=== PATIENT | male | born 1945 | race Caucasian/White ===

== ENCOUNTER 2019-02-14 09:34 | Inpatient (IN) ==
--- OUTSIDE RECORDS SUMMARY | 2019-02-14 09:36 | External Medical Summary | Continuity of Care Document ---
:1945 Author Name Shellie MMike Address Unavailable Unavailable , Care Team Providers Name Role Phone Unavailable Unavailable Unavailable Problems Hypertension (401.9) (I10) Gout (274.9) (M10.9) Allergies and Adverse Reactions Lisinopril TABS (Allergy) Penicillins (Allergy) Medications Albuterol Sulfate (2.5 MG/3ML) 0.083% In halation Nebulization Solution; USE DIRECTED. , M.D. Refills: 0 Allopurinol 300 MG Oral Tablet; TAKE 1 TABLET DAILY. , M.D. Refills: 0 Atorvastatin Calcium 80 MG Oral Tablet; TAKE 1 TABLET AT BED TIME. , M.D. Refills: 0 Citalopram Hydrobromide 40 MG Oral Tablet; TAKE 1/2 TABLET D TAMMY. , M.D. Refills: 0 Clopidogrel Bisulfate 75 MG Oral Tablet; TAKE 1 TABLET DAILY . , M.D. Refills: 0 hydroCHLOROthiazide 25 MG Oral Tablet; TAKE 1 TABLET DAILY. , M.D. Refills: 0 HYDROcodone-Acetaminophen 5-325 MG Oral Tablet; 1 TAB PO TWICE DAILY NEEDED FOR PAIN , M.D. Refills: 0 Aspirin 325 MG Oral Tablet; TAKE 1 TABLET DAILY. , M.D. Refills: 0 Cyanocobalamin TABS , M.D. Refills: 0 guaiFENesin 200 MG Oral Tablet; TAKE 3 TABLET Twice daily SC N , M.D. Refills: 0 Sildenafil Citrate TABS; TAKE 100 MG PRN , M.D. Refills: 0 Procedures Procedures not documented Immunizations Immunizations not documented Plan of Treatment Planned Observations Planned Goals not documented Results No Known Results Results not documented
[2019-02-14] MEDS ORDERED: SODIUM CHLORIDE 0.9% 1000ML 250 ML IV ONE (10:16)
[2019-02-14 10:52] LABS: Basophils # (auto) 0.04 K/uL (0-0.2); Basophils % (auto) 0.4 %; Eosinophils # (auto) 0.22 K/uL (0-0.5); Eosinophils % (auto) 2.2 %; Hematocrit (blood only) 47.7 % (42-52); Hemoglobin 16.7 g/dL (14.0-18.0); Immature Granulocytes # (auto) 0.02 K/uL (0.00-0.02); Immature Granulocytes % (auto) 0.2 %; Lymphocytes # (auto) 2.48 K/uL (1.2-3.4); Lymphocytes % (auto) 25.3 %; Mean Platelet Volume 9.1 fL (7.4-10.4); Monocytes # (auto) 0.72 K/uL (0.11-0.59); Monocytes % (auto) 7.3 %; Neutrophils # (auto) 6.32 K/uL (1.4-6.5); Neutrophils % (auto) 64.6 %; Platelet Count 205 K/uL (130-400); RDW Coefficient of Variation 13.9 % (11.5-14.5); RDW Standard Deviation 44.8 fL (36.4-46.3); Red Blood Count 5.42 M/uL (4.7-6.1)
[2019-02-14 10:56] LABS: Appearance Urine Cloudy (Clear); Bilirubin Urine Negative (Negative); Blood Urine 3+ (Negative); Color Urine Brown; Glucose Urine UA Negative (Negative); Ketones Urine Negative (Negative); Leukocyte Esterase Urine Trace (Negative); Nitrite Urine Negative (Negative); Protein Urine 2+ (Negative); Urobilinogen Urine Negative (Negative); pH Urine 5.5 (4.5-7.5)
[2019-02-14 11:03] LABS: RBC Urine >30 /hpf (0-4); WBC Urine >30 /hpf (0-5)
[2019-02-14 11:04] LABS: Bacteria Urine 1+ (Negative); Mucus Urine Present (None Prsent)
[2019-02-14 11:11] LABS: Alanine Aminotransferase 19 U/L (12-78); Albumin Level 3.5 gm/dl (3.4-5.0); BUN Creatinine Ratio 11.4 (10-20); Bilirubin Direct < 0.1 mg/dl (0-0.2); Blood Urea Nitrogen 10 mg/dl (7-18); Calcium 8.5 mg/dl (8.5-10.1); Carbon Dioxide 27 mmol/L (21-32); Chloride 108 mmol/L (98-107); Est GFR (African American) 97.4; Glucose 84 mg/dl (70-99); Potassium 4.2 mmol/L (3.5-5.1); Sodium 140 mmol/L (136-145)
[2019-02-14 11:21] LABS: Partial Thromboplastin Ratio 0.9; Partial Thromboplastin Time 25.4 Seconds (21.0-31.0)
[2019-02-14 11:27] LABS: Alkaline Phosphatase 76 U/L (45-117); Aspartate Aminotransferase 16 U/L (15-37); Bilirubin,Total 0.5 mg/dl (0.2-1); Total Protein 7.3 gm/dl (6.4-8.2)
[2019-02-14] MEDS ORDERED: IOVERSOL 100ml IV PRN (11:41)
--- NOTE | 2019-02-14 12:04 | CT Scan Report ---
CT SCAN OF THE ABDOMEN AND PELVIS WITH IV CONTRAST CLINICAL HISTORY: Hematuria. Reported history of bladder cancer. COMPARISON STUDY: No priors. TECHNIQUE: Following the IV administration of 94 cc of Optiray 320, CT scan of the abdomen and pelvi s is performed from the lung bases to the proximal femora. Images are reviewed in the axial, sagittal , and coronal planes. IV contrast was administered without complication. A dose lowering technique wa s utilized adhering to the principles of ALARA. CT DOSE: 773.84 mGy.cm FINDINGS: Lung bases: The heart is normal in size and without pericardial effusion. There are coronary artery c alcifications. Emphysematous change is noted at the lung bases. A pleural-based calcification is note d in the right lower lobe. There is no airspace consolidation or pleural effusion. A 4 mm groundglass nodule at the right lung base is seen on image #77. There is a tiny hiatal hernia. Liver: The contrast-enhanced liver is normal in size, contour, and attenuation. There is no intrahepa tic biliary ductal dilatation. The hepatic veins and portal veins are patent. Gallbladder: Unremarkable. Spleen: Normal in size and attenuation. Pancreas: The pancreas is mildly atrophic. Scattered calcifications are noted in the pancreatic head. Adrenal glands: Unremarkable. Kidneys: The contrast enhanced kidneys demonstrate cortical atrophy. The kidneys enhance symmetricall y. There is a 12 mm obstructing calculus in the distal right ureter at the vesicoureteral junction se en on image #338. Additionally, there is a second 10 mm obstructing right ureteral calculus just prox imal to the vesicoureteral stone seen on image #325. These cause moderate to severe right hydroureter onephrosis. There is associated perinephric and periureteric stranding. There is urothelial thickenin g and enhancement seen within the distal right ureter. No additional calculi are clinical data identi fied in either kidney on this contrast-enhanced examination. There is no left-sided hydronephrosis. S cattered subcentimeter cortical hypodensities likely represent cysts but are too small for definitive characterization. Abdominal vasculature: There is advanced atherosclerotic plaque seen throughout the abdominal aorta. There is ectasia of the distal abdominal aorta which measures up to 2.8 cm.. Bowel: There is moderate to advanced colonic diverticulosis without CT evidence of acute diverticulit is. No bowel obstruction is seen. There are large duodenal diverticula. The appendix is well-visuali zed and normal. Peritoneum: There is no intraperitoneal free air or abdominal ascites. Lymphadenopathy: A prominent portacaval node measures 11 mm in short axis. There is no retroperitonea l, pelvic sidewall, or inguinal lymphadenopathy. Pelvic viscera: Evaluation of the pelvis is degraded by streak artifact from a left hip arthroplasty. The prostate gland is enlarged and heterogeneous, noting median lobe hypertrophy. The bladder wall i s thickened and trabeculated indicating chronic outlet obstruction. Mild asymmetric bladder wall thic kening is suggested posterior lesion on the right near the trigone. A small bladder diverticulum is s een posteriorly on the left. Skeletal structures: The skeletal structures are osteopenic. There is moderate lumbosacral spondylosi s. No lytic or blastic lesions are seen. A left hip arthroplasty is in place. IMPRESSION: 1. There are 2 large obstructing calculi identified in the distal right ureter measuring 12 mm and 10 mm. These cause moderate to severe right hydroureteronephrosis. 2. No additional renal calculi are clearly identified. 3. There is right-sided perinephric and periureteric stranding, as well as urothelial thickening and enhancement within the distal right ureter. This findings are likely related to obstruction/hydroneph rosis. Correlate clinically and with urinalysis for evidence of superimposed infection. 4. Prostatomegaly with evidence of chronic bladder outlet obstruction. 5. There is asymmetric bladder wall thickening suggested posteriorly on the right near the trigone. T his may be related to edema from adjacent obstructing kidney stones. Given the history of bladder can cer neoplasm is not excluded. Nonemergent follow-up with urology is recommended. 6. Moderate to advanced colonic diverticulosis without CT evidence of acute diverticulitis. 7. A 4 mm groundglass nodule seen at the right lung base. If clinically warranted, a dedicated chest CT could be considered for further assessment of the thorax. 8. Additional findings as above. Electronically signed by: Martinez Castaneda M.D. 02/14/2019 12:03 PM
[2019-02-14] MEDS ORDERED: CEFEPIME 2,000 MG/20 ML VIAL IV STA (12:19)
--- NOTE | 2019-02-14 13:17 | XRay Report ---
XR chest 1V portable CLINICAL HISTORY: Preoperative chest. Nephrolithiasis. COMPARISON STUDY: 01/23/2014 FINDINGS: The cardiac and mediastinal contours are normal. There is no evidence of focal pulmonary co nsolidation. There is no evidence of failure. No pleural effusions are visualized.[There areas of y[place]o ear atelectasis/scarring within the left mid to lower lung zone. IMPRESSION: No active disease in the chest. Electronically signed by: Shivam Martinez M.D. 02/14/2019 1:16 PM
--- NOTE | 2019-02-14 13:18 | Urology Consultation ---
Date of Consultation February 14, 2019 Assessment & Plan (1) Hematuria: (2) Ureteral stone: 73yo M with gross hematuria, large distal left ureteral stones and severe right hydronephrosis. Pt is currently stable, nontoxic appearing. He has been NPO all day. UC&S pending. He states his hematuria is "very dark" with each void. Currently without any pain. Findings reviewed with Dr. Chaparro. Given his history of bladder cancer in the context of an obstructing right ureteral stone, will proceed with OR for cysto, Right retrograde pyelogram and Right stent placement, possible ureteroscopy, laser litho, stone basketing, possible ureteral dilation depending on findings. Risks and benefits to be reviewed with patient by Dr. Chaparro. OR notified. Preoperative CXR and EKG ordered. Pt received cefepime IV in the ER. History of Present Illness Reason for Consultation: ureteral stones, hydro Requesting Physician: Dr. Melo [facility] History of Present Illness 73yo M with Hx of bladder cancer cared for by the DC presented to [facility] ED today for complaint of gross hematuria x2 days. Hx of right groin pain 2-3 weeks ago, resolved spontaneously. CT imaging reveals two large right distal ureteral stones and moderate to severe right hydro, ARCE. UA + bacteria, WBC and RBCs. He denies any fever/chills/n/v. He denies any LUTS. Denies any suprapubic or bladder discomfort presently. Nocturia x1 He does not take any meds for BPH Remote hx of stones, spontaneous passage > 10 years ago. Cared for by the DC for bladder cancer, diagnosed last Fall. Treated with 6 treatments of BCG. He states his last scope in 2019 was clear, planned for next scope in May 2019. Allergies Allergy/AdvReac Type Severity Reaction Status Date / Time lisinopril Allergy Severe THROAT Verified 02/14/19 12:22 CLOSES Penicillins Allergy Unknown . Unverified 02/14/19 12:22 Home Medications Home Medications Medication Instructions Recorded Confirmed Type albuterol sulfate 2 puff INHALATION Q4H PRN 02/14/19 02/14/19 History amlodipine 10 mg PO DAILY 02/14/19 02/14/19 History aspirin 325 mg PO DAILY 02/14/19 02/14/19 History budesonide-formoterol 2 puff INHALATION Q12H 02/14/19 02/14/19 History clopidogrel 75 mg PO DAILY 02/14/19 02/14/19 History Patient History Medical History Hematuria (Acute) Hydronephrosis (Acute) Ureteral stone (Acute) History of stroke Bladder cancer HTN (hypertension) (Chronic) COPD (chronic obstructive pulmonary disease) Surgical History History of hip surgery Left Social History Beliefs That Will Affect Care: None Current Living Situation: Family Feels Safe at Home: Yes Smoking Status: Current every day smoker Hx Alcohol Use: Yes Hx Substance Use: No Review of Systems Review of Systems: Constitutional: Denies fever, chills, sweats, malaise Eyes: Denies problem reported ENMT: Denies dizziness Resp: Denies cough, Denies shortness of breath CV: Denies JVD GI: Denies nausea/vomiting : Denies suprapubic or flank pain, dysuria, urgency, frequency, hematuria MS: Denies swelling, stiffness Integ: Denies rash, erythema Neuro: Denies falls, weakness Psych: Denies behavior change Endo: Denies polyphagia, polydipsia Heme: Denies easy bleeding Physical Exam Constitutional: no acute distress and not ill appearing Eyes: no nystagmus ENMT: Ears: no hearing impairment Neck: trachea midline Respiratory: no respiratory distress and no cough Cardiovascular: Vessels: no JVD Chest (Breasts): Chest: normal inspection of chest Gastrointestinal (Abdomen): Inspection/Auscultation: abdomen not distended and no abdominal edema Percussion/Palpation: abdomen soft; abdomen nontender Musculoskeletal: Head/Neck/Chest: normocephalic and head atraumatic Skin: no rashes, warm and dry Neurologic: awake; not confused and not obtunded Psychiatric: Orientation: alert and oriented x 3 Eye Contact: good eye contact Affect: no depressed affect Genitourinary: bladder normal to inspection; no CVA tenderness Lymphatic: no lymphadenopathy and no lymphedema Results & Data Vital Signs (Past 12 Hours) Vital Signs Temp Pulse Pulse Resp BP BP Pulse Ox 02/14/19 12:48 79 20 181/109 H 97 08/12/19 09:49 36.6 C 74 20 174/91 H 93
--- NOTE | 2019-02-14 13:23 | History & Physical Bridge Note ---
Date of Service February 14, 2019 History & Physical Bridge Note I have examined the patient, reviewed the History & Physical and in the interval since the performance of the History & Physical I have noted the following changes of clinical significance: no changes noted Cystoscopy with right stent and poss ureterosocpy
--- NOTE | 2019-02-14 13:29 | Anesthesiology Consultation ---
Date of Service February 14, 2019 Assessment & Plan (1) Encounter for pre-operative examination: Chart Review Chart Review: Acceptable Risk for Surgery and Patient NOT seen in Pre Admission Testing Consults Requested none ASA ASA3 Proposed Anesthesia Anesthesia Type: MAC Risk / Benefits Reviewed With: PT / POA / Parent / Guardian, Accepts Plan and Informed Consent Obtained History Surgery Operation Date: 02/14/19 12:35 Proposed Procedures p Cystoscopy, Possible Ureterscopy with Stent - Pepe Chaparro II, DO Height/Weight Height: 5 ft 6 in Weight: 85.4 kg Allergies Allergy/AdvReac Type Severity Reaction Status Date / Time lisinopril Allergy Severe THROAT Verified 02/14/19 12:22 CLOSES Penicillins Allergy Unknown . Unverified 02/14/19 12:22 Medications Home Medications Medication Instructions Recorded Confirmed Last Taken albuterol sulfate 2 puff INHALATION Q4H PRN 02/14/19 02/14/19 Unknown amlodipine 10 mg PO DAILY 02/14/19 02/14/19 Unknown aspirin 325 mg PO DAILY 02/14/19 02/14/19 Unknown budesonide-formoterol 2 puff INHALATION Q12H 02/14/19 02/14/19 Unknown clopidogrel 75 mg PO DAILY 02/14/19 02/14/19 Unknown Active Medications Generic Name Dose Route Start Last Admin Trade Name Freq PRN Reason Stop Dose Admin Ioversol 94 ml 02/14/19 11:41 02/14/19 11:42 Optiray 320 100ml IV 02/18/19 11:40 94 ml ONCE PRN Administration Interaction Checking NPO Date Last Intake of Fluids: 02/14/19 Time Last Intake of Fluids: 06:00 Date Last Intake of Solids: 02/13/19 Time Last Intake of Solids: 16:00 Past Medical History Medical History Hematuria (Acute) Hydronephrosis (Acute) Ureteral stone (Acute) History of stroke Bladder cancer HTN (hypertension) (Chronic) COPD (chronic obstructive pulmonary disease) Past Surgical History Surgical History History of hip surgery Left Social History Smoking Status: Current every day smoker Review of Systems Negative for chest pain or shortness of breath. Patient denies active symptoms of GERD. Physical Exam Vital Signs Last Vital Signs Temp 36.6 C 02/14/19 14:42 Pulse 74 02/14/19 14:42 Resp 20 02/14/19 14:42 BP 176/89 H 02/14/19 14:42 Pulse Ox 94 02/14/19 14:42 Constitutional + obese ENMT Mouth: + dentures and + edentulous Thyromental Distance: > or= 3.5 Finger Breadths Mallampati Class: II Neck normal visual inspection; neck extension not limited Respiratory normal respiratory effort Auscultation: + wheezes Cardiovascular Rate/Rhythm: regular rate and regular rhythm Heart Sounds: no murmur Neurologic moves all extremities Psychiatric Orientation: alert and oriented x 3 Testing Laboratory Results 02/14/19 10:35 02/14/19 10:35 PT 10.0 Seconds (9.0-12.0) 02/14/19 10:35 INR 1.0 (0.9-1.1) 02/14/19 10:35 APTT 25.4 Seconds (21.0-31.0) 02/14/19 10:35 Urine Color Brown 02/14/19 10:35 Urine Appearance Cloudy (Clear) A 02/14/19 10:35 Urine pH 5.5 (4.5-7.5) 02/14/19 10:35 Ur Specific [place] 1.020 (1.000-1.030) 02/14/19 10:35 Urine Protein 2+ (Negative) H 02/14/19 10:35 Urine Glucose (UA) Negative (Negative) 02/14/19 10:35 Urine Ketones Negative (Negative) 02/14/19 10:35 Urine Nitrite Negative (Negative) 02/14/19 10:35 Ur Leukocyte Esterase Trace (Negative) H 02/14/19 10:35 Urine RBC >30 /hpf (0-4) H 02/14/19 10:35 Urine WBC >30 /hpf (0-5) H 02/14/19 10:35 Ur Epithelial Cells 5-10 /lpf (0-5) H 02/14/19 10:35 Electrocardiogram Date: 02/14/19 Findings: + NSR @ (72) and + RBBB
[2019-02-14] MEDS ORDERED: PROPOFOL IV EMULSION 10 MG/ML 20 ML VIAL IV ONE ×2 (13:52→15:14)
[2019-02-14] MEDS ORDERED: ePHEDrine sulfate 50 MG/ML SYR ONE (13:52)
[2019-02-14] MEDS ORDERED: ONDANSETRON INJ 2 MG/ML 2 ML VIAL ONE (13:52)
[2019-02-14] MEDS ORDERED: LIDOCAINE HCL 2% 2 ML VIAL/AMP(20MG/ML) INFIL ONE (13:52)
[2019-02-14] MEDS ORDERED: PHENYLEPHRINE 100MCG/ML 5ML SYR ONE (13:52)
[2019-02-14] MEDS ORDERED: MIDAZOLAM HCL 1 MG/ML 2ML VIAL ONE (13:52)
[2019-02-14] MEDS ORDERED: fentaNYL citrate 100 MCG/2 ML VIAL ONE (13:52)
[2019-02-14] MEDS ORDERED: DEXAMETHASONE SOD INJ 4 MG/ML VIAL ONE (13:52)
--- NOTE | 2019-02-14 14:28 | History & Physical Report ---
Date of Service February 14, 2019 Assessment & Plan (1) Hematuria: (2) Ureteral stone: (3) Hydronephrosis: Present on admission with hematuria CT abd/pelvis showed 2 large obstructing calculi identified in the distal right ureter measuring 12 mm and 10 mm. Causes moderate to severe right hyd roureteronephrosis. Right-sided perinephric and periureteric stranding, as well as urothelial thickening and enhancement within the distal right ureter. UA positive for 3+ blood, bacteria and leukocytosis Urology on board Plan to take to OR for cysto, Right retrograde pyelogram and Right stent placement EKG showed no ischemic finding and CXR showed no acute finding Will hold aspirin and plavix for now due to hematuria Clinically stable to proceed with surgical procedure Will keep NPO for now (4) HTN (hypertension): He stopped taking the Amlodipine He said that he did not know if it was for BP BP elevated on admssion Will resume amlodipine Will add hydralazine prn for elevated BP Continue monitor BP (5) Bladder cancer: CT abd/pelvis showed asymmetric bladder wall thickening suggested posteriorly on the right near the trigone Will get a Cystoscopy done today Continue monitor (6) Lung nodule: CT showed A 4 mm groundglass nodule seen at the right lung base. Will need to get a CT chest for further assessment of the thorax. Abnormal UA UA positive for leukocytes and bacteria Denies any dysuria/frequency or urinary retention Receiceved cefepime in the ER Urine cx pending Continue cefepime for now Hx CVA Plavix and aspirin on hold due to hematuria Stable DVT px SCD for now due to OR and hematuria CODE STATUS DNR History of Present Illness Chief Complaint: Hematuria Primary Care Provider: DC PCP 73 years old male with past medical history of bladder cancer, hypertension, dyslipidemia, presented to the ER with chief complaint of hematuria x days. Patient said that yesterday he developed brown-colored urine. He said that he continued to have tea color urine today. He said that about 2 to 3 weeks ago, he had pain in the right groin area that resolved. He said that because of his history of bladder cancer and his last treatment for the bladder ca was in August this year, that prompted him to seek medical attention for the hematuria. He said that he feels fine. Denies any flank pain, palpitation, dysuria, urinary retention, chest pain, and shortness of breath. CT abdomen and pelvis done in the ER showed 2 large obstructing calculi identified in the distal right ureter measuring 12 mm and 10 mm. Allergies Allergy/AdvReac Type Severity Reaction Status Date / Time lisinopril Allergy Severe THROAT Verified 02/14/19 12:22 CLOSES Penicillins Allergy Unknown . Unverified 02/14/19 12:22 Home Medications Home Medications Medication Instructions Recorded Confirmed Type albuterol sulfate 2 puff INHALATION Q4H PRN 02/14/19 02/14/19 History amlodipine 10 mg PO DAILY 02/14/19 02/14/19 History aspirin 325 mg PO DAILY 02/14/19 02/14/19 History budesonide-formoterol 2 puff INHALATION Q12H 02/14/19 02/14/19 History clopidogrel 75 mg PO DAILY 02/14/19 02/14/19 History Past Med/Surg History Medical History Hematuria (Acute) Hydronephrosis (Acute) Ureteral stone (Acute) History of stroke Bladder cancer Social History Beliefs That Will Affect Care: None Current Living Situation: Family Feels Safe at Home: Yes Smoking Status: Current every day smoker Hx Alcohol Use: Yes Hx Substance Use: No Review of Systems Review of Systems: All systems reviewed & are unremarkable except as noted in HPI & below Physical Exam Physical Exam: General- No acute distress Head- atraumatic Eyes- PERRL, EOMI, ENT- oropharynx clear Neck- supple, no JVD Lungs- clear to auscultation Heart- regular rhythm; no murmur Abdomen- normal bowel sounds, soft, nontender Extremities- no calf tenderness Neuro- alert, oriented x 3; PERRL, EOMI; no facial palsy; no dysarthria Skin- warm & dry Results & Data Vital Signs (Past 12 Hours) Vital Signs Temp Pulse Pulse Resp BP BP Pulse Ox 02/14/19 12:48 79 20 181/109 H 97 02/14/19 09:49 36.6 C 74 20 174/[address] SCAN OF THE ABDOMEN AND PELVIS WITH IV CONTRAST CLINICAL HISTORY: Hematuria. Reported history of bladder cancer. COMPARISON STUDY: No priors. TECHNIQUE: Following the IV administration of 94 cc of Optiray 320, CT scan of the abdomen and pelvis is performed from the lung bases to the proximal femora. Images are reviewed in the axial, sagittal, and coronal planes. IV contrast was administered without complication. A dose lowering technique was utilized adhering to the principles of ALARA. CT DOSE: 773.84 mGy.cm FINDINGS: Lung bases: The heart is normal in size and without pericardial effusion. There are coronary artery calcifications. Emphysematous change is noted at the lung bases. A pleural-based calcification is noted in the right lower lobe. There is no airspace consolidation or pleural effusion. A 4 mm groundglass nodule at the right lung base is seen on image #77. There is a tiny hiatal hernia. Liver: The contrast-enhanced liver is normal in size, contour, and attenuation. There is no intrahepatic biliary ductal dilatation. The hepatic veins and portal veins are patent. Gallbladder: Unremarkable. Spleen: Normal in size and attenuation. Pancreas: The pancreas is mildly atrophic. Scattered calcifications are noted in the pancreatic head. Adrenal glands: Unremarkable. Kidneys: The contrast enhanced kidneys demonstrate cortical atrophy. The kidneys enhance symmetrically. There is a 12 mm obstructing calculus in the distal right ureter at the vesicoureteral junction seen on image #338. Additionally, there is a second 10 mm obstructing right ureteral calculus just proximal to the vesicoureteral stone seen on image #325. These cause moderate to severe right hydroureteronephrosis. There is associated perinephric and periureteric stranding. There is urothelial thickening and enhancement seen within the distal right ureter. No additional calculi are clinical data identified in either kidney on this contrast-enhanced examination. There is no left-sided h ydronephrosis. Scattered subcentimeter cortical hypodensities likely represent cysts but are too small for definitive characterization. Abdominal vasculature: There is advanced atherosclerotic plaque seen throughout the abdominal aorta. There is ectasia of the distal abdominal aorta which measures up to 2.8 cm.. Bowel: There is moderate to advanced colonic diverticulosis without CT evidence of acute diverticulitis. No bowel obstruction is seen. There are large duodenal diverticula. The appendix is well-visualized and normal. Peritoneum: There is no intraperitoneal free air or abdominal ascites. Lymphadenopathy: A prominent portacaval node measures 11 mm in short axis. There is no retroperitoneal, pelvic sidewall, or inguinal lymphadenopathy. Pelvic viscera: Evaluation of the pelvis is degraded by streak artifact from a left hip arthroplasty. The prostate gland is enlarged and heterogeneous, noting median lobe hypertrophy. The bladder wall is thickened and trabeculated indicating chronic outlet obstruction. Mild asymmetric bladder wall thickening is suggested posterior lesion on the right near the trigone. A small bladder diverticulum is seen posteriorly on the left. Skeletal structures: The skeletal structures are osteopenic. There is moderate lumbosacral spondylosis. No lytic or blastic lesions are seen. A left hip arthroplasty is in place. IMPRESSION: 1. There are 2 large obstructing calculi identified in the distal right ureter measuring 12 mm and 10 mm. These cause moderate to severe right hydroureteronephrosis. 2. No additional renal calculi are clearly identified. 3. There is right-sided perinephric and periureteric stranding, as well as urothelial thickening and enhancement within the distal right ureter. This findings are likely related to obstruction/hydronephrosis. Correlate clinically and with urinalysis for evidence of superimposed infection. 4. Prostatomegaly with evidence of chronic bladder outlet obstruction. 5. There is asymmetric bladder wall thickening suggested posteriorly on the right near the trigone. This may be related to edema from adjacent obstructing kidney stones. Given the history of bladder cancer neoplasm is not excluded. Nonemergent follow-up with urology is recommended. 6. Moderate to advanced colonic diverticulosis without CT evidence of acute diverticulitis. 7. A 4 mm groundglass nodule seen at the right lung base. If clinically warranted, a dedicated chest CT could be considered for further assessment of the thorax. 8. Additional findings as above. Electronically signed by: Martinez Castaneda M.D. 02/14/2019 12:03 PM Dictated: 02/14/19 1149 Transcribed: 02/14/19 1149 XR chest 1V portable CLINICAL HISTORY: Preoperative chest. Nephrolithiasis. COMPARISON STUDY: 01/23/2014 FINDINGS: The cardiac and mediastinal contours are normal. There is no evidence of focal pulmonary consolidation. There is no evidence of failure. No pleural effusions are visualized.[There areas of linear atelectasis/scarring within the left mid to lower lung zone. IMPRESSION: No active disease in the chest. Electronically signed by: Shivam Martinez M.D. 02/14/2019 1:16 PM Dictated: 02/14/19 1315 Transcribed: 02/14/19 1315
[2019-02-14] MEDS ORDERED: ALBUT/IPRATROP 3MG/0.5MG NEB 3 ML VIAL INH PRN (14:58)
[2019-02-14] MEDS ORDERED: ONDANSETRON INJ 2 MG/ML 2 ML VIAL IV PRN (14:58)
[2019-02-14] MEDS ORDERED: fentaNYL citrate 100 MCG/2 ML VIAL IV PRN (14:58)
[2019-02-14] MEDS ORDERED: ATROPINE SULFATE 0.1 MG/ML 10ML SYR IV PRN (14:58)
[2019-02-14] MEDS ORDERED: ePHEDrine sulfate 50 MG/ML AMP IV PRN (14:58)
[2019-02-14] MEDS ORDERED: ALBUTEROL HFA INHALER 8.5 GM ONE (15:02)
[2019-02-14] MEDS ORDERED: IOTHALAMATE MEGLUMINE II 17.2% 250 ML VIAL ONE (15:14)
--- NOTE | 2019-02-14 15:33 | Operative Report ---
Post Operative Report Pre & Post Diagnosis Gross hematuria. Obstructing right distal stones. Same Operation Date: 02/14/19 12:35 <No data on this case meets the specified criteria> Procedure Cystoscopy with right retrograde pyelogram, aspiration, and stent placement. Operation Date: 02/14/19 12:35 <No data on this case meets the specified criteria> Surgeon Pepe Chaparro, II, DO Kerrick Kleaner Operator None Estimated Blood Loss 1 Findings Consistent with Post-Op Diagnosis Specimens Urine right renal pelvis. Drains 6 Fr Multilength Anesthesia Type MAC Complications none Disposition Disposition: Recovery Room Indications Large distal stones with obstruction. Risks and benefits discussed at length. Description of Procedure Patient was consented and brought back to the operating room. Patient was placed under anesthesia in the supine position and moved to the dorsal lithotomy position. Patient was prepped and draped in the regular sterile fashion. A time out was completed. A 30degree Cystoscope was placed into the bladder and the entire bladder was examined. The UO's were identified. The right was cannulized with a catheter and once passed the stone debris began to drain. Due to this, it was decided to only place the stent to allow decompression with treatment at a later date. The catheter was used to aspirate urine and a retrograde pyelogram was completed. A wire was then placed. With t he wire in place, a 6 FR Double J stent was placed. It was confirmed with fluoroscopy. The bladder was evaluated due to the history of bladder cancer. No lesions were discovered. With the stent in place, the bladder was emptied. The scope was removed. The patient was cleaned, aroused from anesthesia, and transferred to the pacu in stable condition having tolerated the procedure well with no complications. I was present and participated in all aspects of the procedure. The patient will be monitored in the PACU until transferred. I attest to the content of the Intraoperative Record and any orders documented therein. Any exceptions are noted below.
--- NOTE | 2019-02-14 15:40 | Fluoroscopy Report ---
INTRAOPERATIVE RADIOGRAPHS CLINICAL HISTORY: Right-sided ureteral stent placement. Fluoroscopy time: 70 seconds. FINDINGS: 2 spot fluoroscopic views of the right abdomen from a retrograde ureterogram and ureteral s tent placement procedure are presented. Correlation is made with abdominal CT dated 02/14/2019. The in itial image shows contrast within the hydronephrotic right renal collecting system. The proximal end of a ureteral stent has been deployed. The second image shows the distal end of the stent projecting over the bladder. A large calculus is seen along the distal and of the stent above the vesicoureteral junction. IMPRESSION: Intraoperative images from a right ureteral stent placement procedure as above. Electronically signed by: Martinez Castaneda M.D. 02/14/2019 3:39 PM
--- NOTE | 2019-02-14 16:02 | Emergency Department Note ---
Entered by Kiersten mSith acting as a scribe for History of Present Illness General Chief complaint: Hematuria Stated complaint: HEMATURIA Time Seen by Provider: 02/14/19 10:12 Source: patient Mode of arrival: ambulatory Limitations: no limitations History of Present Illness Onset (ago): day(s) 1 Location: genitals (urinary system) Radiation: non-radiation Pain Consistency: + constant Maximum Pain Intensity: 0 Current Pain Intensity: 0 Relieved By: + none Exacerbated By: + none Associated symptoms: + other (+abdominal pain) Treatments prior to arrival: none The patient is a 73 year old male who presents to the ED with complaints of hematuria since yesterday. He states "I'm peeing blood again". He last experienced similar symptoms in July or August of 2018 and followed with the [facility] for bladder cancer, that he states was found on cystoscopy and was treated with "probiotics". He does take daily Aspirin and Plavix for a history of prior stroke, and notes he has not been taking the Plavix for the past few days. The patient denies any recent dysuria, rating his pain as a 0/10. He does admit to some abdominal pain a few days ago, but states it has resolved. Home Medications Home Medications Medication Instructions Recorded Confirmed Type albuterol sulfate 2 puff INHALATION Q4H PRN 02/14/19 02/14/19 History amlodipine 10 mg PO DAILY 02/14/19 02/14/19 History aspirin 325 mg PO DAILY 02/14/19 02/14/19 History budesonide-formoterol 2 puff INHALATION Q12H 02/14/19 02/14/19 History clopidogrel 75 mg PO DAILY 02/14/19 02/14/19 History Allergies Allergy/AdvReac Type Severity Reaction Status Date / Time lisinopril Allergy Severe THROAT Verified 02/14/19 12:22 CLOSES Penicillins Allergy Unknown . Unverified 02/14/19 12:22 Past Med/Surg History Medical History Hematuria (Acute) Hydronephrosis (Acute) Ureteral stone (Acute) History of stroke Bladder cancer HTN (hypertension) (Chronic) COPD (chronic obstructive pulmonary disease) Surgical History History of hip surgery Left Social History Beliefs That Will Affect Care: None Current Living Situation: Family Feels Safe at Home: Yes Smoking Status: Current every day smoker Hx Alcohol Use: Yes Hx Substance Use: No Review of Systems See HPI for pertinent positives & negatives. and A total of 10 systems reviewed and were otherwise negative Physical Exam Vital Signs Vital Signs - 24 hr 02/14/19 09:49 02/14/19 12:48 Temperature 36.6 C Temperature Source Oral Sepsis Recent Fever Within 48 Hours No Sepsis Action Taken by Nursing No Action Required Pulse Rate 74 Pulse Rate [Right Finger] 79 Pulse Rhythm [Right Finger] Regular Pulse Strength [Right Finger] Normal Respiratory Rate 20 20 Respiratory Effort / Characteristics Non-Labored Spontaneous Respiratory Depth Normal Blood Pressure 174/91 H Blood Pressure [Right Arm] 181/109 H Blood Pressure Mean 118 Blood Pressure Mean [Right Arm] 133 Pulse Oximetry 93 97 Oxygen Delivery Method Room Air Room Air GENERAL: Patient is in no acute distress. HEENT: No acute trauma, normocephalic atraumatic, mucous membranes moist, no nasal congestion, no scleral icterus. NECK: No stridor, no adenopathy, no meningismus, trachea is midline. LUNGS: Clear to auscultation bilaterally, no wheeze, no rhonchi, breath sounds equal. HEART: Without murmurs gallops or rubs, regular rate and rhythm. ABDOMEN: Soft, moderately tender in the LLQ, bowel sounds positive, no hernias, no peritonitis. GROIN: Patient is not circumcised, no blood at the penile meatus, no meatal tear. EXTREMITIES: No cyanosis or edema, full range of motion of all the joints without pain or difficulty, no signs for acute trauma. NEUROLOGIC: Oriented x 3, no acute motor or sensory deficits, no focal weakness. SKIN: No rash, no jaundice, no diaphoresis. Course 1016: The patient was evaluated in room A12A and a complete history and physical were performed. 1220: I reevaluated the patient. I discussed his results so far and my recommendation I speak with Urology and the hospital medicine team. He is agreeable with the plan. 1230: I discussed the patients case with ODESSA Gifford, [facility] Hospitalist. The patient will be further evaluated. 1235: I discussed the patients case with ODESSA Claudio, [facility]. The patient will be further evaluated. Consultations Consultation #1: I discussed the patients case with ODESSA Gifford, [facility] Hospitalist. The patient will be further evaluated. Time: 12:30 Consultation #2: I discussed the patients case with ODESSA Claudio, [facility]. The patient will be further evaluated. Time: 12:35 Administered Medications Discontinued Medications Sodium Chloride (Nss 1000ml) 250 mls @ 999 mls/hr IV .Q16M ONE Stop: 02/14/19 10:31 Last Infusion: 02/14/19 11:07 Dose: 0 mls/hr Documented by: [id number] Admin: 02/14/19 10:39 Dose: 999 mls/hr Documented by: [id number] Cefepime HCl (Maxipime) 2,000 mg in 20 mls @ 5 mls/min IV NOW STA; Protocol Stop: 02/14/19 12:22 Last Admin: 02/14/19 12:44 Dose: 5 mls/min Documented by: [id number] Iothalamate Meglumine (Cysto-Conray Ii) Confirm Administered Dose 250 ml .ROUTE .STK-MED ONE Stop: 02/14/19 15:15 Last Admin: 02/14/19 15:30 Dose: 20 ml Documented by: [id number] Ioversol (Optiray 320 100ml) 94 ml IV ONCE PRN PRN Reason: Interaction Checking Stop: 02/18/19 11:40 Last Admin: 02/14/19 11:42 Dose: 94 ml Documented by: [id number] Medical Decision Making Differential Diagnosis The differential diagnoses considered include bladder cancer, ureteral stone, metastasis, diverticulitis, UTI, anemia, coagulopathy, renal or liver failure. Medical Records Attestation: I reviewed the patient's medical records. Home Medications Current Medication List: was personally reviewed by me Laboratory Data Attestation: I reviewed the patient's lab results. Result diagrams: 02/14/19 10:35 02/14/19 10:35 Lab Results 02/14/19 02/14/19 02/14/19 Range/Units 10:35 10:35 10:35 WBC 9.80 (4.8-10.8) K/uL RBC 5.42 (4.7-6.1) M/uL Hgb 16.7 (14.0-18.0) g/dL Hct 47.7 (42-52) % MCV 88.0 (80-100) fL MCH 30.8 (25-34) pg MCHC 35.0 (32-36) g/dL RDW Std Deviation 44.8 (36.4-46.3) fL RDW Coeff of Devon 13.9 (11.5-14.5) % Plt Count 205 (130-400) K/uL MPV 9.1 (7.4-10.4) fL Immature Gran % (Auto) 0.2 % Neut % (Auto) 64.6 % Lymph % (Auto) 25.3 % Alcorn % (Auto) 7.3 % Eos % (Auto) 2.2 % Baso % (Auto) 0.4 % Immature Gran # (Auto) 0.02 (0.00-0.02) K/uL Neut # (Auto) 6.32 (1.4-6.5) K/uL Lymph # (Auto) 2.48 (1.2-3.4) K/uL Alcorn # (Auto) 0.72 H (0.11-0.59) K/uL Eos # (Auto) 0.22 (0-0.5) K/uL Baso # (Auto) 0.04 (0-0.2) K/uL PT 10.0 (9.0-12.0) Seconds INR 1.0 (0.9-1.1) APTT 25.4 (21.0-31.0) Seconds PTT Ratio 0.9 Sodium 140 (136-145) mmol/L Potassium 4.2 (3.5-5.1) mmol/L Chloride 108 H (98-107) mmol/L Carbon Dioxide 27 (21-32) mmol/L Anion Gap 5.0 (3-11) BUN 10 (7-18) mg/dl Creatinine 0.88 (0.6-1.4) mg/dl Est Cr Clr Drug Dosing Not Reportable Est GFR ( Amer) 97.4 Est GFR (Non-Af Amer) 84.0 BUN/Creatinine Ratio 11.4 (10-20) Glucose 84 (70-99) mg/dl Calcium 8.5 (8.5-10.1) mg/dl Total Bilirubin 0.5 (0.2-1) mg/dl Direct Bilirubin < 0.1 (0-0.2) mg/dl AST 16 (15-37) U/L ALT 19 (12-78) U/L Alkaline Phosphatase 76 (45-117) U/L Total Protein 7.3 (6.4-8.2) gm/dl Albumin 3.5 (3.4-5.0) gm/dl Urine Color Urine Appearance (Clear) Urine pH (4.5-7.5) Ur Specific Hewitt (1.000-1.030) Urine Protein (Negative) Urine Glucose (UA) (Negative) Urine Ketones (Negative) Urine Blood (Negative) Urine Nitrite (Negative) Urine Bilirubin (Negative) Urine Urobilinogen (Negative) Ur Leukocyte Esterase (Negative) Urine RBC (0-4) /hpf Urine WBC (0-5) /hpf Ur Epithelial Cells (0-5) /lpf Urine Bacteria (Negative) Urine Mucus (None Prsent) 02/14/19 Range/Units 10:35 WBC (4.8-10.8) K/uL RBC (4.7-6.1) M/uL Hgb (14.0-18.0) g/dL Hct (42-52) % MCV (80-100) fL MCH (25-34) pg MCHC (32-36) g/dL RDW Std Deviation (36.4-46.3) fL RDW Coeff of Devon (11.5-14.5) % Plt Count (130-400) K/uL MPV (7.4-10.4) fL Immature Gran % (Auto) % Neut % (Auto) % Lymph % (Auto) % Alcorn % (Auto) % Eos % (Auto) % Baso % (Auto) % Immature Gran # (Auto) (0.00-0.02) K/uL Neut # (Auto) (1.4-6.5) K/uL Lymph # (Auto) (1.2-3.4) K/uL Alcorn # (Auto) (0.11-0.59) K/uL Eos # (Auto) (0-0.5) K/uL Baso # (Auto) (0-0.2) K/uL PT (9.0-12.0) Seconds INR (0.9-1.1) APTT (21.0-31.0) Seconds PTT Ratio Sodium (136-145) mmol/L Potassium (3.5-5.1) mmol/L Chloride (98-107) mmol/L Carbon Dioxide (21-32) mmol/L Anion Gap (3-11) BUN (7-18) mg/dl Creatinine (0.6-1.4) mg/dl Est Cr Clr Drug Dosing Est GFR ( Amer) Est GFR (Non-Af Amer) BUN/Creatinine Ratio (10-20) Glucose (70-99) mg/dl Calcium (8.5-10.1) mg/dl Total Bilirubin (0.2-1) mg/dl Direct Bilirubin (0-0.2) mg/dl AST (15-37) U/L ALT (12-78) U/L Alkaline Phosphatase (45-117) U/L Total Protein (6.4-8.2) gm/dl Albumin (3.4-5.0) gm/dl Urine Color Brown Urine Appearance Cloudy A (Clear) Urine pH 5.5 (4.5-7.5) Ur Specific Hewitt 1.020 (1.000-1.030) Urine Protein 2+ H (Negative) Urine Glucose (UA) Negative (Negative) Urine Ketones Negative (Negative) Urine Blood 3+ H (Negative) Urine Nitrite Negative (Negative) Urine Bilirubin Negative (Negative) Urine Urobilinogen Negative (Negative) Ur Leukocyte Esterase Trace H (Negative) Urine RBC >30 H (0-4) /hpf Urine WBC >30 H (0-5) /hpf Ur Epithelial Cells 5-10 H (0-5) /lpf Urine Bacteria 1+ H (Negative) Urine Mucus Present A (None Prsent) Imaging Data Radiologist's Impression: Radiology results as stated below per my review and the radiologist's interpretation: CT SCAN OF THE ABDOMEN AND PELVIS WITH IV CONTRAST CLINICAL HISTORY: Hematuria. Reported history of bladder cancer. COMPARISON STUDY: No priors. TECHNIQUE: Following the IV administration of 94 cc of Optiray 320, CT scan of the abdomen and pelvis is performed from the lung bases to the proximal femora. Images are reviewed in the axial, sagittal, and coronal planes. IV contrast was administered without complication. A dose lowering technique was utilized adhering to the principles of ALARA. CT DOSE: 773.84 mGy.cm FINDINGS: Lung bases: The heart is normal in size and without pericardial effusion. There are coronary artery calcifications. Emphysematous change is noted at the lung bases. A pleural-based calcification is noted in the right lower lobe. There is no airspace consolidation or pleural effusion. A 4 mm groundglass nodule at the right lung base is seen on image #77. There is a tiny hiatal hernia. Liver: The contrast-enhanced liver is normal in size, contour, and attenuation. There is no intrahepatic biliary ductal dilatation. The hepatic veins and portal veins are patent. Gallbladder: Unremarkable. Spleen: Normal in size and attenuation. Pancreas: The pancreas is mildly atrophic. Scattered calcifications are noted in the pancreatic head. Adrenal glands: Unremarkable. Kidneys: The contrast enhanced kidneys demonstrate cortical atrophy. The kidneys enhance symmetrically. There is a 12 mm obstructing calculus in the distal right ureter at the vesicoureteral junction seen on image #338. Additionally, there is a second 10 mm obstructing right ureteral calculus just proximal to the vesico ureteral stone seen on image #325. These cause moderate to severe right hydroureteronephrosis. There is associated perinephric and periureteric stranding. There is urothelial thickening and enhancement seen within the distal right ureter. No additional calculi are clinical data identified in either kidney on this contrast-enhanced examination. There is no left-sided hydronephrosis. Scattered subcentimeter cortical hypodensities likely represent cysts but are too small for definitive characterization. Abdominal vasculature: There is advanced atherosclerotic plaque seen throughout the abdominal aorta. There is ectasia of the distal abdominal aorta which measures up to 2.8 cm.. Bowel: There is moderate to advanced colonic diverticulosis without CT evidence of acute diverticulitis. No bowel obstruction is seen. There are large duodenal diverticula. The appendix is well-visualized and normal. Peritoneum: There is no intraperitoneal free air or abdominal ascites. Lymphadenopathy: A prominent portacaval node measures 11 mm in short axis. There is no retroperitoneal, pelvic sidewall, or inguinal lymphadenopathy. Pelvic viscera: Evaluation of the pelvis is degraded by streak artifact from a left hip arthroplasty. The prostate gland is enlarged and heterogeneous, noting median lobe hypertrophy. The bladder wall is thickened and trabeculated indicating chronic outlet obstruction. Mild asymmetric bladder wall thickening is suggested posterior lesion on the right near the trigone. A small bladder diverticulum is seen posteriorly on the left. Skeletal structures: The skeletal structures are osteopenic. There is moderate lumbosacral spondylosis. No lytic or blastic lesions are seen. A left hip arthroplasty is in place. IMPRESSION: 1. There are 2 large obstructing calculi identified in the distal right ureter measuring 12 mm and 10 mm. These cause moderate to severe right hy droureteronephrosis. 2. No additional renal calculi are clearly identified. 3. There is right-sided perinephric and periureteric stranding, as well as urothelial thickening and enhancement within the distal right ureter. This findings are likely related to obstruction/hydronephrosis. Correlate clinically and with urinalysis for evidence of superimposed infection. 4. Prostatomegaly with evidence of chronic bladder outlet obstruction. 5. There is asymmetric bladder wall thickening suggested posteriorly on the right near the trigone. This may be related to edema from adjacent obstructing kidney stones. Given the history of bladder cancer neoplasm is not excluded. Nonemergent follow-up with urology is recommended. 6. Moderate to advanced colonic diverticulosis without CT evidence of acute d iverticulitis. 7. A 4 mm ground-glass nodule seen at the right lung base. If clinically warranted, a dedicated chest CT could be considered for further assessment of the thorax. 8. Additional findings as above. Electronically signed by: Martinez Castaneda M.D. 02/14/2019 12:03 PM ECG Data Attestation: I personally reviewed and interpreted this ECG as follows: Indication: other (EKG ordered by Urology) Rate (beats per minute): 72 Rhythm: normal sinus Findings: + RBBB; no PVC and no ST elevation Blood Pressure Blood Pressure Findings: Elevated blood pressure Blood Pressure Disposition: further management by hospitalist [facility] Narrative There is no leukocytosis or concerning anemia. No coagulopathy. No significant electrolyte abnormality or kidney failure. No liver enzyme elevation. Urinalysis showed white cells and red cells, this urine sample was concerning for infection. Urine culture is pending. Abdominal and pelvis CT shows significant right-sided hydronephrosis with 2 large right sided distal ureteral stones. There was mention of possible bladder thickening/mass. The patient did not require anything for pain. He was given IV cefepime as antibiotic coverage. He received IV saline. I spoke with urology. The patient requires a hospital stay and likely urologic intervention/stenting. I spoke to the patient and case management. I did speak with the on-call hospitalist. It appears the hematuria is a result of the ureteral stones and possibly infection. The patient does have a history of bladder cancer so further work-up for cancer recurrence is indicated. Impression & Plan Hematuria, Hydronephrosis, Ureteral stone, Urinary tract infection Discharge Plan Visit Data *Final* Discharge Date/Time: 02/14/19 14:01 Chief Complaint: Hematuria Stated Complaint: HEMATURIA ED Provider: Martinez Melo Discharge Problem: Hematuria, Hydronephrosis, Ureteral stone, Urinary tract infection Patient Disposition: Admitted As Inpatient Discharge Instructions Interventions: ED Discharge Assessment Last Done: 02/14/19 14:01 Discharge Problem: Hematuria Qualifiers: Hematuria type: gross Qualified Code(s): R31.0 - Gross hematuria Hydronephrosis Qualifiers: Hydronephrosis type: with ureteral calculous obstruction Qualified Code(s): N13.2 - Hydronephrosis with renal and ureteral calculous obstruction Urinary tract infection Qualifiers: Urinary tract infection type: acute cystitis Hematuria presence: with hematuria Qualified Code(s): N30.01 - Acute cystitis with hematuria The scribe's documentation has been prepared under my direction and personally reviewed by me in its entirety. I confirm that the note above accurately reflects all work, treatment, procedures, and medical decision making performed by me.
[2019-02-14] MEDS ORDERED: HydrALAZINE HCL 20 MG/ML VIAL IV PRN (16:20)
--- NOTE | 2019-02-14 16:37 | Anesthesiology Progress Note ---
Date of Service February 14, 2019 Anesthesia Post Procedure Vital Signs Vital Signs: Temp Pulse Pulse Pulse Resp BP BP 02/14/19 16:00 72 16 144/65 H 02/14/19 15:50 36.4 C L 79 16 121/59 L 02/14/19 15:40 36.4 C L 76 16 110/56 L 02/14/19 14:42 36.6 C 74 20 02/14/19 12:48 79 20 02/14/19 09:49 36.6 C 74 20 174/91 H BP Pulse Ox 02/14/19 16:00 94 02/14/19 15:50 97 02/14/19 15:40 97 02/14/19 14:42 176/89 H 94 02/14/19 12:48 181/109 H 97 02/14/19 09:49 93 Transfer of Care Handoff Completed per policy Notes Mental Status: alert / awake / arousable and participated in evaluation Patient Amnestic to Procedure: Yes Nausea / Vomiting: adequately controlled Pain: adequately controlled Airway Patency, RR, SpO2: stable & adequate BP & HR: stable & adequate Hydration State: stable & adequate Anesthetic Complications: no major complications apparent
[2019-02-14] MEDS: AMLODIPINE BESYLATE 5 MG TAB PO SCH (17:09)
[2019-02-14] MEDS: CEFEPIME 1,000 MG in SYRINGE 0 ML IV SCH (18:05)
[2019-02-14] MEDS: BUDESONIDE/FORMOTEROL FUMARATE 160/4.5 60 PUFFS/INHALER INH SCH (20:18)
[2019-02-14] MEDS: SODIUM CHLORIDE 0.9% 1000ML 1,000 ML IV SCH (21:46)
[2019-02-15] MEDS ORDERED: OXYCODONE HCL IR 5 MG TAB (IMMEDIATE RELEASE) PO STA (00:17)
[2019-02-15] MEDS: CEFEPIME 1,000 MG in SYRINGE 0 ML IV SCH (05:16)
--- NOTE | 2019-02-15 07:17 | XRay Report ---
XR KUB/Abdomen 1 view CLINICAL HISTORY: s/p stent - rigth distal ureteral stone visibility COMPARISON STUDY: CT 02/14/2019 FINDINGS: Nonobstructive bowel pattern. Right ureteral stent is in position. Calculi overlying the di stal right ureter appear to be present measuring 7 and 5 mm by routine imaging criteria. No significa nt left nephrocalcinosis. IMPRESSION: 1. Right ureteral stent in position. 2. Calculi overlying the distal right ureter similar to the prior CT study. The above report was generated using voice recognition software. It may contain grammatical, syntax or spelling errors. Electronically signed by: Edison Verduzco M.D. 02/15/2019 7:15 AM
[2019-02-15] MEDS: SODIUM CHLORIDE 0.9% 1000ML 1,000 ML IV SCH (07:30)
[2019-02-15] MEDS: AMLODIPINE BESYLATE 5 MG TAB PO SCH (09:17)
[2019-02-15] MEDS: BUDESONIDE/FORMOTEROL FUMARATE 160/4.5 60 PUFFS/INHALER INH SCH (09:17)
[2019-02-15] MEDS ORDERED: MoRPHine SULFATE 4 MG/ML 1 ML CARP\\VIAL IV STA (09:42)
[2019-02-15 09:53] LABS: BUN Creatinine Ratio 12.8 (10-20); Calcium 8.6 mg/dl (8.5-10.1); Creatinine Clr Calc Pharmacy 82.8 ml/min; Est GFR (African American) 101.8; Est GFR (Non-African American) 87.8
--- NOTE | 2019-02-15 10:21 | Urology Progress Note ---
Date of Service February 15, 2019 Assessment & Plan (1) Ureteral stone: (2) Urinary tract infection: 73yo M with hx of bladder cancer, s/p cystoscopy and Right ureteral stent placement. Two large right ureteral stones with mod/severe right hydronephrosis. Afebrile, VSS UC&S pending - continue cefepime while awaiting results. No areas of concern on cystoscopy with hx of bladder cancer. Okay to restart plavix per our service. Adding tamsulosin for renal colic. Pt is very motivated to be discharged home to care for his dog. Okay to discharge home from our standpoint with tamsulosin, 5days of antibiotics (cefuroxime or keflex), and pain control. Will arrange for close followup to discuss definitive stone management. Thank you for allowing us to participate in the acute care of Mr. Galvin. Please reconsult us with additional questions, concerns or changes in patient status. Subjective 73yo M POD #1 s/p cystoscopy, right ureteral stent placement. Pt alert and oriented today. States he did not get much sleep, relates to environment. States he just began experiencing stent irritation - discomfort to right flank this AM. Denies dysuria, urgency/frequency. Urine assessed in urinal -teacolored. Straining for tiny flecks of urine, pt felt this was his stones. UC&S pending, pt continues on cefepime per primary team. NO fevers overnight. He is very motivated to be discharged due to having a dog at home that he cares for independently. Review of Systems Review of Systems: All systems reviewed & are unremarkable except as noted in HPI & below Physical Exam Physical Exam: A&Ox3 RRR abd soft, nontender : voiding spontaneously, clear yellow. Results & Data Vital Signs (Past 12 Hours) Vital Signs Temp Pulse Resp BP BP Pulse Ox 02/15/19 07:55 36.7 C 71 16 169/88 H 92 02/15/19 03:55 36.9 C 70 16 154/82 H 92 02/14/19 23:15 36.8 C 72 16 155/81 H 92 Laboratory Results Laboratory Results - last 48 hr 02/14/19 02/14/19 02/14/19 10:35 10:35 10:35 WBC 9.80 RBC 5.42 Hgb 16.7 Hct 47.7 MCV 88.0 MCH 30.8 MCHC 35.0 RDW Std Deviation 44.8 RDW Coeff of Devon 13.9 Plt Count 205 MPV 9.1 Immature Gran % (Auto) 0.2 Neut % (Auto) 64.6 Lymph % (Auto) 25.3 Humphreys % (Auto) 7.3 Eos % (Auto) 2.2 Baso % (Auto) 0.4 Immature Gran # (Auto) 0.02 Neut # (Auto) 6.32 Lymph # (Auto) 2.48 Humphreys # (Auto) 0.72 H Eos # (Auto) 0.22 Baso # (Auto) 0.04 PT 10.0 INR 1.0 APTT 25.4 PTT Ratio 0.9 Sodium 140 Potassium 4.2 Chloride 108 H Carbon Dioxide 27 Anion Gap 5.0 BUN 10 Creatinine 0.88 Est Cr Clr Drug Dosing Not Reportable Est GFR ( Amer) 97.4 Est GFR (Non-Af Amer) 84.0 BUN/Creatinine Ratio 11.4 Glucose 84 Calcium 8.5 Total Bilirubin 0.5 Direct Bilirubin < 0.1 AST 16 ALT 19 Alkaline Phosphatase 76 Total Protein 7.3 Albumin 3.5 Urine Color Urine Appearance Urine pH Ur Specific [place] Urine Protein Urine Glucose (UA) Urine Ketones Urine Blood Urine Nitrite Urine Bilirubin Urine Urobilinogen Ur Leukocyte Esterase Urine RBC Urine WBC Ur Epithelial Cells Urine Bacteria Urine Mucus 02/14/19 02/15/19 10:35 09:12 WBC RBC Hgb Hct MCV MCH MCHC RDW Std Deviation RDW Coeff of Devon Plt Count MPV Immature Gran % (Auto) Neut % (Auto) Lymph % (Auto) Humphreys % (Auto) Eos % (Auto) Baso % (Auto) Immature Gran # (Auto) Neut # (Auto) Lymph # (Auto) Humphreys # (Auto) Eos # (Auto) Baso # (Auto) PT INR APTT PTT Ratio Sodium 141 Potassium 4.0 Chloride 108 H Carbon Dioxide 29 Anion Gap 5.0 BUN 10 Creatinine 0.79 Est Cr Clr Drug Dosing 82.8 Est GFR ( Amer) 101.8 Est GFR (Non-Af Amer) 87.8 BUN/Creatinine Ratio 12.8 Glucose 115 H Calcium 8.6 Total Bilirubin Direct Bilirubin AST ALT Alkaline Phosphatase Total Protein Albumin Urine Color Brown Urine Appearance Cloudy A Urine pH 5.5 Ur Specific [place] 1.020 Urine Protein 2+ H Urine Glucose (UA) Negative Urine Ketones Negative Urine Blood 3+ H Urine Nitrite Negative Urine Bilirubin Negative Urine Urobilinogen Negative Ur Leukocyte Esterase Trace H Urine RBC >30 H Urine WBC >30 H Ur Epithelial Cells 5-10 H Urine Bacteria 1+ H Urine Mucus Present A (1) Urinary tract infection Hematuria presence: with hematuria Urinary tract infection type: acute cystitis Qualified Code(s): N30.01 - Acute cystitis with hematuria
[2019-02-15] MEDS ORDERED: TAMSULOSIN HCL 0.4 MG CAP PO ONE (10:30)
--- NOTE | 2019-02-15 12:39 | Hospitalist Progress Note ---
Date of Service February 15, 2019 Assessment & Plan (1) Hematuria: Likely secondary to right ureteral stone History of bladder cancer Status post cystoscopy-no evidence of cancer noted Hematuria improved (2) Ureteral stone: Status post cystoscopy, right retrograde pyelography with right ureteral stent placement We will follow-up with urologist for stent removal down the Denies any significant pain (3) Hydronephrosis: Present on admission with hematuria CT abd/pelvis showed 2 large obstructing calculi identified in the distal right ureter measuring 12 mm and 10 mm. Causes moderate to severe right hydro ureteronephrosis. Right-sided perinephric and periureteric stranding, as well as urothelial thickening and enhancement within the distal right ureter. UA positive for 3+ blood, bacteria and leukocytosis EKG showed no ischemic finding and CXR showed no acute finding Plavix can be restarted (4) HTN (hypertension): He stopped taking the Amlodipine He said that he did not know if it was for BP BP elevated on admssion Will resume amlodipine Will add hydralazine prn for elevated BP Continue monitor BP (5) Bladder cancer: CT abd/pelvis showed asymmetric bladder wall thickening suggested posteriorly on the right near the trigone Will get a Cystoscopy done today Continue monitor Cystoscopy did not show any bladder dilation (6) Lung nodule: CT showed A 4 mm groundglass nodule seen at the right lung base. Will need to get a CT chest for further assessment of the thorax. We need to follow-up as an outpatient Abnormal UA UA positive for leukocytes and bacteria Denies any dysuria/frequency or urinary retention Receiceved cefepime in the ER Urine cx pending Continue cefepime for now We will give Ceftin on discharge Hx CVA Plavix and aspirin on hold due to hematuria Stable DVT px SCD for now due to OR and hematuria CODE STATUS DNR Subjective 02/15 Patient seen and examined in medical floor Status post cystoscopy, right retrograde pyelography with right ureteral stent placement Has minimal pain in the right loin and right lower quadrant Denies any fever and/or chills No nausea or vomiting Review of Systems Review of Systems: All systems reviewed and are unremarkable except as noted below Constitutional: + weakness; no fever and no chills Respiratory: no dyspnea Gastrointestinal: + abdominal pain (Right lying); no nausea and no vomiting Physical Exam Physical Exam: Lying in bed comfortably Constitutional: + obese; no acute distress and not ill appearing Eyes: PERRL, conjunctivae normal, anicteric sclerae no nystagmus ENMT: external ear and nose normal, oropharynx normal Mouth: + dentures and + edentulous Mallampati Class: II Neck: normal visual inspection and trachea midline; neck extension not limited Respiratory: normal respiratory effort; no respiratory distress and no cough Auscultation: + wheezes Cardiovascular: Rate/Rhythm: regular rate and regular rhythm Heart Sounds: no murmur Vessels: no JVD Chest (Breasts): Chest: normal inspection of chest Gastrointestinal (Abdomen): Inspection/Auscultation: abdomen not distended and no abdominal edema Percussion/Palpation: abdomen soft; abdomen nontender Musculoskeletal: Head/Neck/Chest: normocephalic and head atraumatic Skin: no rashes, warm and dry Neurologic: moves all extremities and awake; not confused and not obtunded Psychiatric: Orientation: alert and oriented x 3 Eye Contact: good eye contact Affect: no depressed affect Genitourinary: bladder normal to inspection; no CVA tenderness Lymphatic: no cervical or axillary lymphadenopathy no lymphadenopathy and no lymphedema Results & Data Vital Signs (Past 12 Hours) Vital Signs Temp Pulse Resp BP BP Pulse Ox 02/15/19 07:55 36.7 C 71 16 169/88 H 92 02/15/19 03:55 36.9 C 70 16 154/82 H 92 Laboratory Results [facility] 02/15/19 09:12 Sodium 141 Potassium 4.0 Chloride 108 H Carbon Dioxide 29 BUN 10 Creatinine 0.79 Glucose 115 H Calcium 8.6 Medications Administered Current Inpatient Medications Amlodipine Besylate (Norvasc) 10 mg PO DAILY FRANKI Stop: 03/17/19 08:59 Last Admin: 02/15/19 09:17 Dose: 10 mg Documented by: Budesonide/Formoterol Fumarate (Symbicort 160mcg/4.5mcg) 2 puffs INH Q12H FRANKI Stop: 03/16/19 20:59 Last Admin: 02/15/19 09:17 Dose: 2 puffs Documented by: Hydralazine HCl (Hydralazine Hcl) 10 mg IV Q6H PRN PRN Reason: SBP above 170 Stop: 03/16/19 16:19 Cefepime HCl 1,000 mg/ Syringe 11.3 mls @ 5.5 mls/min IV Q12H FRANKI; Protocol Stop: 02/19/19 17:59 Last Admin: 02/15/19 05:16 Dose: 5.5 mls/min Documented by: Sodium Chloride (Nss 1000ml) 1,000 mls @ 100 mls/hr IV .Q10H FRANKI Stop: 03/16/19 16:19 Last Admin: 02/15/19 07:30 Dose: 100 mls/hr Documented by: (1) Hematuria Hematuria type: gross Qualified Code(s): R31.0 - Gross hematuria (2) Hydronephrosis Hydronephrosis type: with ureteral calculous obstruction Qualified Code(s): N13.2 - Hydronephrosis with renal and ureteral calculous obstruction
--- NOTE | 2019-02-16 10:23 | Discharge Summary ---
Date of Service February 16, 2019 Admission HPI Per Admitting Provider 73 years old male with past medical history of bladder cancer, hypertension, dyslipidemia, presented to the ER with chief complaint of hematuria x days. Patient said that yesterday he developed brown-colored urine. He said that he continued to have tea color urine today. He said that about 2 to 3 weeks ago, he had pain in the right groin area that resolved. He said that because of his history of bladder cancer and his last treatment for the bladder ca was in August this year, that prompted him to seek medical attention for the hematuria. He said that he feels fine. Denies any flank pain, palpitation, d ysuria, urinary retention, chest pain, and shortness of breath. CT abdomen and pelvis done in the ER showed 2 large obstructing calculi identified in the distal right ureter measuring 12 mm and 10 mm. Admission Exam Per Admitting Provider Physical Exam: General- No acute distress Head- atraumatic Eyes- PERRL, EOMI, ENT- oropharynx clear Neck- supple, no JVD Lungs- clear to auscultation Heart- regular rhythm; no murmur Abdomen- normal bowel sounds, soft, nontender Extremities- no calf tenderness Neuro- alert, oriented x 3; PERRL, EOMI; no facial palsy; no dysarthria Skin- warm & dry Principal Diagnosis Hematuria, status post cystoscopy and right ureteral stent placement Discharge Exam Constitutional + obese; no acute distress and not ill appearing Eyes PERRL, conjunctivae normal, anicteric sclerae no nystagmus ENMT external ear and nose normal, oropharynx normal Mouth: + dentures and + edentulous Mallampati Class: II Neck normal visual inspection and trachea midline; neck extension not limited Respiratory normal respiratory effort; no respiratory distress and no cough Auscultation: + wheezes Cardiovascular Rate/Rhythm: regular rate and regular rhythm Heart Sounds: no murmur Vessels: no JVD Chest (Breasts) Chest: normal inspection of chest Gastrointestinal (Abdomen) Inspection/Auscultation: abdomen not distended and no abdominal edema Percussion/Palpation: abdomen soft; abdomen nontender Musculoskeletal Head/Neck/Chest: normocephalic and head atraumatic Skin no rashes, warm and dry Neurologic moves all extremities and awake; not confused and not obtunded Psychiatric Orientation: alert and oriented x 3 Eye Contact: good eye contact Affect: no depressed affect Genitourinary bladder normal to inspection; no CVA tenderness Lymphatic no cervical or axillary lymphadenopathy no lymphadenopathy and no lymphedema Discharge Data Allergies Allergy/AdvReac Type Severity Reaction Status Date / Time lisinopril Allergy Severe THROAT Verified 02/14/19 12:22 CLOSES Penicillins Allergy Unknown . Unverified 02/14/19 12:22 Consultations 02/14/19 12:37 ED Decision to Admit Stat 02/14/19 16:13 Consult Urology Routine Procedures Performed Operation Date: 02/14/19 12:35 Actual Procedures p Cystoscopy, right retrograde pyelography with right ureteral stent placement(Right) - Pepe Chaparro II, DO Ordered Studies 02/14/19 10:19 CT abd pelvis IV con only Stat 02/14/19 15:00 FL retrograde includes kub Routine Hospital Course (1) Hematuria: Likely secondary to right ureteral stone History of bladder cancer Status post cystoscopy-no evidence of cancer noted Hematuria improved (2) Ureteral stone: Status post cystoscopy, right retrograde pyelography with right ureteral stent placement We will follow-up with urologist for stent removal down the Denies any significant pain (3) Hydronephrosis: Present on admission with hematuria CT abd/pelvis showed 2 large obstructing calculi identified in the distal right ureter measuring 12 mm and 10 mm. Causes moderate to severe right hydroureteronephrosis. Right-sided perinephric and periureteric stranding, as well as urothelial thickening and enhancement within the distal right ureter. UA positive for 3+ blood, bacteria and leukocytosis EKG showed no ischemic finding and CXR showed no acute finding Plavix can be restarted (4) HTN (hypertension): He stopped taking the Amlodipine He said that he did not know if it was for BP BP elevated on admssion Will resume amlodipine Will add hydralazine prn for elevated BP Continue monitor BP (5) Bladder cancer: CT abd/pelvis showed asymmetric bladder wall thickening suggested posteriorly on the right near the trigone Will get a Cystoscopy done today Continue monitor Cystoscopy did not show any bladder dilation (6) Lung nodule: CT showed A 4 mm groundglass nodule seen at the right lung base. Will need to get a CT chest for further assessment of the thorax. We need to follow-up as an outpatient Abnormal UA UA positive for leukocytes and bacteria Denies any dysuria/frequency or urinary retention Receiceved cefepime in the ER Urine cx pending Continue cefepime for now We will give Ceftin on discharge Hx CVA Plavix and aspirin on hold due to hematuria Stable DVT px SCD for now due to OR and hematuria CODE STATUS DNR Total Time Total Time Spent Total Time Spent (In Minutes): 35 minutes Total Time Includes: Examination of the Patient, Discharge Planning, Medication Reconciliation and Communication With Other Providers Discharge Plan Discharge Items Patient Disposition: Home - Self-Care Reason For Visit: HEMATURIA Discharge Diagnosis: Hematuria, status post cystoscopy and right ureteral stent placement Condition: Good Discharge Goals: Decrease discomfort, Increase independence and Improve nutritional status Activity: Resume your previous activity Non-emergency contact: Primary Care Provider Call non-emergency contact if: you have any medication questions and your symptoms worsen Follow-up/Referrals: PCP,NO [Primary Care Provider] - (Please make an appointment with your primary care physician within 7 days. Keep follow-up appointment with urologist) Diet: Regular Addtl Provider Instructions: Try to drink more fluid Prescriptions: New tamsulosin 0.4 mg capsule 0.4 mg PO DAILY Qty: 30 RF: 0 cefuroxime axetil 250 mg tablet 250 mg PO BID 5 Days Qty: 10 RF: 0 oxycodone 5 mg capsule 5 mg PO Q6H PRN (Reason: pain) Qty: 10 RF: 0 Continued aspirin 325 mg Tablet 325 mg PO DAILY RF: 0 clopidogrel 75 mg Tablet 75 mg PO DAILY RF: 0 amlodipine 10 mg Tablet 10 mg PO DAILY RF: 0 albuterol sulfate 90 mcg/actuation Hfa Aerosol Inhaler 2 puff inhalation Q4H PRN (Reason: sob) RF: 0 budesonide-formoterol 160-4.5 mcg/actuation Hfa Aerosol Inhaler 2 puff INHALATION Q12H RF: 0 Stand-Alone Forms: [employer]/Other Patient Handouts: Hematuria, Post Op Pain Manage Home Meds Discharge Orders: Discharge Order (Routine); Ordered 02/15/19 Ordered By: Jerrod Camejo Admission Data Admit Date/Time: 02/14/19 14:02 Attending Provider: Jerrod Camejo Admit Provider: Devendra Fraser Primary Care Provider: PCP,NO Other Providers: Devendra Fraser ; Chaparro II,Pepe H. Service: Surgical Services Other Interventions: Discharge Summary Assessment (RN) Last Done: 02/15/19 15:40 DC Date/Time DO NOT enter until pt leaves facility: 02/15/19 16:25
== END 2019-02-15 16:25 | disposition home or self-care (01) | DRG 660 ==
LOC: ED 09:34 → 3N 14:01 → OR 14:01 → 3N 14:02
DX: N30.00 Acute cystitis without hematuria; R91.1 Solitary pulmonary nodule; J44.9 Chronic obstructive pulmonary disease, unspecified; C67.9 Malignant neoplasm of bladder, unspecified; Z66 Do not resuscitate; Z79.02 Long term (current) use of antithrombotics/antiplatelets; E78.5 Hyperlipidemia, unspecified; F17.200 Nicotine dependence, unspecified, uncomplicated; I10 Essential (primary) hypertension; Z88.0 Allergy status to penicillin; N13.2 Hydronephrosis with renal and ureteral calculous obstruction; Z86.73 Personal history of transient ischemic attack (TIA), and cerebral infarction without residual deficits

== ENCOUNTER 2019-06-09 06:42 | Inpatient (IN) ==
--- NOTE | 2019-06-08 12:46 | Anesthesiology Consultation ---
Date of Service June 08, 2019 Assessment & Plan Chart Review Chart Review: Acceptable Risk for Surgery and Patient NOT seen in Pre Admission Testing Cardiology visit 06/08/19: He is currently stable and asymptomatic from a cardiovascular standpoint with no anginal symptoms occurring at >4 METS of activity. He has no evidence of CHF or significant valvular abnormality. Given this information, the patient is at an acceptable risk to proceed with upcoming surgery without any additional cardiovascular testing or intervention. History Surgery Operation Date: 06/09/19 08:15 Proposed Procedures p Right Carotid Endarterectomy with Bovine Patch Angioplasty - Bill Kuo MD Height/Weight Height: 5 ft 7 in Weight: 89.811 kg Allergies Allergy/AdvReac Type Severity Reaction Status Date / Time lisinopril Allergy Severe THROAT Verified 06/08/19 10:02 CLOSES Penicillins Allergy Unknown Rash Verified 06/08/19 10:02 Medications Home Medications Medication Instructions Recorded Confirmed Last Taken albuterol sulfate 2 puff INHALATION Q4H PRN 02/14/19 06/08/19 Unknown amlodipine 10 mg PO QAM 02/14/19 06/08/19 03/08/19 budesonide-formoterol 2 puff INHALATION BID 02/14/19 06/08/19 03/14/19 06:30 clopidogrel 75 mg PO QAM 02/14/19 06/08/19 03/08/19 hydrochlorothiazide 25 mg tablet 25 mg PO QAM tab 03/28/19 06/08/19 Unknown aspirin 81 mg PO QAM 05/24/19 06/08/19 Unknown atorvastatin 80 mg tablet 80 mg PO DAILY 06/08/19 06/08/19 Unknown naproxen 500 mg tablet 500 mg PO BID PRN 06/08/19 06/08/19 Unknown Past Medical History Medical History Arthritis COPD (chronic obstructive pulmonary disease) History of bladder cancer S/P BCG treatment History of high cholesterol DIETARY CONTROLLED History of kidney stones History of stroke 2013, [place] WITH BLOOD THINNER - NO RESIDUAL EFFECTS HTN (hypertension) (Chronic) Past Family History Family History Mother Heart disease Brother Heart disease Past Surgical History Surgical History History of colonoscopy History of surgery LEFT EYE/ INJURY RELATED 1965 History of total left hip arthroplasty Hx of cystoscopy (Acute) 03/14/19 [facility] Social History Smoking Status: Former smoker tobacco type: cigarettes Do You Dip or Chew Tobacco: No Smoking End Date: quit 2 weeks ago Hx Alcohol Use: Yes Alcohol type: beer alcohol intake frequency: a few times a month Hx Substance Use: No substance use type: does not use Testing Laboratory Results Laboratory Tests 06/06/19 06/06/19 12:12 12:12 WBC 10.81 H Hgb 15.5 Plt Count 219 Sodium 139 Potassium 4.1 Chloride 109 H Carbon Dioxide 24 BUN 14 Creatinine 0.84 Glucose 103 H Electrocardiogram Date: 02/14/19 Findings: + NSR @ and + RBBB
[~2019-06-09 06:42] MED LIST: LR 15ML/HR IV SCH
--- NOTE | 2019-06-09 07:31 | History & Physical Bridge Note ---
Date of Service June 09, 2019 History & Physical Bridge Note I have examined the patient, reviewed the History & Physical and in the interval since the performance of the History & Physical I have noted the following changes of clinical significance: no changes noted pt marked all questions answered a friend will be here later
[2019-06-09] MEDS ORDERED: fentaNYL citrate 100 MCG/2 ML VIAL ONE (07:41)
[2019-06-09] MEDS ORDERED: BACITRACIN INJ 50,000 UNIT VIAL ONE (07:55)
[2019-06-09] MEDS ORDERED: HEPARIN (PORCINE) 1000 UNIT/ML 10 ML (CATH LAB USE ONLY) ONE (07:55)
[2019-06-09] MEDS ORDERED: LIDOCAINE/EPINEPHRINE 1% 20 ML VIAL ONE (07:55)
[2019-06-09] MEDS ORDERED: CEFAZOLIN 2000MG 2,000 MG/15 ML SYR IV ONE (08:44)
[2019-06-09] MEDS ORDERED: LIDOCAINE/EPINEPHRINE 1% 20 ML VIAL INFIL ONE (08:45)
[2019-06-09] MEDS ORDERED: BACITRACIN INJ 50,000 UNIT VIAL IR ONE (08:47)
[2019-06-09] MEDS ORDERED: DEXAMETHASONE SOD INJ 4 MG/ML VIAL ONE (08:51)
[2019-06-09] MEDS ORDERED: LARYING-O-JET KIT (LTA) ONE (08:51)
[2019-06-09] MEDS ORDERED: GLYCOPYRROLATE 0.2 MG/ML VIAL ONE (08:51)
[2019-06-09] MEDS ORDERED: ONDANSETRON INJ 2 MG/ML 2 ML VIAL ONE (08:51)
[2019-06-09] MEDS ORDERED: PROPOFOL IV EMULSION 10 MG/ML 20 ML VIAL IV ONE (08:51)
[2019-06-09] MEDS ORDERED: NEOSTIGMINE METHYLSULFATE 5 MG/5 ML SYR ONE (08:51)
[2019-06-09] MEDS ORDERED: PHENYLEPHRINE HCL 10 MG/ML VIAL ONE (08:51)
[2019-06-09] MEDS ORDERED: LIDOCAINE HCL 2% 2 ML VIAL/AMP(20MG/ML) INFIL ONE (08:51)
[2019-06-09] MEDS ORDERED: ePHEDrine sulfate 50 MG/ML SYR ONE (08:51)
[2019-06-09] MEDS ORDERED: HEPARIN SOD (PORCINE) 1000 UNIT/ML 10 ML VIAL ONE (08:51)
[2019-06-09] MEDS ORDERED: HEPARIN BOLUS FLUSH ONE (09:29)
[2019-06-09] MEDS ORDERED: PROMETHAZINE HCL 12.5 MG in SODIUM CHLORIDE 0.9% 50 ML IV PRN (09:30)
[2019-06-09] MEDS ORDERED: ePHEDrine sulfate 50 MG/ML AMP IV PRN (09:30)
[2019-06-09] MEDS ORDERED: ONDANSETRON INJ 2 MG/ML 2 ML VIAL IV PRN ×2 (09:30→12:10)
[2019-06-09] MEDS ORDERED: FLUMAZENIL 0.1 MG/1 ML 10 ML VIAL IV PRN (09:30)
[2019-06-09] MEDS ORDERED: fentaNYL citrate 100 MCG/2 ML VIAL IV PRN (09:30)
[2019-06-09] MEDS ORDERED: LABETALOL HCL IV 5 MG/ML 20ML IV PRN (09:30)
[2019-06-09] MEDS ORDERED: ATROPINE SULFATE 0.1 MG/ML 10ML SYR IV PRN (09:30)
[2019-06-09] MEDS ORDERED: NALOXONE HCL 0.4 MG/1 ML VIAL/CARP IV PRN (09:30)
[2019-06-09] MEDS ORDERED: SURGICEL ABSORB HEMOSTAT 2IN X 14IN TOP ONE (09:59)
[2019-06-09] MEDS ORDERED: PROTAMINE SULFATE 10 MG/ML 5 ML VIAL ONE (10:20)
--- NOTE | 2019-06-09 10:26 | Post Operative Brief Note ---
PG Immediate Post Op with CF Date of Surgery June 09, 2019 Pre & Post Diagnosis Operation Date: 06/09/19 08:15 Pre-Op Diagnosis: Right Carotid Stenosis Post-Op Diagnosis: Right Carotid Stenosis I identified the patient and participated in the time-out.: Yes Procedure Operation Date: 06/09/19 08:15 Actual Procedures p Right Carotid Endarterectomy with Bovine Patch Angioplasty(Right) - Bill uKo MD Surgeon Bill Kuo MD Painter Supervisor b ashely robison Estimated Blood Loss 150 Findings Consistent with Post-Op Diagnosis Specimens Specimen Description: A. Right Carotid Plaque
--- NOTE | 2019-06-09 10:57 | Operative Report ---
PG Post Operative Report Pre & Post Diagnosis Operation Date: 06/09/19 08:15 Pre-Op Diagnosis: Right Carotid Stenosis Post-Op Diagnosis: Right Carotid Stenosis I identified the patient and participated in the time-out.: Yes Procedure Operation Date: 06/09/19 08:15 Actual Procedures right Carotid Endarterectomy with Bovine Patch Angioplasty(Right) - Bill Kuo MD The patient was brought into the operating theater general endotracheal anesthesia supine position roll placed underneath the shoulders neck extended and rotated to the left the area was prepped Betadine scrub and solution properly draped systemic antibiotics given patient was identified timeout was had 1% Xylocaine with epi was used to infiltrate 3-1/2 inch incision area anterior to sternocleidal on the right incision 3-1/2 inch was made to preserve subcutaneous tissue using cautery we dissected and retracted the medial border of the sternocleido laterally until we were down to the neurovascular bundle could palpate the carotid artery was deep in his neck patient had a large facial vein with 2 branches these were divided ligated doubly with 4-0 silk suture silk suture and retracted out we dissected out first coming down in the common carotid which had a significant amount of strictly adherent adventitial tissues indicating disease in that area we dissected up towards the external carotid identified the superior thyroid artery which we encircled with a Yolanda tie of 2-0 silk and dissected further up the internal carotid was dissected out in its beginning it dilated after the takeoff from the common and the bladder an inch up into the internal carotid area tapered off to smaller artery. What we can see in our dissection of the artery was smaller there was no inflammatory response and it was easily dissected we were" divided the suspensory ligament ligated with 2-0 silk we then identified the hypoglossal nerve and encircled that with vessel loop as we encircled the superior the external/internal carotid and the common loosely. We had enough ability of the vessel and enough exposure internal carotid at this point gave the patient 9000 units of heparin while waiting for that we prepped on the side bovine patch put white towels around the operative field after waiting 5 minutes we clamped the internal carotid with a bulldog clamp well up above the dilated area and the common and external arteriotomy in the common carotid was made a significant disease was encountered there we were approximately a 2 cm from the bifurcation and carried up to the internal carotid which are hard plaque with near total occlusion was identified continue with the [place] scissors and the internal carotid area to we are in a very smooth disease-free internal carotid. A plane of dissection along the circular fibers in the common carotid was made heavy using 5-0 silk suture stay sutures this plane of dissection was carried out to the external carotid winded inversion endarterectomy and carried up to the internal carotid where a once we freed it up and tailored fairly nicely with TN intima pretty much adherent. We checked the operative field at this time flushing the internal carotid which is excellent backbleeding then the common and external we checked the intima on the internal carotid just needed more debridement but that it adherent quite nicely as we suctioned around that the internal carotid similarly had excellent backbleeding with minimal debris in the common carotid at the takeoff about 2 and half centimeter from the bifurcation there is a significant amount of plaque there was finally we had a point where we felt it was adherent enough. The patch was then brought up on the field and dilated with 6-0 Prolene circumferentially make sure there was no tension on the pack on the patch prior to [place] the patch we flushed individual arteries suction we actually took the clamp off the internal carotid artery where I was able to place a 3 bakes dilator well beyond the area where we had a clamped control the backbleeding with [place] patient excellent backbleeding flush out the common external and suctioned out the endarterectomy site and tied down the patch once we had this done we released the external carotid clamp first and saw some oozers along the suture line that we controlled with 6-0 interrupted sutures of Prolene. The patient had been on aspirin and Plavix we reversed the first with 45 mg of protamine continued hemostasis with Surgicel and pressure mostly around the suture line with few more prominent oozers were ligated with 6-0 Prolene interrupted sutures I elected to place another 45 mg of protamine and once this had been accomplished the area was quite hemostatic. Elected to drain the area with 1/4 inch [place] drain that was brought in between the 2 heads of sternocleidal and placed along the suture line attached to skin edge with 2-0 silk suture the wound was closed with multiple layer 302 0 Dexon and santi skin edges dressing was applied procedure was tolerated well by the patient estimated blood loss proxy 150 cc patient at the end the procedure while still in room awoke hemodynamic stable and neurologically stable moving all extremities and responding appropriately to verbal stimuli addendum Sage BHATTI was present throughout the procedure and help with exposure suture manipulation and wound closure Surgeon Bill Kuo MD Core Winder Machine Operator sage bhatti Estimated Blood Loss 150 Findings Consistent with Post-Op Diagnosis Specimens plaque Description of Procedure merda I attest to the content of the Intraoperative Record and any orders documented therein. Any exceptions are noted below.
--- NOTE | 2019-06-09 11:19 | Anesthesiology Progress Note ---
Date of Service June 09, 2019 Anesthesia Post Procedure Vital Signs Vital Signs: Temp Pulse Pulse Resp BP Pulse Ox 06/09/19 11:10 74 14 117/47 L 95 06/09/19 11:00 72 14 132/54 L 95 06/09/19 10:50 72 15 129/49 L 94 06/09/19 10:43 36.8 C 79 16 171/74 H 96 06/09/19 06:55 36.4 C L 80 20 133/78 93 Transfer of Care Handoff Completed per policy Notes Mental Status: alert / awake / arousable Patient Amnestic to Procedure: Yes Nausea / Vomiting: adequately controlled Pain: adequately controlled Airway Patency, RR, SpO2: stable & adequate BP & HR: stable & adequate Hydration State: stable & adequate Anesthetic Complications: no major complications apparent
[2019-06-09] MEDS ORDERED: NITROGLYCERIN/D5W 100 MCG/ML BTL ONE (11:25)
[2019-06-09] MEDS ORDERED: NITROGLYCERIN/D5W 100MCG/ML 250 ML IV PRN (12:10)
[2019-06-09] MEDS ORDERED: ALBUTEROL HFA 8 GM INHALER INH PRN (12:10)
[2019-06-09] MEDS ORDERED: MoRPHine SULFATE 4 MG/ML 1 ML CARP\\VIAL IV PRN (12:10)
[2019-06-09] MEDS: LACTATED RINGER'S 1,000 ML IV SCH ×2 (12:32→16:54)
[2019-06-09] MEDS ORDERED: ROCURONIUM BROMIDE 10 MG/ML 5 ML VIAL ONE (12:55)
[2019-06-09] MEDS: HYDROCODONE/ACETAMOPHEN 5/325MG TAB PO PRN (17:27)
[2019-06-09] MEDS: AMLODIPINE BESYLATE 5 MG TAB PO SCH (17:34)
[2019-06-09] MEDS: BUDESONIDE/FORMOTEROL FUMARATE 160/4.5 60 PUFFS/INHALER INH SCH (19:38)
--- NOTE | 2019-06-10 00:17 | Critical Care Consultation ---
Date of Consultation June 10, 2019 Assessment & Plan (1) Carotid insufficiency: Reason Critically Ill: 73-year-old male presents to the ICU postoperatively for right endarterectomy Neuro - [facility] ICU: Negative Carotid insufficiencystatus post right endarterectomy -Patient to remain in ICU overnight for close observation and monitoring following procedure -Every 4 hours neurovascular checks -A-line for continuous BP monitoring, avoid hypertension -PRN [place] and Zofran -Hold anticoagulation -Follow-up surgical team recommendations History CVA 2012: No residual, continue aspirin Plavix therapy when appropriate Cardiac - HTNcontinue amlodipine, hydrochlorothiazide HLDcontinue atorvastatin Respiratory - COPDextubated 2 L nasal cannula following procedure and tolerating well -Continue pulmonary toileting -Continue nebs -Monitor continuous O2 sat GI - Clear liquid diet RENAL/LYTES - Monitor routine BMPs and replete electrolytes as necessary LR at 50 mL/h - [facility] of [facility] for monitoring Patient had 2 ureteral stones with hydronephrosis in March, underwent cystoscope he and stent placement since had stents removed ENDO - No history diabetes or thyroid disease ICU hyperglycemic protocol HEME - EBL 150 during procedure, monitor CBCs ID - No indication for infectious process at this time LINES/IV ACCESS - Peripheral IVs DVT PROPHYLAXIS - SCDs, holding anticoagulation for now following procedure Thank you for allowing us to participate in the care of this patient. Please refer to my attending physician's documentation for any further recommendations. (2) Bladder cancer: (3) CVA (cerebral infarction): (4) Hyperlipemia: (5) HTN (hypertension): (6) COPD (chronic obstructive pulmonary disease): History of Present Illness Attending Physician: Bill Kuo MD History of Present Illness Mr. Galvin is a 73-year-old male with past medical history bladder cancer stroke, HTN, COPD, and carotid stenosis who presents to the ICU postoperatively following a right carotid endarterectomy with bovine patch angioplasty. The patient was extubated following the procedure and transported to the ICU. Patient is currently alert and oriented, and denies headache, dizziness, syncope, shortness of breath, chest pain, palpitations, abdominal pain. Patient is on 2 L nasal cannula and maintaining oxygen saturations and remains hemodynamically stable. Patient to remain in ICU overnight for close observation following procedure. Allergies Allergy/AdvReac Type Severity Reaction Status Date / Time lisinopril Allergy Severe THROAT Verified 06/09/19 07:09 CLOSES Penicillins Allergy Unknown Rash Verified 06/09/19 07:09 Home Medications Home Medications Medication Instructions Recorded Confirmed Type albuterol sulfate 2 puff INHALATION Q4H PRN 02/14/19 06/09/19 History amlodipine 10 mg PO QAM 02/14/19 06/09/19 History budesonide-formoterol 2 puff INHALATION BID 02/14/19 06/09/19 History clopidogrel 75 mg PO QAM 02/14/19 06/09/19 History hydrochlorothiazide 25 mg tablet 25 mg PO QAM tab 03/28/19 06/09/19 History aspirin 81 mg PO QAM 05/24/19 06/09/19 History atorvastatin 80 mg tablet 80 mg PO DAILY 06/08/19 06/09/19 History naproxen 500 mg tablet 500 mg PO BID PRN 06/08/19 06/08/19 History oxycodone-acetaminophen [Percocet] 1 - 2 tab PO .every 4-6 hours PRN 06/09/19 Rx #15 tab Patient History Medical History Arthritis COPD (chronic obstructive pulmonary disease) History of bladder cancer S/P BCG treatment History of high cholesterol DIETARY CONTROLLED History of kidney stones History of stroke 2012, TX WITH BLOOD THINNER - NO RESIDUAL EFFECTS HTN (hypertension) (Chronic) Surgical History History of colonoscopy History of surgery LEFT EYE/ INJURY RELATED 1965 History of total left hip arthroplasty Hx of cystoscopy (Acute) 03/14/19 [facility] Family History Mother Heart disease Brother Heart disease Social History (Updated 05/18/19 @ 11:22 by Chika Shankar RN) Preferred Language: Belgian Communication Ability: Effective Transfer Station Operator Required: No Beliefs That Will Affect Care: None marital status: / Current Living Situation: Alone current occupational status: retired Other Information That Helps Us Care for You: No Feels Safe at Home: Yes Safety Concerns: Feels Safe At This Time Smoking Status: Current every day smoker Tobacco Type: cigarettes ; Cigarettes Per Day: 20 ; Do You Dip or Chew Tobacco: No ; Smoking End Date: quit 2 weeks ago ; Second Hand Exposure: No ; Tobacco Cessation Education Requested by Patient: No Hx Alcohol Use: Yes Alcohol type: beer Hx Substance Use: No Review of Systems Review of Systems: All systems reviewed & are unremarkable except as noted in HPI & below Physical Exam Eyes: PERRL, conjunctivae normal, anicteric sclerae ENMT: external ear and nose normal, oropharynx normal Neck: trachea midline, no thyromegaly Surgical incision right anterior neck is well approximated Respiratory: normal respiratory effort, lungs clear to auscultation Cardiovascular: RRR, no murmur, no edema Gastrointestinal (Abdomen): normal bowel sounds, soft, nontender, no hepatosplenomegaly Musculoskeletal: no cyanosis or clubbing, extremities motor strength 5/5 Skin: no rashes, warm and dry Neurologic: PERRL, EOMI, accommodation nl, no face palsy, no dysarthria Psychiatric: A+Ox3, euthymic affect Results & Data Vital Signs (Past 12 Hours) Vital Signs Temp Pulse Pulse Resp BP BP Pulse Ox 06/09/19 22:30 82 92 06/09/19 22:00 84 108/63 87 L 06/09/19 21:32 95 H 06/09/19 21:20 88 92 06/09/19 21:00 82 120/60 92 06/09/19 20:30 85 92 06/09/19 20:00 91 H 160/82 H 93 06/09/19 19:00 36.9 C 86 145/77 H 93 06/09/19 16:20 84 97 06/09/19 16:10 75 98 06/09/19 16:01 79 97 06/09/19 16:00 80 149/78 H 97 06/09/19 15:50 85 95 06/09/19 15:40 78 95 06/09/19 15:30 81 96 06/09/19 15:20 83 95 06/09/19 15:10 78 96 06/09/19 15:03 73 133/60 95 06/09/19 15:00 78 96 06/09/19 14:50 83 96 06/09/19 14:40 78 96 06/09/19 14:30 78 96 06/09/19 14:20 75 96 06/09/19 14:10 78 96 06/09/19 14:00 82 96 06/09/19 13:50 74 97 06/09/19 13:40 74 96 06/09/19 13:30 70 96 06/09/19 13:20 70 97 06/09/19 13:10 70 97 06/09/19 13:00 71 95 06/09/19 12:52 68 95 06/09/19 12:20 36.6 C 67 16 128/55 L 97 [place] [address] Inpt Consult Level 5 Patient Type New History Comprehensive Exam Comprehensive Medical Decision Making High Complexity Diagnoses Carotid insufficiency G45.1 Bladder cancer C67.9 CVA (cerebral infarction) I63.9 Hyperlipemia E78.5 HTN (hypertension) I10 COPD (chronic obstructive pulmonary disease) J44.9
[2019-06-10] MEDS: HYDROCODONE/ACETAMOPHEN 5/325MG TAB PO PRN (00:52)
[2019-06-10 04:45] LABS: Basophils # (auto) 0.01 K/uL (0-0.2); Basophils % (auto) 0.1 %; Hematocrit (blood only) 39.1 % (42-52); Hemoglobin 13.2 g/dL (14.0-18.0); Immature Granulocytes # (auto) 0.04 K/uL (0.00-0.02); Immature Granulocytes % (auto) 0.3 %; Lymphocytes # (auto) 1.51 K/uL (1.2-3.4); Lymphocytes % (auto) 11.3 %; Mean Corpuscular Hemoglobin 30.2 pg (25-34); Mean Corpuscular Hgb Conc 33.8 g/dL (32-36); Mean Corpuscular Volume 89.5 fL (80-100); Mean Platelet Volume 8.9 fL (7.4-10.4); Monocytes # (auto) 1.08 K/uL (0.11-0.59); Monocytes % (auto) 8.1 %; Neutrophils # (auto) 10.72 K/uL (1.4-6.5); Neutrophils % (auto) 80.2 %; Platelet Count 226 K/uL (130-400); RDW Coefficient of Variation 14.4 % (11.5-14.5); RDW Standard Deviation 47.3 fL (36.4-46.3); Red Blood Count 4.37 M/uL (4.7-6.1); White Blood Count 13.36 K/uL (4.8-10.8)
[2019-06-10 05:09] LABS: BUN Creatinine Ratio 23.4 (10-20); Calcium 8.5 mg/dl (8.5-10.1); Creatinine Clr Calc Pharmacy 85.9 ml/min; Est GFR (African American) 103.4; Est GFR (Non-African American) 89.2
[2019-06-10] MEDS ORDERED: HydrALAZINE HCL 20 MG/ML VIAL IV ONE (05:10)
--- NOTE | 2019-06-10 05:33 | Critical Care Progress Note ---
Date of Service June 10, 2019 Assessment & Plan (1) Admitted to intensive care unit: Reason Critically Ill: []-year-old [female] [male] here with a PMHx significant for [] who presented with [] and who was admitted for []. Neuro - [facility] ICU: Negative Analgesia: Morphine 1-4 mg IV as needed, hydrocodone 12 tabs p.o. every 4 hours as needed Sedation: None Mental status appears at baseline Cardiac - Carotid insufficiency status post right endarterectomy Surgical site intact, no signs of bleeding or dehiscence. No signs of infection. Neurovascularly intact Anticoagulation held Pain well controlled with above Further management per primary team Stroke 2012 No residual deficits Held dual antiplatelet therapy, resume per primary team Hypertension Continue amlodipine 10 mg every morning daily Continue hydrochlorothiazide 25 mg p.o. every morning daily Hyperlipidemia Continue atorvastatin 80 mg p.o. daily Respiratory - COPD with hypoxia Patient with 2 L oxygen requirement intermittently overnight, no home oxygen requirement Reports he smokes 1 pack of cigarettes per day "forever "and has COPD at baseline Continue pulmonary toilet, nebs, oxygen as needed Overnight desats likely reflect baseline 2/2 COPD Wean oxygen to goal 88% No acute respiratory distress GI - Clear liquid, advance to heart healthy RENAL/LYTES - Creatinine 0.76 No sign of VITALY Electrolytes stable Replete electrolytes per protocol - History of bladder cancer, followed as outpatient, stable No acute concerns Voiding well, output 1 L past 24 hours ENDO - No acute concerns Continue ICU glycemic protocol HEME - Hemoglobin stable Monitor for signs of bleeding postsurgically Antiplatelet therapy held in postop setting ID - No acute concerns for infection INTEGUMENTARY - Right carotid endarterectomy surgical incision as noted above No other acute skin concerns LINES/IV ACCESS - PIVs intact. DVT PROPHYLAXIS - SCDs, pharmacal prophylaxis held in the postoperative setting Thank you for allowing us to be part of this patient's care. Please refer to Dr. Raman's documentation for any further recommendations. (2) Hx of endarterectomy: (3) Carotid artery disease: (4) Hyperlipemia: (5) Gout: (6) Carotid aneurysm, left: (7) Carotid insufficiency: (8) COPD (chronic obstructive pulmonary disease): (9) History of hip surgery: (10) Lung nodule: (11) Bladder cancer: (12) Encounter for pre-operative examination: (13) Urinary tract infection: (14) HTN (hypertension): Supervising Physician Co-Signing Physician Notes Dr. Hernandez was resident physician during care of patient. I separately evaluated patient for mata portions of the history and the exam. I was present during the critical portion of medical decision making, and I discussed the case with the resident. I generally agree with the findings and plan. Notified by resident of possible change in rhythm morphology on bedside monitor, EKG was compared to prior EKG there is no significant changes patient already has known right bundle branch block. Stable for discharge by general surgery. Reyna Otero is seen at the bedside this morning. He reports he feels he is doing well, and at his normal baseline. He does not wear oxygen at home, but notes he has smoked 1 pack/day of cigarettes "forever "and has severe COPD. At time of visit he is not short of breath, denies chest pain, chest pressure, nausea, vomiting, diarrhea, constipation. He has no headache, has not had vision change, and denies numbness/tingling or sensation change in the extremities or face. He has not had any lightheadedness/dizziness/diaphoresis. He endorses minor pain at his right carotid surgical site, reports that this is well controlled and not bothersome to him. He would like to go home, no other questions or concerns. Review of Systems Review of Systems: All systems reviewed & are unremarkable except as noted in HPI & below Physical Exam Physical Exam: General: A&Ox3. NAD. Cooperative. HEENT: Atraumatic, normocephalic. Neuro as below. Right carotid surgical site without erythema, purulence, or discharge. Dressing in place, C/D/I Pulm: CTAB A&P. Mild and expiratory wheeze on forced expiration, no rales. Symmetrical chest rise. No increase work of breathing. No respiratory distress. Cardiac: RRR, -mrg. Radial pulses intact and symmetrical. Abdominal: Nontender, nondistended, soft. BS present. CN II: Visual pan are full to confrontation. Pupils are equal and react to light and accomidation. Visual acuity grossly intact. CN III, IV, : At primary gaze, there is no eye deviation. EoM intact without nystagmus. No visual field cuts. CN V: Facial sensation is intact to soft touch in all 3 divisions bilaterally. CN VII: No facial asymmetry, full strength to eyebrow raise, smile, eye close, and cheek puff. CN VII: Hearing is grossly intact. CN IX, X: Phonation is normal without dysarthria. CN XI: Head turning intact CN XII: Tongue protrudes midline. Sensation intact to soft touch in fingertips and feet bilaterally. Elbow flexion/extension, radiology physician assistant strength, finger flexion/extension, shoulder internal rotation/external rotation, ankle plantar flexion/dorsiflexion, hip flexion intact with full strength and symmetrical. Results & Data Vital Signs (Past 12 Hours) Vital Signs Temp Pulse BP Pulse Ox 06/10/19 04:01 36.7 C 75 86 L 06/10/19 04:00 73 135/69 87 L 06/10/19 03:30 100 H 90 06/10/19 03:01 84 94 06/10/19 03:00 88 147/73 H 93 06/10/19 02:30 73 89 L 06/10/19 02:00 75 160/71 H 93 06/10/19 01:30 70 92 06/10/19 01:01 73 91 06/10/19 01:00 71 133/68 92 06/10/19 00:01 36.7 C 76 91 06/10/19 00:00 78 126/63 89 L 06/09/19 23:00 81 144/69 H 93 06/09/19 22:30 82 92 06/09/19 22:00 84 108/63 87 L 06/09/19 21:32 95 H 06/09/19 21:20 88 92 06/09/19 21:00 82 120/60 92 06/09/19 20:30 85 92 06/09/19 20:00 91 H 160/82 H 93 06/09/19 19:00 36.9 C 86 145/77 H 93 Resident Activity Tracking Resident Involvement: Resident Care Provided Care Provided: Adult Hospital Medicine (1) Urinary tract infection Hematuria presence: with hematuria Urinary tract infection type: acute cystitis Qualified Code(s): N30.01 - Acute cystitis with hematuria
--- NOTE | 2019-06-10 07:30 | Surgery Progress Note ---
Date of Service June 10, 2019 Assessment & Plan (1) Hx of endarterectomy: Plan is to discharge patient today his O2 sat is dropping at night is longstanding for COPD instructions were given regarding wound care and follow-up in the office in [address] should not drive for 1 week and do not lift anything heavier than 10 pounds of he may shower should continue with the aspirin does not need Plavix We will reevaluate him later this morning make sure that he can tolerate a diet well For pain I think a Motrin or Advil should be enough or Tylenol Patient is first postoperative day status post right carotid endarterectomy with bovine patch angioplasty Present on Admission?: Yes Subjective Feels fine no issues was able to tolerate some diet last night voiding without problems anxious to go home Physical Exam Physical Exam: Neck incision is free of pain pain ecchymosis or hematoma santi intact [place] drain was removed patient has good right superficial temporal pulse neurologically all intact Results & Data Vital Signs (Past 12 Hours) Vital Signs Temp Pulse BP Pulse Ox 06/10/19 06:40 72 93 06/10/19 06:30 73 93 06/10/19 06:20 72 94 06/10/19 06:10 72 94 06/10/19 06:00 79 87 L 06/10/19 05:07 72 159/83 H 96 06/10/19 05:01 70 95 06/10/19 05:00 36.7 C 82 156/72 H 95 06/10/19 04:01 36.7 C 75 86 L 06/10/19 04:00 73 135/69 87 L 06/10/19 03:30 100 H 90 06/10/19 03:01 84 94 06/10/19 03:00 88 147/73 H 93 06/10/19 02:30 73 89 L 06/10/19 02:00 75 160/71 H 93 06/10/19 01:30 70 92 06/10/19 01:01 73 91 06/10/19 01:00 71 133/68 92 06/10/19 00:01 36.7 C 76 91 06/10/19 00:00 78 126/63 89 L 06/09/19 23:00 81 144/69 H 93 06/09/19 22:30 82 92 06/09/19 22:00 84 108/63 87 L 06/09/19 21:32 95 H 06/09/19 21:20 88 92 06/09/19 21:00 82 120/60 92 06/09/19 20:30 85 92 06/09/19 20:00 91 H 160/82 H 93 PG Care Time/CCT Total # of Minutes Spent Total Time Spent with Patient: Total time spent is greater than 50% in co ordination of care (as documented) at patient's floor/unit and/or counseling patient:
--- NOTE | 2019-06-10 07:57 | Anesthesiology Progress Note ---
Date of Service June 10, 2019 Anesthesia Post Procedure Vital Signs Vital Signs: Temp Pulse Pulse Resp BP BP Pulse Ox 06/10/19 07:53 70 06/10/19 06:40 72 93 06/10/19 06:30 73 93 06/10/19 06:20 72 94 06/10/19 06:10 72 94 06/10/19 06:00 79 87 L 06/10/19 05:07 72 159/83 H 96 06/10/19 05:01 70 95 06/10/19 05:00 36.7 C 82 156/72 H 95 06/10/19 04:01 36.7 C 75 86 L 06/10/19 04:00 73 135/69 87 L 06/10/19 03:30 100 H 90 06/10/19 03:01 84 94 06/10/19 03:00 88 147/73 H 93 06/10/19 02:30 73 89 L 06/10/19 02:00 75 160/71 H 93 06/10/19 01:30 70 92 06/10/19 01:01 73 91 06/10/19 01:00 71 133/68 92 06/10/19 00:01 36.7 C 76 91 06/10/19 00:00 78 126/63 89 L 06/09/19 23:00 81 144/69 H 93 06/09/19 22:30 82 92 06/09/19 22:00 84 108/63 87 L 06/09/19 21:32 95 H 06/09/19 21:20 88 92 06/09/19 21:00 82 120/60 92 06/09/19 20:30 85 92 06/09/19 20:00 91 H 160/82 H 93 06/09/19 19:00 36.9 C 86 145/77 H 93 06/09/19 16:20 84 97 06/09/19 16:10 75 98 06/09/19 16:01 79 97 06/09/19 16:00 80 149/78 H 97 06/09/19 15:50 85 95 06/09/19 15:40 78 95 06/09/19 15:30 81 96 06/09/19 15:20 83 95 06/09/19 15:10 78 96 06/09/19 15:03 73 133/60 95 06/09/19 15:00 78 96 06/09/19 14:50 83 96 06/09/19 14:40 78 96 06/09/19 14:30 78 96 06/09/19 14:20 75 96 06/09/19 14:10 78 96 06/09/19 14:00 82 96 06/09/19 13:50 74 97 06/09/19 13:40 74 96 06/09/19 13:30 70 96 06/09/19 13:20 70 97 06/09/19 13:10 70 97 06/09/19 13:00 71 95 06/09/19 12:52 68 95 06/09/19 12:20 36.6 C 67 16 128/55 L 97 06/09/19 11:55 36.6 C 64 128/55 L 95 06/09/19 11:32 36.4 C L 66 14 104/56 L 92 06/09/19 11:20 67 14 111/45 L 92 06/09/19 11:10 74 14 117/47 L 95 06/09/19 11:00 72 14 132/54 L 95 06/09/19 10:50 72 15 129/49 L 94 06/09/19 10:43 36.8 C 79 16 171/74 H 96 Notes Mental Status: alert / awake / arousable and participated in evaluation Patient Amnestic to Procedure: Yes Nausea / Vomiting: adequately controlled Pain: adequately controlled Airway Patency, RR, SpO2: stable & adequate BP & HR: stable & adequate Hydration State: stable & adequate Anesthetic Complications: no major complications apparent
[2019-06-10] MEDS ORDERED: CLOPIDOGREL BISULFATE 75 MG TAB PO SCH (09:00)
[2019-06-10] MEDS ORDERED: ASPIRIN 81 MG ECTAB PO SCH (09:00)
[2019-06-10] MEDS ORDERED: hydroCHLOROthiazide 25 MG TAB PO SCH (09:00)
[2019-06-10] MEDS ORDERED: ATORVASTATIN 40 MG TAB PO SCH (09:00)
[2019-06-10] MEDS: BUDESONIDE/FORMOTEROL FUMARATE 160/4.5 60 PUFFS/INHALER INH SCH (09:01)
[2019-06-10] MEDS: AMLODIPINE BESYLATE 5 MG TAB PO SCH (09:13)
--- NOTE | 2019-06-13 09:33 | Discharge Summary ---
Date of Service June 13, 2019 Principal Diagnosis Carotid stenosis Discharge Exam Neck trachea midline incision clean, dry, minimal china drainage, neurologic exam intact Discharge Data Allergies Allergy/AdvReac Type Severity Reaction Status Date / Time lisinopril Allergy Severe THROAT Verified 06/09/19 07:09 CLOSES Penicillins Allergy Unknown Rash Verified 06/09/19 07:09 Consultations 06/09/19 12:10 Consult It Operations Manager Routine Procedures Performed Operation Date: 06/09/19 08:15 Actual Procedures p Right Carotid Endarterectomy with Bovine Patch Angioplasty(Right) - Bill Kuo MD Hospital Course (1) Carotid artery disease: 73 y/o male with 75% right carotid stenosis was taken to the OR for endarterectomy with bovine patch angioplasty and monitored overnight in the ICU. His blood pressure remained stable and neurologic status remained normal. [place] drain was removed. He was stable for discharge later in the morning. Total Time Total Time Spent Total Time Spent (In Minutes): 10 Discharge Plan Discharge Items Patient Disposition: Home - Self-Care Reason For Visit: Carotid Stenosis Discharge Diagnosis: right carotid endardectomy Activity: Per Instructions section Lifting: No more than 10 pounds Bathing Comment: okay to shower Exercise/Sports: Wait until after follow-up appointment Driving/Machine Use: no driving for at least one week Non-emergency contact: Surgeon Call non-emergency contact if: you have any medication questions, your symptoms worsen, your pain is not controlled, your pain is worsening, your pain is concerning for you, you have a fever, your temperature is above 101.5, your wound has increased redness, your wound has increased drainage and your wound pain has increased Follow-up/Referrals: Bill Kuo MD [Surgeon] - (Please call to schedule follow up in clinic within 1 week.) PCP,NO [Primary Care Provider] - Diet: Regular Addtl Attending Provider Instructions: Your surgical santi will be removed when you follow up in clinic. Pending Studies at Discharge: No Stand-Alone Forms: My [facility] [employer] Medications and DC Order Prescriptions: New oxycodone-acetaminophen [Percocet] 5-325 mg tablet 1 - 2 tab PO .every 4-6 hours PRN (Reason: pain, for initial therapy. max 8 per day) Qty: 15 RF: 0 Continued hydrochlorothiazide 25 mg tablet 25 mg PO QAM RF: 0 naproxen 500 mg tablet 500 mg PO BID PRN (Reason: Pain) RF: 0 atorvastatin 80 mg tablet 80 mg PO DAILY RF: 0 clopidogrel 75 mg Tablet 75 mg PO QAM RF: 0 amlodipine 10 mg Tablet 10 mg PO QAM RF: 0 albuterol sulfate 90 mcg/actuation Hfa Aerosol Inhaler 2 puff inhalation Q4H PRN (Reason: sob) RF: 0 budesonide-formoterol 160-4.5 mcg/actuation Hfa Aerosol Inhaler 2 puff INHALATION BID RF: 0 aspirin 81 mg Tablet,Delayed Release (Dr/Ec) 81 mg PO QAM RF: 0 Discharge Orders: Discharge Order (Routine); Ordered 06/10/19 Ordered By: Soto Rogers Jr Admission Data Admit Date/Time: 06/09/19 10:49 Attending Provider: Bill Kuo Admit Provider: Bill Kuo Primary Care Provider: PCP,NO Other Providers: Elliott Raman Other Interventions: Discharge Summary Assessment (RN) Last Done: 06/10/19 09:16 DC Date/Time DO NOT enter until pt leaves facility: 06/10/19 12:05
== END 2019-06-10 12:05 | disposition home or self-care (01) | DRG 39 ==
LOC: ASU 06:42 → 1E 10:49

== ENCOUNTER 2020-05-20 08:13 | Inpatient (IN) ==
[2020-05-20] MEDS ORDERED: ALBUT/IPRATROP 3MG/0.5MG NEB 3 ML VIAL NEB STA (08:37)
[2020-05-20] MEDS ORDERED: MoRPHine SULFATE 4 MG/ML 1 ML CARP\\VIAL IV STA (08:37)
--- NOTE | 2020-05-20 08:37 | Emergency Department Note ---
History of Present Illness General Chief Complaint: Chest Pain Stated Complaint: CHEST PAIN Time Seen by Provider: 05/20/20 08:16 Source: patient Mode of arrival: ambulatory Limitations: no limitations History of Present Illness Provider Complaint: chest pain Maximum Pain Intensity: 10 This is a 74-year-old male who presents to the ED with a chief complaint of chest pain. The patient states that he has had the symptoms since last , 3 days. He reports a sharp pain in his bilateral chest with breathing. It is rather constant pain. He states that the pain is also in his upper back. He has history of smoking. Does not use home oxygen. Pulse ox on room air in triage was noted to be 84%. The patient does report a history of bladder cancer a year ago. He had a cystoscopy last week that was clear. The patient also reports a history of hypertension and CVA. He denied any lung history but records show a history of COPD. He denies any new cough. He states that he has a chronic smoker's cough that is occasionally productive of a clear sputum. Denies any new swelling or pain in his legs. Home Medications Home Medications Medication Instructions Recorded Confirmed Type albuterol sulfate 2 puff INHALATION Q4H PRN 02/14/19 05/20/20 History amlodipine 10 mg PO QAM 02/14/19 05/20/20 History budesonide-formoterol 2 puff INHALATION BID 02/14/19 05/20/20 History clopidogrel 75 mg PO QAM 02/14/19 05/20/20 History aspirin 81 mg PO QAM 05/24/19 05/20/20 History atorvastatin 80 mg tablet 80 mg PO HS 06/08/19 05/20/20 History naproxen 500 mg tablet 500 mg PO BID PRN 06/08/19 05/20/20 History Allergies Allergy/AdvReac Type Severity Reaction Status Date / Time lisinopril Allergy Severe THROAT Verified 05/20/20 09:03 CLOSES Penicillins Allergy Unknown Rash Verified 05/20/20 09:03 Past Med/Surg History Medical History Abnormal ECG Right bundle branch block Admitted to intensive care unit Arthritis COPD (chronic obstructive pulmonary disease) CVA (cerebral infarction) CVA (cerebral infarction) History of bladder cancer S/P BCG treatment History of high cholesterol DIETARY CONTROLLED History of kidney stones History of stroke 2013, [place] WITH BLOOD THINNER - NO RESIDUAL EFFECTS HTN (hypertension) Kidney stones Surgical History History of colonoscopy History of surgery LEFT EYE/ INJURY RELATED 1965 History of total left hip arthroplasty Hx of cystoscopy 03/14/19 [facility] Family History Mother Heart disease Brother Heart disease Social History Smoking Status: Current every day smoker Cigarettes Per Day: 20; Second Hand Exposure: No; Hx Alcohol Use: Yes Alcohol type: beer Hx Substance Use: No Preferred Language: Albanian Communication Ability: Effective 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 Beliefs That Will Affect Care: None marital status: / Current Living Situation: Alone current occupational status: retired Feels Safe at Home: Yes Assistive Devices: Glasses and Oxygen - at Night Review of Systems A total of 10 systems reviewed and were otherwise negative Physical Exam Vital Signs Vital Signs - 24 hr 05/20/20 08:16 05/20/20 08:30 05/20/20 09:25 Temperature 36.7 C Temperature Source Oral Pulse Rate 92 H Pulse Rate [Apical] 78 Respiratory Rate 18 18 Respiratory Effort / Characteristics Non-Labored Spontaneous Respiratory Depth Normal Respiratory Pattern Regular Blood Pressure 179/62 H Blood Pressure Mean 101 Pulse Oximetry 84 L 92 92 Oxygen Delivery Method Room Air Nasal Cannula Nasal Cannula Oxygen Flow Rate 3 4 Sepsis Recent Fever Within 48 Hours No Sepsis New/Unexplained Change in Mental Status No Sepsis Action Taken by Nursing No Action Required CONSTITUTIONAL/VITAL SIGNS: Reviewed / noted above. GENERAL: Non-toxic in appearance. INTEGUMENTARY: Warm, dry, and [place]. HEAD: Normocephalic. EYES: without scleral icterus or trauma. ENT/OROPHARYNX: clear and moist. LYMPHADENOPATHY/NECK: Is supple without lymphadenopathy or meningismus. RESPIRATORY: Lungs with some basilar crackles bilaterally. Mild increased work of breathing. CARDIOVASCULAR: Regular rate and rhythm. GI/ABDOMEN: Soft and nontender. No organomegaly or pulsatile mass. No rebound or guarding. Normal bowel sounds. EXTREMITIES: Warm and well perfused. BACK: No CVA tenderness. NEUROLOGICAL: Intact without focal deficits. PSYCHIATRIC: normal affect. MUSCULOSKELETAL: Normally developed with good muscle tone. TRIAGE NURSING DOCUMENTATION REVIEWED. Course Administered Medications Discontinued Medications Albuterol (Albut/Ipratrop 3mg/0.5mg Neb 3 Ml Vial) 3 ml NEB NOW STA Stop: 05/20/20 08:38 Last Admin: 05/20/20 09:24 Dose: 3 ml Documented by: [id number] Ioversol (Optiray 320 125ml) 120 ml IV ONCE ONE Stop: 05/20/20 10:07 Last Admin: 05/20/20 10:06 Dose: 120 ml Documented by: [id number] Morphine Sulfate (Morphine Sulfate 4 Mg/Ml 1 Ml Carp\Vial) 4 mg IV NOW STA Stop: 05/20/20 08:38 Last Admin: 05/20/20 08:41 Dose: 4 mg Documented by: [id number] Medical Decision Making Differential Diagnosis The differential that was considered includes acute myocardial infarction, acute coronary syndrome, myocarditis, pericarditis, pericardial effusions /tamponade, esophageal perforation, thoracic aortic dissection, pulmonary embolism, pneumonia, pneumothorax, pancreatitis, shingles, acute cholecystitis, perforated abdominal viscus. Medical Records Attestation: I reviewed the patient's medical records. Home Medications Current Medication List: was personally reviewed by me Laboratory Data Result diagrams: 05/20/20 08:30 05/20/20 08:30 Labs: Lab Results 05/20/20 05/20/20 05/20/20 Range/Units 08:30 08:30 08:30 WBC 15.45 H (4.8-10.8) K/uL RBC 5.42 (4.7-6.1) M/uL Hgb 16.3 (14.0-18.0) g/dL Hct 49.3 (42-52) % MCV 91.0 (80-100) fL MCH 30.1 (25-34) pg MCHC 33.1 (32-36) g/dL RDW Std Deviation 46.6 H (36.4-46.3) fL RDW Coeff of [place] 14.1 (11.5-14.5) % Plt Count 201 (130-400) K/uL MPV 9.5 (7.4-10.4) fL Immature Gran % (Auto) 0.2 % Neut % (Auto) 74.4 % Lymph % (Auto) 12.3 % [place] % (Auto) 9.3 % Eos % (Auto) 3.7 % Baso % (Auto) 0.1 % Neut # (Auto) 11.50 H (1.4-6.5) K/uL Lymph # (Auto) 1.90 (1.2-3.4) K/uL [place] # (Auto) 1.43 H (0.11-0.59) K/uL Eos # (Auto) 0.57 H (0-0.5) K/uL Baso # (Auto) 0.02 (0-0.2) K/uL Immature Gran # (Auto) 0.03 H (0.00-0.02) K/uL PT 10.6 (9.0-12.0) Seconds INR 1.0 (0.9-1.1) APTT 27.6 (21.0-31.0) Seconds PTT Ratio 1.0 Sodium 140 (136-145) mmol/L Potassium 3.9 (3.5-5.1) mmol/L Chloride 106 (98-107) mmol/L Carbon Dioxide 31 (21-32) mmol/L Anion Gap 3.0 (3-11) BUN 13 (7-18) mg/dl Creatinine 0.83 (0.6-1.4) mg/dl Est Cr Clr Drug Dosing 78.2 ml/min Est GFR ( Amer) 99.1 Est GFR (Non-Af Amer) 85.5 BUN/Creatinine Ratio 15.9 (10-20) Glucose 93 (70-99) mg/dl Calcium 8.8 (8.5-10.1) mg/dl Total Bilirubin 0.5 (0.2-1) mg/dl AST 25 (15-37) U/L ALT 18 (12-78) U/L Alkaline Phosphatase 79 (45-117) U/L Total Creatine Kinase 66 (39-308) U/L Troponin I < 0.015 (0-0.045) ng/ml NT-Pro-B Natriuret Pep 116 (0-1800) pg/ml Total Protein 7.7 (6.4-8.2) gm/dl Albumin 3.4 (3.4-5.0) gm/dl Globulin 4.3 H (2.5-4.0) gm/dl Albumin/Globulin Ratio 0.8 L (0.9-2) Lipase 119 (73-393) U/L Imaging Data Chest x-ray: Radiologist's impression: XR chest 1V portable HISTORY: 74 years-old Male Chest Pain acute atypical chest pain COMPARISON: Chest radiographs 06/06/2019, CTA chest 11/19/2019 TECHNIQUE: Portable FINDINGS: Trace right and small left pleural effusion with bibasilar consolidative opacities. Mild pulmonary vascular congestion. No pneumothorax. Cardiac silhouette is normal. Unchanged mediastinal contours. Degenerative changes of the shoulders and spine. IMPRESSION: Trace right and small left pleural effusions with bibasilar consolidative opacities suggestive of atelectasis versus pneumonia. CT scan - chest: Radiologist's impression: IMPRESSION: 1. No evidence of pulmonary thromboembolic disease. 2. Mild pulmonary edema with small pleural effusions. 3. Tracheobronchial secretions/bibasilar mucous plugging with left greater than right bibasilar opacities suggestive of atelectasis. Pneumonitis would be difficult to exclude. ECG Data Attestation: I personally reviewed and interpreted this ECG as follows: Indication: SOB/dyspnea Rate (beats per minute): 86 Rhythm: normal sinus Findings: + RBBB; no PVC and no ST elevation Change: no significant change (November 19, 2019) MDM Narrative Patient presents as above with a pleuritic type chest pain and hypoxia. He does not use home oxygen. The chest x-ray shows basilar atelectasis versus p neumonia. Blood positive count is 15.45. Metabolic panel was unremarkable. Troponin and BNP are normal. EKG showed normal sinus rhythm with a right bundle branch block. A CT scan of the chest did not show evidence of PE. There is mucous plugging and pneumonitis is difficult to exclude. The patient was treated empirically with antibiotics including IV Rocephin and IV Zithromax. He was given IV morphine for his pain. He was given a DuoNeb treatment. He will be seen by the hospitalist for further evaluation and care. [employer] currently pending. Impression & Plan Hypoxia, Chest pain, pleuritic, Pneumonia Discharge Plan Visit Data Chief Complaint: Chest Pain Stated Complaint: CHEST PAIN ED Provider: Cornelius Johnson Discharge Problem: Hypoxia, Chest pain, pleuritic, Pneumonia Patient Disposition: Being Evaluated by Hospitalist Forms Stand Alone Forms: [employer] [facility] Prescriptions Prescriptions: No Action naproxen 500 mg tablet 500 mg PO BID PRN (Reason: Pain) RF: 0 atorvastatin 80 mg tablet 80 mg PO HS RF: 0 clopidogrel 75 mg Tablet 75 mg PO QAM RF: 0 amlodipine 10 mg Tablet 10 mg PO QAM RF: 0 albuterol sulfate 90 mcg/actuation Hfa Aerosol Inhaler 2 puff inhalation Q4H PRN (Reason: sob) RF: 0 budesonide-formoterol 160-4.5 mcg/actuation Hfa Aerosol Inhaler 2 puff INHALATION BID RF: 0 aspirin 81 mg Tablet,Delayed Release (Dr/Ec) 81 mg PO QAM RF: 0 Referrals Referrals: PCP,NO [Primary Care Provider] - Discharge Problem: Pneumonia Qualifiers: Pneumonia type: due to unspecified organism Laterality: bilateral Lung location : lower lobe of lung Qualified Code(s): J18.9 - Pneumonia, unspecified organism
[2020-05-20 08:49] LABS: Basophils # (auto) 0.02 K/uL (0-0.2); Basophils % (auto) 0.1 %; Eosinophils # (auto) 0.57 K/uL (0-0.5); Eosinophils % (auto) 3.7 %; Hematocrit (blood only) 49.3 % (42-52); Hemoglobin 16.3 g/dL (14.0-18.0); Immature Granulocytes # (auto) 0.03 K/uL (0.00-0.02); Immature Granulocytes % (auto) 0.2 %; Lymphocytes % (auto) 12.3 %; Mean Corpuscular Hemoglobin 30.1 pg (25-34); Mean Corpuscular Hgb Conc 33.1 g/dL (32-36); Mean Platelet Volume 9.5 fL (7.4-10.4); Monocytes # (auto) 1.43 K/uL (0.11-0.59); Monocytes % (auto) 9.3 %; Neutrophils % (auto) 74.4 %; Platelet Count 201 K/uL (130-400); RDW Coefficient of Variation 14.1 % (11.5-14.5); RDW Standard Deviation 46.6 fL (36.4-46.3); Red Blood Count 5.42 M/uL (4.7-6.1); White Blood Count 15.45 K/uL (4.8-10.8)
[2020-05-20 08:59] LABS: Partial Thromboplastin Time 27.6 Seconds (21.0-31.0); Prothrombin Time 10.6 Seconds (9.0-12.0)
[2020-05-20 09:07] LABS: Alanine Aminotransferase 18 U/L (12-78); Albumin Level 3.4 gm/dl (3.4-5.0); Aspartate Aminotransferase 25 U/L (15-37); BUN Creatinine Ratio 15.9 (10-20); Blood Urea Nitrogen 13 mg/dl (7-18); Calcium 8.8 mg/dl (8.5-10.1); Carbon Dioxide 31 mmol/L (21-32); Chloride 106 mmol/L (98-107); Creatinine Clr Calc Pharmacy 78.2 ml/min; Est GFR (African American) 99.1; Est GFR (Non-African American) 85.5; Glucose 93 mg/dl (70-99); Lipase 119 U/L (73-393); Potassium 3.9 mmol/L (3.5-5.1); Sodium 140 mmol/L (136-145)
[2020-05-20 09:12] LABS: Albumin Globulin Ratio 0.8 (0.9-2); Alkaline Phosphatase 79 U/L (45-117); Bilirubin,Total 0.5 mg/dl (0.2-1); Creatine Kinase 66 U/L (39-308); Globulin 4.3 gm/dl (2.5-4.0); NT Pro B Type Natriuretic Pept 116 pg/ml (0-1800); Total Protein 7.7 gm/dl (6.4-8.2); Troponin I < 0.015 ng/ml (0-0.045)
--- NOTE | 2020-05-20 09:39 | XRay Report ---
XR chest 1V portable HISTORY: 74 years-old Male Chest Pain acute atypical chest pain COMPARISON: Chest radiographs 06/06/2019, CTA chest 11/19/2019 TECHNIQUE: Portable FINDINGS: Trace right and small left pleural effusion with bibasilar consolidative opacities. Mild pulmonary va scular congestion. No pneumothorax. Cardiac silhouette is normal. Unchanged mediastinal contours. Deg enerative changes of the shoulders and spine. IMPRESSION: Trace right and small left pleural effusions with bibasilar consolidative opacities sugge stive of atelectasis versus pneumonia. ACT 112: Negative or not required by law. The above report was generated using voice recognition software. It may contain grammatical, syntax o r spelling errors. Electronically signed by: Jaime Segal M.D. 05/20/2020 9:37 AM
[2020-05-20] MEDS ORDERED: OPTIRAY 320 125ml IV ONE (10:06)
[2020-05-20] MEDS ORDERED: cefTRIAXone SODIUM 2,000 MG/70 ML BAG IV SCH (10:10)
[2020-05-20] MEDS ORDERED: cefTRIAXone SODIUM 1,000 MG/50 ML BAG IV STA (10:10)
[2020-05-20] MEDS ORDERED: AZITHROMYCIN 500 MG in DEXTROSE 5% 250 ML IV ONE (10:10)
--- NOTE | 2020-05-20 10:27 | CT Scan Report ---
CT angio chest PE protocol CT DOSE: 652.44 mGy.cm HISTORY: 74 years-old Male with sob, hypoxia. Acute chest pain with hypoxia and shortness of breath TECHNIQUE: Multiple CTA images of the chest were obtained after the intravenous administration of 120 ml Optiray 320. Coronal and sagittal MIPS were obtained from the axial data set and were submitted for review. All measurements were obtained according to NASCET criteria. A dose lowering technique w as utilized adhering to the principles of ALARA. COMPARISON: CTA of the chest 11/19/2019 FINDINGS: CTA: Heart is upper limits of normal in size. No pericardial effusion. Moderate coronary artery calcificat ions. Moderate mixed plaque of the thoracic aorta without aneurysm or dissection. Patency of the imag ed great vessels. Narrowing of less than 50% involves the left subclavian artery. The pulmonary arter ial tree is opacified to level of the subsegmental branches and demonstrates no filling defects to carballo ggest thromboembolic disease. CT CHEST: 4.1 cm hypodense right thyroid nodule appears unchanged. Nonspecific mildly enlarged lymph nodes melani ure up to 11 mm. Prominent bilateral hilar lymph nodes. Small pleural effusions with dependent bibasi lar consolidation. Mild emphysema. Mild intralobular septal and bronchial wall thickening. Mild bibas ilar mucous plugging. There are no suspicious pulmonary nodules or masses. 4 mm linear subpleural nod ule of the right lower lobe is unchanged and likely benign. 4 mm solid nodule of the superior segment right lower lobe is also unchanged and is of low clinical suspicion. Tracheobronchial secretions. No acute process of the imaged upper abdomen. Soft tissues are unremarkable. Degenerative changes of the shoulders and spine. Loose bodies the left subscapularis recess. IMPRESSION: 1. No evidence of pulmonary thromboembolic disease. 2. Mild pulmonary edema with small pleural effusions. 3. Tracheobronchial secretions/bibasilar mucous plugging with left greater than right bibasilar opaci ties suggestive of atelectasis. Pneumonitis would be difficult to exclude. ACT 112: Negative or not required by law. The above report was generated using voice recognition software. It may contain grammatical, syntax o r spelling errors. Electronically signed by: Jaime Segal M.D. 05/20/2020 10:26 AM
--- NOTE | 2020-05-20 11:07 | History & Physical Report ---
Date of Service May 20, 2020 Assessment & Plan (1) Community acquired pneumonia: Curb 65 continue ceftriaxone 1 g IV daily, azithromycin 500 mg IV given in ER we will continue 250 mg p.o. Suspect mucous plugging secondary to community-acquired pneumonia Incentive spirometer Flutter valve Vibration vest (2) Hypoxia: Aim O2 sats > 88% Suspect secondary to mucous plugging and community-acquired pneumonia. (3) HTN (hypertension): Continue amlodipine 10 mg p.o. every morning with hold parameters (4) COPD (chronic obstructive pulmonary disease): Does not appear to be in acute exacerbation. Continue usual maintenance inhaler with Symbicort 2 puffs twice daily or hospital formulary equivalent (5) Hyperlipemia: Continue atorvastatin 80 mg p.o. at bedtime (6) Pleurisy: Acetaminophen 1g PO 3 times daily Toradol 15 mg IV every 6 hourly as needed Oxycodone if above is not effective. Consider prednisone tomorrow if not adequately breathing deeply. (7) Tobacco use disorder: Cessation advised. Declined nicotine replacement products. (8) Carotid artery disease: S/p carotid endarterectomy 2018. Continue aspirin, clopidogrel, atorvastatin (9) DVT prophylaxis: Lovenox 40 mg SQ daily Admission and Anticipated Discharge Date Admission Date: 05/20/2020 Anticipated date of discharge: 05/22/20 History of Present Illness Chief Complaint: Chest pain Primary Care Provider: NO PCP Branden Galvin is a 74-year-old male who presents to the ER with chest pain. Pleuritic chest pain which is sharp and worse on inspiration started 3-4 days ago. Initially pain was all over his chest but now bilateral just around his lower lateral and anterior chest. No radiation. No worse on lying, sitting, palpation, exertion. He denies any fevers, chills, diarrhea, loss of taste or smell with known COVID-19 exposure. Notable productive cough that he has had this for years and no worse than usual. He has COPD and uses his Symbicort regularly. He denies frequent exacerbations or need for steroids. He denies any audible wheezing. He does note having similar symptoms on a prior occasion and being diagnosed with pneumonia. Smokes 1 pack/day. In the ER chest x-ray concerning for bilateral basilar pneumonia. Bio fire upper respiratory panel negative. Elevated WBC. CT with tracheobronchial s ecretions/bibasilar mucous plugging with left greater than right bibasilar opacities. O2 sats 84% on room air which improved with 4L nasal cannula. He was prescribed a DuoNeb however reports this made no difference to his symptoms. He was also given morphine for pain which she reports was not effective. He was referred to medicine for hypoxia and pneumonia for ongoing management and admission. Allergies Allergy/AdvReac Type Severity Reaction Status Date / Time lisinopril Allergy Severe THROAT Verified 05/20/20 09:03 CLOSES Penicillins Allergy Unknown Rash Verified 05/20/20 09:03 Home Medications Home Medications Medication Instructions Recorded Confirmed Type albuterol sulfate 2 puff INHALATION Q4H PRN 02/14/19 05/20/20 History amlodipine 10 mg PO QAM 02/14/19 05/20/20 History budesonide-formoterol 2 puff INHALATION BID 02/14/19 05/20/20 History clopidogrel 75 mg PO QAM 02/14/19 05/20/20 History aspirin 81 mg PO QAM 05/24/19 05/20/20 History atorvastatin 80 mg tablet 80 mg PO HS 06/08/19 05/20/20 History naproxen 500 mg tablet 500 mg PO BID PRN 06/08/19 05/20/20 History Past Med/Surg History Medical History Abnormal ECG Right bundle branch block Admitted to intensive care unit Arthritis COPD (chronic obstructive pulmonary disease) CVA (cerebral infarction) CVA (cerebral infarction) History of bladder cancer S/P BCG treatment History of high cholesterol DIETARY CONTROLLED History of kidney stones History of stroke WITH BLOOD THINNER - NO RESIDUAL EFFECTS HTN (hypertension) Kidney stones Surgical History History of colonoscopy History of surgery LEFT EYE/ INJURY RELATED 1965 History of total left hip arthroplasty Hx of cystoscopy 03/14/19 [facility] Family History Mother Heart disease Brother Heart disease Social History Smoking Status: Current every day smoker Cigarettes Per Day: 20; Second Hand Exposure: No; Hx Alcohol Use: Yes Alcohol type: beer Hx Substance Use: No Preferred Language: Indonesian Communication Ability: Effective 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 Beliefs That Will Affect Care: None marital status: / Current Living Situation: Alone current occupational status: retired Feels Safe at Home: Yes Assistive Devices: Glasses and Oxygen - at Night Review of Systems Review of Systems: All systems reviewed & are unremarkable except as noted in HPI & below Physical Exam Constitutional: well developed; + not well nourished and no acute distress Eyes: + anicteric sclerae; normal pupil size Neck: trachea midline Respiratory: + cough (Wet) and able to speak in complete sentences; + abnormal respiratory effort (Shallow breathing), no respiratory distress, no labored breathing, no retractions and does not use accessory muscles Auscultation: + diminished lung sounds (Bibasal), + crackles and + rhonchi (Anterior upper airway sounds); no wheezes Cardiovascular: Rate/Rhythm: regular rate and regular rhythm Heart Sounds: no murmur Vessels: radial pulses present Extremities: normal capillary refill; no calf tenderness and no pedal edema Gastrointestinal (Abdomen): normal bowel sounds, soft, nontender, no hepatosplenomegaly Musculoskeletal: no cyanosis or clubbing, extremities motor strength 5/5 Skin: no rashes, warm and dry Neurologic: moves all extremities and awake; not confused Psychiatric: A+Ox3, euthymic affect Results & Data Results & Data ([facility]) Vital Signs (Past 12 Hours) Vital Signs Temp Pulse Pulse Resp BP Pulse Ox 05/20/20 09:25 78 18 92 05/20/20 08:30 92 05/20/20 08:16 36.7 C 92 H 18 179/62 H 84 L Diagnostic Findings XR chest 1V portable IMPRESSION: Trace right and small left pleural effusions with bibasilar consolidative opacities suggestive of atelectasis versus pneumonia. CT angio chest PE protocol IMPRESSION: 1. No evidence of pulmonary thromboembolic disease. 2. Mild pulmonary edema with small pleural effusions. 3. Tracheobronchial secretions/bibasilar mucous plugging with left greater than right bibasilar opacities suggestive of atelectasis. Pneumonitis would be difficult to exclude. Medications Administered ER medications given: Morphine 4 mg IV DuoNeb 3 mL Ceftriaxone 1 g IV Azithromycin 500 mg IV ECG Indication: chest pain Rate (beats per minute): 86 Rhythm: normal sinus Findings: + RBBB Comparison ECG Date: from (November 19, 2019) Change: no significant change Code Status & VTE Plan Code Status DNR in the event of a cardiac arrest. All other treatments outside of a cardiac arrest. VTE Prophylaxis Plan VTE Prophylaxis will be ordered: Yes PG Care Time/CCT Total # of Minutes Spent Total Time Spent with Patient: Total time spent is greater than 50% in coordination of care (as documented) at patient's floor/unit and/or counseling patient: Coding Level of Care Code 96831 Initial Inpt Care Lvl 2 Diagnoses Community acquired pneumonia J18.9 Hypoxia R09.02 HTN (hypertension) I10 COPD (chronic obstructive pulmonary disease) J44.9 Hyperlipemia E78.5 Pleurisy R09.1 Tobacco use disorder F17.200 Carotid artery disease I73.9 DVT prophylaxis Z29.9
[2020-05-20 12:40] LABS: Adenovirus PCR Not Detected (NotDetected); Bordetella parapertussis PCR Not Detected (NotDetected); Bordetella pertussis PCR Not Detected (NotDetected); Chlamydia pneumoniae PCR Not Detected (NotDetected); Coronavirus 229E PCR Not Detected (NotDetected); Coronavirus CoV-2 (COVID19)PCR Not Detected (NotDetected); Coronavirus HKU1 PCR Not Detected (NotDetected); Coronavirus NL63 PCR Not Detected (NotDetected); Coronavirus OC43PCR Not Detected (NotDetected); Human Metapneumovirus PCR Not Detected (NotDetected); Influenza A PCR Not Detected (NotDetected); Influenza B PCR Not Detected (NotDetected); Mycoplasma pneumoniae PCR Not Detected (NotDetected); Parainfluenza Virus 1 PCR Not Detected (NotDetected); Parainfluenza Virus 2 PCR Not Detected (NotDetected); Parainfluenza Virus 3 PCR Not Detected (NotDetected); Parainfluenza Virus 4 PCR Not Detected (NotDetected); Respiratory Syncytial VirusPCR Not Detected (NotDetected); Rhinovirus/Enterovirus PCR Not Detected (NotDetected)
[2020-05-20] MEDS ORDERED: KETOROLAC TROMETHAMINE 15 MG/ML VIAL IV ONE (13:10)
[2020-05-20] MEDS ORDERED: ONDANSETRON INJ 2 MG/ML 2 ML VIAL IV PRN (15:45)
[2020-05-20] MEDS ORDERED: ALUMINUM/MAGNESIUM SUSP 30 ML UDC PO PRN (15:45)
[2020-05-20] MEDS ORDERED: KETOROLAC TROMETHAMINE 15 MG/ML VIAL IV PRN (15:45)
[2020-05-20] MEDS ORDERED: ACETAMINOPHEN 500 MG TAB PO ONE (16:00)
[2020-05-20] MEDS: ALBUTEROL HFA 8 GM INHALER INH PRN (16:33)
[2020-05-20] MEDS ORDERED: ACETAMINOPHEN 500 MG TAB ONE (18:29)
[2020-05-20] MEDS: ATORVASTATIN 40 MG TAB PO SCH (20:15)
[2020-05-20] MEDS: ENOXAPARIN INJ 40 MG/0.4 ML SYR SQ SCH (20:16)
--- NOTE | 2020-05-20 20:23 | Electrocardiogram Report ---
Test Reason : Blood Pressure : / mmHG Vent. Rate : 086 BPM Atrial Rate : 086 BPM P-R Int : 142 ms QRS Dur : 140 ms QT Int : 384 ms P-R-T Axes : 054 -02 009 degrees QTc Int : 459 ms Normal sinus rhythm Right bundle branch block Abnormal ECG When compared with ECG of 19-NOV-2019 14:50, No significant change was found Confirmed by Mario Alberto Brooks ([id number]) on 05/20/2020 8:23:19 PM Referred By: REFERRED SELF Confirmed By:Mario Alberto Brooks
[2020-05-21 06:42] LABS: Basophils # (auto) 0.01 K/uL (0-0.2); Basophils % (auto) 0.1 %; Eosinophils # (auto) 0.44 K/uL (0-0.5); Eosinophils % (auto) 3.9 %; Hematocrit (blood only) 43.3 % (42-52); Hemoglobin 14.2 g/dL (14.0-18.0); Immature Granulocytes # (auto) 0.03 K/uL (0.00-0.02); Immature Granulocytes % (auto) 0.3 %; Lymphocytes # (auto) 1.26 K/uL (1.2-3.4); Lymphocytes % (auto) 11.1 %; Mean Corpuscular Hgb Conc 32.8 g/dL (32-36); Mean Corpuscular Volume 91.5 fL (80-100); Mean Platelet Volume 9.3 fL (7.4-10.4); Monocytes # (auto) 1.06 K/uL (0.11-0.59); Monocytes % (auto) 9.4 %; Neutrophils # (auto) 8.52 K/uL (1.4-6.5); Neutrophils % (auto) 75.2 %; Platelet Count 181 K/uL (130-400); RDW Standard Deviation 47.1 fL (36.4-46.3); Red Blood Count 4.73 M/uL (4.7-6.1); White Blood Count 11.32 K/uL (4.8-10.8)
[2020-05-21] MEDS: ALBUTEROL HFA 8 GM INHALER INH PRN ×4 (07:17→21:13)
[2020-05-21 07:29] LABS: BUN Creatinine Ratio 21.4 (10-20); Calcium 8.1 mg/dl (8.5-10.1); Creatinine Clr Calc Pharmacy 90.1 ml/min; Est GFR (Non-African American) 90.6; Potassium 4.1 mmol/L (3.5-5.1)
[2020-05-21] MEDS: ASPIRIN 81 MG ECTAB PO SCH (08:03)
[2020-05-21] MEDS: FLUTICASONE/VILANTEROL 100/25MCG 14 PUFFS/INHALER INH SCH (08:03)
[2020-05-21] MEDS: NAPROXEN 250 MG TAB PO PRN (08:03)
[2020-05-21] MEDS: AZITHROMYCIN 250 MG TAB PO SCH (08:04)
[2020-05-21] MEDS: CLOPIDOGREL BISULFATE 75 MG TAB PO SCH (08:05)
[2020-05-21] MEDS: amLODIPine BESYLATE 5 MG TAB PO SCH (08:05)
[2020-05-21] MEDS: oxyCODONE HCL IR 5 MG TAB (IMMEDIATE RELEASE) PO PRN ×4 (08:35→20:48)
[2020-05-21] MEDS: guaiFENesin 600 MG TABCR PO SCH ×2 (09:57→18:55)
[2020-05-21] MEDS: cefTRIAXone SODIUM 2,000 MG in DEXTROSE 5% 50 ML IV SCH (12:20)
--- NOTE | 2020-05-21 14:12 | Hospitalist Progress Note ---
Date of Service May 21, 2020 Assessment & Plan (1) Acute respiratory failure with hypoxia: 2nd COPD exacerbation and b/l lower lobe pneumonia. [employer] resp panel yesterday including COVID-19 negative. Send sputum cx. Add back bronchodilators. Would repeat a COVID-19 test since he had identified COVID exposure within the last 2 weeks. First COVID could have been falsely negative. Add steroids. check procal in am. (2) Community acquired pneumonia: Cont ceftriaxone 2 g IV daily. Cont azithromycin 250 mg daily. Can't rule out aspiration as the cause of pneumonia as he had a cystoscopy the day he fell ill. Add mucinex. Sputum cx. See above in "acute resp failure." (3) HTN (hypertension): Continue amlodipine 10 mg p.o. every morning (4) COPD (chronic obstructive pulmonary disease): With acute exacerbation. Add solumedrol 40mg TID. Add back combivent. Pulm toilet. Flutter valve. Consider mucomyst nebs. mucinex. strongly consider repeat COVID-19 test. (5) Hyperlipemia: Continue atorvastatin 80 mg p.o. at bedtime (6) Pleurisy: vs musculoskeletal strain from severe coughing. Acetaminophen 1g PO 3 times daily Toradol 15 mg IV every 6 hourly as needed Oxycodone prn steroids should help as well (7) Tobacco use disorder: Cessation advised. Declined nicotine replacement products. (8) Carotid artery disease: S/p carotid endarterectomy 2018. Continue aspirin, clopidogrel, atorvastatin (9) DVT prophylaxis: Lovenox 40 mg SQ daily Admission and Anticipated Discharge Date Admission Date: May 20, 2020 Subjective patient reports he had an outpatient [place]oscopy last [place] the [place] [facility]. cysto was wnl. later that night his respiratory symptoms began. he c/o cough productive of white sputum, wheezing, severe pain b/l costal margins with coughing, fatigue, some aches. 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 he drives [employer] on a daily basis. no O2 use at home. dx with COPD several years ago. Review of Systems Constitutional: + fatigue and + anorexia; no fever Ear, Nose, Mouth, Throat: no loss of taste or smell Respiratory: + cough, + dyspnea and + wheezing Cardiovascular: as per Subjective / HPI; no orthopnea Gastrointestinal: no abdominal pain, no nausea and no vomiting Physical Exam Constitutional: no acute distress and no altered mental status coughing extensively throughout the visit ENMT: external ear and nose normal, oropharynx normal Respiratory: no respiratory distress Auscultation: + diminished lung sounds (Poor air movement throughout ), + crackles and + wheezes Cardiovascular: Rate/Rhythm: regular rate and regular rhythm Heart Sounds: normal S1 and normal S2; no murmur Vessels: posterior tibial pulses present and dorsalis pedis pulses present; no JVD Extremities: no edema Gastrointestinal (Abdomen): normal bowel sounds, soft, nontender, no hepatosplenomegaly Psychiatric: A+Ox3, euthymic affect Results & Data Results & Data ([facility]) Vital Signs (Past 12 Hours) Vital Signs Temp Pulse Resp BP Pulse Ox 05/21/20 10:50 78 18 91 05/21/20 07:21 37.1 C 98 H 16 145/72 H 94 05/21/20 07:18 81 19 91 Laboratory Results Laboratory Results - last 24 hr 05/21/20 05/21/20 06:24 06:24 WBC 11.32 H RBC 4.73 Hgb 14.2 Hct 43.3 MCV 91.5 MCH 30.0 MCHC 32.8 RDW Std Deviation 47.1 H RDW Coeff of [place] 14.0 Plt Count 181 MPV 9.3 Immature Gran % (Auto) 0.3 Neut % (Auto) 75.2 Lymph % (Auto) 11.1 [place] % (Auto) 9.4 Eos % (Auto) 3.9 Baso % (Auto) 0.1 Neut # (Auto) 8.52 H Lymph # (Auto) 1.26 [place] # (Auto) 1.06 H Eos # (Auto) 0.44 Baso # (Auto) 0.01 Immature Gran # (Auto) 0.03 H Sodium 139 Potassium 4.1 Chloride 107 Carbon Dioxide 31 Anion Gap 1.0 L BUN 15 Creatinine 0.72 Est Cr Clr Drug Dosing 90.1 Est GFR ( Amer) 105.0 Est GFR (Non-Af Amer) 90.6 BUN/Creatinine Ratio 21.4 H Glucose 87 Calcium 8.1 L PG Care Time/CCT Total # of Minutes Spent Total Time Spent with Patient: Total time spent is greater than 50% in coordination of care (as documented) at patient's floor/unit and/or counseling p atient: Coding Level of Care Code 40933 Subseq Hosp Care Lvl 2 Diagnoses Acute respiratory failure with hypoxia J96.01 Community acquired pneumonia J18.9 HTN (hypertension) I10 COPD (chronic obstructive pulmonary disease) J44.9 Hyperlipemia E78.5 Pleurisy R09.1 Tobacco use disorder F17.200 Carotid artery disease I73.9 DVT prophylaxis Z29.9
[2020-05-21] MEDS: ENOXAPARIN INJ 40 MG/0.4 ML SYR SQ SCH (18:55)
[2020-05-21] MEDS: ATORVASTATIN 40 MG TAB PO SCH (18:55)
[2020-05-21] MEDS ORDERED: IPRATROPIUM BROMIDE/ALBUTEROL respimat INH INH SCH (21:00)
[2020-05-22] MEDS: methylPREDNISolone 40 MG in SYRINGE 0 ML IV SCH ×3 (04:32→21:50)
[2020-05-22] MEDS ORDERED: IPRATROPIUM BROMIDE HFA INHALER INH SCH (07:00)
[2020-05-22] MEDS ORDERED: ALBUTEROL HFA 8 GM INHALER INH SCH (07:00)
[2020-05-22 07:11] LABS: BUN Creatinine Ratio 22.7 (10-20); Calcium 8.9 mg/dl (8.5-10.1); Creatinine Clr Calc Pharmacy 80.1 ml/min; Est GFR (African American) 100.1; Est GFR (Non-African American) 86.3; Magnesium 2.2 mg/dl (1.8-2.4); Potassium 4.5 mmol/L (3.5-5.1)
[2020-05-22] MEDS: FLUTICASONE/VILANTEROL 100/25MCG 14 PUFFS/INHALER INH SCH (09:10)
[2020-05-22] MEDS: NAPROXEN 250 MG TAB PO PRN (09:12)
[2020-05-22] MEDS: AZITHROMYCIN 250 MG TAB PO SCH (09:12)
[2020-05-22] MEDS: ASPIRIN 81 MG ECTAB PO SCH (09:12)
[2020-05-22] MEDS: amLODIPine BESYLATE 5 MG TAB PO SCH (09:12)
[2020-05-22] MEDS: CLOPIDOGREL BISULFATE 75 MG TAB PO SCH (09:13)
[2020-05-22] MEDS: guaiFENesin 600 MG TABCR PO SCH ×2 (09:13→21:50)
[2020-05-22] MEDS: ACETAMINOPHEN 500 MG TAB PO SCH ×3 (09:14→21:52)
[2020-05-22] MEDS: PANTOprazole 40 MG TAB PO SCH (09:14)
[2020-05-22] MEDS: oxyCODONE HCL IR 5 MG TAB (IMMEDIATE RELEASE) PO PRN ×4 (09:17→21:51)
[2020-05-22] MEDS ORDERED: ALBUT/IPRATROP 3MG/0.5MG NEB 3 ML VIAL NEB PRN (10:22)
[2020-05-22] MEDS: ALBUT/IPRATROP 3MG/0.5MG NEB 3 ML VIAL NEB SCH ×3 (11:20→19:38)
[2020-05-22] MEDS: ALBUTEROL HFA 8 GM INHALER INH PRN (11:20)
[2020-05-22] MEDS: ACETYLCYSTEINE 20% INHAL SOLN 4ML ***DISPENSED BY RESP. INH SCH ×3 (11:20→19:37)
[2020-05-22] MEDS: cefTRIAXone SODIUM 2,000 MG in DEXTROSE 5% 50 ML IV SCH (12:51)
--- NOTE | 2020-05-22 20:11 | Hospitalist Progress Note ---
Date of Service May 22, 2020 Assessment & Plan (1) Acute respiratory failure with hypoxia: 2nd COPD exacerbation and b/l lower lobe pneumonia. 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 a 2nd COVID-19 test was again negative. sputum cx thus far negative. (2) Community acquired pneumonia: Cont ceftriaxone 2 g IV daily. Cont azithromycin 250 mg daily. day #3 of such. Can't rule out aspiration as the cause of pneumonia as he had a cystoscopy the day he fell ill. Cont mucinex & pulmonary toilet. Sputum cx - follow. See above in "acute resp failure." (3) COPD (chronic obstructive pulmonary disease): With acute exacerbation. IMPROVED today. Cont IV solumedrol 40mg TID - no wean today. Cont scheduled duonebs with mucomyst - latter helping. Pulm toilet. Flutter valve. Mucinex. COVID-19 test x 2 NEGATIVE. (4) HTN (hypertension): Continue amlodipine 10 mg p.o. every morning Controlled (5) Hyperlipemia: Continue atorvastatin 80 mg p.o. at bedtime (6) Pleurisy: vs musculoskeletal strain from severe coughing. IMPROVED with steroids. Also cont Acetaminophen 1g PO 3 times daily Cont Toradol 15 mg IV every 6 hourly as needed Cont Oxycodone prn (7) Tobacco use disorder: Cessation advised. Declined nicotine replacement products. Patient is committed to trying to quit upon discharge. (8) Carotid artery disease: S/p carotid endarterectomy 2018. Continue aspirin, clopidogrel, atorvastatin (9) DVT prophylaxis: Lovenox 40 mg SQ daily progressing left message for pt's son this evening Admission and Anticipated Discharge Date Admission Date: May 20, 2020 Subjective patient reports feeling better today. still coughing but sputum production is better. less dyspnea. less chest discomfort/rib discomfort with coughing. less wheezing. appetite excellent. no fevers. ambulating. Review of Systems Constitutional: no fever, no chills, no fatigue and no anorexia Respiratory: + cough, + dyspnea, + sputum production and + wheezing; no hemoptysis Cardiovascular: as per Subjective / HPI; no orthopnea, no paroxysmal nocturnal dyspnea and no edema Gastrointestinal: + constipation; no nausea and no vomiting Physical Exam Constitutional: no acute distress and no altered mental status ENMT: external ear and nose normal, oropharynx normal Respiratory: no respiratory distress Auscultation: + diminished lung sounds (air movement is better this am), + crackles (Bases) and + wheezes (B/l but improved today) Cardiovascular: Rate/Rhythm: regular rate and regular rhythm Heart Sounds: normal S1 and normal S2; no murmur Vessels: posterior tibial pulses present and dorsalis pedis pulses present; no JVD Extremities: no edema Gastrointestinal (Abdomen): normal bowel sounds, soft, nontender, no hepatosplenomegaly Psychiatric: A+Ox3, euthymic affect Results & Data Results & Data ([facility]) Vital Signs (Past 12 Hours) Vital Signs Temp Pulse Resp BP Pulse Ox 05/22/20 19:41 70 18 93 05/22/20 15:20 68 16 92 05/22/20 15:00 36.6 C 70 20 145/70 H 92 05/22/20 08:36 92 Laboratory Results Laboratory Results - last 24 hr 05/22/20 05/22/20 05/22/20 06:26 06:26 09:32 Sodium 141 Potassium 4.5 Chloride 108 H Carbon Dioxide 32 Anion Gap 1.0 L BUN 18 Creatinine 0.81 Est Cr Clr Drug Dosing 80.1 Est GFR ( Amer) 100.1 Est GFR (Non-Af Amer) 86.3 BUN/Creatinine Ratio 22.7 H Glucose 94 Calcium 8.9 Magnesium 2.2 Procalcitonin 0.06 COVID-19 Eval Order Covid19 [facility] SARS-CoV-2, RNA, NAAT 05/22/20 09:32 Sodium Potassium Chloride Carbon Dioxide Anion Gap BUN Creatinine Est Cr Clr Drug Dosing Est GFR ( Amer) Est GFR (Non-Af Amer) BUN/Creatinine Ratio Glucose Calcium Magnesium Procalcitonin COVID-19 Eval Order SARS-CoV-2, RNA, NAAT NEGATIVE PG Care Time/CCT Total # of Minutes Spent Total Time Spent with Patient: Total time spent is greater than 50% in coordina tion of care (as documented) at patient's floor/unit and/or counseling patient: Coding Level of Care Code 25650 Subseq Hosp Care Lvl 2 Diagnoses Acute respiratory failure with hypoxia J96.01 Community acquired pneumonia J18.9 COPD (chronic obstructive pulmonary disease) J44.9 HTN (hypertension) I10 Hyperlipemia E78.5 Pleurisy R09.1 Tobacco use disorder F17.200 Carotid artery disease I73.9 DVT prophylaxis Z29.9
[2020-05-22] MEDS: ATORVASTATIN 40 MG TAB PO SCH (21:52)
[2020-05-22] MEDS: ENOXAPARIN INJ 40 MG/0.4 ML SYR SQ SCH (21:53)
[2020-05-23] MEDS: methylPREDNISolone 40 MG in SYRINGE 0 ML IV SCH ×3 (04:45→23:03)
[2020-05-23] MEDS: ACETYLCYSTEINE 20% INHAL SOLN 4ML ***DISPENSED BY RESP. INH SCH ×3 (07:31→19:14)
[2020-05-23] MEDS: ALBUT/IPRATROP 3MG/0.5MG NEB 3 ML VIAL NEB SCH ×4 (07:31→19:14)
[2020-05-23] MEDS: ACETAMINOPHEN 500 MG TAB PO SCH ×3 (08:13→20:56)
[2020-05-23] MEDS: guaiFENesin 600 MG TABCR PO SCH ×2 (08:13→20:55)
[2020-05-23] MEDS: AZITHROMYCIN 250 MG TAB PO SCH (08:14)
[2020-05-23] MEDS: amLODIPine BESYLATE 5 MG TAB PO SCH (08:14)
[2020-05-23] MEDS: PANTOprazole 40 MG TAB PO SCH (08:14)
[2020-05-23] MEDS: CLOPIDOGREL BISULFATE 75 MG TAB PO SCH (08:15)
[2020-05-23] MEDS: FLUTICASONE/VILANTEROL 100/25MCG 14 PUFFS/INHALER INH SCH (08:16)
[2020-05-23] MEDS: ASPIRIN 81 MG ECTAB PO SCH (08:54)
[2020-05-23] MEDS: cefTRIAXone SODIUM 2,000 MG in DEXTROSE 5% 50 ML IV SCH (14:06)
[2020-05-23] MEDS ORDERED: FUROSEMIDE 20 MG TAB PO ONE (16:51)
--- NOTE | 2020-05-23 20:29 | Hospitalist Progress Note ---
Date of Service May 23, 2020 Assessment & Plan (1) Acute respiratory failure with hypoxia: 2nd COPD exacerbation and b/l lower lobe pneumonia. 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 A 2nd COVID test was dispatched and also returned negative. Sputum cx thus far negative. Cont steroids- ok to wean. Dose of lasix today for edema. (2) Community acquired pneumonia: Cont ceftriaxone 2 g IV daily. Cont azithromycin 250 mg daily. Can't rule out aspiration as the cause of pneumonia as he had a cystoscopy the day he fell ill. Clinically improving. (3) HTN (hypertension): Continue amlodipine 10 mg p.o. every morning (4) COPD (chronic obstructive pulmonary disease): With acute exacerbation. Cont solumedrol but wean to 40mg BID. Continue duonebs with mucomyst. Pulm toilet. Flutter valve. Mucinex. COVID-19 testing x 2 negative. (5) Hyperlipemia: Continue atorvastatin 80 mg p.o. at bedtime (6) Pleurisy: vs musculoskeletal strain from severe coughing. IMPROVED today Acetaminophen 1g PO 3 times daily Toradol 15 mg IV every 6 hourly as needed Oxycodone prn steroids (7) Tobacco use disorder: Cessation advised. Declined nicotine replacement products. (8) Carotid artery disease: S/p carotid endarterectomy 2018. Continue aspirin, clopidogrel, atorvastatin (9) DVT prophylaxis: Lovenox 40 mg SQ daily home tomorrow hopefully with steroids and abx likely to need 2-step prior to discharge Admission and Anticipated Discharge Date Admission Date: May 20, 2020 Subjective patient overall doing very well feeling better he is walking the hallways I expressed concern that his O2 sats are low w/ ambulation thus, had him go for a walk in hallway - did complete lap upon return his O2 sats were 78-80% surprisingly, however, he had minimal dyspnea upon return from the walk cough improved eating well Review of Systems Constitutional: no fever and no chills Respiratory: + cough, + dyspnea on exertion, + sputum production and + whee zing; no hemoptysis Cardiovascular: + edema; no chest pain, no dyspnea at rest and no orthopnea Gastrointestinal: no abdominal pain, no nausea and no vomiting Physical Exam Constitutional: no acute distress and no altered mental status ENMT: external ear and nose normal, oropharynx normal Respiratory: no respiratory distress Auscultation: + diminished lung sounds (But air movement is better), + crackles (Bases) and + wheezes (Improved today ) Cardiovascular: Rate/Rhythm: regular rate and regular rhythm Heart Sounds: normal S1 and normal S2; no murmur Vessels: posterior tibial pulses present and dorsalis pedis pulses present; no JVD Extremities: + edema (1+ b/l) Gastrointestinal (Abdomen): normal bowel sounds, soft, nontender, no hepatosplenomegaly Psychiatric: A+Ox3, euthymic affect Results & Data Results & Data ([facility]) Vital Signs (Past 12 Hours) Vital Signs Temp Pulse Resp BP Pulse Ox 05/23/20 19:15 80 16 90 05/23/20 15:32 36.8 C 80 16 130/62 90 05/23/20 15:12 83 18 87 L 05/23/20 10:49 74 18 87 L PG Care Time/CCT Total # of Minutes Spent Total Time Spent with Patient: Total time spent is greater than 50% in coordination of care (as documented) at patient's floor/unit and/or counseling patient: Coding Level of Care Code 72832 Subseq Hosp Care Lvl 2 Diagnoses Acute respiratory failure with hypoxia J96.01 Community acquired pneumonia J18.9 HTN (hypertension) I10 COPD (chronic obstructive pulmonary disease) J44.9 Hyperlipemia E78.5 Pleurisy R09.1 Tobacco use disorder F17.200 Carotid artery disease I73.9 DVT prophylaxis Z29.9
[2020-05-23] MEDS: ATORVASTATIN 40 MG TAB PO SCH (20:54)
[2020-05-23] MEDS: ENOXAPARIN INJ 40 MG/0.4 ML SYR SQ SCH (20:54)
[2020-05-24 07:02] LABS: BUN Creatinine Ratio 27.5 (10-20); Calcium 8.5 mg/dl (8.5-10.1); Creatinine Clr Calc Pharmacy 73.4 ml/min; Est GFR (African American) 96.3; Est GFR (Non-African American) 83.1; Potassium 4.5 mmol/L (3.5-5.1)
[2020-05-24] MEDS: ACETYLCYSTEINE 20% INHAL SOLN 4ML ***DISPENSED BY RESP. INH SCH ×2 (07:48→11:27)
[2020-05-24] MEDS: ALBUT/IPRATROP 3MG/0.5MG NEB 3 ML VIAL NEB SCH ×2 (07:48→11:27)
[2020-05-24] MEDS: FLUTICASONE/VILANTEROL 100/25MCG 14 PUFFS/INHALER INH SCH (08:32)
[2020-05-24] MEDS: guaiFENesin 600 MG TABCR PO SCH (08:35)
[2020-05-24] MEDS: AZITHROMYCIN 250 MG TAB PO SCH (08:36)
[2020-05-24] MEDS: ACETAMINOPHEN 500 MG TAB PO SCH (08:36)
[2020-05-24] MEDS: PANTOprazole 40 MG TAB PO SCH (08:36)
[2020-05-24] MEDS: CLOPIDOGREL BISULFATE 75 MG TAB PO SCH (08:36)
[2020-05-24] MEDS: ASPIRIN 81 MG ECTAB PO SCH (08:36)
[2020-05-24] MEDS: amLODIPine BESYLATE 5 MG TAB PO SCH (08:36)
[2020-05-24] MEDS: methylPREDNISolone 40 MG in SYRINGE 0 ML IV SCH (11:42)
--- NOTE | 2020-05-24 13:24 | Discharge Summary ---
Date of Service date of admission - May 20, 2020 date of discharge - May 24, 2020 Admission HPI Per Admitting Provider Branden Galvin is a 74-year-old male who presents to the ER with chest pain. Pleuritic chest pain which is sharp and worse on inspiration started 3-4 days ago. Initially pain was all over his chest but now bilateral just around his lower lateral and anterior chest. No radiation. No worse on lying, sitting, palpation, exertion. He denies any fevers, chills, diarrhea, loss of taste or smell with known COVID-19 exposure. Notable productive cough that he has had this for years and no worse than usual. He has COPD and uses his Symbicort regularly. He denies frequent exacerbations or need for steroids. He denies any audible wheezing. He does note having similar symptoms on a prior occasion and being diagnosed with pneumonia. Smokes 1 pack/day. In the ER chest x-ray concerning for bilateral basilar pneumonia. Bio fire upper respiratory panel negative. Elevated WBC. CT with tracheobronchial secretions/bibasilar mucous plugging with left greater than right bibasilar opacities. O2 sats 84% on room air which improved with 4L nasal cannula. He was prescribed a DuoNeb however reports this made no difference to his symptoms. He was also given morphine for pain which she reports was not effective. He was referred to medicine for hypoxia and pneumonia for ongoing management and admission. Principal Diagnosis acute hypoxic respiratory failure 2nd COPD exacerbation and b/l basilar pneumonia Discharge Exam Constitutional no acute distress and no altered mental status ENMT external ear and nose normal, oropharynx normal Respiratory no respiratory distress Auscultation: + diminished lung sounds (Expiratory phase, but improved from prior exams), + crackles (Bases - minimal b/l) and + wheezes (Minimal b/l) Cardiovascular Rate/Rhythm: regular rate and regular rhythm Heart Sounds: normal S1 and normal S2; no murmur Vessels: posterior tibial pulses present and dorsalis pedis pulses present; no JVD Extremities: no edema Gastrointestinal (Abdomen) normal bowel sounds, soft, nontender, no hepatosplenomegaly Psychiatric A+Ox3, euthymic affect Discharge Data Allergies Allergy/AdvReac Type Severity Reaction Status Date / Time lisinopril Allergy Severe THROAT Verified 05/20/20 09:03 CLOSES Penicillins Allergy Unknown Rash Verified 05/20/20 09:03 Ordered Studies 05/20/20 08:30 CT angio chest PE protocol Stat IMPRESSION: 1. No evidence of pulmonary thromboembolic disease. 2. Mild pulmonary edema with small pleural effusions. 3. Tracheobronchial secretions/bibasilar mucous plugging with left greater than right bibasilar opacities suggestive of atelectasis. Pneumonitis would be difficult to exclude. Hospital Course (1) Acute respiratory failure with hypoxia: 2nd COPD exacerbation and b/l lower lobe pneumonia. 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 A 2nd COVID-19 test was again negative. Sputum culture negative. O2 was weaned off prior to discharge, and O2 sats in room air with exertion were normal on day of discharge. (2) Community acquired pneumonia: Bilateral basilar. COVID negative x 2. Completed 5 days of zithromax and rocephin. Transitioned to PO cefdinir at discharge. Can't rule out aspiration as the cause of pneumonia as he had an outpatient cystoscopy the day he fell ill. Symptoms improved while here. Blood and sputum cultures were negative. Oxygen was weaned off as well. (3) COPD (chronic obstructive pulmonary disease): With acute exacerbation. IMPROVED with IV solumedrol and aggressive pulmonary toilet. Will d/c home on prednisone taper. Prescriptions given for neb machine and duonebs. He will continue his usual COPD inhalers as well. (4) HTN (hypertension): Continue amlodipine 10 mg p.o. every morning Controlled while here (5) Hyperlipemia: Continue atorvastatin 80 mg p.o. at bedtime (6) Pleurisy: vs musculoskeletal strain from severe coughing. IMPROVED with steroids and supportive care. (7) Tobacco use disorder: Cessation advised. Declined nicotine replacement products. Patient is committed to trying to quit upon discharge. (8) Carotid artery disease: S/p carotid endarterectomy 2019. Continue aspirin, clopidogrel, atorvastatin. Total Time Total Time Spent Total Time Spent (In Minutes): 40 Total Time Includes: Examination of the Patient, Discharge Planning and Medication Reconciliation Discharge Plan Discharge Items Patient Disposition: Home - Self-Care Reason For Visit: PNEUMONIA Discharge Diagnosis: 1. bilateral pneumonia - improved 2. COPD exacerbation - improved 3. COVID testing negative x 2 Activity: As commented below Activity Comment: gradually increase your activities over the next 7 days Non-emergency contact: Primary Care Provider Call non-emergency contact if: you have any medication questions Follow-up/Referrals: [facility] [Outside] (see any provider within 1 week for recheck of pneumonia) Diet: Heart Healthy Addtl Attending Provider Instructions: You were treated for pneumonia of both lungs as well as a COPD exacerbation. You improved with IV antibiotics, IV steroids, nebulizer treatments, and time. Your oxygen was weaned off by the time of discharge. You were tested for COVID-19 (coronavirus) twice and both tests were negative. Flu testing was also negative. Recommendations - 1. take cefdinir antibiotic -- 300mg twice daily for 3 more days, first dose TONIGHT. 2. prednisone course for your COPD -- start this TOMORROW on 05/25/20 -- * 4 tabs once daily with food for 3 days, then * 3 tabs once daily with food for 2 days, then * 2 tabs once daily with food for 2 days, then * 1 tab once daily with food for 2 days, then stop. 3. 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 [facility] [address] could get this for you. It is your choice. 4. the medication for the nebulizer machine is called "duoneb." It contains 2 medications - albuterol, and ipratropium. This medication can be taken every 6 hours as needed for cough/wheeze/shortness of breath. You will get this filled at [facility]. 5. ok to use [id number] mucinex up to 1200mg twice daily as needed for cough/congestion. 6. please make every effort to stop smoking! please stay in touch with the [place] to help you with this goal. 7. continue to wear a mask at all times when you leave your home. 8. please practice social distancing - avoid large family gatherings, large crowds, etc. 9. lastly, while on the prednisone, please do not take the naprosyn as you could get irritated stomach. Follow-up - see separate section Return to [facility] if - * you have fevers over 100 degrees * you have worsening shortness of breath * you have chest pains * any other concerns Pending Studies at Discharge: No Stand-Alone Forms: My [facility], Smoking Cessation Medications and [place] Order Prescriptions: New ipratropium-albuterol 0.5 mg-3 mg(2.5 mg base)/3 mL Solution For Nebulization 3 ml NEB Q6H PRN (Reason: cough/wheeze/shortness of breath) Qty: 1 RF: 0 prednisone 10 mg tablet 10 mg PO DIRECTED Qty: 24 RF: 0 (DME) nebulizers Misc See Rx Instructions .ROUTE .MEDSUPPLY Qty: 1 RF: 0 Continued atorvastatin 80 mg tablet 80 mg PO HS RF: 0 clopidogrel 75 mg Tablet 75 mg PO QAM RF: 0 amlodipine 10 mg Tablet 10 mg PO QAM RF: 0 albuterol sulfate 90 mcg/actuation Hfa Aerosol Inhaler 2 puff inhalation Q4H PRN (Reason: sob) RF: 0 budesonide-formoterol 160-4.5 mcg/actuation Hfa Aerosol Inhaler 2 puff INHALATION BID RF: 0 aspirin 81 mg Tablet,Delayed Release (Dr/Ec) 81 mg PO QAM RF: 0 Discontinued naproxen 500 mg tablet 500 mg PO BID PRN (Reason: Pain) RF: 0 Discharge Orders: Discharge Order (Routine); Ordered 05/24/20 Ordered By: Kiko Jorgensen/Other Patient Handouts: Preventing Pneumonia Admission Data Admit Date/Time: 05/20/20 12:27 Attending Provider: Kiko Keith Admit Provider: Kiko Gabriel Primary Care Provider: PCP,NO Other Providers: Kiko Gabriel Other Interventions: Discharge Summary Assessment (RN) Last Done: 05/24/20 13:26 Coding Level of Care Code D/C Day Management >30 mins Diagnoses Acute respiratory failure with hypoxia J96.01 Community acquired pneumonia J18.9 COPD (chronic obstructive pulmonary disease) J44.9 HTN (hypertension) I10 Hyperlipemia E78.5 Pleurisy R09.1 Tobacco use disorder F17.200 Carotid artery disease I73.9
--- NOTE | 2020-06-13 07:44 | Coding Query ---
To promote full compliance with coding requirements relating to patient care, provider participation is requested in all cases of beet worker uncertainty. Please assist us with the question(s) below: Coding Question(s): The diagnosis below was documented in the progress notes and on discharge summary. Per progress notes and discharge, "Can't rule out aspiration as the cause of pneumonia as he had an outpatient cystoscopy the day he fell ill." Please indicate if it is still a possible diagnosis or ruled out. Physician's Response(s): ASPIRATION PNEUMONIA ( ) Diagnosed and POA ( ) Diagnosed and not POA ( x ) Ruled out ( ) Other (please specify) MTDD
== END 2020-05-24 14:30 | disposition home or self-care (01) | DRG 193 ==
LOC: ED 08:13 → SUATTDRO 12:27 → 2W 12:27 → 3W 05-24 05:24

== ENCOUNTER 2020-11-15 22:58 | Inpatient (IN) ==
[2020-11-15] MEDS ORDERED: ALBUT/IPRATROP 3MG/0.5MG NEB 3 ML VIAL NEB ONE (23:16)
[2020-11-15] MEDS ORDERED: dexAMETHasone**PF** 10 MG/ML VIAL IV ONE (23:16)
--- NOTE | 2020-11-15 23:23 | Emergency Department Note ---
Impression & Plan Acute hypoxemic respiratory failure, LLL pneumonia ED Provider Note Name: COLTEN ESTRELLA Age: 75 Sex: M Arrives Via: Walk-In Informant: Patient ED Provider: Devin Blair MD Chief Complaint: Shortness of breath Impression: Acute Hypoxemic Respiratory Failure LLL Pneumonia Medical Decision Makin yr old male arrives in severe distress with shortness of breath and very tight lung sounds throughout, and sats in 70s on room air. History of COPD, Pneumonia, amongst others. Placed on Bipap on my evaluation and given continuous neb with vast improvement in symptoms. NSS Bolus, abx empiric, and iv tylenol as tylenol. CXR with likely LLL pneumonia. CT PE done given elevated dimer which does not note PE. Mag is a bit low and was replaced. He is feeling much better and about 2 hours in to visit we were able to transition him from Bipap to venturi mask. No chest pain nor elevated Trop, I doubt this is acs. He is not hypotensive and Lactate normal thus will hold on full 30ml/kg IV fluids at this time as he is well hydrated. Prior Medical Record and Triage/Nursing Notes reviewed by Me Additional history obtained from chart Differentials:Reactive airway disease, pneumonia, pneumothorax, COPD, CHF, infe ctions, cardiac ischemia, pulmonary embolism, musculoskeletal, gastrointestinal, as well as other pathologies. Vital Signs: reviewed and remarkable for hypoxia, fever, tachy Interventions: saline lock, nss bolus 1 L IV, tylenol iv, cefepime iv, vanco iv, mag iv, decadron iv Labs:Reviewed and remarkable for no significant abnormalities Imaging:X ray results are stated below per my interpretation: Chest: 1 view: Bilateral lower lobe infiltrates, L > R. EKG:Per My Interpretation: Indication SHOB: Sinus Tach 105 bpm, qtc 467 with RBBB. No Ectopy. No Ischemia. Compared to EKG 05/20/20, no significant changes. Cardiac/Tele Monitoring: Cardiac Monitoring: An Order was placed for continuous cardiac monitoring. The monitor shows a rate of 100 with a normal sinus rhythm. Consults:Dr Terrance CARBAJAL Hospitalist Plan: Disposition:Hospitalization. Condition: Fair History of Present Illness:75 yr old male arrives for evaluation of shortness of breath. Patient with 3 day shortening shortness of breath. Notes difficulty taking a deep breath. Associated non productive cough, chills, fatigue, and weakness. States chest pain when he tries to take a breath. No syncope, fevers, abdominal pain, back pain, headache, rashes, nausea, vomiting, urinary/bowel symptoms, calf pain, leg swelling, nor other symptoms. Using albuterol inhaler at home without improvement. Exertion makes worse, sitting up makes better. History of COPD and Pneumonia. Denies trauma, falls, injuries. ROS: See above HPI for pertinent positives & negatives. A total of 10 systems reviewed and were otherwise negative. Past Medical History:COPD, HTN, CVA, Renal Colic, DLP, Bladder CA Past Surgical History:See Below Family History:See Below Social History:Former smoker, retired, occasional etoh, no drugs Home Medications:See Below Allergies:lisinopril, penicillin Vitals:Blood Pressure: 133/73, Pulse 125, RR 22, T 37.8C, O2 73% on RA Physical Exam: GENERAL: Patient is severely unwell appearing and in severe distress. Tripod on bed leaning forward EYES: No scleral icterus, unremarkable pupils. ENT: Mucous membranes dry, no nasal congestion. NECK: No masses appreciated, nomeningismus, trachea is midline. RESPIRATORY: Very tight/minimal breath sounds throughout, using accessory muscles CARDIOVASCULAR: Tachy GASTROINTESTINAL: Abdomen soft, non-tender, no peritonitis.Bowel sounds positive.No masses appreciated. BACK: No midline tenderness, no CVA tenderness EXTREMITIES: Normal motion all extremities, no cyanosis, no edema. NEUROLOGIC: Alert and oriented, no acute motor or sensory deficits, no focal weakness, cranial nerves grossly intact. SKIN: No rash, no jaundice, no diaphoresis. PSYCH: Appropriate GCS: 15 ED Course: Times/Reassessments: Rapidly improving on Bipap to point where able to move to venturi mask and sating OK. Critical Care: I have personally spent 35 minutes of critical care time in the direct management of this patient. Acute hypoxic respiratory failure requiring Bipap. This was a life/limb threatening event. This 35 minutes is in excess of all separately billable procedures. Devin Blair MD Past Med/Surg History Medical History (Updated 11/16/20 @ 05:45 by Devin Blair MD) Abnormal ECG Right bundle branch block Admitted to intensive care unit Arthritis CVA (cerebral infarction) CVA (cerebral infarction) History of bladder cancer S/P BCG treatment History of high cholesterol DIETARY CONTROLLED History of kidney stones History of stroke 2013, [place] WITH BLOOD THINNER - NO RESIDUAL EFFECTS HTN (hypertension) Hyperlipidemia Kidney stones Surgical History History of colonoscopy History of surgery LEFT EYE/ INJURY RELATED 1965 History of total left hip arthroplasty Hx of cystoscopy 03/14/19 [facility] Family History Mother Heart disease Brother Heart disease Social History Smoking Status: Former smoker Cigarettes Per Day: 20; Second Hand Exposure: No; Do You Dip or Chew Tobacco: No; Tobacco Cessation Education Requested by Patient: No Hx Alcohol Use: Yes Alcohol type: beer Hx Substance Use: No Preferred Language: Irish Communication Ability: Effective 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: No Beliefs That Will Affect Care: None marital status: Single Current Living Situation: Family current occupational status: retired Other Information That Helps Us Care for You: No Feels Safe at Home: Yes Safety Concerns: Feels Safe At This Time Assistive Devices: Denture - Upper, Denture - Lower and Glasses Allergies Allergies Allergy/AdvReac Type Severity Reaction Status Date / Time lisinopril Allergy Mild THROAT Verified 11/16/20 00:57 CLOSES Penicillins Allergy Unknown Rash Verified 11/16/20 04:43 Home Meds Home Medications Medication Instructions Recorded Confirmed albuterol sulfate 2 puff INHALATION Q4H PRN 02/14/19 11/16/20 amlodipine 10 mg PO QAM 02/14/19 11/16/20 aspirin 81 mg PO QAM 05/24/19 11/16/20 atorvastatin 80 mg tablet 80 mg PO HS 06/08/19 11/16/20 budesonide-formoterol [Symbicort] 2 puff INHALATION BID 11/16/20 11/16/20 Previous Rx's Medication Instructions Recorded ipratropium-albuterol 3 ml NEB Q6H PRN #1 box 05/24/20 nebulizers #1 ea 05/24/20 Results & Data (ED) Vital Signs Vital Signs - 24 hr 11/15/20 23:00 11/15/20 23:16 05/13/21 23:36 Temperature 37.8 C H Temperature Source Temporal Artery Scan Pulse Rate 125 H 102 H Pulse Rate [Apical] 12 L Pulse Rate from SpO2 Sensor Pulse Rhythm Regular Pulse Strength Normal Respiratory Rate 22 20 Respiratory Effort / Characteristics Non-Labored Spontaneous Spontaneous Labored Short of Breath SOB on Exertion Non-Labored Spontaneous Respiratory Depth Normal Shallow Normal Respiratory Pattern Regular Regular Tachypnea Regular Blood Pressure 133/73 Blood Pressure Mean 93 Blood Pressure Position Sitting Pulse Oximetry 73 L 88 L 95 Oxygen Delivery Method Room Air Nasal Cannula BiPAP Oxygen Flow Rate 7 Fraction of Inspired Oxygen 80 Sepsis Recent Fever Within 48 Hours No Sepsis New/Unexplained Change in Mental Status No Sepsis Action Taken by Nursing Physician Notified Oxygen Flow Rate - Titration 15 Pulse Oximetry Post Tiitration 94 11/15/20 23:37 11/16/20 00:00 11/16/20 00:30 Temperature Temperature Source Pulse Rate 100 H Pulse Rate [Apical] Pulse Rate from SpO2 Sensor 100 H 103 H 102 H Pulse Rhythm Pulse Strength Respiratory Rate 20 24 20 Respiratory Effort / Characteristics Respiratory Depth Respiratory Pattern Blood Pressure 108/62 108/59 L 88/61 L Blood Pressure Mean 77 75 70 Blood Pressure Position Pulse Oximetry 95 97 93 Oxygen Delivery Method Oxygen Flow Rate Fraction of Inspired Oxygen Sepsis Recent Fever Within 48 Hours Sepsis New/Unexplained Change in Mental Status Sepsis Action Taken by Nursing Oxygen Flow Rate - Titration Pulse Oximetry Post Tiitration 11/16/20 01:00 11/16/20 02:00 11/16/20 02:24 Temperature Temperature Source Pulse Rate 85 84 Pulse Rate [Apical] Pulse Rate from SpO2 Sensor 100 H 85 84 Pulse Rhythm Pulse Strength Respiratory Rate 44 H 21 21 Respiratory Effort / Characteristics Respiratory Depth Respiratory Pattern Blood Pressure 93/54 L 96/49 L 96/49 L Blood Pressure Mean 67 64 64 Blood Pressure Position Pulse Oximetry 90 91 92 Oxygen Delivery Method Oxygen Flow Rate Fraction of Inspired Oxygen Sepsis Recent Fever Within 48 Hours Sepsis New/Unexplained Change in Mental Status Sepsis Action Taken by Nursing Oxygen Flow Rate - Titration Pulse Oximetry Post Tiitration Laboratory Data Result diagrams: 11/15/20 23:28 11/15/20 23:28 Lab Results 11/15/20 11/15/20 11/15/20 Range/Units 23:28 23:28 23:28 WBC 18.36 H (4.8-10.8) K/uL RBC 5.05 (4.7-6.1) M/uL Hgb 15.2 (14.0-18.0) g/dL Hct 45.5 (42-52) % MCV 90.1 (80-100) fL MCH 30.1 (25-34) pg MCHC 33.4 (32-36) g/dL RDW Std Deviation 43.9 (36.4-46.3) fL RDW Coeff of Devon 13.3 (11.5-14.5) % Plt Count 189 (130-400) K/uL MPV 9.2 (7.4-10.4) fL Immature Gran % (Auto) 0.3 % Neut % (Auto) 86.2 % Lymph % (Auto) 5.9 % Baxter % (Auto) 7.2 % Eos % (Auto) 0.3 % Baso % (Auto) 0.1 % Neut # (Auto) 15.82 H (1.4-6.5) K/uL Lymph # (Auto) 1.08 L (1.2-3.4) K/uL Baxter # (Auto) 1.33 H (0.11-0.59) K/uL Eos # (Auto) 0.06 (0-0.5) K/uL Baso # (Auto) 0.01 (0-0.2) K/uL Immature Gran # (Auto) 0.06 H (0.00-0.02) K/uL PT 9.9 (9.0-12.0) Seconds INR 1.0 (0.9-1.1) APTT 23.3 (21.0-31.0) Seconds PTT Ratio 0.9 D-Dimer 1330 H* (0-500) ug/L FEU VBG pH (7.36-7.41) VBG pCO2 (38-50) mmHg VBG pO2 mmHg VBG HCO3 mmol/L VBG O2 Saturation % VBG Base Excess mEq/L Barometric Pressure mm/Hg Sodium (136-145) mmol/L Potassium (3.5-5.1) mmol/L Chloride (98-107) mmol/L Carbon Dioxide (21-32) mmol/L Anion Gap (3-11) BUN (7-18) mg/dl Creatinine (0.6-1.4) mg/dl Est Cr Clr Drug Dosing ml/min Est GFR ( Amer) ml/min Est GFR (Non-Af Amer) ml/min BUN/Creatinine Ratio (10-20) Glucose (70-99) mg/dl Lactate 1.2 (0.4-2.0) mmol/L Calcium (8.5-10.1) mg/dl Magnesium (1.8-2.4) mg/dl Total Bilirubin (0.2-1) mg/dl Direct Bilirubin (0-0.2) mg/dl AST (15-37) U/L ALT (12-78) U/L Alkaline Phosphatase (45-117) U/L Troponin I (0-0.045) ng/ml Total Protein (6.4-8.2) gm/dl Albumin (3.4-5.0) gm/dl Lipase (73-393) U/L Procalcitonin (0-0.5) ng/ml COVID-19 Eval Order SARS-CoV-2 (PCR) (Negative) 11/15/20 11/15/20 11/15/20 Range/Units 23:28 23:28 23:28 WBC (4.8-10.8) K/uL RBC (4.7-6.1) M/uL Hgb (14.0-18.0) g/dL Hct (42-52) % MCV (80-100) fL MCH (25-34) pg MCHC (32-36) g/dL RDW Std Deviation (36.4-46.3) fL RDW Coeff of Devon (11.5-14.5) % Plt Count (130-400) K/uL MPV (7.4-10.4) fL Immature Gran % (Auto) % Neut % (Auto) % Lymph % (Auto) % Baxter % (Auto) % Eos % (Auto) % Baso % (Auto) % Neut # (Auto) (1.4-6.5) K/uL Lymph # (Auto) (1.2-3.4) K/uL Baxter # (Auto) (0.11-0.59) K/uL Eos # (Auto) (0-0.5) K/uL Baso # (Auto) (0-0.2) K/uL Immature Gran # (Auto) (0.00-0.02) K/uL PT (9.0-12.0) Seconds INR (0.9-1.1) APTT (21.0-31.0) Seconds PTT Ratio D-Dimer (0-500) ug/L FEU VBG pH 7.37 (7.36-7.41) VBG pCO2 48 (38-50) mmHg VBG pO2 46 mmHg VBG HCO3 27 mmol/L VBG O2 Saturation 82.3 % VBG Base Excess 1.1 mEq/L Barometric Pressure 738.1 mm/Hg Sodium 139 (136-145) mmol/L Potassium 3.9 (3.5-5.1) mmol/L Chloride 106 (98-107) mmol/L Carbon Dioxide 26 (21-32) mmol/L Anion Gap 7.0 (3-11) BUN 14 (7-18) mg/dl Creatinine 0.87 (0.6-1.4) mg/dl Est Cr Clr Drug Dosing 71.5 ml/min Est GFR ( Amer) 96.5 ml/min Est GFR (Non-Af Amer) 83.2 ml/min BUN/Creatinine Ratio 16.6 (10-20) Glucose 130 H (70-99) mg/dl Lactate (0.4-2.0) mmol/L Calcium 9.0 (8.5-10.1) mg/dl Magnesium 1.7 L (1.8-2.4) mg/dl Total Bilirubin 0.4 (0.2-1) mg/dl Direct Bilirubin 0.2 (0-0.2) mg/dl AST 35 (15-37) U/L ALT 25 (12-78) U/L Alkaline Phosphatase 66 (45-117) U/L Troponin I < 0.015 (0-0.045) ng/ml Total Protein 7.0 (6.4-8.2) gm/dl Albumin 3.0 L (3.4-5.0) gm/dl Lipase 191 (73-393) U/L Procalcitonin 0.37 (0-0.5) ng/ml COVID-19 Eval Order SARS-CoV-2 (PCR) (Negative) 11/15/20 11/15/20 Range/Units 23:40 23:40 WBC (4.8-10.8) K/uL RBC (4.7-6.1) M/uL Hgb (14.0-18.0) g/dL Hct (42-52) % MCV (80-100) fL MCH (25-34) pg MCHC (32-36) g/dL RDW Std Deviation (36.4-46.3) fL RDW Coeff of Devon (11.5-14.5) % Plt Count (130-400) K/uL MPV (7.4-10.4) fL Immature Gran % (Auto) % Neut % (Auto) % Lymph % (Auto) % Baxter % (Auto) % Eos % (Auto) % Baso % (Auto) % Neut # (Auto) (1.4-6.5) K/uL Lymph # (Auto) (1.2-3.4) K/uL Baxter # (Auto) (0.11-0.59) K/uL Eos # (Auto) (0-0.5) K/uL Baso # (Auto) (0-0.2) K/uL Immature Gran # (Auto) (0.00-0.02) K/uL PT (9.0-12.0) Seconds INR (0.9-1.1) APTT (21.0-31.0) Seconds PTT Ratio D-Dimer (0-500) ug/L FEU VBG pH (7.36-7.41) VBG pCO2 (38-50) mmHg VBG pO2 mmHg VBG HCO3 mmol/L VBG O2 Saturation % VBG Base Excess mEq/L Barometric Pressure mm/Hg Sodium (136-145) mmol/L Potassium (3.5-5.1) mmol/L Chloride (98-107) mmol/L Carbon Dioxide (21-32) mmol/L Anion Gap (3-11) BUN (7-18) mg/dl Creatinine (0.6-1.4) mg/dl Est Cr Clr Drug Dosing ml/min Est GFR ( Amer) ml/min Est GFR (Non-Af Amer) ml/min BUN/Creatinine Ratio (10-20) Glucose (70-99) mg/dl Lactate (0.4-2.0) mmol/L Calcium (8.5-10.1) mg/dl Magnesium (1.8-2.4) mg/dl Total Bilirubin (0.2-1) mg/dl Direct Bilirubin (0-0.2) mg/dl AST (15-37) U/L ALT (12-78) U/L Alkaline Phosphatase (45-117) U/L Troponin I (0-0.045) ng/ml Total Protein (6.4-8.2) gm/dl Albumin (3.4-5.0) gm/dl Lipase (73-393) U/L Procalcitonin (0-0.5) ng/ml COVID-19 Eval Order Covid19 at [facility] SARS-CoV-2 (PCR) NEGATIVE (Negative) Administered Medications Enoxaparin Sodium (Enoxaparin Inj 30 Mg/0.3 Ml Syr) 30 mg SQ QAM FRANKI Stop: 12/16/20 03:27 Last Admin: 11/16/20 05:03 Dose: 30 mg Documented by: [id number] Aztreonam 2,000 mg/ Dextrose 110 mls @ 100 mls/hr IV Q8H FRANKI; Protocol Stop: 11/23/20 03:27 Last Admin: 11/16/20 05:02 Dose: 100 mls/hr Documented by: [id number] Methylprednisolone 40 mg/ (Syringe) 0.64 mls @ 1.5 mls/min IV Q8 FRANKI Stop: 12/16/20 03:47 Last Admin: 11/16/20 05:03 Dose: 1.5 mls/min Documented by: [id number] Discontinued Medications Acetaminophen (Acetaminophen 1000 Mg/100 Ml Iv) 1,000 mg IV NOW STA Stop: 11/15/20 23:48 Last Admin: 11/16/20 00:06 Dose: 1,000 mg Documented by: [id number] Albuterol (Albut/Ipratrop 3mg/0.5mg Neb 3 Ml Vial) 12 ml NEB ONE ONE Stop: 11/15/20 23:17 Last Admin: 11/15/20 23:35 Dose: 12 ml Documented by: [id number] Dexamethasone Sodium Phosphate (DexamethasonePf 10 Mg/Ml Vial) 10 mg IV NOW ONE Stop: 11/15/20 23:17 Last Admin: 11/15/20 23:43 Dose: 10 mg Documented by: [id number] Sodium Chloride (Nss 1000ml) 1,000 mls @ 999 mls/hr IV .Q1H1M ONE Stop: 11/16/20 00:47 Last Infusion: 11/16/20 01:20 Dose: 0 mls/hr Documented by: [id number] Admin: 11/16/20 00:06 Dose: 999 mls/hr Documented by: [id number] Cefepime HCl (Maxipime) 2,000 mg in 20 mls @ 5 mls/min IV NOW STA Stop: 11/16/20 00:21 Last Admin: 11/16/20 01:15 Dose: 5 mls/min Documented by: [id number] Vancomycin HCl 1,750 mg/ (Sodium Chloride) 535 mls @ 200 mls/hr IV NOW ONE Stop: 11/16/20 02:58 Last Infusion: 11/16/20 04:31 Dose: 0 mls/hr Documented by: [id number] Admin: 11/16/20 02:11 Dose: 200 mls/hr Documented by: [id number] Magnesium Sulfate/Dextrose (Magnesium Sulfate / D5w) 1 gm in 100 mls @ 100 mls/hr IV NOW STA Stop: 11/16/20 01:39 Last Infusion: 11/16/20 02:41 Dose: 0 mls/hr Documented by: [id number] Admin: 11/16/20 01:14 Dose: 100 mls/hr Documented by: [id number] Ioversol (Optiray 350 500ml) 125 ml IV ONCE ONE Stop: 11/16/20 01:42 Last Admin: 11/16/20 01:41 Dose: 88 ml Documented by: [id number] Methylprednisolone (Methylprednisolone 40 Mg/Ml Vial) 40 mg IV Q8H FRANKI Stop: 12/16/20 03:27 Last Admin: 11/16/20 04:39 Dose: Not Given Documented by: [id number] Miscellaneous Information (Vancomycin Consult Active) 1 ea N/A UD PRN PRN Reason: Consult Stop: 12/16/20 00:17 Last Admin: 11/16/20 01:21 Dose: 1 ea Documented by: [id number] Discharge Plan Visit Data Chief Complaint: Shortness of Breath/Dyspnea Stated Complaint: SHORTNESS OF BREATH, COUGH ED Provider: Devin Blair Discharge Problem: Acute hypoxemic respiratory failure, LLL pneumonia Patient Disposition: Admitted As Inpatient Discharge Instructions Interventions: ED Discharge Assessment Last Done: 11/16/20 03:02 Discharge Problem: LLL pneumonia Qualifiers: Pneumonia type: due to unspecified organism Qualified Code(s): J18.9 - Pneumonia, unspecified organism
[2020-11-15 23:44] LABS: Basophils # (auto) 0.01 K/uL (0-0.2); Basophils % (auto) 0.1 %; Eosinophils # (auto) 0.06 K/uL (0-0.5); Eosinophils % (auto) 0.3 %; Hematocrit (blood only) 45.5 % (42-52); Hemoglobin 15.2 g/dL (14.0-18.0); Immature Granulocytes # (auto) 0.06 K/uL (0.00-0.02); Immature Granulocytes % (auto) 0.3 %; Lymphocytes # (auto) 1.08 K/uL (1.2-3.4); Lymphocytes % (auto) 5.9 %; Mean Corpuscular Hemoglobin 30.1 pg (25-34); Mean Corpuscular Hgb Conc 33.4 g/dL (32-36); Mean Corpuscular Volume 90.1 fL (80-100); Mean Platelet Volume 9.2 fL (7.4-10.4); Monocytes # (auto) 1.33 K/uL (0.11-0.59); Monocytes % (auto) 7.2 %; Neutrophils # (auto) 15.82 K/uL (1.4-6.5); Neutrophils % (auto) 86.2 %; Platelet Count 189 K/uL (130-400); RDW Coefficient of Variation 13.3 % (11.5-14.5); RDW Standard Deviation 43.9 fL (36.4-46.3); Red Blood Count 5.05 M/uL (4.7-6.1); White Blood Count 18.36 K/uL (4.8-10.8)
[2020-11-15] MEDS ORDERED: SODIUM CHLORIDE 0.9% 1000ML 1,000 ML IV ONE (23:47)
[2020-11-15] MEDS ORDERED: ACETAMINOPHEN 1000 MG/100 ML IV IV STA (23:47)
[2020-11-15 23:51] LABS: Base Excess VBG 1.1 mEq/L; Oxygen Saturation VBG 82.3 %; pH VBG 7.37 (7.36-7.41)
[2020-11-15 23:58] LABS: Partial Thromboplastin Ratio 0.9; Partial Thromboplastin Time 23.3 Seconds (21.0-31.0); Prothrombin Time 9.9 Seconds (9.0-12.0)
[2020-11-15 23:59] LABS: D Dimer 1330 ug/L FEU (0-500)
[2020-11-16 00:02] LABS: Alanine Aminotransferase 25 U/L (12-78); Aspartate Aminotransferase 35 U/L (15-37); BUN Creatinine Ratio 16.6 (10-20); Bilirubin Direct 0.2 mg/dl (0-0.2); Blood Urea Nitrogen 14 mg/dl (7-18); Carbon Dioxide 26 mmol/L (21-32); Chloride 106 mmol/L (98-107); Creatinine Clr Calc Pharmacy 71.5 ml/min; Est GFR (African American) 96.5 ml/min; Est GFR (Non-African American) 83.2 ml/min; Glucose 130 mg/dl (70-99); Lipase 191 U/L (73-393); Magnesium 1.7 mg/dl (1.8-2.4); Potassium 3.9 mmol/L (3.5-5.1); Sodium 139 mmol/L (136-145)
[2020-11-16 00:07] LABS: Alkaline Phosphatase 66 U/L (45-117); Bilirubin,Total 0.4 mg/dl (0.2-1); Troponin I < 0.015 ng/ml (0-0.045)
[2020-11-16] MEDS ORDERED: CEFEPIME 2,000 MG/20 ML VIAL IV STA (00:18)
[2020-11-16] MEDS ORDERED: VANCOMYCIN CONSULT ACTIVE PRN ×2 (00:18→03:28)
[2020-11-16] MEDS ORDERED: VANCOMYCIN HCL 1,750 MG in SODIUM CHLORIDE 0.9% 500 ML IV ONE (00:18)
[2020-11-16] MEDS ORDERED: MAGNESIUM SULFATE / D5W 1 GM/100 ML BAG IV STA (00:40)
[2020-11-16] MEDS ORDERED: OPTIRAY 350 500ml IV ONE (01:41)
--- NOTE | 2020-11-16 02:30 | History & Physical Report ---
Date of Service November 16, 2020 Assessment & Plan (1) Pneumonia: Pneumonia/COPD with acute bronchitis- Nasal cannula oxygen, titrate to keep pulse ox around 92% Duonebs every 4 hours while awake and every 2 hours when necessary. Methylprednisolone 40 mg IV every 8 hours Vancomycin IV per pharmacokinetic monitoring Aztreonam 2 g IV every 8 hours Azithromycin 500 mg IV every 24 hours Patient did initially require BiPAP with 80% FiO2 upon arrival to the ED, and was successfully tapered to nasal cannula while in the ED Present on Admission?: Yes (2) COPD (chronic obstructive pulmonary disease) with acute bronchitis: See above Present on Admission?: Yes (3) Right thyroid nodule: Will need outpatient follow-up Present on Admission?: Yes (4) Hyperlipidemia: Continue atorvastatin 80 mg at bedtime Present on Admission?: Yes (5) HTN (hypertension): Hold amlodipine due to relatively low blood pressure Present on Admission?: Yes History of Present Illness Chief Complaint: The patient presents to the emergency department with worsening shortness of breath over the past 3 days, and cough with congestion, fatigue and generalized weakness Primary Care Provider: NO PCP The patient is a 75-year-old male with a past medical history including COPD, carotid insufficiency, status post CEA, bladder cancer, lung nodule, urinary tract infection, gout, left carotid aneurysm, hyperlipidemia, hypertension and most recent [facility] admission from 05/20-05/24/2024 community-acquired pneumonia with hypoxia. Patient presents with symptoms as noted above. Work-up in the emergency department included chest x-ray which shows left lower lobe infiltrate, and CT of chest which shows bibasilar infiltrates. Allergies Allergy/AdvReac Type Severity Reaction Status Date / Time lisinopril Allergy Mild THROAT Verified 11/16/20 00:57 CLOSES Penicillins Allergy Unknown Rash Verified 11/16/20 04:43 Home Medications Medication Instructions Recorded Confirmed Type albuterol sulfate 2 puff INHALATION Q4H PRN 02/14/19 11/16/20 History amlodipine 10 mg PO QAM 02/14/19 11/16/20 History aspirin 81 mg PO QAM 05/24/19 11/16/20 History atorvastatin 80 mg tablet 80 mg PO HS 06/08/19 11/16/20 History ipratropium-albuterol 3 ml NEB Q6H PRN #1 box 05/24/20 11/16/20 Rx nebulizers #1 ea 05/24/20 Rx budesonide-formoterol [Symbicort] 2 puff INHALATION BID 11/16/20 11/16/20 History Past Med/Surg History Medical History Abnormal ECG Right bundle branch block Admitted to intensive care unit Arthritis COPD (chronic obstructive pulmonary disease) CVA (cerebral infarction) CVA (cerebral infarction) History of bladder cancer S/P BCG treatment History of high cholesterol DIETARY CONTROLLED History of kidney stones History of stroke 2012, TX WITH BLOOD THINNER - NO RESIDUAL EFFECTS HTN (hypertension) Kidney stones Surgical History History of colonoscopy History of surgery LEFT EYE/ INJURY RELATED 1965 History of total left hip arthroplasty Hx of cystoscopy 03/14/19 [facility] Family History Mother Heart disease Brother Heart disease Social History Smoking Status: Former smoker Cigarettes Per Day: 20; Second Hand Exposure: No; Do You Dip or Chew Tobacco: No; Tobacco Cessation Education Requested by Patient: No Hx Alcohol Use: Yes Alcohol type: beer Hx Substance Use: No Preferred Language: Greenlandic Communication Ability: Effective 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 Beliefs That Will Affect Care: None marital status: Single Current Living Situation: Family current occupational status: retired Other Information That Helps Us Care for You: No Feels Safe at Home: Yes Safety Concerns: Feels Safe At This Time Assistive Devices: Denture - Upper, Denture - Lower and Glasses Review of Systems Review of Systems: The patient denies palpitations, lower extremity swelling, sore throat, fevers, chills, sweats, nausea, vomiting, diarrhea , constipation, abdominal pain, pelvic pain, blood in urine or stool, dysuria, urinary frequency or urgency, lightheadedness, dizziness, headache, memory loss, loss of consciousness, rash, abnormal bruising or bleeding, imbalance, focal weakness, numbness or tingling in arms or legs, generalized arthralgias or myalgias, back or neck pain, or night sweats. The review of systems is otherwise negative other than for that already noted above, and at least 10 systems have been reviewed. Physical Exam Physical Exam: The patient is awake, alert and oriented 3, well developed and well nourished, normocephalic and atraumatic, lying in bed and in no acute distress. HEENT--PERRL, EOMI, mucous membranes and oropharynx normal. Neck--supple. No JVD. No bruits. Thyroid normal, trachea midline, no adenopathy. Heart--normal S1 and S2. No murmurs, rubs or gallops. Lungs--coarse breath sounds with scattered wheezes bilaterally. No respiratory distress, no accessory muscle use. Abdomen--normal bowel sounds and soft. Nontender. Nondistended. Extremities--no cyanosis or clubbing. No edema. Dermatologic--normal skin turgor, normal color, no abnormal lymph nodes, no rash. Neurologic--cranial nerves II through XII grossly intact. Rheumatologic--normal range of motion. Psychiatric--normal affect. Results & Data Results & Data ([facility]) Vital Signs (Past 12 Hours) Vital Signs Temp Pulse Pulse Resp BP Pulse Ox 11/16/20 01:00 44 H 93/54 L 90 11/16/20 00:30 20 88/61 L 93 11/16/20 00:00 24 108/59 L 97 11/15/20 23:37 100 H 20 108/62 95 11/15/20 23:36 102 H 12 L 20 95 11/15/20 23:16 88 L 11/15/20 23:00 100.0 F H 125 H 22 133/73 73 L Laboratory Results Laboratory Results WBC 18.36 K/uL (4.8-10.8) H 11/15/20 23:28 RBC 5.05 M/uL (4.7-6.1) 11/15/20:28 Hgb 15.2 g/dL (14.0-18.0) 11/15/20: Hct 45.5 % (42-52) 11/15/20: MCV 90.1 fL (80-100) 11/15/20 MCH 30.1 pg (25-34) 11/15/20: MCHC 33.4 g/dL (32-36) 11/15/20 RDW Std Deviation 43.9 fL (36.4-46.3) 11/15/20 RDW Coeff of [place] 13.3 % (11.5-14.5) 11/15/20 Plt Count 189 K/uL (130-400) 11/15/20 MPV 9.2 fL (7.4-10.4) 11/15/20 Immature Gran % (Auto) 0.3 % 11/15/20 Neut % (Auto) 86.2 % 11/15/20: Lymph % (Auto) 5.9 % 11/15/20 [place] % (Auto) 7.2 % 11/15/20 Eos % (Auto) 0.3 % 11/15/20 Baso % (Auto) 0.1 % 11/15/20 Neut # (Auto) 15.82 K/uL (1.4-6.5) H 11/15/20 Lymph # (Auto) 1.08 K/uL (1.2-3.4) L 11/15/20 [place] # (Auto) 1.33 K/uL (0.11-0.59) H 11/15/20 Eos # (Auto) 0.06 K/uL (0-0.5) 11/15/20 Baso # (Auto) 0.01 K/uL (0-0.2) 11/15/20 Immature Gran # (Auto) 0.06 K/uL (0.00-0.02) H 11/15/20: PT 9.9 Seconds (9.0-12.0) 11/15/20 INR 1.0 (0.9-1.1) 11/15/20 APTT 23.3 Seconds (21.0-31.0) 11/15/20 PTT Ratio 0.9 11/15/20 D-Dimer 1330 ug/L FEU (0-500) H* 11/15/20 VBG pH 7.37 (7.36-7.41) 11/15/20 VBG pCO2 48 mmHg (38-50) 11/15/20: VBG pO2 46 mmHg 11/15/20: VBG HCO3 27 mmol/L 11/15/20: VBG O2 Saturation 82.3 % 11/15/20: VBG Base Excess 1.1 mEq/L 11/15/20 Barometric Pressure 738.1 mm/Hg 11/15/20 Sodium 139 mmol/L (136-145) 11/15/20 Potassium 3.9 mmol/L (3.5-5.1) 11/15/20 Chloride 106 mmol/L (98-107) 11/15/20 Carbon Dioxide 26 mmol/L (21-32) 11/15/20 Anion Gap 7.0 (3-11) 11/15/20 BUN 14 mg/dl (7-18) 11/15/20 Creatinine 0.87 mg/dl (0.6-1.4) 11/15/20 Est Cr Clr Drug Dosing 71.5 ml/min 11/15/20 Est GFR ( Amer) 96.5 ml/min 11/15/20 Est GFR (Non-Af Amer) 83.2 ml/min 11/15/20 BUN/Creatinine Ratio 16.6 (10-20) 11/15/20 Glucose 130 mg/dl (70-99) H 11/15/20: Lactate 1.2 mmol/L (0.4-2.0) 11/15/20 Calcium 9.0 mg/dl (8.5-10.1) 11/15/20 Magnesium 1.7 mg/dl (1.8-2.4) L 11/15/20 Total Bilirubin 0.4 mg/dl (0.2-1) 11/15/20 Direct Bilirubin 0.2 mg/dl (0-0.2) 11/15/20 AST 35 U/L (15-37) 11/15/20: ALT 25 U/L (12-78) 11/15/20 Alkaline Phosphatase 66 U/L (45-117) 05/13/21 23:28 Troponin I < 0.015 ng/ml (0-0.045) 11/15/20 23:28 Total Protein 7.0 gm/dl (6.4-8.2) 11/15/20 23:28 Albumin 3.0 gm/dl (3.4-5.0) L 11/15/20 23:28 Lipase 191 U/L (73-393) 11/15/20 23:28 Procalcitonin 0.37 ng/ml (0-0.5) 11/15/20 23:28 COVID-19 Eval Order Covid19 at [facility] 11/15/20 23:40 SARS-CoV-2 (PCR) NEGATIVE (Negative) 11/15/20 23:40 Diagnostic Findings [facility] Patient: COLTEN ESTRELLA (Male) : 41 Status: ER Date: 11/16/20 01:40 Room #: History: CHEST PAIN WITH SOB, ELEVATED DDIMER, R/O PE Slices: [phone] Priors: Tech: Mark Rivera @ [phone] Exams: CTA CHEST Contrast: IV Amt: 88 ML OPTIRAY 350 Accession Numbers: [id number] Preliminary Findings Only See Final Report For Complete Findings CTA CHEST: Compared to 05/20/20 Motion artifact. No large central PE or aortic dissection. Small pleural effusions with bibasilar atelectasis/consolidation. Emphysematous and patchy lung densities which may represent mild edema, pneumonitis, or atelectasis. Mild esophageal wall thickening. Small hiatal hernia. Small mediastinal and hilar lymph nodes. Right thyroid nodule and additional incidental findings Radiologist: Sandhya Rock M.D. Study ready at 01:56 and initial results transmitted at 02:04 *This report constitutes a preliminary interpretation only. Non-acute findings felt to be unrelated to the clinical presentation may not be discussed in this report. The study will be interpreted and a final report will be generated by the local Radiologist the following shift. To reach the hospital radiology department call [phone]. If a discrepancy is found between the preliminary and final interpretations of this study, please notify us via our Client Portal at [email or web address], under QA Exams.You can also fax this report with a description of the discrepancy, or include the final report, to our daytime fax number [phone].If faxing, please indicate the severity of discrepancy using one of the following categories: [ ] 1 - Agree/Informational [ ] 2 - Unlikely to Affect Management [ ] 3 - Possible Eventual Change of Management [ ] 4 - Probable Immediate Change of Management For all other patient related information, please fax us at [phone]. [id number] Code Status & VTE Plan Code Status Full code VTE Prophylaxis Plan VTE Prophylaxis will be ordered: Yes PG Care Time/CCT Total # of Minutes Spent Total Time Spent with Patient: Total time spent is greater than 50% in coordination of care (as documented) at patient's floor/unit and/or counseling patient: Coding Level of Care Code 19162 Initial Inpt Care Lvl 3 Diagnoses Pneumonia J18.9 COPD (chronic obstructive pulmonary disease) with acute bronchitis J44.0; J20.9 Right thyroid nodule E04.1 Hyperlipidemia E78.5 HTN (hypertension) I10
[2020-11-16] MEDS ORDERED: ONDANSETRON INJ 2 MG/ML 2 ML VIAL IV PRN (03:28)
[2020-11-16] MEDS ORDERED: AZTREONAM 2,000 MG in DEXTROSE 5% 100 ML IV SCH (03:28)
[2020-11-16] MEDS ORDERED: ACETAMINOPHEN 325 MG TAB PO PRN (03:28)
[2020-11-16] MEDS ORDERED: VANCOMYCIN HCL 1,000 MG in SODIUM CHLORIDE 0.9% 250 ML IV SCH (03:28)
[2020-11-16] MEDS: methylPREDNISolone 40 MG in SYRINGE 0 ML IV SCH ×3 (05:03→21:33)
[2020-11-16] MEDS: ENOXAPARIN INJ 30 MG/0.3 ML SYR SQ SCH (05:03)
[2020-11-16] MEDS ORDERED: ALBUT/IPRATROP 3MG/0.5MG NEB 3 ML VIAL NEB PRN (05:32)
[2020-11-16] MEDS: AZITHROMYCIN 500 MG in DEXTROSE 5% 250 ML IV SCH (05:57)
--- NOTE | 2020-11-16 06:47 | XRay Report ---
XR chest 1V portable HISTORY: 75 years-old Male shob acute shortness of breath COMPARISON: CTA chest of same day, chest radiograph 05/20/2020 TECHNIQUE: Portable AP view of the chest FINDINGS: The cardiomediastinal and hilar silhouettes are within normal limits. Mild emphysema. Trace pleural e ffusions. Mild left greater than right bibasilar airspace opacities. There is no pneumothorax or over t pulmonary edema. Degenerative changes of the shoulders and spine. IMPRESSION: Trace pleural effusions with left greater than right bibasilar opacities suggestive of at electasis versus pneumonia. ACT 112: Negative or not required by law. The above report was generated using voice recognition software. It may contain grammatical, syntax o r spelling errors. Electronically signed by: Marco Segal M.D. 11/16/2020 6:46 AM
[2020-11-16] MEDS: ALBUT/IPRATROP 3MG/0.5MG NEB 3 ML VIAL NEB SCH ×3 (07:46→15:03)
[2020-11-16] MEDS: ASPIRIN 81 MG ECTAB PO SCH (07:54)
[2020-11-16] MEDS: guaiFENesin 600 MG TABCR PO SCH ×2 (07:54→21:31)
--- NOTE | 2020-11-16 08:02 | CT Scan Report ---
CT angio chest PE protocol CT DOSE: 531.26 mGy.cm HISTORY: 75 years-old Male with PE - elevated dimer, sob, chest pain. Acute shortness of breath wit h chest pain TECHNIQUE: Multiple CTA images of the chest were obtained after the intravenous administration of 88 ml Optiray. Coronal and sagittal MIPS were obtained from the axial data set and were submitted for r [place]. All measurements were obtained according to NASCET criteria. A dose lowering technique was ut ilized adhering to the principles of ALARA. COMPARISON: Chest radiograph 11/15/2020, CTA chest 05/20/2020 FINDINGS: CTA: The heart is normal in size. Moderate coronary artery calcifications. Trace pericardial effusion. Mod erate atherosclerotic plaque of the thoracic aortic arch without aneurysm or dissection. The pulmonar y artery is opacified to the level of the subsegmental branches and demonstrates no filling defects t o suggest thromboembolic disease. Respiratory motion artifact limits the exam.. There is approximatel y 50% luminal narrowing of the proximal left subclavian artery. CT CHEST: 4.1 cm hypodense right thyroid nodule is stable. Mild subcarinal and right hilar lymph nodes measure up to approximately 10 mm, unchanged from comparison. There are small layering pleural effusions. Mil d emphysema. Bronchial wall thickening with bibasilar mucous plugging. Mild intralobular septal thick ening. There is dependent consolidation of the left greater than right lower lobes. Tracheobronchial secretions. No pneumoperitoneum. Tiny hiatal hernia. There is no acute process of the imaged upper abdomen. Unrem arkable soft tissues. No acute fracture or suspicious bone lesion. IMPRESSION: 1. No pulmonary emboli. 2. Mild pulmonary edema with small pleural effusions. 3. Emphysema with bronchitis, tracheobronchial secretions and bibasilar mucous plugging 4. Left greater than right bibasilar consolidative opacities appear similar to comparison and may ref lect atelectasis versus pneumonitis. ACT 112: Negative or not required by law. The above report was generated using voice recognition software. It may contain grammatical, syntax o r spelling errors. Electronically signed by: Marco Segal M.D. 11/16/2020 8:01 AM
[2020-11-16] MEDS ORDERED: ALBUT/IPRATROP 3MG/0.5MG NEB 3 ML VIAL NEB SCH (09:00)
[2020-11-16] MEDS ORDERED: BUDESONIDE/FORMOTEROL FUMARATE 160/4.5 60 PUFFS/INHALER INH SCH (09:00)
[2020-11-16] MEDS: cefTRIAXone SODIUM 2,000 MG in DEXTROSE 5% 50 ML IV SCH (10:50)
[2020-11-16] MEDS: FLUTICASONE/VILANTEROL 200/25MCG 14 PUFFS/INHALER INH SCH (10:58)
--- NOTE | 2020-11-16 14:46 | Fluoroscopy Report ---
VIDEO SWALLOW STUDY CLINICAL HISTORY: Aspiration. COMPARISON STUDY: No priors. Fluoroscopy time: 1.6 minutes. FINDINGS: Fluoroscopic guidance is provided to the department of speech pathology in performing a vid eo swallow study. The patient consumed barium-impregnated pudding, cracker with paste, nectar thick l iquid, and thin barium textures while the swallowing mechanism was observed in real-time. No penetrat ion or aspiration was seen with any of the sampled textures. IMPRESSION: No penetration or aspiration was identified. See dedicated speech pathology report for de tailed findings and recommendations. Dictated: 11/16/2020 1:47 PM Transcribed: 11/16/2020 2:23 PM Sandy [id number] [email or web address] Electronically signed by: Martinez Castaneda M.D. 11/16/2020 2:44 PM
[2020-11-16 14:53] LABS: Appearance Urine Clear (Clear); Bacteria Urine Automated Negative (Negative); Bilirubin Urine Negative (Negative); Blood Urine Negative (Negative); Color Urine Yellow; Epithelial Cell Urine Auto >30 /lpf (0-5); Glucose Urine UA Negative (Negative); Ketones Urine Trace (Negative); Leukocyte Esterase Urine Negative (Negative); Nitrite Urine Negative (Negative); Protein Urine Trace (Negative); RBC Urine Automated 0-4 /hpf (0-4); Specific Gravity Urine > 1.045 (1.000-1.030); Urobilinogen Urine Negative (Negative)
--- NOTE | 2020-11-16 17:48 | Medical Student Progress Note ---
Date of Service November 16, 2020 Assessment & Plan (1) Acute hypoxemic respiratory failure: Branden Galvin is a 75-year-old male with a PMHx of COPD, CAP, HTN, and carotid insufficiency who presented to [facility] emergency department on 11/15/20 due to a three-day history of pleuritic chest pain. Patient was found to be hypoxemic and CXR showed bibasilar opacities suggestive of pneumonia vs atelectasis. He was admitted for treatment of acute hypoxemic respiratory failure likely due to a combination of community acquired pneumonia and COPD exacerbation. 1. Community Acquired Pneumonia * CXR: Trace pleural effusions. Bibasilar opacities, left > right. * CTA obtained in ED. No pulmonary embolism or aortic dissection. * Started on Aztreonam, vancomycin, and azithromycin in ED. Discontinued vancomycin and aztreonam on 11/16/20. Continue antibiotic coverage with IV Ceftriaxone and Azithromycin * Normal procalcitonin * MRSA swab negative * Blood culture pending * Patient had similar presentation in 2019 with CXR showing similar bibasilar opacities. Videofluoroscopic swallow study obtained to evaluate for potential aspiration. Results: No penetration or aspiration 2. COPD Exacerbation * Oxygen therapy: SpO2 in 70s at time of presentation. Started on BiPAP in ED. Transitioned to nasal cannula. Transitioned to room air by evening of 11/16/20. Maintain SpO2 88-92%. * Continue Duonebs * IV methylprednisolone started 11/15/20. Patient still on IV steroids today. Transition to PO Prednisone tomorrow and complete 5-day course * IV azithromycin. Transition to PO azithromycin tomorrow and complete 5-day course * Patient states that current home inhaler regimen consists of Symbicort (Budesonide/Formoterol) twice daily and a rescue inhaler PRN. He admits to poor medication compliance over the past month. He also notes that he has already been prescribed a Spiriva inhaler but he has never used it. Patient educated on the importance of antimuscarinic medication and instructed to begin Spiriva inhaler use upon discharge 3. Hypomagnesemia * Repleted Code Status: Full Code F/E/N: Normal Diet VTE PPx: Enoxaparin Dispo: Medical Floor Admission and Anticipated Discharge Date Admission Date: November 16, 2020 Supervising Attestation I personally examined the patient and verified all mata points of history and exam, discussed case, and agree with decision making with Patricio Daviddanica MS4 Feeling much better, breathing much easier. Far better than whenever he came in. Vitals noted. Awake and alert pleasant no distress. HEENT normocephalic atraumatic mucous membranes moist. Lungs are diminished air entry throughout, faint rhonchus base left otherwise no rales no wheezes good effort no accessory muscle use. Skin shows no rashes no pallor or icterus. Neuro without focal deficits. Community-acquired pneumonia with sepsis present on admission and subsequent acute hypoxic respiratory failure related to pneumonia and (presumed) COPD exacerbation -Improvingcontinue steroids, Zithromax, Rocephin. Continue inhalers. PFTs as an outpatient. Added anticholinergic to his chronic inhaler regimen (he notes that he has Spiriva at home he just was not using it) Home once he is off of oxygen. Otherwise as above Subjective Patient states that he continues to have mild chest pain with deep inspiration. However, the pain is much less compared to yesterday. He denies shortness of breath, palpitations, or lightheadedness. He endorses a productive cough consisting of non-bloody sputum. He denies any fever, chills, fatigue, weakness, or sinusitis. He notes that his symptoms began on Thursday, 3 days prior to admission. His main symptom has been pleuritic chest pain with minimal shortness of breath and no constitutional symptoms. He denies sick contacts or recent travel. He endorses a history of COPD. He uses a Symbicort inhaler at home but he admits to poor medication compliance over the past month. He does not think he has had pulmonary function tests performed. When asked about transitioning to a different inhaler that contains a long-acting muscarinic antagonist, he states that he has already been prescribed a Spiriva inhaler by his physician at the [facility]. However, he has never used it. He also states that he has smoked about 1 p ack/day of cigarettes since age 16 but he quit smoking last week. Review of Systems Constitutional: as per Subjective / HPI Eyes: no problem reported Ear, Nose, Mouth, Throat: no problem reported Respiratory: as per Subjective / HPI Cardiovascular: as per Subjective / HPI Gastrointestinal: no abdominal pain, no nausea, no vomiting and no change in stools Genitourinary: no dysuria and no difficulty urinating Integumentary: no problem reported Neurologic: no problem reported Psychiatric: no problem reported Physical Exam Constitutional: WD/WN, vitals as above no acute distress Eyes: PERRL, conjunctivae normal, anicteric sclerae ENMT: external ear and nose normal, oropharynx normal Neck: normal visual inspection Respiratory: normal respiratory effort; no labored breathing Auscultation: + diminished lung sounds; no crackles, no rales, no wheezes and no bronchial breath sounds Cardiovascular: RRR, no murmur, no edema Gastrointestinal (Abdomen): normal bowel sounds, soft, nontender, no hepatosplenomegaly Skin: no rashes, warm and dry Psychiatric: A+Ox3, euthymic affect Results & Data ([facility]) Vital Signs (Past 12 Hours) Vital Signs Temp Pulse Pulse Resp BP Pulse Ox 11/16/20 16:00 76 11/16/20 15:28 36.5 C 76 19 125/66 92 11/16/20 15:03 75 17 95 11/16/20 11:41 36.7 C 92 H 19 115/66 93 11/16/20 11:33 71 17 92 11/16/20 08:00 65 11/16/20 07:47 36.8 C 70 19 109/68 95 11/16/20 07:46 70 18 96
--- NOTE | 2020-11-16 17:57 | Billing Data ---
Date of Service November 16, 2020 Coding Level of Care Code 98647 Subseq Hosp Care Lvl 3
[2020-11-16] MEDS ORDERED: ATORVASTATIN 40 MG TAB PO SCH (21:00)
--- NOTE | 2020-11-16 23:28 | Electrocardiogram Report ---
Test Reason : Blood Pressure : / mmHG Vent. Rate : 105 BPM Atrial Rate : 105 BPM P-R Int : 142 ms QRS Dur : 140 ms QT Int : 354 ms P-R-T Axes : 059 -57 055 degrees QTc Int : 467 ms Sinus tachycardia Left axis deviation Right bundle branch block Abnormal ECG When compared with ECG of 20-MAY-2020 08:47, QRS axis Shifted left Confirmed by Rahul Canas ([id number]) on 11/16/2020 11:28:18 PM Referred By: REFERRED SELF Confirmed By:Rahul Canas
[2020-11-17] MEDS: methylPREDNISolone 40 MG in SYRINGE 0 ML IV SCH (05:14)
[2020-11-17 05:42] LABS: Hematocrit (blood only) 41.6 % (42-52); Immature Granulocytes # (auto) 0.05 K/uL (0.00-0.02); Immature Granulocytes % (auto) 0.2 %; Lymphocytes # (auto) 1.08 K/uL (1.2-3.4); Lymphocytes % (auto) 5.4 %; Mean Corpuscular Hemoglobin 30.2 pg (25-34); Mean Corpuscular Hgb Conc 33.7 g/dL (32-36); Mean Corpuscular Volume 89.8 fL (80-100); Mean Platelet Volume 9.5 fL (7.4-10.4); Monocytes # (auto) 0.82 K/uL (0.11-0.59); Monocytes % (auto) 4.1 %; Neutrophils # (auto) 18.08 K/uL (1.4-6.5); Neutrophils % (auto) 90.3 %; Platelet Count 221 K/uL (130-400); RDW Coefficient of Variation 13.3 % (11.5-14.5); RDW Standard Deviation 43.9 fL (36.4-46.3); Red Blood Count 4.63 M/uL (4.7-6.1); White Blood Count 20.03 K/uL (4.8-10.8)
[2020-11-17 06:12] LABS: BUN Creatinine Ratio 24.4 (10-20); Calcium 8.9 mg/dl (8.5-10.1); Creatinine Clr Calc Pharmacy 63.4 ml/min; Est GFR (African American) 82.8 ml/min; Est GFR (Non-African American) 71.4 ml/min; Potassium 4.3 mmol/L (3.5-5.1)
[2020-11-17] MEDS: ENOXAPARIN INJ 30 MG/0.3 ML SYR SQ SCH (08:07)
[2020-11-17] MEDS: AZITHROMYCIN 500 MG in DEXTROSE 5% 250 ML IV SCH (08:07)
[2020-11-17] MEDS: ASPIRIN 81 MG ECTAB PO SCH (08:07)
[2020-11-17] MEDS: guaiFENesin 600 MG TABCR PO SCH (08:07)
[2020-11-17] MEDS: FLUTICASONE/VILANTEROL 200/25MCG 14 PUFFS/INHALER INH SCH (08:08)
[2020-11-17] MEDS: cefTRIAXone SODIUM 2,000 MG in DEXTROSE 5% 50 ML IV SCH (10:06)
[2020-11-17] MEDS ORDERED: predniSONE 20 MG TAB PO SCH (10:15)
--- NOTE | 2020-11-17 10:33 | Hospitalist Progress Note ---
Date of Service November 17, 2020 Assessment & Plan (1) Acute hypoxemic respiratory failure: Branden Galvin is a 75-year-old male with a PMHx of COPD, CAP, HTN, and carotid insufficiency who presented to [facility] emergency department on 11/15/20 due to a three-day history of pleuritic chest pain. Patient was found to be hypoxemic and CXR showed bibasilar opacities suggestive of pneumonia vs atelectasis. He was admitted for treatment of acute hypoxemic respiratory failure likely due to a combination of community acquired pneumonia and COPD exacerbation. 1. Community Acquired Pneumonia * CXR: Trace pleural effusions. Bibasilar opacities, left > right. * CTA obtained in ED with elevated D-dimer. No pulmonary embolism or aortic dissection. * Started on Aztreonam, vancomycin, and azithromycin in ED. Discontinued vancomycin (negative MRSA swab) and aztreonam on 11/16/20. Covered with IV Ceftriaxone and Azithromycin. Will switch to PO azithromycin and cefdinir in the AM. * Normal procalcitonin * Blood cultures NGTD. * Patient had similar presentation in 2019 with CXR showing similar bibasilar opacities. Videofluoroscopic swallow study obtained to evaluate for potential aspiration. Results: No aspiration 2. COPD Exacerbation * Oxygen therapy: SpO2 in 70s at time of presentation. Started on BiPAP in ED. Transitioned to nasal cannula. Transitioned to room air by evening of 11/16/20. Maintain SpO2 88-92%. * Continue Duonebs * IV methylprednisolone started 11/15/20. Patient still on IV steroids today. Transition to PO Prednisone tomorrow and complete 5-day course * IV azithromycin. Transition to PO azithromycin tomorrow and complete 5-day course * Patient states that current home inhaler regimen consists of Symbicort (Budesonide/Formoterol) twice daily and a rescue inhaler PRN. He admits to poor medication compliance over the past month. He also notes that he has already been prescribed a Spiriva inhaler but he has never used it. Patient educated on the importance of antimuscarinic medication and instructed to begin Spiriva inhaler use upon discharge 3. Hypomagnesemia * Repleted Code Status: Full Code F/E/N: Normal Diet VTE PPx: Enoxaparin Dispo: Medical Floor Admission and Anticipated Discharge Date Admission Date: November 16, 2020 Subjective Mr. Galvin states he is feeling much better and would like to go home today. He states that his pleuritic chest has resolved. He notes that he was on room air earlier while he ate but was put back on 2L of oxygen. Denies use of O2 at home. States he has a cough productive of yellow mucus. He denies any SOB currently or fevers, chills or night sweats. Review of Systems Constitutional: no fever, no chills and no sweats Respiratory: + cough Cardiovascular: no chest pain and no dyspnea Gastrointestinal: no abdominal pain, no nausea and no vomiting Physical Exam Physical Exam: General: Alert, oriented. No acute distress, NC in nares Skin: No noted rashes or bruises Psych: Appropriate mood and affect Neuro: No gross deficits HEENT: NC/AT, NC in nares Chest: Nontender to palpation. CV: RRR, Normal s1, s2. No murmurs appreciated Resp: Breath sounds coarse bilaterally with scattered wheezes, no increased effort of breathing. Abdomen: BS+. Soft, nontender, nondistended. No guarding. No organomegaly appreciated. Extremities: No edema in lower extremities bilaterally. Results & Data Results & Data ([facility]) Vital Signs (Past 12 Hours) Vital Signs Temp Pulse Pulse Resp BP Pulse Ox 11/17/20 07:48 62 14 128/72 11/17/20 07:43 36.5 C 62 20 105/53 L 92 11/16/20 22:51 36.6 C 71 20 133/66 91
[2020-11-17] MEDS: ALBUT/IPRATROP 3MG/0.5MG NEB 3 ML VIAL NEB SCH ×2 (11:11→15:04)
--- NOTE | 2020-11-17 14:29 | Discharge Summary ---
Date of Service November 17, 2020 Admission HPI Per Admitting Provider The patient is a 75-year-old male with a past medical history including COPD, carotid insufficiency, status post CEA, bladder cancer, lung nodule, urinary tract infection, gout, left carotid aneurysm, hyperlipidemia, hypertension and most recent [facility] admission from 05/20-05/24/2024 community-acquired pneumonia with hypoxia. Patient presents with symptoms as noted above. Work-up in the emergency department included chest x-ray which shows left lower lobe infiltrate, and CT of chest which shows bibasilar infiltrates. Admission Exam Per Admitting Provider The patient is awake, alert and oriented 3, well developed and well nourished, normocephalic and atraumatic, lying in bed and in no acute distress. HEENT--PERRL, EOMI, mucous membranes and oropharynx normal. Neck--supple. No JVD. No bruits. Thyroid normal, trachea midline, no adenopathy. Heart--normal S1 and S2. No murmurs, rubs or gallops. Lungs--coarse breath sounds with scattered wheezes bilaterally. No respiratory distress, no accessory muscle use. Abdomen--normal bowel sounds and soft. Nontender. Nondistended. Extremities--no cyanosis or clubbing. No edema. Dermatologic--normal skin turgor, normal color, no abnormal lymph nodes, no rash. Neurologic--cranial nerves II through XII grossly intact. Rheumatologic--normal range of motion. Psychiatric--normal affect. Principal Diagnosis COPD Exacerbation, Pneumonia Discharge Exam General: Alert, oriented. No acute distress, NC in nares Skin: No noted rashes or bruises Psych: Appropriate mood and affect Neuro: No gross deficits HEENT: NC/AT, NC in nares Chest: Nontender to palpation. CV: RRR, Normal s1, s2. No murmurs appreciated Resp: Breath sounds coarse bilaterally with scattered wheezes, no increased effort of breathing. Abdomen: BS+. Soft, nontender, nondistended. No guarding. No organomegaly appreciated. Extremities: No edema in lower extremities bilaterally. Discharge Data Allergies Allergy/AdvReac Type Severity Reaction Status Date / Time lisinopril Allergy Mild THROAT Verified 11/16/20 00:57 CLOSES Penicillins Allergy Unknown Rash Verified 11/16/20 04:43 Consultations 11/16/20 01:08 ED Decision to Admit Stat Ordered Studies 11/16/20 00:19 CT angio chest PE protocol Urgent 11/16/20 13:15 FL video swallow Routine Hospital Course (1) Acute hypoxemic respiratory failure: Branden Galvin is a 75-year-old male with a PMHx of COPD, CAP, HTN, and carotid insufficiency who presented to [facility] emergency department on 11/15/20 due to a three-day history of pleuritic chest pain. Patient was found to be hypoxemic and CXR showed bibasilar opacities suggestive of pneumonia vs atelectasis. He was admitted for treatment of acute hypoxemic respiratory failure likely due to a combination of community acquired pneumonia and COPD exacerbation. 1. Community Acquired Pneumonia * CXR: Trace pleural effusions. Bibasilar opacities, left > right. * CTA obtained in ED with elevated D-dimer. Noted bibasilar opacities with no pulmonary embolism or aortic dissection. * Started on Aztreonam, vancomycin, and azithromycin in ED. Discontinued vancomycin (negative MRSA swab) and aztreonam on 11/16/20. Covered with IV Ceftriaxone and Azithromycin. Discharged with PO azithromycin 500mg for a total of 3 days of treatment and PO cefdinir 300mg BID for 5 more days of treatment. * Normal procalcitonin * Blood cultures NGTD. * Patient had similar presentation in 2019 with CXR showing similar bibasilar opacities. Videofluoroscopic swallow study obtained to evaluate for potential aspiration. Results: No aspiration 2. COPD Exacerbation * Oxygen therapy: SpO2 in 70s at time of presentation. Started on BiPAP in ED. Transitioned to nasal cannula. Transitioned to room air by evening of 11/16/20. Maintain SpO2 88-92%. Pt with noted drop to 86 on day of discharge when ambulating but his [employer] insurance will not cover home oxygen unless it is for continued use. Pt was adamant that he wished to go home. Advised to get home pulse ox for monitoring and counseled on red flags for returning to the ED. * Duonebs to help with wheezing. * IV methylprednisolone started 11/15/20. Discharged with a 12 day prednisone taper. * Patient states that current home inhaler regimen consists of Symbicort (Budesonide/Formoterol) twice daily and a rescue inhaler PRN. He admits to poor medication compliance over the past month. He also notes that he has already been prescribed a Spiriva inhaler but he has never used it. Patient educated on the importance of antimuscarinic medication and instructed to begin Spiriva inhaler use upon discharge 3. Hypomagnesemia * Repleted Total Time Total Time Spent Total Time Spent (In Minutes): <30 Discharge Plan Discharge Items Patient Disposition: Home - Self-Care Reason For Visit: PNEUMONIA, COPD EXACERBATION Discharge Diagnosis: Pneumonia, COPD Exacerbation Activity: Per Instructions section Non-emergency contact: Primary Care Provider Call non-emergency contact if: your symptoms worsen and you have a fever Follow-up/Referrals: PCP,NO [Primary Care Provider] - Diet: Regular Addtl Attending Provider Instructions: Mr. Galvin, you were seen and treated for a COPD Exacerbation and Pneumonia. COPD Exacerbation -You are being discharged with the steroid Prednisone to help with your breathing. Please take it as directed (60mg for 4 days, then 40mg for 4 days and then 20mg for 4 days). -Please also use your home Spiriva, Albuterol and Symbicort inhalers to help with your breathing. They are very important. -Your oxygen levels drop when you are up and moving about. We advise getting a pulse oximeter for use at home since the [place] will not approve your oxygen use at home. If you notice that your oxygen level is less than 90 and you continue to have trouble breathing, we ask that you come back to the ED. However, we expect that your oxygen levels will continue to improve as you continue to take the steroids and antibiotics and use your home inhalers. Pneumonia -You were treated with antibiotics while in the hospital. -Please take the azithromycin pill tomorrow for a total of 3 days of treatment. -Please take the cefdinir 300mg twice a day for 5 more days starting tomorrow. Please followup with your primary care doctor within the next week after discharge. If your symptoms seem to be worsening or you continue to have trouble breathing with chest pain, please return to the emergency department. It was a pleasure taking care of you during your stay here! Pending Studies at Discharge: No Stand-Alone Forms: My [place], Smoking Cessation Medications and DC Order Prescriptions: New azithromycin 250 mg Tablet 500 mg PO QAM 1 Days Qty: 1 RF: 0 cefdinir 300 mg Capsule 300 mg PO BID 5 Days Qty: 10 RF: 0 Breo Ellipta 200-25 mcg/dose Blister With Device 1 puff inhalation DAILY Qty: 1 RF: 0 prednisone 20 mg tablet See Rx Instructions .ROUTE .COMPLEX 12 Days Qty: 24 RF: 0 Continued atorvastatin 80 mg tablet 80 mg PO HS RF: 0 amlodipine 10 mg Tablet 10 mg PO QAM RF: 0 albuterol sulfate 90 mcg/actuation Hfa Aerosol Inhaler 2 puff inhalation Q4H PRN (Reason: Shortness Of Breath) RF: 0 aspirin 81 mg Tablet,Delayed Release (Dr/Ec) 81 mg PO QAM RF: 0 ipratropium-albuterol 0.5 mg-3 mg(2.5 mg base)/3 mL Solution For Nebulization 3 ml NEB Q6H PRN (Reason: cough/wheeze/shortness of breath) Qty: 1 RF: 0 (DME) nebulizers Misc See Rx Instructions .ROUTE .MEDSUPPLY Qty: 1 RF: 0 budesonide-formoterol [Symbicort] 160-4.5 mcg/actuation Hfa Aerosol Inhaler 2 puff INHALATION BID RF: 0 Discharge Orders: Discharge Order (Routine); Ordered 11/17/20 Ordered By: Bhavna Luther Admission Data Admit Date/Time: 11/16/20 02:28 Attending Provider: Danielito Meyers Admit Provider: Bubba Carlos Primary Care Provider: PCP,NO Other Providers: Bubba Carlos Other Interventions: Discharge Summary Assessment (RN) Last Done: 11/17/20 16:07 Supervising Physician Co-Signing Physician Notes I personally examined the patient and verified all mata points of history and exam, discussed case, and agree with decision making with Dr Luther Breathing continues to feel better. Still needing oxygen some. Desperately wants to go home. Later two-step notes that he does okay at rest but desatura gomez some with exertion. He still wants to go home anyway, oxygen unfortunately not covered by his insurance in the setting. He is willing to have a pulse ox take it easy and follow his numbers closely and seek care if he cannot recover oxygenation. He is coughing up a bit more Vitals noted. Awake and alert pleasant no distress. HEENT normocephalic atraumatic mucous membranes moist. Lungs show much better air entry, diffuse wheezing. Faint left basilar rales. Skin shows no rashes no pallor or icterus. Neuro without focal deficits. Community-acquired pneumonia with sepsis present on admission and subsequent acute hypoxic respiratory failure related to pneumonia and (presumed) COPD exacerbation -Improvingreally wants to go home. I would prefer that either he be weaned off of oxygen or able to have home oxygen set up, unfortunately his coverage would only allow if he requires a 24/7 which seems oddly arbitrary but we are not able to change the rules. That said he is desperate to go home, is rational about it, is willing to get a pulse ox and follow his numbers, and should he desaturate in a way that will not rebound with rest, he can seek care again acutely. I suspect his oxygenation will continue to improve as we continue with steroids, antibiotics, and inhalers, which we will be doing to finish out treatment of his pneumonia and COPD. Outpatient follow-up Otherwise as above Resident Activity Tracking Resident Involvement: Resident Care Provided Care Provided: Adult Hospital Medicine
--- NOTE | 2020-11-17 17:19 | Billing Data ---
Date of Service November 17, 2020 Coding Level of Care Code D/C Day Management <30 mins
[2020-11-18] MEDS ORDERED: AZITHROMYCIN 250 MG TAB PO SCH (09:00)
[2020-11-18] MEDS ORDERED: CEFDINIR 300 MG CAP PO SCH (09:00)
== END 2020-11-17 17:16 | disposition home or self-care (01) | DRG 193 ==
LOC: ED 22:58 → INTOOBSV 11-16 02:28 → SUATTDRO 11-16 02:28 → 2N 11-16 02:28 → OBSVTOIN 11-16 02:28 → 2N 11-16 03:02

== ENCOUNTER 2021-05-16 19:45 | Inpatient (IN) ==
[2021-05-16] MEDS ORDERED: ALBUT/IPRATROP 3MG/0.5MG NEB 3 ML VIAL NEB STA ×2 (20:23→21:27)
[2021-05-16] MEDS ORDERED: methylPREDNISolone 125 MG/2 ML VIAL IV STA (20:23)
[2021-05-16 20:37] LABS: Eosinophils # (auto) 0.27 K/uL (0-0.5); Eosinophils % (auto) 2.6 %; Hematocrit (blood only) 36.7 % (42-52); Hemoglobin 12.5 g/dL (14.0-18.0); Immature Granulocytes # (auto) 0.02 K/uL (0.00-0.02); Immature Granulocytes % (auto) 0.2 %; Lymphocytes # (auto) 1.77 K/uL (1.2-3.4); Lymphocytes % (auto) 16.7 %; Mean Corpuscular Hemoglobin 29.6 pg (25-34); Mean Corpuscular Hgb Conc 34.1 g/dL (32-36); Mean Platelet Volume 8.3 fL (7.4-10.4); Monocytes # (auto) 1.16 K/uL (0.11-0.59); Neutrophils # (auto) 7.35 K/uL (1.4-6.5); Neutrophils % (auto) 69.5 %; Platelet Count 267 K/uL (130-400); RDW Coefficient of Variation 14.1 % (11.5-14.5); RDW Standard Deviation 44.9 fL (36.4-46.3); Red Blood Count 4.22 M/uL (4.7-6.1); White Blood Count 10.57 K/uL (4.8-10.8)
[2021-05-16 20:48] LABS: Partial Thromboplastin Time 25.4 Seconds (21.0-31.0); Prothrombin Time 9.9 Seconds (9.0-12.0)
[2021-05-16 20:54] LABS: Alanine Aminotransferase 33 U/L (12-78); Albumin Level 2.5 gm/dl (3.4-5.0); Aspartate Aminotransferase 49 U/L (15-37); BUN Creatinine Ratio 12.8 (10-20); Blood Urea Nitrogen 15 mg/dl (7-18); Calcium 8.4 mg/dl (8.5-10.1); Carbon Dioxide 24 mmol/L (21-32); Chloride 109 mmol/L (98-107); Creatinine Clr Calc Pharmacy 46.9 ml/min; Est GFR (African American) 67.9 ml/min; Est GFR (Non-African American) 58.6 ml/min; Glucose 128 mg/dl (70-99); Potassium 3.7 mmol/L (3.5-5.1); Sodium 140 mmol/L (136-145)
[2021-05-16 20:56] LABS: Base Excess VBG -0.4 mEq/L; Oxygen Saturation VBG 83.8 %; pH VBG 7.39 (7.36-7.41)
[2021-05-16 20:59] LABS: Albumin Globulin Ratio 0.6 (0.9-2); Alkaline Phosphatase 114 U/L (45-117); Bilirubin,Total 0.3 mg/dl (0.2-1); Globulin 4.4 gm/dl (2.5-4.0); Total Protein 6.9 gm/dl (6.4-8.2); Troponin I < 0.015 ng/ml (0-0.045)
--- NOTE | 2021-05-16 21:04 | XRay Report ---
XR chest 1V portable CLINICAL HISTORY: cough sob. COMPARISON STUDY: 11/15/2020 TECHNIQUE: 1 view of the chest FINDINGS: Single frontal view of the chest demonstrates the cardiomediastinal silhouette to be within normal li mits. Compared to previous examination, there is residual atelectasis versus scarring at the left yolande g base. The lungs are otherwise clear of alveolar opacities. There is no evidence for pleural effusio n. There is no evidence for vascular congestion. There is no acute osseous pathology. IMPRESSION: No acute cardiopulmonary disease. Residual left lower lobe atelectasis versus scarring. ACT 112: Negative or not required by law. Electronically signed by: Maco Escudero M.D. 05/16/2021 9:03 PM
--- NOTE | 2021-05-16 22:33 | Emergency Department Note ---
History of Present Illness General Chief Complaint: Chest Pain Stated Complaint: CHEST PAIN Time Seen by Provider: 05/16/21 20:15 History of Present Illness Provider Complaint: shortness of breath Onset (ago): day(s) (1) Consistency/Duration: + constant Maximum Pain Intensity: 10 Current Pain Intensity: 8 Relieved By: + oxygen Exacerbated By: + exertion and + coughing Context: + recent illness Known history of: COPD Associated symptoms: + chest pain, + cough, + wheezing and + sputum production; no fever, no orthopnea, no polyuria, no palpitations, no hemoptysis, no nausea/vomiting, no abdominal pain, no rash or no chest congestion HPI Narrative: Patient not vaccinated against COVID-19. Related Data Home oxygen amount: none Home Medications Medication Instructions Recorded Confirmed Type albuterol sulfate 90 mcg/actuation 2 puff INHALATION Q4H PRN 02/14/19 05/16/21 History aerosol inhaler amlodipine 10 mg tablet 10 mg PO HS 02/14/19 05/16/21 History atorvastatin 80 mg tablet 80 mg PO HS 06/08/19 05/16/21 History nebulizers #1 ea 05/24/20 Rx clopidogrel 75 mg tablet 75 mg PO HS 05/16/21 05/16/21 History tiotropium bromide 18 mcg capsule 1 cap INHALATION HS 05/16/21 05/16/21 History with inhalation device (Spiriva with HandiHaler) Allergies Allergy/AdvReac Type Severity Reaction Status Date / Time lisinopril Allergy Mild THROAT Verified 05/16/21 21:42 CLOSES Penicillins Allergy Unknown Rash Verified 05/16/21 21:42 Past Med/Surg History Medical History Abnormal ECG Right bundle branch block Admitted to intensive care unit Arthritis CVA (cerebral infarction) CVA (cerebral infarction) History of bladder cancer S/P BCG treatment History of high cholesterol DIETARY CONTROLLED History of kidney stones History of stroke 2013, [place] WITH BLOOD THINNER - NO RESIDUAL EFFECTS HTN (hypertension) Hyperlipidemia Kidney stones Surgical History History of colonoscopy History of surgery LEFT EYE/ INJURY RELATED 1965 History of total left hip arthroplasty Hx of cystoscopy 03/14/19 [facility], [place] Family History Mother Heart disease Brother Heart disease Social History Smoking Status: Former smoker Cigarettes Per Day: 20; Second Hand Exposure: No; Hx Alcohol Use: Yes Alcohol type: beer Hx Substance Use: No Preferred Language: Bengali Communication Ability: Effective Fishing Hand Required: No Beliefs That Will Affect Care: None marital status: Single Current Living Situation: Family current occupational status: retired Feels Safe at Home: Yes Assistive Devices: Oxygen - Continuous Review of Systems A total of 10 systems reviewed and were otherwise negative Physical Exam Vital Signs: Vital Signs - 24 hr 05/16/21 19:57 05/16/21 20:13 05/16/21 20:20 Temperature 37.0 C Temperature Source Temporal Artery Sc an Pulse Rate 98 H 88 86 Pulse Rate [Apical ] Pulse Rate from Sp O2 Sensor 87 86 Respiratory Rate 18 30 H 21 Respiratory Effort / Characteristics Respiratory Depth Normal Blood Pressure 142/79 H Blood Pressure Geena n 100 Pulse Oximetry 86 L 94 95 Oxygen Delivery Me thod Room Air Nasal Cannula Nasal Cannula Oxygen Flow Rate 4 4 Sepsis Recent Feve r Within 48 Hours No Sepsis New/Unexpla ined Change in Men km Status N/A Sepsis Action Take n by Nursing No Action Required 05/16/21 20:26 05/16/21 20:30 05/16/21 20:40 Temperature Temperature Source Pulse Rate 83 83 Pulse Rate [Apical ] Pulse Rate from Sp O2 Sensor 84 83 Respiratory Rate 20 24 Respiratory Effort / Characteristics Respiratory Depth Blood Pressure Blood Pressure Geena n Pulse Oximetry 96 95 Oxygen Delivery Me thod Nasal Cannula Nasal Cannula Nasal Cannula Oxygen Flow Rate 4 4 4 Sepsis Recent Feve r Within 48 Hours Sepsis New/Unexpla ined Change in Men km Status Sepsis Action Take n by Nursing 05/16/21 20:43 05/16/21 20:50 05/16/21 21:00 Temperature Temperature Source Pulse Rate 81 80 Pulse Rate [Apical ] 84 Pulse Rate from Sp O2 Sensor 81 80 Respiratory Rate 25 H 19 22 Respiratory Effort / Characteristics Non-Labored Sponta neous Respiratory Depth Blood Pressure Blood Pressure Geena n Pulse Oximetry 84 L 98 93 Oxygen Delivery Me thod Oxymask Nasal Cannula Nasal Cannula Oxygen Flow Rate 3.5 4 4 Sepsis Recent Feve r Within 48 Hours Sepsis New/Unexpla ined Change in Men km Status Sepsis Action Take n by Nursing 05/16/21 21:10 05/16/21 21:20 05/16/21 21:51 Temperature Temperature Source Pulse Rate 83 80 Pulse Rate [Apical ] 85 Pulse Rate from Sp O2 Sensor 82 81 Respiratory Rate 24 24 22 Respiratory Effort / Characteristics Spontaneous Respiratory Depth Blood Pressure Blood Pressure Geena n Pulse Oximetry 94 93 94 Oxygen Delivery Me thod Nasal Cannula Nasal Cannula Nasal Cannula Oxygen Flow Rate 4 4 3 Sepsis Recent Feve r Within 48 Hours Sepsis New/Unexpla ined Change in Men km Status Sepsis Action Take n by Nursing Physical Exam: Physical Exam GENERAL: Patient appears disheveled. HENT: Exam performed. - Head: Normocephalic and atraumatic. - Right Ear: External ear normal. No mastoid tenderness. - Left Ear: External ear normal. No mastoid tenderness. - Mouth/Throat: The oropharynx is clear and moist. No trismus in the jaw. No dental abscesses or uvula swelling. No oropharyngeal exudate or tonsillar abscesses. EYES: Conjunctivae and EOM are normal. Pupils are equal, round, and reactive to light. Right eye exhibits no discharge. Left eye exhibits no discharge. No scleral icterus. NECK: Normal range of motion. Neck supple. No JVD present. No spinous process tenderness present. No carotid bruit present. No rigidity. No tracheal deviation and normal range of motion present. No Brudzinski's sign and no Kernig's sign noted. CV: Normal rate, regular rhythm, normal heart sounds and intact distal pulses. There is no peripheral edema. Palpable radial pulses bue. PULM/CHEST: Diminished breath sounds bilaterally with scant expiratory wheezes at the bases. ABD: The abdomen is soft. Bowel sounds are normal. He has no distension. No mass is present. There is no tenderness. There is no rebound, no guarding, no Shannon 's sign and no tenderness at McBurney's point. Rovsig negative. MUSC/SKEL: Normal range of motion. There is no peripheral edema, tenderness or deformity. LYMPH: No cervical adenopathy. NEURO: He is alert and oriented to person, place, and time. He has normal strength. No cranial nerve deficit or sensory deficit. Coordination and gait normal. GCS eye subscore is 4. GCS verbal subscore is 5. GCS motor subscore is 6. Cerebellar tests wnl. SKIN: Skin is warm and dry. He is not diaphoretic. PSYCH: He has a normal mood and affect. Behavior is normal. Judgment and thought content normal. Course Course 2014: The patient was evaluated in room C5. A complete history and physical exam was performed Cardiac monitoring: An order was placed for continuous cardiac monitoring. The monitor shows a rate of 90 with sinus rhythm Patient was found to be hypoxic on room air. Patient was placed on oxygen via nasal cannula which improved his oxygen saturation. Patient will be treated with Solu-Medrol 125 mg and duo nebs for presumed COPD exacerbation. 2230: Vital signs stable on supplemental oxygen via nasal cannula. Labs are within normal limits. X-ray within normal limits. Patient is Covid positive. Patient be admitted to the [facility] team Dr. Jones notified. Administered Medications Discontinued Medications Albuterol (Albut/Ipratrop 3mg/0.5mg Neb 3 Ml Vial) 3 ml NEB NOW STA Stop: 05/16/21 20:24 Last Admin: 05/16/21 20:42 Dose: 3 ml Documented by: [id number] Albuterol (Albut/Ipratrop 3mg/0.5mg Neb 3 Ml Vial) 3 ml NEB NOW STA Stop: 05/16/21 21:28 Last Admin: 05/16/21 21:51 Dose: 3 ml Documented by: [id number] Methylprednisolone (Methylprednisolone 125 Mg/2 Ml Vial) 125 mg IV NOW STA Stop: 05/16/21 20:24 Last Admin: 05/16/21 21:27 Dose: 125 mg Documented by: [id number] Medical Decision Making Laboratory Data Result diagrams: 05/16/21 20:20 05/16/21 20:20 Lab Results 05/16/21 05/16/21 05/16/21 Range/Units 20:20 20:20 20:20 WBC 10.57 (4.8-10.8) K/uL RBC 4.22 L (4.7-6.1) M/uL Hgb 12.5 L (14.0-18.0) g/dL Hct 36.7 L (42-52) % MCV 87.0 (80-100) fL MCH 29.6 (25-34) pg MCHC 34.1 (32-36) g/dL RDW Std Deviation 44.9 (36.4-46.3) fL RDW Coeff of [place] 14.1 (11.5-14.5) % Plt Count 267 (130-400) K/uL MPV 8.3 (7.4-10.4) fL Immature Gran % (Auto) 0.2 % Neut % (Auto) 69.5 % Lymph % (Auto) 16.7 % [place] % (Auto) 11.0 % Eos % (Auto) 2.6 % Baso % (Auto) 0.0 % Neut # (Auto) 7.35 H (1.4-6.5) K/uL Lymph # (Auto) 1.77 (1.2-3.4) K/uL [place] # (Auto) 1.16 H (0.11-0.59) K/uL Eos # (Auto) 0.27 (0-0.5) K/uL Baso # (Auto) 0.00 (0-0.2) K/uL Immature Gran # (Auto) 0.02 (0.00-0.02) K/uL PT 9.9 (9.0-12.0) Seconds INR 1.0 (0.9-1.1) APTT 25.4 (21.0-31.0) Seconds PTT Ratio 1.0 VBG pH (7.36-7.41) VBG pCO2 (38-50) mmHg VBG pO2 mmHg VBG HCO3 mmol/L VBG O2 Saturation % VBG Base Excess mEq/L Barometric Pressure mm/Hg Sodium 140 (136-145) mmol/L Potassium 3.7 (3.5-5.1) mmol/L Chloride 109 H (98-107) mmol/L Carbon Dioxide 24 (21-32) mmol/L Anion Gap 7.0 (3-11) BUN 15 (7-18) mg/dl Creatinine 1.19 (0.6-1.4) mg/dl Est Cr Clr Drug Dosing 46.9 ml/min Est GFR ( Amer) 67.9 ml/min Est GFR (Non-Af Amer) 58.6 ml/min BUN/Creatinine Ratio 12.8 (10-20) Glucose 128 H (70-99) mg/dl Calcium 8.4 L (8.5-10.1) mg/dl Total Bilirubin 0.3 (0.2-1) mg/dl AST 49 H (15-37) U/L ALT 33 (12-78) U/L Alkaline Phosphatase 114 (45-117) U/L Troponin I < 0.015 (0-0.045) ng/ml Total Protein 6.9 (6.4-8.2) gm/dl Albumin 2.5 L (3.4-5.0) gm/dl Globulin 4.4 H (2.5-4.0) gm/dl Albumin/Globulin Ratio 0.6 L (0.9-2) COVID-19 Eval Order SARS-CoV-2 (PCR) (Negative) Influenza Type A Ag (Neg) Influenza Type B Ag (Neg) 05/16/21 05/16/21 05/16/21 Range/Units 20:20 20:20 20:20 WBC (4.8-10.8) K/uL RBC (4.7-6.1) M/uL Hgb (14.0-18.0) g/dL Hct (42-52) % MCV (80-100) fL MCH (25-34) pg MCHC (32-36) g/dL RDW Std Deviation (36.4-46.3) fL RDW Coeff of [place] (11.5-14.5) % Plt Count (130-400) K/uL MPV (7.4-10.4) fL Immature Gran % (Auto) % Neut % (Auto) % Lymph % (Auto) % [place] % (Auto) % Eos % (Auto) % Baso % (Auto) % Neut # (Auto) (1.4-6.5) K/uL Lymph # (Auto) (1.2-3.4) K/uL [place] # (Auto) (0.11-0.59) K/uL Eos # (Auto) (0-0.5) K/uL Baso # (Auto) (0-0.2) K/uL Immature Gran # (Auto) (0.00-0.02) K/uL PT (9.0-12.0) Seconds INR (0.9-1.1) APTT (21.0-31.0) Seconds PTT Ratio VBG pH (7.36-7.41) VBG pCO2 (38-50) mmHg VBG pO2 mmHg VBG HCO3 mmol/L VBG O2 Saturation % VBG Base Excess mEq/L Barometric Pressure mm/Hg Sodium (136-145) mmol/L Potassium (3.5-5.1) mmol/L Chloride (98-107) mmol/L Carbon Dioxide (21-32) mmol/L Anion Gap (3-11) BUN (7-18) mg/dl Creatinine (0.6-1.4) mg/dl Est Cr Clr Drug Dosing ml/min Est GFR ( Amer) ml/min Est GFR (Non-Af Amer) ml/min BUN/Creatinine Ratio (10-20) Glucose (70-99) mg/dl Calcium (8.5-10.1) mg/dl Total Bilirubin (0.2-1) mg/dl AST (15-37) U/L ALT (12-78) U/L Alkaline Phosphatase (45-117) U/L Troponin I (0-0.045) ng/ml Total Protein (6.4-8.2) gm/dl Albumin (3.4-5.0) gm/dl Globulin (2.5-4.0) gm/dl Albumin/Globulin Ratio (0.9-2) COVID-19 Eval Order Covid19 at [facility] [place] SARS-CoV-2 (PCR) POSITIVE A* (Negative) Influenza Type A Ag Neg for Influ A (Neg) Influenza Type B Ag Neg for Influ B (Neg) 05/16/21 Range/Units 20:31 WBC (4.8-10.8) K/uL RBC (4.7-6.1) M/uL Hgb (14.0-18.0) g/dL Hct (42-52) % MCV (80-100) fL MCH (25-34) pg MCHC (32-36) g/dL RDW Std Deviation (36.4-46.3) fL RDW Coeff of [place] (11.5-14.5) % Plt Count (130-400) K/uL MPV (7.4-10.4) fL Immature Gran % (Auto) % Neut % (Auto) % Lymph % (Auto) % [place] % (Auto) % Eos % (Auto) % Baso % (Auto) % Neut # (Auto) (1.4-6.5) K/uL Lymph # (Auto) (1.2-3.4) K/uL [place] # (Auto) (0.11-0.59) K/uL Eos # (Auto) (0-0.5) K/uL Baso # (Auto) (0-0.2) K/uL Immature Gran # (Auto) (0.00-0.02) K/uL PT (9.0-12.0) Seconds INR (0.9-1.1) APTT (21.0-31.0) Seconds PTT Ratio VBG pH 7.39 (7.36-7.41) VBG pCO2 42 (38-50) mmHg VBG pO2 49 mmHg VBG HCO3 25 mmol/L VBG O2 Saturation 83.8 % VBG Base Excess -0.4 mEq/L Barometric Pressure 731.5 mm/Hg Sodium (136-145) mmol/L Potassium (3.5-5.1) mmol/L Chloride (98-107) mmol/L Carbon Dioxide (21-32) mmol/L Anion Gap (3-11) BUN (7-18) mg/dl Creatinine (0.6-1.4) mg/dl Est Cr Clr Drug Dosing ml/min Est GFR ( Amer) ml/min Est GFR (Non-Af Amer) ml/min BUN/Creatinine Ratio (10-20) Glucose (70-99) mg/dl Calcium (8.5-10.1) mg/dl Total Bilirubin (0.2-1) mg/dl AST (15-37) U/L ALT (12-78) U/L Alkaline Phosphatase (45-117) U/L Troponin I (0-0.045) ng/ml Total Protein (6.4-8.2) gm/dl Albumin (3.4-5.0) gm/dl Globulin (2.5-4.0) gm/dl Albumin/Globulin Ratio (0.9-2) COVID-19 Eval Order SARS-CoV-2 (PCR) (Negative) Influenza Type A Ag (Neg) Influenza Type B Ag (Neg) Imaging Data Radiologist's Impression: Chest X-Ray 05/16/21 20:16 XR chest 1V portable CLINICAL HISTORY: cough sob. COMPARISON STUDY: 11/15/2020 TECHNIQUE: 1 view of the chest FINDINGS: Single frontal view of the chest demonstrates the cardiomediastinal silhouette to be within normal limits. Compared to previous examination, there is residual atelectasis versus scarring at the left lung base. The lungs are otherwise clear of alveolar opacities. There is no evidence for pleural effusion. There is no evidence for vascular congestion. There is no acute osseous pathology. IMPRESSION: No acute cardiopulmonary disease. Residual left lower lobe atelectasis versus scarring. ACT 112: Negative or not required by law. Electronically signed by: Maco Escudero M.D. 05/16/2021 9:03 PM ECG Data Interpretation: Sinus rhythm with a rate of 86. [place] and QT intervals within normal limits acute. QRS 136. Right bundle branch block present. No ST elevation or ST depression. MDM Narrative 2015: The patient was evaluated in room C5. A complete history and physical exam was performed Cardiac monitoring: An order was placed for continuous cardiac monitoring. The monitor shows a rate of 90 with sinus rhythm Patient was found to be hypoxic on room air. Patient was placed on oxygen via nasal cannula which improved his oxygen saturation. Patient will be treated with Solu-Medrol 125 mg and duo nebs for presumed COPD exacerbation. 2230: Vital signs stable on supplemental oxygen via nasal cannula. Labs are within normal limits. X-ray within normal limits. Patient is Covid positive. Patient be admitted to the [facility] team Dr. Robert hutchinson Impression & Plan Hypoxia, COVID, COPD exacerbation Critical Care Time Critical Care Time: Yes Total Critical Care Time: 37 I have personally spent greater than 37 minutes of critical care time in the direct management of this patient. This includes bedside care, interpretation of diagnostic studies, and testing, discussion with consultants, patient, and family members, and other required patient management activities. This 37 minutes is in excess of all separately billable procedures. Discharge Plan Visit Data Chief Complaint: Chest Pain Stated Complaint: CHEST PAIN Discharge Problem: Hypoxia, COVID, COPD exacerbation Patient Disposition: Admitted As Inpatient Forms Stand Alone Forms: My [facility] Prescriptions Prescriptions: No Action atorvastatin 80 mg tablet 80 mg PO HS RF: 0 amlodipine 10 mg Tablet 10 mg PO HS RF: 0 albuterol sulfate 90 mcg/actuation Hfa Aerosol Inhaler 2 puff inhalation Q4H PRN (Reason: Shortness Of Breath) RF: 0 (DME) nebulizers Misc See Rx Instructions .ROUTE .MEDSUPPLY Qty: 1 RF: 0 clopidogrel 75 mg Tablet 75 mg PO HS RF: 0 Spiriva with HandiHaler 18 mcg capsule, w/inhalation device 1 cap inhalation HS RF: 0 Referrals Referrals: PCP,NO [Primary Care Provider] -
--- NOTE | 2021-05-16 22:39 | History & Physical Report ---
Date of Service May 16, 2021 Assessment & Plan (1) COVID: Plan: 75yo Male PMH COPD HLD HTN Bladder Cancer positive for COVID here for left sided chest pain. COVID -COVID positive on admit, patient denies symptoms prior to admit -O2 sat 86% RA, 90% on 4L NC -isolation ordered -DVT prophylaxis enoxaparin 40mg BID -ordered dexamethasone 6mg up to 10 days, remdesivir 200mg day one, 100mg for next 4 days, 1st dose given in ED -trend cbc, bmp COPD Exacerbation -WBC 10.57, no wheeze on exam, patient denies SOB -CXR = Residual left lower lobe atelectasis versus scarring. -continue home symbicort -continue PRN rescue inhaler -ordered azithromycin 500mg for 3 days, 1st dose given in ED Elevated D-dimer -elevated at 2520 -CTA chest ordered -Venous doppler lower extremities b/l ordered -DVT prophylaxis enoxaparin 40mg BID -continue supplemental O2 HLD -continue atorvastatin HTN -continue amlodipine FENa: heart healthy Code Status: conditional, DNR, ok with intubation DVT PPX: enoxaparin BID PT/OT: none Elvira Harris Do PGY 1, FCM (2) COPD exacerbation: (3) Elevated d-dimer: (4) Hyperlipidemia: (5) HTN (hypertension): History of Present Illness Chief Complaint: Chest Pain Primary Care Provider: NO PCP 75yo Male PMH COPD HLD HTN Bladder Cancer positive for COVID here for left sided chest pain. Patient states 2 days ago he went to [facility] for cystoscopy, was found negative for bladder cancer, came home and experienced right sided chest pain. The next day the pain moved to the left side under his chest, he states it is constant but worse when he breathes, does not radiate. Patient also complains of diarrhea. Patient denies fever SOB loss of taste/smell fatigue malaise, has not needed to use his symbicort more than usual, does not have a rescue inhaler. Patient states he normally has an occasional cough with yellow sputum. Patient denies sick contacts, lives with son and his girlfriend, is uncertain how he got COVID. Patient states he smokes 1pk in 8 weeks, denies alcohol. Patient states he takes his medication regularly. Allergies Allergy/AdvReac Type Severity Reaction Status Date / Time lisinopril Allergy Mild THROAT Verified 05/16/21 21:42 CLOSES Penicillins Allergy Unknown Rash Verified 05/16/21 21:42 Home Medications Medication Instructions Recorded Confirmed Type albuterol sulfate 90 mcg/actuation 2 puff INHALATION Q4H PRN 02/14/19 05/16/21 History aerosol inhaler amlodipine 10 mg tablet 10 mg PO HS 02/14/19 05/16/21 History atorvastatin 80 mg tablet 80 mg PO HS 06/08/19 05/16/21 History nebulizers #1 ea 05/24/20 Rx clopidogrel 75 mg tablet 75 mg PO HS 05/16/21 05/16/21 History tiotropium bromide 18 mcg capsule 1 cap INHALATION HS 05/16/21 05/16/21 History with inhalation device (Spiriva with HandiHaler) Past Med/Surg History Medical History Abnormal ECG Right bundle branch block Admitted to intensive care unit Arthritis CVA (cerebral infarction) CVA (cerebral infarction) History of bladder cancer S/P BCG treatment History of high cholesterol DIETARY CONTROLLED History of kidney stones History of stroke 2012, TX WITH BLOOD THINNER - NO RESIDUAL EFFECTS HTN (hypertension) Hyperlipidemia Kidney stones Surgical History History of colonoscopy History of surgery LEFT EYE/ INJURY RELATED 1965 History of total left hip arthroplasty Hx of cystoscopy 03/14/19 [facility] Family History Mother Heart disease Brother Heart disease Social History Smoking Status: Former smoker Cigarettes Per Day: 20; Second Hand Exposure: No; Do You Dip or Chew Tobacco: No; Tobacco Cessation Education Requested by Patient: No Hx Alcohol Use: No Hx Substance Use: No Preferred Language: Belarusian Communication Ability: Effective 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 Beliefs That Will Affect Care: None marital status: Single Current Living Situation: Family current occupational status: retired Other Information That Helps Us Care for You: No Feels Safe at Home: Yes Safety Concerns: Feels Safe At This Time Assistive Devices: Oxygen - Continuous Review of Systems Review of Systems: Positive chest pain, diarrhea Negative fever chills Negative headache dizziness Negative palpitations SOB Negative nausea vomitting constipation Negative numbness tingling rash swelling Physical Exam Physical Exam: General: Well appearing, age appropriate Heart: RRR, +S1 S2, no murmurs/gallops/rubs Lungs: cta b/l, no wheezes/rales/rhonchi Chest: no rash noted on skin, no pain on light touch or palpation of left chest Abd: soft, NT/ND, +BS Extremities: no swelling, no rashes Results & Data Results & Data ([facility]) Vital Signs (Past 12 Hours) Vital Signs Temp Pulse Pulse Resp BP Pulse Ox 05/16/21 21:51 85 22 94 05/16/21 21:20 80 24 93 05/16/21 21:10 83 24 94 05/16/21 21:00 80 22 93 05/16/21 20:50 81 19 98 05/16/21 20:43 84 25 H 84 L 05/16/21 20:40 83 24 95 05/16/21 20:30 83 20 96 05/16/21 20:20 86 21 95 05/16/21 20:13 88 30 H 94 05/16/21 19:57 37.0 C 98 H 18 142/79 H 86 L Laboratory Results Laboratory Results WBC 10.57 K/uL (4.8-10.8) 05/16/21 20:20 RBC 4.22 M/uL (4.7-6.1) L 05/16/21 20:20 Hgb 12.5 g/dL (14.0-18.0) L 05/16/21 20:20 Hct 36.7 % (42-52) L 05/16/21 20:20 MCV 87.0 fL (80-100) 05/16/21 20:20 MCH 29.6 pg (25-34) 05/16/21 20:20 MCHC 34.1 g/dL (32-36) 05/16/21 20:20 RDW Std Deviation 44.9 fL (36.4-46.3) 05/16/21 20:20 RDW Coeff of [place] 14.1 % (11.5-14.5) 05/16/21 20:20 Plt Count 267 K/uL (130-400) 05/16/21 20:20 MPV 8.3 fL (7.4-10.4) 05/16/21 20:20 Immature Gran % (Auto) 0.2 % 05/16/21 20:20 Neut % (Auto) 69.5 % 05/16/21 20:20 Lymph % (Auto) 16.7 % 05/16/21 20:20 Latimer % (Auto) 11.0 % 05/16/21 20:20 Eos % (Auto) 2.6 % 05/16/21 20:20 Baso % (Auto) 0.0 % 05/16/21 20:20 Neut # (Auto) 7.35 K/uL (1.4-6.5) H 05/16/21 20:20 Lymph # (Auto) 1.77 K/uL (1.2-3.4) 05/16/21 20:20 Latimer # (Auto) 1.16 K/uL (0.11-0.59) H 05/16/21 20:20 Eos # (Auto) 0.27 K/uL (0-0.5) 05/16/21 20:20 Baso # (Auto) 0.00 K/uL (0-0.2) 05/16/21 20:20 Immature Gran # (Auto) 0.02 K/uL (0.00-0.02) 05/16/21 20:20 PT 9.9 Seconds (9.0-12.0) 05/16/21 20:20 INR 1.0 (0.9-1.1) 05/16/21 20:20 APTT 25.4 Seconds (21.0-31.0) 05/16/21 20:20 PTT Ratio 1.0 05/16/21 20:20 D-Dimer 2520 ug/L FEU (0-500) H* 05/16/21 20:20 VBG pH 7.39 (7.36-7.41) 05/16/21 20:31 VBG pCO2 42 mmHg (38-50) 05/16/21 20:31 VBG pO2 49 mmHg 05/16/21 20:31 VBG HCO3 25 mmol/L 05/16/21 20:31 VBG O2 Saturation 83.8 % 05/16/21 20:31 VBG Base Excess -0.4 mEq/L 05/16/21 20:31 Barometric Pressure 731.5 mm/Hg 05/16/21 20:31 Sodium 140 mmol/L (136-145) 05/16/21 20:20 Potassium 3.7 mmol/L (3.5-5.1) 05/16/21 20:20 Chloride 109 mmol/L (98-107) H 05/16/21 20:20 Carbon Dioxide 24 mmol/L (21-32) 05/16/21 20:20 Anion Gap 7.0 (3-11) 05/16/21 20:20 BUN 15 mg/dl (7-18) 05/16/21 20:20 Creatinine 1.19 mg/dl (0.6-1.4) 05/16/21 20:20 Est Cr Clr Drug Dosing 46.9 ml/min 05/16/21 20:20 Est GFR ( Amer) 67.9 ml/min 05/16/21 20:20 Est GFR (Non-Af Amer) 58.6 ml/min 05/16/21 20:20 BUN/Creatinine Ratio 12.8 (10-20) 05/16/21 20:20 Glucose 128 mg/dl (70-99) H 05/16/21 20:20 Calcium 8.4 mg/dl (8.5-10.1) L 05/16/21 20:20 Total Bilirubin 0.3 mg/dl (0.2-1) 05/16/21 20:20 AST 49 U/L (15-37) H 05/16/21 20:20 ALT 33 U/L (12-78) 05/16/21 20:20 Alkaline Phosphatase 114 U/L (45-117) 05/16/21 20:20 Troponin I < 0.015 ng/ml (0-0.045) 05/16/21 20:20 Total Protein 6.9 gm/dl (6.4-8.2) 05/16/21 20:20 Albumin 2.5 gm/dl (3.4-5.0) L 05/16/21 20:20 Globulin 4.4 gm/dl (2.5-4.0) H 05/16/21 20:20 Albumin/Globulin Ratio 0.6 (0.9-2) L 05/16/21 20:20 COVID-19 Eval Order Covid19 at [facility] 05/16/21 20:20 SARS-CoV-2 (PCR) POSITIVE (Negative) A* 05/16/21 20:20 Influenza Type A Ag Neg for Influ A (Neg) 05/16/21 20:20 Influenza Type B Ag Neg for Influ B (Neg) 05/16/21 20:20 Impressions Chest X-Ray 05/16/21 20:16 XR chest 1V portable CLINICAL HISTORY: cough sob. COMPARISON STUDY: 11/15/2020 TECHNIQUE: 1 view of the chest FINDINGS: Single frontal view of the chest demonstrates the cardiomediastinal silhouette to be within normal limits. Compared to previous examination, there is residual atelectasis versus scarring at the left lung base. The lungs are otherwise clear of alveolar opacities. There is no evidence for pleural effusion. There is no evidence for vascular congestion. There is no acute osseous pathology. IMPRESSION: No acute cardiopulmonary disease. Residual left lower lobe atelectasis versus scarring. ACT 112: Negative or not required by law. Electronically signed by: Maco Escudero M.D. 05/16/2021 9:03 PM Medications Administered Current Inpatient Medications Enoxaparin Sodium (Enoxaparin Inj 40 Mg/0.4 Ml Syr) 40 mg SQ Q12H FRANKI Stop: 06/15/21 22:59 Code Status & VTE Plan Code Status Conditional, DNR, ok with intubation VTE Prophylaxis Plan VTE Prophylaxis will be ordered: Yes Supervising Physician Co-Signing Physician Notes Attending addendum: I have physically seen this patient, have supervised the medical residents activities, and agree with the H&P unless as otherwise noted. Assessment and Plan: COVID-19 pneumonia with hypoxia/COPD exacerbation Dexamethasone 6 mg IV every morning Enoxaparin 40 mg subcu twice daily Remdesivir IV per protocol Duonebs every 4 hours while awake and every 2 hours when necessary. Guaifenesin extended release 12 mg p.o. twice daily Azithromycin 5 mg IV daily Nasal cannula oxygen, titrate to keep pulse ox 92 to 94% Remaining orders and notations as noted Resident Activity Tracking Resident Involvement: Resident Care Provided Care Provided: Adult Hospital Medicine
[2021-05-16 22:53] LABS: D Dimer 2520 ug/L FEU (0-500)
[2021-05-16] MEDS ORDERED: REMDESIVIR 200 MG in SODIUM CHLORIDE 0.9% 210 ML IV STA (23:35)
[2021-05-16] MEDS ORDERED: AZITHROMYCIN 250 MG TAB PO STA (23:38)
[2021-05-16] MEDS ORDERED: SODIUM CHLORIDE 0.9% 10ML FLUSH IV SCH (23:45)
[2021-05-16] MEDS ORDERED: POLYETHYLENE (MIRALAX) 17 GM PACK PO PRN (23:56)
[2021-05-16] MEDS ORDERED: ALBUTEROL HFA 8 GM INHALER INH PRN (23:56)
[2021-05-16] MEDS ORDERED: ONDANSETRON INJ 2 MG/ML 2 ML VIAL IV PRN (23:56)
[2021-05-16] MEDS ORDERED: ACETAMINOPHEN 325 MG TAB PO PRN (23:56)
[2021-05-17] MEDS ORDERED: OPTIRAY 320 125ml IV ONE (00:11)
[2021-05-17] MEDS: ENOXAPARIN INJ 40 MG/0.4 ML SYR SQ SCH ×3 (01:23→22:12)
[2021-05-17] MEDS: SODIUM CHLORIDE 0.9% 10ML FLUSH IV SCH ×2 (02:40→22:25)
--- NOTE | 2021-05-17 06:57 | Ultrasound Report ---
ULTRASOUND BILATERAL LOWER EXTREMITY VENOUS CLINICAL HISTORY: Elevated d-dimer. Covid. COMPARISON STUDY: No priors. TECHNIQUE: Real-time, grayscale, and color Doppler sonography of the deep veins of the right and left lower extremity was performed from the inguinal crease to the calf. Compression and augmentation wer e utilized. FINDINGS: There is no sonographic evidence of deep venous thrombosis identified in the right or left lower extremity. The common femoral, superficial femoral, and popliteal veins are patent and normally compressible bilaterally. The greater saphenous vein and the profunda femoris vein at the junction w ith the common femoral vein are clear in both legs. The visualized calf veins are patent bilaterally. IMPRESSION: There is no sonographic evidence of deep venous thrombosis identified in the right or lef t lower extremity. ACT 112: Negative or not required by law. Electronically signed by: Martinez Castaneda M.D. 05/17/2021 6:56 AM
--- NOTE | 2021-05-17 08:49 | CT Scan Report ---
CT ANGIOGRAM OF THE CHEST CLINICAL HISTORY: Dyspnea. COMPARISON STUDY: Chest CT scans dated 11/16/2020 and 11/19/2019. Chest x-ray dated 05/16/2021. TECHNIQUE: Following the IV administration of 118 cc of Optiray 320, CT angiogram of the chest was pe rformed from the upper abdomen to the thoracic inlet utilizing the pulmonary embolus protocol. Images are reviewed in the axial, sagittal, and coronal planes. 3-D MIPS images are created and assessed. I V contrast was administered without complication. A dose lowering technique was utilized adhering to the principles of ALARA. The examination is degraded by motion artifact. CT DOSE: 580.05 mGycm FINDINGS: Thyroid: Imaged portions of the thyroid gland are normal in size and attenuation. A 4.1 cm nodule is again seen in the right lobe. This is unchanged as compared to 2019. Thoracic aorta: There is atherosclerotic calcification of the thoracic aorta, which is normal in cameron rey and demonstrates standard 3-vessel arch anatomy. No dissection is seen. There is at least moderat e stenosis of the left subclavian artery below the thoracic outlet. Pulmonary vasculature: The pulmonary trunk is normal in caliber. There are no filling defects identif ied in main, lobar, or segmental pulmonary branches to suggest pulmonary embolus. Heart: The heart is mildly enlarged and without pericardial effusion. There are coronary artery calci fications. Lungs and pleural spaces: Emphysematous change is observed. There are small pleural effusions with de pendent airspace consolidation. Linear atelectasis is noted in the right middle lobe and lingula. Sec retions are noted within the distal trachea and mainstem bronchi. A 4 mm right lower lobe pulmonary n odule is seen on image #[id number]. Peribronchial thickening is again noted with left basilar mucus plugging . Mediastinum: A subcarinal node measures 14 mm in short axis. Rachel: Mildly enlarged hilar nodes measure up to 13 mm in short axis. Axillae: There is no axillary lymphadenopathy. Upper abdomen: Renal sinus cysts are noted on the left. Partially visualized upper abdominal viscera is within normal limits. Skeletal structures: The skeletal structures are osteopenic. No lytic or blastic bony lesions are see n. IMPRESSION: 1. There is no evidence of pulmonary embolus in the main, lobar, or segmental pulmonary arteries. 2. Cardiomegaly and emphysema. 3. Small pleural effusions with bibasilar consolidation which likely represents atelectasis. Correlat e clinically for evidence of a superimposed infectious/inflammatory pneumonitis. 4. A 4 mm right lower lobe pulmonary nodule is unchanged. If warranted this can be followed as per e Fleischner criteria. See below. 5. Mildly enlarged mediastinal and hilar nodes are similar to prior studies. 6. Additional findings as above. Please refer to below summary of Fleischner criteria recommendations for follow-up of incidental CT n odules (Rivas Childers, Guidelines for management of small pulmonary nodules detected on CT scans: A sta tement from the Fleischner Society, Radiology 237: [phone].) SOLID NODULES Solitary nodule size: <6 mm * low risk patients: no follow-up needed * high risk patients: optional CT at 12 months Solitary nodule size: 6-8 mm * low risk patients: follow-up at 6-12 months, then consider further follow-up at 18-24 months * high risk patients: initial follow-up CT at 6-12 months and then at 18-24 months if no change Solitary nodule size: >8 mm * either low or high risk patients - consider follow-up CT at 3 months, and/or CT-PET, and/or biopsy Multiple nodules size: <6 mm * low risk patients: no routine follow-up * high risk patients: optional CT at 12 months Multiple nodules size: 6-8 mm * low risk patients: follow-up at 3-6 months, then consider further follow-up at 18-24 months * high risk patients: follow-up at 3-6 months, then at 18-24 months if no change Multiple nodules size: >8 mm * low risk patients: follow-up at 3-6 months, then consider further follow-up at 18-24 months * high risk patients: follow-up at 3-6 months, then at 18-24 months if no change Note: newly detected indeterminate nodule in persons 35 years of age or older. * low risk patients: minimal or absent history of smoking and/or other known risk factors * high risk patients: history of smoking or of other known risk factors (e.g. first degree relative with lung cancer, or exposure to asbestos, radon, uranium) * if a nodule up to 8 mm is partly solid or is ground glass further follow-up is required after 24 m onths to exclude possible slow growing adenocarcinoma (WES) SUBSOLID NODULES Solitary pure ground-glass nodule * nodule size <6 mm - no CT follow-up required * nodule size >=6 mm - follow-up CT at 6-12 months, then every 2 years until 5 years Solitary part-solid nodule * nodule size <6 mm - no CT follow-up required * nodule size >=6 mm - follow-up CT at 3-6 months. If unchanged, and solid component remains <6 mm, then annual follow-up for 5 years Multiple subsolid nodules * nodule size <6 mm - follow-up CT at 3-6 months, consider further follow-up at 2 and 4 years if sta ble * nodule size >=6 mm - follow-up CT at 3-6 months, subsequent management based on the most suspiciou s nodule(s) ACT 112: Negative or not required by law. Electronically signed by: Martinez Castaneda M.D. 05/17/2021 8:47 AM
[2021-05-17] MEDS: dexAMETHasone 6 MG in SYRINGE 0 ML IV SCH (08:50)
--- NOTE | 2021-05-17 10:19 | Hospitalist Progress Note ---
Date of Service May 17, 2021 Assessment & Plan (1) LLL pneumonia: Plan: continue Zithromax add Rocephin 2gm IV daily give 5 days of treatment, convert to PO once ready for discharge (2) Acute hypoxemic respiratory failure: Plan: down to 3L from 4L give flutter valve, incentive spirometer, OOB in chair treat pneumonia, encourage deep breathing (3) COVID: Plan: completely incidental, he is not vaccinated never had URI symptoms, no loss of taste or smell, no significant cough no viral pneumonia/infiltrates on both CXR and CT chest he is on 3L NC, continue dexamethasone and Remdesivir for now since it could be early in course and Remdesivir could curb viral replication Elevated D-dimer -elevated at 2520 -CTA chest ordered -Venous doppler lower extremities b/l ordered -DVT prophylaxis enoxaparin 40mg BID -continue supplemental O2 HLD -continue atorvastatin HTN -continue amlodipine FENa: heart healthy Code Status: conditional, DNR, ok with intubation DVT PPX: enoxaparin BID PT/OT: none Elvira Harris Do PGY 1, FCM (4) COPD (chronic obstructive pulmonary disease): Plan: no wheezing on exam, no increased work of breathing, does not have exacerbation (5) Chest pain: Plan: pain is pleuritic, based on work up the most logical explanation would be left small effusion and possible pneumonia no pericarditis on EKG treat the pneumonia, pain is not severe, would avoid narcotics (6) Elevated d-dimer: Plan: no evidence of pulmonary embolism or DVT (7) Hyperlipidemia: Admission and Anticipated Discharge Date Admission Date: May 16, 2021 Subjective patient is feeling great today, only issue is some pain on left side of chest that happens with a deep breath the pain was originally on right side of chest and then moved he does not feel short of breath at rest or on exertion, occasional cough but nothing significant he is eating well, no fever he confirms he has a cystoscopy on 05/14/21 and then developed the pain two days later in right chest, it was pleuritic and not reproducible reviewed all the imaging, no evidence of viral pneumonia on CXR or CT chest has some atelectasis in left base, small effusion, lymphadenopathy he wants to go home, discussed that he is on 3L NC, need to titrate him off oxygen, try for tomorrow Review of Systems Review of Systems: All systems reviewed & are unremarkable except as noted in Subjective Respiratory: + pain on inspiration; no cough, no dyspnea and no dyspnea on exertion Cardiovascular: no chest pain and no chest pain at rest Physical Exam Physical Exam: General: well developed, well nourished, no acute distress, comfortable Neck: supple, trachea midline, normal thyroid Lungs: clear to auscultation bilaterally, normal respiratory effort, no accessory muscle use, no distress Heart: regular S1 and S2, no murmur, peripheral pulses normal, capillary refill normal, no edema Abdomen: soft, NT, ND, + BS, no hepatomegaly, normal to percussion Extremities: normal in appearance, no cyanosis, no petechiae, strength is 5/5 bilaterally Neuro: awake, cooperative, moves all extremities, no focal motor deficits, CN II-XII intact, sensation in extremities intact, normal speech Skin: warm, dry, no rash, normal turgor Psych: Awake, alert oriented x 3, euthymic affect Results & Data Results & Data ([facility]) Vital Signs (Past 12 Hours) Vital Signs Temp Pulse Pulse Pulse Resp BP BP 05/17/21 08:00 83 05/17/21 07:10 36.5 C 77 24 138/70 05/17/21 04:07 36.6 C 68 20 128/68 05/17/21 00:20 36.6 C 85 16 165/73 H 05/16/21 23:57 96 H 05/16/21 23:56 36.6 C 85 16 165/73 H 05/16/21 22:50 87 23 05/16/21 22:40 89 21 05/16/21 22:30 88 20 177/88 H 05/16/21 22:20 91 H 21 Pulse Ox 05/17/21 08:00 05/17/21 07:10 92 05/17/21 04:07 94 05/17/21 00:20 92 05/16/21 23:57 05/16/21 23:56 92 05/16/21 22:50 90 05/16/21 22:40 91 05/16/21 22:30 90 05/16/21 22:20 91 Laboratory Results Laboratory Results - last 24 hr 05/16/21 05/16/21 05/16/21 20:20 20:20 20:20 WBC 10.57 RBC 4.22 L Hgb 12.5 L Hct 36.7 L MCV 87.0 MCH 29.6 MCHC 34.1 RDW Std Deviation 44.9 RDW Coeff of [place] 14.1 Plt Count 267 MPV 8.3 Immature Gran % (Auto) 0.2 Neut % (Auto) 69.5 Lymph % (Auto) 16.7 Towner % (Auto) 11.0 Eos % (Auto) 2.6 Baso % (Auto) 0.0 Neut # (Auto) 7.35 H Lymph # (Auto) 1.77 Towner # (Auto) 1.16 H Eos # (Auto) 0.27 Baso # (Auto) 0.00 Immature Gran # (Auto) 0.02 PT 9.9 INR 1.0 APTT 25.4 PTT Ratio 1.0 D-Dimer 2520 H* VBG pH VBG pCO2 VBG pO2 VBG HCO3 VBG O2 Saturation VBG Base Excess Barometric Pressure Sodium 140 Potassium 3.7 Chloride 109 H Carbon Dioxide 24 Anion Gap 7.0 BUN 15 Creatinine 1.19 Est Cr Clr Drug Dosing 46.9 Est GFR ( Amer) 67.9 Est GFR (Non-Af Amer) 58.6 BUN/Creatinine Ratio 12.8 Glucose 128 H Calcium 8.4 L Total Bilirubin 0.3 AST 49 H ALT 33 Alkaline Phosphatase 114 Troponin I < 0.015 Total Protein 6.9 Albumin 2.5 L Globulin 4.4 H Albumin/Globulin Ratio 0.6 L COVID-19 Eval Order SARS-CoV-2 (PCR) Influenza Type A Ag Influenza Type B Ag 05/16/21 05/16/21 05/16/21 20:20 20:20 20:20 WBC RBC Hgb Hct MCV MCH MCHC RDW Std Deviation RDW Coeff of [place] Plt Count MPV Immature Gran % (Auto) Neut % (Auto) Lymph % (Auto) Towner % (Auto) Eos % (Auto) Baso % (Auto) Neut # (Auto) Lymph # (Auto) Towner # (Auto) Eos # (Auto) Baso # (Auto) Immature Gran # (Auto) PT INR APTT PTT Ratio D-Dimer VBG pH VBG pCO2 VBG pO2 VBG HCO3 VBG O2 Saturation VBG Base Excess Barometric Pressure Sodium Potassium Chloride Carbon Dioxide Anion Gap BUN Creatinine Est Cr Clr Drug Dosing Est GFR ( Amer) Est GFR (Non-Af Amer) BUN/Creatinine Ratio Glucose Calcium Total Bilirubin AST ALT Alkaline Phosphatase Troponin I Total Protein Albumin Globulin Albumin/Globulin Ratio COVID-19 Eval Order Covid19 at [facility] SARS-CoV-2 (PCR) POSITIVE A* Influenza Type A Ag Neg for Influ A Influenza Type B Ag Neg for Influ B 05/16/21 20:31 WBC RBC Hgb Hct MCV MCH MCHC RDW Std Deviation RDW Coeff of [place] Plt Count MPV Immature Gran % (Auto) Neut % (Auto) Lymph % (Auto) Towner % (Auto) Eos % (Auto) Baso % (Auto) Neut # (Auto) Lymph # (Auto) Towner # (Auto) Eos # (Auto) Baso # (Auto) Immature Gran # (Auto) PT INR APTT PTT Ratio D-Dimer VBG pH 7.39 VBG pCO2 42 VBG pO2 49 VBG HCO3 25 VBG O2 Saturation 83.8 VBG Base Excess -0.4 Barometric Pressure 731.5 Sodium Potassium Chloride Carbon Dioxide Anion Gap BUN Creatinine Est Cr Clr Drug Dosing Est GFR ( Amer) Est GFR (Non-Af Amer) BUN/Creatinine Ratio Glucose Calcium Total Bilirubin AST ALT Alkaline Phosphatase Troponin I Total Protein Albumin Globulin Albumin/Globulin Ratio COVID-19 Eval Order SARS-CoV-2 (PCR) Influenza Type A Ag Influenza Type B Ag Medications Administered Current Inpatient Medications Acetaminophen (Acetaminophen 325 Mg Tab) 650 mg PO Q4H PRN PRN Reason: Pain or Fever Stop: 06/15/21 23:55 Albuterol (Albuterol Hfa 8 Gm Inhaler) 2 puffs INH Q4H PRN PRN Reason: Shortness Of Breath Stop: 06/15/21 23:55 Amlodipine Besylate (Amlodipine Besylate 5 Mg Tab) 10 mg PO HS FRANKI Stop: 06/16/21 20:59 Atorvastatin Calcium (Atorvastatin 40 Mg Tab) 80 mg PO HS FRANKI Stop: 06/16/21 20:59 Azithromycin (Azithromycin 250 Mg Tab) 500 mg PO HS FRANKI Stop: 05/18/21 21:01 Enoxaparin Sodium (Enoxaparin Inj 40 Mg/0.4 Ml Syr) 40 mg SQ Q12H FRANKI Stop: 06/15/21 22:59 Last Admin: 05/17/21 01:23 Dose: 40 mg Documented by: Dexamethasone 6 mg/ Syringe 1.5 mls @ 1 mls/min IV DAILY FRANKI Stop: 05/27/21 08:59 Last Admin: 05/17/21 08:50 Dose: 1 mls/min Documented by: Remdesivir 100 mg/ Sodium (Chloride) 250 mls @ 250 mls/hr IV Q24H [facility]ANKI; Protocol Stop: 05/20/21 20:59 Ondansetron HCl (Ondansetron Inj 2 Mg/Ml 2 Ml Vial) 4 mg IV Q6H PRN PRN Reason: Nausea Stop: 06/15/21 23:55 Polyethylene Glycol (Polyethylene (Miralax) 17 Gm Pack) 17 gm PO DAILY PRN PRN Reason: Constipation Stop: 06/15/21 23:55 Sodium Chloride (Sodium Chloride 0.9% 10ml Flush) 30 ml IV Q24H [facility]ANKI Stop: 05/20/21 23:46 Last Admin: 05/17/21 02:40 Dose: 30 ml Documented by: Umeclidinium [place] (Umeclidinium [place] 62.5mcg/Blister 7 Puffs/Inhaler) 1 puffs INH HS FRANKI Stop: 06/16/21 20:59 PG Care Time/CCT Total # of Minutes Spent Total Time Spent with Patient: Total time spent is greater than 50% in coordination of care (as documented) at patient's floor/unit and/or counseling patient: Coding Level of Care Code 65413 Subseq Hosp Care Lvl 3 Diagnoses COVID U07.1 Elevated d-dimer R79.89 Hyperlipidemia E78.5 LLL pneumonia J18.9 Pneumonia type: due to unspecified organism Acute hypoxemic respiratory failure J96.01 COPD (chronic obstructive pulmonary disease) J44.9 Chest pain R07.9 (1) LLL pneumonia Pneumonia type: due to unspecified organism Qualified Code(s): J18.9 - Pneumonia, unspecified organism
[2021-05-17] MEDS: cefTRIAXone SODIUM 2,000 MG in DEXTROSE 5% 50 ML IV SCH (12:00)
--- NOTE | 2021-05-17 13:40 | Electrocardiogram Report ---
Test Reason : Blood Pressure : / mmHG Vent. Rate : 086 BPM Atrial Rate : 086 BPM P-R Int : 142 ms QRS Dur : 136 ms QT Int : 388 ms P-R-T Axes : 022 063 040 degrees QTc Int : 464 ms Normal sinus rhythm Right bundle branch block Abnormal ECG When compared with ECG of 15-NOV-2020 23:20, No significant change Confirmed by Dawson Herr ([id number]) on 05/17/2021 1:40:00 PM Referred By: REFERRED SELF Confirmed By:Dawson Herr
[2021-05-17] MEDS: REMDESIVIR 100 MG in SODIUM CHLORIDE 0.9% 230 ML IV SCH (19:47)
[2021-05-17] MEDS: UMECLIDINIUM BROMIDE 62.5MCG/BLISTER 7 PUFFS/INHALER INH SCH (19:48)
[2021-05-17] MEDS: amLODIPine BESYLATE 5 MG TAB PO SCH (19:50)
[2021-05-17] MEDS: AZITHROMYCIN 250 MG TAB PO SCH (19:50)
[2021-05-17] MEDS: ATORVASTATIN 40 MG TAB PO SCH (19:50)
--- NOTE | 2021-05-17 23:18 | Billing Data ---
Date of Service May 17, 2021 Coding Level of Care Code 20090 Initial Inpt Care Lvl 3
[2021-05-18] MEDS: cefTRIAXone SODIUM 2,000 MG in DEXTROSE 5% 50 ML IV SCH (09:04)
[2021-05-18] MEDS: dexAMETHasone 6 MG in SYRINGE 0 ML IV SCH (09:04)
[2021-05-18] MEDS: ENOXAPARIN INJ 40 MG/0.4 ML SYR SQ SCH ×2 (11:47→19:57)
--- NOTE | 2021-05-18 13:30 | Hospitalist Progress Note ---
Date of Service May 18, 2021 Assessment & Plan (1) LLL pneumonia: Plan: continue Zithromax continue Rocephin 2gm IV daily give 5 days of treatment, convert to PO once ready for discharge would be ready today but [facility] (2) Acute hypoxemic respiratory failure: Plan: down to 2L from 4L on admission 2 step today shows he needs 2L at all times, unfortunately cannot set up home oxygen over weekend continue flutter valve, incentive spirometer, OOB in chair treat pneumonia, encourage deep breathing (3) COVID: Plan: completely incidental, he is not vaccinated never had URI symptoms, no loss of taste or smell, no significant cough no viral pneumonia/infiltrates on both CXR and CT chest he is on 2L NC, continue dexamethasone and Remdesivir for now since it could be early in course and Remdesivir could curb viral replication Elevated D-dimer -elevated at 2520 -CTA chest ordered -Venous doppler lower extremities b/l ordered -DVT prophylaxis enoxaparin 40mg BID -continue supplemental O2 HLD -continue atorvastatin HTN -continue amlodipine FENa: heart healthy Code Status: conditional, DNR, ok with intubation DVT PPX: enoxaparin BID PT/OT: none Elvira Harris Do PGY 1, FCM (4) COPD (chronic obstructive pulmonary disease): Plan: no wheezing on exam, no increased work of breathing, does not have exacerbation (5) Chest pain: Plan: pain is pleuritic, based on work up the most logical explanation would be left small effusion and possible pneumonia no pericarditis on EKG treat the pneumonia, pain is not severe, would avoid narcotics pain is nearly resolved today (6) Elevated d-dimer: Plan: no evidence of pulmonary embolism or DVT (7) Hyperlipidemia: Admission and Anticipated Discharge Date Admission Date: May 16, 2021 Subjective patient doing really well, he is on 2L at rest got a 2 step and he needed 2L at all times, tried to arrange oxygen but [facility] discussed this with patient, he is frustrated he is mobilizing more sputum, no dyspnea at rest, minimal dyspnea on exertion, pleuritic pain is better, appetite is great, no fever no labs today Review of Systems Review of Systems: All systems reviewed & are unremarkable except as noted in Subjective Physical Exam Physical Exam: General: well developed, well nourished, no acute distress, comfortable Neck: supple, trachea midline, normal thyroid Lungs: clear to auscultation bilaterally, normal respiratory effort, no accessory muscle use, no distress Heart: regular S1 and S2, no murmur, peripheral pulses normal, capillary refill normal, no edema Abdomen: soft, NT, ND, + BS, no hepatomegaly, normal to percussion Extremities: normal in appearance, no cyanosis, no petechiae, strength is 5/5 bilaterally Neuro: awake, cooperative, moves all extremities, no focal motor deficits, CN II-XII intact, sensation in extremities intact, normal speech Skin: warm, dry, no rash, normal turgor Psych: Awake, alert oriented x 3, euthymic affect Results & Data Results & Data ([facility]) Vital Signs (Past 12 Hours) Vital Signs Temp Pulse Pulse Pulse Pulse Pulse Pulse 05/18/21 12:38 36.7 C 65 05/18/21 10:25 70 96 H 92 H 71 05/18/21 08:00 65 05/18/21 06:59 36.5 C 69 05/18/21 03:09 36.6 C 65 Resp Resp Resp Resp Resp BP Pulse Ox 05/18/21 12:38 20 155/77 H 92 05/18/21 10:25 14 20 20 14 05/18/21 08:00 05/18/21 06:59 19 130/68 93 05/18/21 03:09 18 121/56 L 92 Pulse Ox Pulse Ox Pulse Ox Pulse Ox 05/18/21 12:38 05/18/21 10:25 90 90 92 88 L 05/18/21 08:00 05/18/21 06:59 05/18/21 03:09 Medications Administered Current Inpatient Medications Acetaminophen (Acetaminophen 325 Mg Tab) 650 mg PO Q4H PRN PRN Reason: Pain or Fever Stop: 06/15/21 23:55 Albuterol (Albuterol Hfa 8 Gm Inhaler) 2 puffs INH Q4H PRN PRN Reason: Shortness Of Breath Stop: 06/15/21 23:55 Amlodipine Besylate (Amlodipine Besylate 5 Mg Tab) 10 mg PO HS FRANKI Stop: 06/16/21 20:59 Last Admin: 05/17/21 19:50 Dose: 10 mg Documented by: Atorvastatin Calcium (Atorvastatin 40 Mg Tab) 80 mg PO HS FRANKI Stop: 06/16/21 20:59 Last Admin: 05/17/21 19:50 Dose: 80 mg Documented by: Azithromycin (Azithromycin 250 Mg Tab) 500 mg PO [facility] Stop: 05/18/21 21:01 Last Admin: 05/17/21 19:50 Dose: 500 mg Documented by: Enoxaparin Sodium (Enoxaparin Inj 40 Mg/0.4 Ml Syr) 40 mg SQ Q12H FRANKI Stop: 06/15/21 22:59 Last Admin: 05/18/21 11:47 Dose: 40 mg Documented by: Dexamethasone 6 mg/ Syringe 1.5 mls @ 1 mls/min IV DAILY FRANKI Stop: 05/27/21 08:59 Last Admin: 05/18/21 09:04 Dose: 1 mls/min Documented by: Remdesivir 100 mg/ Sodium (Chloride) 250 mls @ 250 mls/hr IV Q24H [facility]; Protocol Stop: 05/20/21 20:59 Last Infusion: 05/17/21 21:00 Dose: Infused Documented by: Ceftriaxone Sodium 2,000 mg/ (Dextrose) 70 mls @ 100 mls/hr IV DAILY [facility]; Protocol Stop: 05/24/21 10:44 Last Infusion: 05/18/21 10:22 Dose: Infused Documented by: Ondansetron HCl (Ondansetron Inj 2 Mg/Ml 2 Ml Vial) 4 mg IV Q6H PRN PRN Reason: Nausea Stop: 06/15/21 23:55 Polyethylene Glycol (Polyethylene (Miralax) 17 Gm Pack) 17 gm PO DAILY PRN PRN Reason: Constipation Stop: 06/15/21 23:55 Last Admin: 05/17/21 19:41 Dose: 17 gm Documented by: Sodium Chloride (Sodium Chloride 0.9% 10ml Flush) 30 ml IV Q24H [facility] Stop: 05/20/21 23:46 Last Admin: 05/17/21 22:25 Dose: 30 ml Documented by: Umeclidinium [place] (Umeclidinium [place] 62.5mcg/Blister 7 Puffs/Inhaler) 1 puffs INH [facility] Stop: 06/16/21 20:59 Last Admin: 05/17/21 19:48 Dose: 1 puffs Documented by: PG Care Time/CCT Total # of Minutes Spent Total Time Spent with Patient: Total time spent is greater than 50% in coordination of care (as documented) at patient's floor/unit and/or counseling patient: Coding Level of Care Code 41519 Subseq Hosp Care Lvl 2 Diagnoses LLL pneumonia J18.9 Pneumonia type: due to unspecified organism Acute hypoxemic respiratory failure J96.01 COVID U07.1 COPD (chronic obstructive pulmonary disease) J44.9 Chest pain R07.9 Elevated d-dimer R79.89 Hyperlipidemia E78.5 (1) LLL pneumonia Pneumonia type: due to unspecified organism Qualified Code(s): J18.9 - Pneumonia, unspecified organism
[2021-05-18] MEDS: REMDESIVIR 100 MG in SODIUM CHLORIDE 0.9% 230 ML IV SCH (19:55)
[2021-05-18] MEDS: amLODIPine BESYLATE 5 MG TAB PO SCH (19:56)
[2021-05-18] MEDS: AZITHROMYCIN 250 MG TAB PO SCH (19:57)
[2021-05-18] MEDS: UMECLIDINIUM BROMIDE 62.5MCG/BLISTER 7 PUFFS/INHALER INH SCH (19:57)
[2021-05-18] MEDS: ATORVASTATIN 40 MG TAB PO SCH (19:57)
[2021-05-18] MEDS: SODIUM CHLORIDE 0.9% 10ML FLUSH IV SCH (21:31)
[2021-05-19 04:05] VITALS: TEMP 97.5
[2021-05-19] MEDS: dexAMETHasone 6 MG in SYRINGE 0 ML IV SCH (08:05)
[2021-05-19] MEDS: cefTRIAXone SODIUM 2,000 MG in DEXTROSE 5% 50 ML IV SCH (08:06)
[2021-05-19 08:09] VITALS: BP 142/68; O2SAT 90
--- NOTE | 2021-05-19 10:20 | Discharge Summary ---
Date of Service May 19, 2021 Admission HPI Per Admitting Provider 75yo Male PMH COPD HLD HTN Bladder Cancer positive for COVID here for left sided chest pain. Patient states 2 days ago he went to [facility] for cystoscopy, was found negative for bladder cancer, came home and experienced right sided chest pain. The next day the pain moved to the left side under his chest, he states it is constant but worse when he breathes, does not radiate. Patient also complains of diarrhea. Patient denies fever SOB loss of taste/smell fatigue malaise, has not needed to use his symbicort more than usual, does not have a rescue inhaler. Patient states he normally has an occasional cough with yellow sputum. Patient denies sick contacts, lives with son and his girlfriend, is uncertain how he got COVID. Patient states he smokes 1pk in 8 weeks, denies alcohol. Patient states he takes his medication regularly. Principal Diagnosis Left lower lobe pneumonia COVID 19 positive, no pneumonitis on imaging Discharge Exam General: well developed, well nourished, no acute distress, comfortable Neck: supple, trachea midline, normal thyroid Lungs: clear to auscultation bilaterally, normal respiratory effort, no accessory muscle use, no distress Heart: regular S1 and S2, no murmur, peripheral pulses normal, capillary refill normal, no edema Abdomen: soft, NT, ND, + BS, no hepatomegaly, normal to percussion Extremities: normal in appearance, no cyanosis, no petechiae, strength is 5/5 bilaterally Neuro: awake, cooperative, moves all extremities, no focal motor deficits, CN II-XII intact, sensation in extremities intact, normal speech Skin: warm, dry, no rash, normal turgor Psych: Awake, alert oriented x 3, euthymic affect Discharge Data Allergies Allergy/AdvReac Type Severity Reaction Status Date / Time lisinopril Allergy Mild THROAT Verified 05/16/21 21:42 CLOSES Penicillins Allergy Unknown Rash Verified 05/16/21 21:42 Consultations 05/16/21 21:28 ED Decision to Admit Stat Ordered Studies 05/16/21 22:55 CT angio chest PE protocol Urgent US venous doppler LE Urgent Hospital Course (1) LLL pneumonia: continue Zithromax continue Rocephin 2gm IV daily breathing room air today, no longer has left sided chest pain, coughing up sputum with flutter valve use discharge on Cefdinir and Zithromax no need for home oxygen as he is on room air (2) Acute hypoxemic respiratory failure: down to room air today likely was due to underlying COPD but also left lower lobe pneumonia no evidence of viral pneumonitis on imaging (3) COVID: completely incidental, he is not vaccinated never had URI symptoms, no loss of taste or smell, no significant cough no viral pneumonia/infiltrates on both CXR and CT chest he is on room air, was on dexamethasone and got Remdesivir while here since he was initially on 4L no need for steroids on discharge (4) COPD (chronic obstructive pulmonary disease): no wheezing on exam, no increased work of breathing, does not have exacerbation (5) Chest pain: pain is pleuritic, based on work up the most logical explanation would be left small effusion and possible pneumonia no pericarditis on EKG pain is resolved (6) Elevated d-dimer: no evidence of pulmonary embolism or DVT (7) Hyperlipidemia: Total Time Total Time Spent Total Time Spent (In Minutes): 33 minutes Total Time Includes: Examination of the Patient, Discharge Planning and Medication Reconciliation Discharge Plan Discharge Items Patient Disposition: Home - Self-Care Reason For Visit: COVID 19 PNA WITH COPD EXACERBATION Discharge Diagnosis: Left lower lobe pneumonia COVID 19 positive but no viral pneumonia Acute hypoxia, resolved Condition on Discharge: Good Goals: complete course of antibiotics use flutter valve, incentive spirometer Activity: Resume your previous activity Weightbearing: Full weightbearing Non-emergency contact: Primary Care Provider Call non-emergency contact if: you have any medication questions, your symptoms worsen and you have a fever Follow-up/Referrals: PCP,NO [Primary Care Provider] - Diet: Regular Addtl Attending Provider Instructions: Medications: - CEFDINIR: antibiotics, 300mg twice a day for 4 more days, start this evening - ZITHROMAX: 250mg daily for 2 more days Left lower lobe pneumonia (bacterial) with some atelectasis and trace pleural effusion, this was cause of chest pain responded well to antibiotics, change to PO antibiotics to complete course use incentive spirometer several times an hour to promote deep breathing use flutter valve (green device) four times a day to help mobilize sputum can stop using these after 4-5 day COVID 19 positive: no evidence of viral pneumonitis on CT of the chest stay isolated (quarantine) for 7 more days, do not drive [place] for 7 days can resume activities on 05/27/21 stay well nourished, well rested, expect you to fully recover Pending Studies at Discharge: No Stand-Alone Forms: My [facility], Smoking Cessation Medications and DC Order Prescriptions: New cefdinir 300 mg capsule 300 mg PO BID 4 Days Qty: 8 RF: 0 azithromycin 250 mg tablet 250 mg PO DAILY 2 Days Qty: 2 RF: 0 Continued atorvastatin 80 mg tablet 80 mg PO HS RF: 0 amlodipine 10 mg Tablet 10 mg PO HS RF: 0 albuterol sulfate 90 mcg/actuation Hfa Aerosol Inhaler 2 puff inhalation Q4H PRN (Reason: Shortness Of Breath) RF: 0 (DME) nebulizers Misc See Rx Instructions .ROUTE .MEDSUPPLY Qty: 1 RF: 0 clopidogrel 75 mg Tablet 75 mg PO HS RF: 0 Spiriva with HandiHaler 18 mcg capsule, w/inhalation device 1 cap inhalation HS RF: 0 Discharge Orders: Discharge Order (Routine); Ordered 05/19/21 Ordered By: Amari Villanueva Admission Data Admit Date/Time: 05/16/21 22:50 Attending Provider: Amari Villanueva Admit Provider: Elvira Harris Primary Care Provider: PCP,NO Other Providers: Bubba Carlos ; [facility] Coding Level of Care Code D/C DAY MANAGEMENT >30 MINS Diagnoses LLL pneumonia J18.9 Pneumonia type: due to unspecified organism Acute hypoxemic respiratory failure J96.01 COVID U07.1 COPD (chronic obstructive pulmonary disease) J44.9 Chest pain R07.9 Elevated d-dimer R79.89 Hyperlipidemia E78.5
[2021-05-19 10:22] VITALS: PULSE 85
== END 2021-05-19 11:11 | disposition home or self-care (01) | DRG 193 ==
LOC: ED 19:45 → SUATTDRO 22:50 → 2E 22:50

== ENCOUNTER 2022-11-15 20:01 | Inpatient (IN) ==
[2022-11-15] MEDS ORDERED: CEFEPIME 2,000 MG/20 ML VIAL IV STA (20:12)
[2022-11-15] MEDS ORDERED: SODIUM CHLORIDE 0.9% 1000ML 1,000 ML IV SCH (20:15)
--- NOTE | 2022-11-15 20:17 | Emergency Department Note ---
Impression & Plan Altered mental status, Acidosis, VITALY (acute kidney injury), Acute urinary obstruction, Leukocytosis, Anemia, Hypocalcemia ED Provider Note NAME: COLTEN ESTRELLA AGE: 77 SEX: M : 1945 ARRIVES VIA: Ambulance INFORMANT: [Patient][ems, nursing] ED PROVIDER(S): [Martinez Melo MD] CHIEF COMPLAINT: Confusion HISTORY OF PRESENT ILLNESS: The patient is a 77-year-old male who presents with complaints of confusion. He apparently was found by his family on his floor. It was unclear how he had gotten to the floor. Patient apparently has not been eating or drinking. There is concern for dehydration. The patient has no current complaints. He cannot remember why he was on the floor or how he got there. He denies chest pain or back pain or abdominal pain. Currently, there is no family at the bedside, no further history obtainable. PMHx/PSHx: See Below SOCIAL HISTORY: See Below. PHYSICAL EXAM: GENERAL: Patient is in no acute distress. HEENT: No acute trauma, normocephalic atraumatic, mucous membranes dry, no nasal congestion. NECK: No stridor, no adenopathy, no meningismus, trachea is midline. LUNGS: Clear to auscultation bilaterally, no wheeze, no rhonchi, breath sounds equal. Breath sounds are diminished bilaterally. HEART: Without murmurs gallops or rubs, regular rate and rhythm. Heart tones are distant. ABDOMEN: Soft, nontender, bowel sounds positive, no peritonitis. EXTREMITIES: No cyanosis or edema, full range of motion of all the joints without pain or difficulty, no signs for acute trauma. NEUROLOGIC: Awake, moves all extremities, confused. No speech slur. Follow simple commands. SKIN: No rash, no jaundice, no diaphoresis. DIFFERENTIAL DIAGNOSIS: Bacteremia or sepsis, dehydration, electrolyte imbalance, renal or liver failure, debilitation, intracranial bleeding, stroke, among others. EMERGENCY DEPARTMENT COURSE/PROCEDURES: Prior/Outside records reviewed: Nephrology notes. EMS notes. ECG per my interpretation: Indication was weakness. The ECG shows a normal si nus rhythm with a rate of 94. There is a right bundle branch block. There is some nonspecific ST change. There is no ST elevation, no PVCs. The QTc is 457. Continuous Cardiac Monitoring per my interpretation: An order was placed for continuous cardiac monitoring. The monitor shows a rate of 89 with normal sinus rhythm. Critical Care Note: I have personally spent 55 minutes of critical care time in the direct management of this patient. This includes bedside care, interpretation of diagnostic studies, and testing, discussion with consultants, patient, and family members, and other required patient management activities. This 55 minutes is in excess of all separately billable procedures. MEDICAL DECISION MAKING: There is a moderate leukocytosis, this could be consistent with infection or just the stress of his current situation. The patient is anemic. The patient has a history of anemia although, his number today is lower than baseline. His hemoglobin will need to be closely followed. There is a normal platelet count. No concerning coagulopathy. Renal panel testing shows acidosis with acute kidney injury. Potassium slightly high at 5.5. BUN was quite high at 246. Lactic acid level was not not elevated making severe sepsis less likely. Calcium was low at 7.7. Magnesium was high at 2.7. No concerning liver enzyme elevation. ECG shows a sinus rhythm, no obvious ischemia. Cardiac enzyme testing x1 is slightly elevated. The troponin elevation could be secondary to his renal failure, mismatch or potentially cardiac injury. Procalcitonin level was high consistent with potential bacterial infection. Alcohol level was undetectable. COVID, influenza and RSV test were negative. Brain CT showed no acute bleed or mass effect. Abdominal and pelvis CT showed a distended bladder with significant bilateral hydronephrosis. On exam, the patient was confused, he was somewhat uncooperative, he denied any pain. Chest x-ray was refused by the patient. Urinalysis result is pending. The patient was aggressively managed. He received IV saline, 2 L. He received IV cefepime as antibiotic coverage. He was given IV calcium. The patient was ordered for 50 mEq of sodium bicarbonate IV. The patient was ordered for a Mei catheter to drain the urinary bladder and to help the hydronephrosis. An ABG has been ordered, this result is pending. The patient requires hospitalization. He is quite ill. I suspect the main issue is his urinary obstruction. This has led to his acute kidney injury, acidosis and confusion. I did speak with the patient, I did speak with case management, the on-call hospitalist has been consulted. DISPOSITION: Patient's presentation and findings warrant a hospital stay. Past Med/Surg History Medical History Abnormal ECG Right bundle branch block Acute hypoxemic respiratory failure Acute respiratory failure with hypoxia Admitted to intensive care unit Arthritis Carotid artery disease Carotid insufficiency Chest pain Community acquired pneumonia COPD (chronic obstructive pulmonary disease) CVA (cerebral infarction) CVA (cerebral infarction) Elevated d-dimer Gout History of bladder cancer S/P BCG treatment History of high cholesterol DIETARY CONTROLLED History of kidney stones History of stroke 2013, [place] WITH BLOOD THINNER - NO RESIDUAL EFFECTS HTN (hypertension) Hyperlipemia Hyperlipidemia Hypoxia Kidney stones Lung nodule Tobacco use disorder Surgical History (Updated 12/13/21 @ 09:38 by Cornelius Lo DO) H/O bilateral hip replacements History of colonoscopy History of hip surgery Left History of surgery LEFT EYE/ INJURY RELATED 1965 History of total left hip arthroplasty Hx of cystoscopy 03/14/19 [facility] Family History Mother Heart disease Brother Heart disease Social History Smoking Status: Current some day smoker Tobacco Type: Cigarettes Cigarettes Per Day: 20; Second Hand Exposure: No; Do You Dip or Chew Tobacco: No; Hx Alcohol Use: No Hx Substance Use: No Preferred Language: Danish Communication Ability: Effective Oncology Nurse Navigator Required: No Beliefs That Will Affect Care: None marital status: Single Current Living Situation: Family current occupational status: retired Feels Safe at Home: Yes Assistive Devices: Glasses and Oxygen - Continuous Allergies Allergies Allergy/AdvReac Type Severity Reaction Status Date / Time lisinopril Allergy Severe THROAT Verified 11/15/22 21:12 CLOSES Penicillins Allergy Intermediate Rash Verified 11/15/22 21:12 Home Meds Home Medications Medication Instructions Recorded Confirmed albuterol sulfate 90 mcg/actuation 2 puff inhalation Q4H PRN 02/14/19 11/15/22 aerosol inhaler Shortness Of Breath amlodipine 10 mg tablet 10 mg PO HS 02/14/19 11/15/22 atorvastatin 80 mg tablet 80 mg PO HS 06/08/19 11/15/22 clopidogrel 75 mg tablet 75 mg PO HS 05/16/21 11/15/22 tiotropium bromide 18 mcg capsule 1 cap inhalation HS 05/16/21 11/15/22 with inhalation device (Spiriva with HandiHaler) cholecalciferol (vitamin D3) 25 25 mcg PO DAILY 11/15/22 11/15/22 mcg (1,000 unit) capsule (Vitamin D3) cyanocobalamin (vitamin B-12) 1,000 mcg PO DAILY 11/15/22 11/15/22 1,000 mcg tablet (Vitamin B-12) folic acid 1 mg tablet 1 mg PO DAILY 11/15/22 11/15/22 Previous Rx's Medication Instructions Recorded nebulizers #1 ea 05/24/20 Results & Data (ED) Vital Signs Vital Signs - 24 hr 11/15/22 20:18 11/15/22 20:18 11/15/22 20:12 Temperature 37.0 C Temperature Source Oral Pulse Rate 97 H 99 H Pulse Rate [Finger] Respiratory Rate 18 Blood Pressure 121/69 Blood Pressure [Right Arm] Blood Pressure Mean 86 Blood Pressure Mean [Right Arm] Pulse Oximetry 97 97 Oxygen Delivery Method Room Air Room Air Sepsis Recent Fever Within 48 Hours No Sepsis New/Unexplained Change in Mental Status N/A Sepsis Action Taken by Nursing No Action Required 11/15/22 22:13 11/15/22 23:15 Temperature Temperature Source Pulse Rate Pulse Rate [Finger] 89 101 H Respiratory Rate 18 19 Blood Pressure Blood Pressure [Right Arm] 143/96 H 138/71 Blood Pressure Mean Blood Pressure Mean [Right Arm] 111 93 Pulse Oximetry 96 Oxygen Delivery Method Room Air Sepsis Recent Fever Within 48 Hours Sepsis New/Unexplained Change in Mental Status Sepsis Action Taken by Longterm Medications Current Medication List: was personally reviewed by me Laboratory Data Attestation: I reviewed the patient's lab results. 11/15/22 21:18 11/15/22 21:18 Lab Results 11/15/22 11/15/22 11/15/22 Range/Units 20:35 21:18 21:18 WBC 17.87 H (4.8-10.8) K/ul RBC 3.45 L (4.70-6.10) M/uL Hgb 9.9 L (14.0-18.0) g/dl Hct 30.3 L (42.0-52.0) % MCV 87.8 (80.0-100.0) fL MCH 28.7 (25.0-34.0) pg MCHC 32.7 (32.0-36.0) g/dL RDW Std Deviation 47.2 H (36.4-46.3) fL RDW Coeff of Devon 14.6 H (11.5-14.5) % Plt Count 292 (130-400) K/uL MPV 9.8 (9.4-12.4) fL Immature Gran % (Auto) 0.7 % Neut % (Auto) 91.3 % Lymph % (Auto) 4.4 % [place] % (Auto) 3.3 % Eos % (Auto) 0.1 % Baso % (Auto) 0.2 % Neut # (Auto) 16.32 H (1.40-6.50) K/uL Lymph # (Auto) 0.79 L (1.2-3.4) K/uL [place] # (Auto) 0.59 (0.11-0.59) K/uL Eos # (Auto) 0.01 (0-0.50) K/uL Baso # (Auto) 0.04 (0-0.2) K/uL Immature Gran # (Auto) 0.12 (0.01-0.20) K/uL Absolute Nucleated RBC 0.03 (0-0.12) K/uL Nucleated RBC % (auto) 0.2 % PT 12.1 H (9.0-12.0) Seconds INR 1.1 (0.9-1.1) APTT 27.1 (21.0-31.0) Seconds PTT Ratio 1.0 Sodium (136-145) mmol/L Potassium (3.5-5.1) mmol/L Chloride (98-107) mmol/L Carbon Dioxide (21-32) mmol/L Anion Gap (3-11) BUN (6-23) mg/dl Creatinine (0.6-1.4) mg/dl Est Cr Clr Drug Dosing Est GFR ( Amer) ml/min Est GFR (Non-Af Amer) ml/min BUN/Creatinine Ratio (10-20) Glucose (70-99(Fasting)) mg/dl Lactate (0.4-2.0) mmol/L Calcium (8.6-10.3) mg/dl Magnesium (1.7-2.4) mg/dl Total Bilirubin (0.2-1.0) mg/dl Direct Bilirubin (0-0.2) mg/dl AST (13-39) U/L ALT (7-52) U/L Alkaline Phosphatase (34-104) U/L Troponin I High Sens (0-20) pg/ml Total Protein (6.0-8.3) gm/dl Albumin (3.4-5.0) gm/dl Procalcitonin (0-0.5) ng/ml Ethyl Alcohol mg/dL (<10.0) mg/dl SARS-CoV-2 (PCR) NEGATIVE (Negative) Influenza Type A (PCR) Negative (Neg) Influenza Type B (PCR) Negative (Neg) RSV (RT-PCR) Negative (Neg) 11/15/22 11/15/22 11/15/22 Range/Units 21:18 21:18 21:18 WBC (4.8-10.8) K/ul RBC (4.70-6.10) M/uL Hgb (14.0-18.0) g/dl Hct (42.0-52.0) % MCV (80.0-100.0) fL MCH (25.0-34.0) pg MCHC (32.0-36.0) g/dL RDW Std Deviation (36.4-46.3) fL RDW Coeff of Devon (11.5-14.5) % Plt Count (130-400) K/uL MPV (9.4-12.4) fL Immature Gran % (Auto) % Neut % (Auto) % Lymph % (Auto) % [place] % (Auto) % Eos % (Auto) % Baso % (Auto) % Neut # (Auto) (1.40-6.50) K/uL Lymph # (Auto) (1.2-3.4) K/uL [place] # (Auto) (0.11-0.59) K/uL Eos # (Auto) (0-0.50) K/uL Baso # (Auto) (0-0.2) K/uL Immature Gran # (Auto) (0.01-0.20) K/uL Absolute Nucleated RBC (0-0.12) K/uL Nucleated RBC % (auto) % PT (9.0-12.0) Seconds INR (0.9-1.1) APTT (21.0-31.0) Seconds PTT Ratio Sodium 137 (136-145) mmol/L Potassium 5.5 H (3.5-5.1) mmol/L Chloride 113 H (98-107) mmol/L Carbon Dioxide 8 L* (21-32) mmol/L Anion Gap 16 H (3-11) BUN 246 H (6-23) mg/dl Creatinine 8.82 H* (0.6-1.4) mg/dl Est Cr Clr Drug Dosing Not Reportable Est GFR ( Amer) 5.9 ml/min Est GFR (Non-Af Amer) 5.1 ml/min BUN/Creatinine Ratio 27.9 H (10-20) Glucose 110 H (70-99(Fasting)) mg/dl Lactate 1.3 (0.4-2.0) mmol/L Calcium 7.7 L (8.6-10.3) mg/dl Magnesium 2.7 H (1.7-2.4) mg/dl Total Bilirubin 0.3 (0.2-1.0) mg/dl Direct Bilirubin 0.0 (0-0.2) mg/dl AST 4 L (13-39) U/L ALT 4 L (7-52) U/L Alkaline Phosphatase 51 (34-104) U/L Troponin I High Sens 34.7 H (0-20) pg/ml Total Protein 6.6 (6.0-8.3) gm/dl Albumin 3.2 L (3.4-5.0) gm/dl Procalcitonin 0.62 H (0-0.5) ng/ml Ethyl Alcohol mg/dL (<10.0) mg/dl SARS-CoV-2 (PCR) (Negative) Influenza Type A (PCR) (Neg) Influenza Type B (PCR) (Neg) RSV (RT-PCR) (Neg) 11/15/22 Range/Units 21:18 WBC (4.8-10.8) K/ul RBC (4.70-6.10) M/uL Hgb (14.0-18.0) g/dl Hct (42.0-52.0) % MCV (80.0-100.0) fL MCH (25.0-34.0) pg MCHC (32.0-36.0) g/dL RDW Std Deviation (36.4-46.3) fL RDW Coeff of Devon (11.5-14.5) % Plt Count (130-400) K/uL MPV (9.4-12.4) fL Immature Gran % (Auto) % Neut % (Auto) % Lymph % (Auto) % [place] % (Auto) % Eos % (Auto) % Baso % (Auto) % Neut # (Auto) (1.40-6.50) K/uL Lymph # (Auto) (1.2-3.4) K/uL [place] # (Auto) (0.11-0.59) K/uL Eos # (Auto) (0-0.50) K/uL Baso # (Auto) (0-0.2) K/uL Immature Gran # (Auto) (0.01-0.20) K/uL Absolute Nucleated RBC (0-0.12) K/uL Nucleated RBC % (auto) % PT (9.0-12.0) Seconds INR (0.9-1.1) APTT (21.0-31.0) Seconds PTT Ratio Sodium (136-145) mmol/L Potassium (3.5-5.1) mmol/L Chloride (98-107) mmol/L Carbon Dioxide (21-32) mmol/L Anion Gap (3-11) BUN (6-23) mg/dl Creatinine (0.6-1.4) mg/dl Est Cr Clr Drug Dosing Est GFR ( Amer) ml/min Est GFR (Non-Af Amer) ml/min BUN/Creatinine Ratio (10-20) Glucose (70-99(Fasting)) mg/dl Lactate (0.4-2.0) mmol/L Calcium (8.6-10.3) mg/dl Magnesium (1.7-2.4) mg/dl Total Bilirubin (0.2-1.0) mg/dl Direct Bilirubin (0-0.2) mg/dl AST (13-39) U/L ALT (7-52) U/L Alkaline Phosphatase (34-104) U/L Troponin I High Sens (0-20) pg/ml Total Protein (6.0-8.3) gm/dl Albumin (3.4-5.0) gm/dl Procalcitonin (0-0.5) ng/ml Ethyl Alcohol mg/dL < 10.0 (<10.0) mg/dl SARS-CoV-2 (PCR) (Negative) Influenza Type A (PCR) (Neg) Influenza Type B (PCR) (Neg) RSV (RT-PCR) (Neg) Administered Medications Discontinued Medications Sodium Chloride (Nss 1000ml) 1,000 mls @ 999 mls/hr IV .Q1H1M FRANKI Stop: 11/15/22 21:15 Last Infusion: 11/15/22 21:33 Dose: 0 mls/hr Documented By: Admin: 11/15/22 20:32 Dose: 999 mls/hr Documented By: FREDA Cefepime HCl (Maxipime) 2,000 mg in 20 mls @ 5 mls/min IV NOW STA; Protocol Stop: 11/15/22 20:15 Last Admin: 11/15/22 20:32 Dose: 5 mls/min Documented By: FREDA Lorazepam (Lorazepam 2 Mg/1 Ml Vial) 1 mg IV NOW STA Stop: 11/15/22 22:32 Last Admin: 11/15/22 23:14 Dose: Not Given Documented By: FREDA Imaging Data Radiologist's Impression: Head CT 11/15/22 21:39 Exam(s): CT HEAD Without Contrast EXAM: CT Head Without Intravenous Contrast CLINICAL HISTORY: Reason for exam: confusion, weak. TECHNIQUE: Axial computed tomography images of the head/brain without intravenous contrast. CTDI is 66.5 mGy and DLP is 961.59 mGy-cm. Automated exposure control was utilized for the study. A dose lowering technique was utilized adhering to the principles of ALARA. COMPARISON: No relevant prior studies available. FINDINGS: No acute intracranial hemorrhage. No midline shift or mass effect. 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 Age-related cerebral volume loss. Periventricular and subcortical white matter hypoattenuation, consistent with chronic microangiopathy. The visualized orbits appear grossly unremarkable. The calvarium is intact. The visualized paranasal sinuses and mastoid air cells are grossly clear. IMPRESSION: No acute intracranial hemorrhage, midline shift, or mass effect. 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 Electronically signed by: Rigo Griffith MD 11/15/22 22:26 PM Abdomen/Pelvis CT 11/15/22 21:57 Exam(s): CT ABDOMEN + PELVIS Without Contrast EXAM: CT Abdomen and Pelvis Without Intravenous Contrast CLINICAL HISTORY: Reason for exam: poss urinary obstruc. TECHNIQUE: Axial computed tomography images of the abdomen and pelvis without intravenous contrast. CTDI is 13.12 mGy and DLP is 633.34 mGy-cm. Automated exposure control was utilized for the study. A dose lowering technique was utilized adhering to the principles of ALARA. COMPARISON: No relevant prior studies available. FINDINGS: Lung bases: Emphysema. ABDOMEN: Liver: Unremarkable. No focal hepatic lesion. Gallbladder and bile ducts: Unremarkable. No calcified stones. No ductal dilation. Pancreas: Unremarkable. No ductal dilation. Spleen: Unremarkable. No splenomegaly. Adrenals: Unremarkable. No mass. Kidneys and ureters: Severe bilateral hydroureteronephrosis, with wall thickening of the urinary bladder. Distended urinary bladder. Correlate for need for Mei catheter. Urology evaluation should be considered. Stomach and bowel: Diverticulosis, without acute diverticulitis. No small bowel obstruction. No free intraperitoneal air. PELVIS: Appendix: No findings to suggest acute appendicitis. Bladder: See above. Reproductive: Unremarkable as visualized. ABDOMEN and PELVIS: Intraperitoneal space: Unremarkable. No free air. No significant fluid collection. Bones/joints: LEFT hip arthroplasty. Degenerative changes of the spine. No acute fracture. No dislocation. Grade 1 anterolisthesis of L4 on L5. Soft tissues: Unremarkable. Vasculature: Infrarenal abdominal aortic aneurysm, measuring 3 cm anteroposterior. Atherosclerotic changes of the aorta. Lymph nodes: Unremarkable. No enlarged lymph nodes. IMPRESSION: 1. Severe bilateral hydroureteronephrosis, with wall thickening of the urinary bladder. Distended urinary bladder. Correlate for need for Mei catheter. Urology evaluation should be considered. 2. Infrarenal abdominal aortic aneurysm, measuring 3 cm anteroposterior. 3. Diverticulosis, without acute diverticulitis. No small bowel obstruction. No free intraperitoneal air. 4. LEFT hip arthroplasty. Electronically signed by: Rigo Griffith MD 11/15/22 22:28 PM Discharge Plan Visit Data Chief Complaint: Confusion ED Provider: Martinez Melo Discharge Problem: Altered mental status, Acidosis, VITALY (acute kidney injury), Acute urinary obstruction, Leukocytosis, Anemia, Hypocalcemia Patient Disposition: Admitted As Inpatient Condition: Serious Forms Stand Alone Forms: [employer]! Prescriptions Prescriptions: No Action atorvastatin 80 mg tablet 80 mg PO HS amlodipine 10 mg Tablet 10 mg PO HS albuterol sulfate 90 mcg/actuation Hfa Aerosol Inhaler 2 puff inhalation Q4H PRN (Reason: Shortness Of Breath) (DME) nebulizers Misc See Rx Instructions .ROUTE .MEDSUPPLY Qty: 1 0RF Rx Instructions: use as directed with ROMELIA clopidogrel 75 mg Tablet 75 mg PO HS Spiriva with HandiHaler 18 mcg capsule, w/inhalation device 1 cap inhalation HS Rx Instructions: puncture 1 cap using device; one dose = 2 inhalations cyanocobalamin (vitamin B-12) [Vitamin B-12] 1,000 mcg Tablet 1,000 mcg PO DAILY folic acid 1 mg Tablet 1 mg PO DAILY cholecalciferol (vitamin D3) [Vitamin D3] 25 mcg (1,000 unit) Capsule 25 mcg PO DAILY Referrals Referrals: PCP,NO [Primary Care Provider] - Altered mental status Qualifiers: Altered mental status type: delirium Qualified Code(s): R41.0 - Disorientation, unspecified Leukocytosis Qualifiers: Leukocytosis type: unspecified Qualified Code(s): D72.829 - Elevated white blood cell count, unspecified Anemia Qualifiers: Anemia type: unspecified type Qualified Code(s): D64.9 - Anemia, unspecified
[2022-11-15 21:16] LABS: Influenza A virus by PCR Negative (Neg); Influenza B virus by PCR Negative (Neg); RSV by PCR Negative (Neg); SARS CoV2 RNA(COVID-19) Ceph NEGATIVE (Negative)
[2022-11-15] MEDS ORDERED: SODIUM CHLORIDE 0.9% 1000ML 1,000 ML IV ONE (21:39)
[2022-11-15 21:51] LABS: Hematocrit (blood only) 30.3 % (42.0-52.0); Hemoglobin 9.9 g/dl (14.0-18.0); Mean Corpuscular Hemoglobin 28.7 pg (25.0-34.0); Mean Corpuscular Hgb Conc 32.7 g/dL (32.0-36.0); Mean Corpuscular Volume 87.8 fL (80.0-100.0); Mean Platelet Volume 9.8 fL (9.4-12.4); Nucleated RBC # (auto) 0.03 K/uL (0-0.12); Nucleated RBC % (auto) 0.2 %; Platelet Count 292 K/uL (130-400); RDW Coefficient of Variation 14.6 % (11.5-14.5); RDW Standard Deviation 47.2 fL (36.4-46.3); Red Blood Count 3.45 M/uL (4.70-6.10); White Blood Count 17.87 K/ul (4.8-10.8)
[2022-11-15 21:55] LABS: Alanine Aminotransferase 4 U/L (7-52); Albumin Level 3.2 gm/dl (3.4-5.0); Alkaline Phosphatase 51 U/L (34-104); Anion Gap 16 (3-11); Aspartate Aminotransferase 4 U/L (13-39); Bilirubin,Total 0.3 mg/dl (0.2-1.0); Calcium 7.7 mg/dl (8.6-10.3); Carbon Dioxide 8 mmol/L (21-32); Chloride 113 mmol/L (98-107); Est GFR (African American) 5.9 ml/min; Est GFR (Non-African American) 5.1 ml/min; Glucose 110 mg/dl (70-99(Fasting)); Magnesium 2.7 mg/dl (1.7-2.4); Potassium 5.5 mmol/L (3.5-5.1); Sodium 137 mmol/L (136-145); Total Protein 6.6 gm/dl (6.0-8.3)
[2022-11-15 21:58] LABS: Troponin I High Sensitivity 34.7 pg/ml (0-20)
[2022-11-15 22:06] LABS: INR 1.1 (0.9-1.1); Partial Thromboplastin Time 27.1 Seconds (21.0-31.0); Prothrombin Time 12.1 Seconds (9.0-12.0)
[2022-11-15 22:07] LABS: BUN Creatinine Ratio 27.9 (10-20); Blood Urea Nitrogen 246 mg/dl (6-23)
[2022-11-15 22:11] LABS: Basophils # (auto) 0.04 K/uL (0-0.2); Basophils % (auto) 0.2 %; Eosinophils # (auto) 0.01 K/uL (0-0.50); Eosinophils % (auto) 0.1 %; Immature Granulocytes # (auto) 0.12 K/uL (0.01-0.20); Immature Granulocytes % (auto) 0.7 %; Lymphocytes # (auto) 0.79 K/uL (1.2-3.4); Lymphocytes % (auto) 4.4 %; Monocytes # (auto) 0.59 K/uL (0.11-0.59); Monocytes % (auto) 3.3 %; Neutrophils # (auto) 16.32 K/uL (1.40-6.50); Neutrophils % (auto) 91.3 %
--- NOTE | 2022-11-15 22:27 | CT Scan Report ---
Exam(s): CT HEAD Without Contrast EXAM: CT Head Without Intravenous Contrast CLINICAL HISTORY: Reason for exam: confusion, weak. TECHNIQUE: Axial computed tomography images of the head/brain without intravenous contrast. CTDI is 66.5 mGy and DLP is 961.59 mGy-cm. Automated exposure control was utilized for the study. A dose lowering technique was utilized adhering to the principles of ALARA. COMPARISON: No relevant prior studies available. FINDINGS: No acute intracranial hemorrhage. No midline shift or mass effect. 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 Age-related cerebral volume loss. Periventricular and subcortical white matter hypoattenuation, consistent with chronic microangiopathy. The visualized orbits appear grossly unremarkable. The calvarium is intact. The visualized paranasal sinuses and mastoid air cells are grossly clear. IMPRESSION: No acute intracranial hemorrhage, midline shift, or mass effect. 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 Electronically signed by: Rigo Griffith MD 11/15/22 22:26 PM
--- NOTE | 2022-11-15 22:29 | CT Scan Report ---
Exam(s): CT ABDOMEN + PELVIS Without Contrast EXAM: CT Abdomen and Pelvis Without Intravenous Contrast CLINICAL HISTORY: Reason for exam: poss urinary obstruc. TECHNIQUE: Axial computed tomography images of the abdomen and pelvis without intravenous contrast. CTDI is 13.12 mGy and DLP is 633.34 mGy-cm. Automated exposure control was utilized for the study. A dose lowering technique was utilized adhering to the principles of ALARA. COMPARISON: No relevant prior studies available. FINDINGS: Lung bases: Emphysema. ABDOMEN: Liver: Unremarkable. No focal hepatic lesion. Gallbladder and bile ducts: Unremarkable. No calcified stones. No ductal dilation. Pancreas: Unremarkable. No ductal dilation. Spleen: Unremarkable. No splenomegaly. Adrenals: Unremarkable. No mass. Kidneys and ureters: Severe bilateral hydroureteronephrosis, with wall thickening of the urinary bladder. Distended urinary bladder. Correlate for need for Mei catheter. Urology evaluation should be considered. Stomach and bowel: Diverticulosis, without acute diverticulitis. No small bowel obstruction. No free intraperitoneal air. PELVIS: Appendix: No findings to suggest acute appendicitis. Bladder: See above. Reproductive: Unremarkable as visualized. ABDOMEN and PELVIS: Intraperitoneal space: Unremarkable. No free air. No significant fluid collection. Bones/joints: LEFT hip arthroplasty. Degenerative changes of the spine. No acute fracture. No dislocation. Grade 1 anterolisthesis of L4 on L5. Soft tissues: Unremarkable. Vasculature: Infrarenal abdominal aortic aneurysm, measuring 3 cm anteroposterior. Atherosclerotic changes of the aorta. Lymph nodes: Unremarkable. No enlarged lymph nodes. IMPRESSION: 1. Severe bilateral hydroureteronephrosis, with wall thickening of the urinary bladder. Distended urinary bladder. Correlate for need for Mei catheter. Urology evaluation should be considered. 2. Infrarenal abdominal aortic aneurysm, measuring 3 cm anteroposterior. 3. Diverticulosis, without acute diverticulitis. No small bowel obstruction. No free intraperitoneal air. 4. LEFT hip arthroplasty. Electronically signed by: Rigo Griffith MD 11/15/22 22:28 PM
[2022-11-15] MEDS ORDERED: LORazepam 2 MG/1 ML VIAL IV STA (22:31)
[2022-11-15] MEDS ORDERED: CALCIUM GLUCONATE 1,000 MG/60 ML BAG IV STA (22:48)
[2022-11-15] MEDS ORDERED: SODIUM BICARB 8.4% INJ 50 MEQ/50 ML SYR IV STA (23:21)
[2022-11-15 23:40] LABS: Appearance Urine Clear (Clear); Bacteria Urine Automated Negative (Negative); Bilirubin Urine Negative (Negative); Blood Urine 2+ (Negative); Color Urine Yellow; Epithelial Cell Urine Auto 0-5 /lpf (0-5); Glucose Urine UA Negative (Negative); Ketones Urine Negative (Negative); Leukocyte Esterase Urine 3+ (Negative); Nitrite Urine Negative (Negative); Protein Urine 1+ (Negative); RBC Urine Automated 0-4 /hpf (0-4); Specific Gravity Urine 1.013 (1.000-1.030); Urobilinogen Urine Negative (Negative); WBC Urine Automated >30 /hpf (0-5); pH Urine 5.5 (4.5-7.5)
[2022-11-15] MEDS ORDERED: STAT IV STA ×2 (23:40→23:47)
[2022-11-15] MEDS ORDERED: SODIUM BICARBONATE 8.4% 150 MEQ in DEXTROSE 5% 1,000 ML IV SCH (23:45)
--- NOTE | 2022-11-15 23:46 | History & Physical Report ---
Date of Service November 15, 2022 Assessment & Plan (1) Acute renal failure: (2) BPH w urinary obs/LUTS: (3) Acute urinary obstruction: (4) COPD (chronic obstructive pulmonary disease): (5) Hyperlipidemia: (6) Right thyroid nodule: (7) Hx of endarterectomy: (8) Bladder cancer: (9) Carotid aneurysm, left: Plan Acute renal failure- Creatinine 8.82 on admission, with most recent on 06/08/2022 2.7 Likely combination of prerenal and postobstructive Status post 2 L normal saline boluses after Mei catheter placed Follow urine culture and sensitivity Follow blood cultures Continue empiric cefepime 2 g IV every 12 hours Continue cholecalciferol 25 mcg daily Follow serial renal panel profile and magnesium levels Consult nephrology BPH with LUTS/severe bilateral hydroureteronephrosis with wall thickening of the distended urinary bladder- Mei catheter placed in the emergency department Add tamsulosin 0.4 mg at bedtime May need urology consult Elevated troponin/hypertension- The patient will be admitted to telemetry for serial cardiac enzymes, serial EKG's, cardiac rhythm monitoring and a 2-D echocardiogram with Dopplers. Continue amlodipine, clopidogrel COPD- Continue Spiriva, question if may be contributing to urinary retention Hyperlipidemia- Continue atorvastatin 80 mg at bedtime History of Present Illness Chief Complaint: The patient presents to the emergency department with family concerns regarding confusion, dehydration, and progressive weakness, as patient fell to the floor as his son was trying to pick him up and help him walk. Primary Care Provider: NO PCP The patient is a 77-year-old male with a past medical history including hypocalcemia, anemia, COPD, hyperlipidemia, right thyroid nodule, abnormal EKG, B12 deficiency, history of endarterectomy 06/19/2019, bladder cancer and left carotid aneurysm. The patient presents to the emergency department as noted above. Of note, the patient was quite gruff and somewhat reluctant to interact, but did so grudgingly. Allergies Allergy/AdvReac Type Severity Reaction Status Date / Time lisinopril Allergy Severe THROAT Verified 11/15/22 21:12 CLOSES Penicillins Allergy Intermediate Rash Verified 11/15/22 21:12 Home Medications Medication Instructions Recorded Confirmed Type albuterol sulfate 90 mcg/actuation 2 puff inhalation Q4H PRN 02/14/19 11/15/22 History aerosol inhaler Shortness Of Breath amlodipine 10 mg tablet 10 mg PO HS 02/14/19 11/15/22 History atorvastatin 80 mg tablet 80 mg PO HS 06/08/19 11/15/22 History nebulizers #1 ea 05/24/20 12/13/21 Rx clopidogrel 75 mg tablet 75 mg PO HS 05/16/21 11/15/22 History tiotropium bromide 18 mcg capsule 1 cap inhalation HS 05/16/21 11/15/22 History with inhalation device (Spiriva with HandiHaler) cholecalciferol (vitamin D3) 25 25 mcg PO DAILY 11/15/22 11/15/22 History mcg (1,000 unit) capsule (Vitamin D3) cyanocobalamin (vitamin B-12) 1,000 mcg PO DAILY 11/15/22 11/15/22 History 1,000 mcg tablet (Vitamin B-12) folic acid 1 mg tablet 1 mg PO DAILY 11/15/22 11/15/22 History Past Med/Surg History Medical History Abnormal ECG Right bundle branch block Acute hypoxemic respiratory failure Acute respiratory failure with hypoxia Admitted to intensive care unit Arthritis Carotid artery disease Carotid insufficiency Chest pain Community acquired pneumonia COPD (chronic obstructive pulmonary disease) CVA (cerebral infarction) CVA (cerebral infarction) Elevated d-dimer Gout History of bladder cancer S/P BCG treatment History of high cholesterol DIETARY CONTROLLED History of kidney stones History of stroke 2012, [place] WITH BLOOD THINNER - NO RESIDUAL EFFECTS HTN (hypertension) Hyperlipemia Hyperlipidemia Hypoxia Kidney stones Lung nodule Tobacco use disorder Surgical History (Updated 12/13/21 @ 09:38 by Cornelius Lo DO) H/O bilateral hip replacements History of colonoscopy History of hip surgery Left History of surgery LEFT EYE/ INJURY RELATED 1965 History of total left hip arthroplasty Hx of cystoscopy 03/14/19 [facility], [place] Family History Mother Heart disease Brother Heart disease Social History Smoking Status: Current some day smoker Tobacco Type: Cigarettes Cigarettes Per Day: 20; Second Hand Exposure: No; Do You Dip or Chew Tobacco: No; Hx Alcohol Use: Yes Alcohol type: beer Hx Substance Use: No Preferred Language: Malay Communication Ability: Effective 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 HEENT--PERRL, EOMI, mucous membranes and oropharynx dry. Neck--supple. No JVD. No bruits. Thyroid normal, trachea midline, no adenopathy. Heart--normal S1 and S2. No murmurs, rubs or gallops. Lungs--clear bilaterally, no respiratory distress, no accessory muscle use. Abdomen--normal bowel sounds and soft. Nontender. Nondistended Extremities--no cyanosis or clubbing. No edema. Dermatologic--normal skin turgor, normal color, no abnormal lymph nodes, no rash. Neurologic--cranial nerves II through XII grossly intact. Rheumatologic--normal range of motion. Psychiatric--mildly agitated when questioned. Results & Data Results & Data Vital Signs (Past 12 Hours) Vital Signs Temp Pulse Pulse Resp BP BP Pulse Ox 11/15/22 23:15 101 H 19 138/71 11/15/22 22:13 89 18 143/96 H 96 11/15/22 20:12 99 H 11/15/22 20:18 97 11/15/22 20:18 37.0 C 97 H 18 121/69 97 O2 Del Method 11/15/22 23:15 11/15/22 22:13 Room Air 11/15/22 20:12 11/15/22 20:18 Room Air 11/15/22 20:18 Room Air Laboratory Results Laboratory Results WBC 17.87 K/ul (4.8-10.8) H 11/15/22 21:18 RBC 3.45 M/uL (4.70-6.10) L 11/15/22 21:18 Hgb 9.9 g/dl (14.0-18.0) L 11/15/22 21:18 Hct 30.3 % (42.0-52.0) L 11/15/22 21:18 MCV 87.8 fL (80.0-100.0) 11/15/22 21:18 MCH 28.7 pg (25.0-34.0) 11/15/22 21:18 MCHC 32.7 g/dL (32.0-36.0) 11/15/22 21:18 RDW Std Deviation 47.2 fL (36.4-46.3) H 11/15/22 21:18 RDW Coeff of [place] 14.6 % (11.5-14.5) H 11/15/22 21:18 Plt Count 292 K/uL (130-400) 11/15/22 21:18 MPV 9.8 fL (9.4-12.4) 11/15/22 21:18 Immature Gran % (Auto) 0.7 % 11/15/22 21:18 Neut % (Auto) 91.3 % 11/15/22 21:18 Lymph % (Auto) 4.4 % 11/15/22 21:18 [place]lin % (Auto) 3.3 % 11/15/22 21:18 Eos % (Auto) 0.1 % 11/15/22 21:18 Baso % (Auto) 0.2 % 11/15/22 21:18 Neut # (Auto) 16.32 K/uL (1.40-6.50) H 11/15/22 21:18 Lymph # (Auto) 0.79 K/uL (1.2-3.4) L 11/15/22 21:18 Collin # (Auto) 0.59 K/uL (0.11-0.59) 11/15/22 21:18 Eos # (Auto) 0.01 K/uL (0-0.50) 11/15/22 21:18 Baso # (Auto) 0.04 K/uL (0-0.2) 11/15/22 21:18 Immature Gran # (Auto) 0.12 K/uL (0.01-0.20) 11/15/22 21:18 Absolute Nucleated RBC 0.03 K/uL (0-0.12) 11/15/22 21:18 Nucleated RBC % (auto) 0.2 % 11/15/22 21:18 PT 12.1 Seconds (9.0-12.0) H 11/15/22 21:18 INR 1.1 (0.9-1.1) 11/15/22 21:18 APTT 27.1 Seconds (21.0-31.0) 11/15/22 21:18 PTT Ratio 1.0 11/15/22 21:18 ABG pH 7.25 (7.35-7.45) L 11/15/22 23:57 ABG pCO2 22 mmHg (35-46) L 11/15/22 23:57 ABG pO2 107 mmHg (80-95) H 11/15/22 23:57 ABG HCO3 10 mmol/L (19-24) L 11/15/22 23:57 ABG O2 Saturation 99.0 % (90-95) H 11/15/22 23:57 ABG Base Excess -15.6 mEq/L (-9-1.8) L 11/15/22 23:57 Naif Test POS (Pos) 11/15/22 23:57 Oxygen Given ROOM AIR 11/15/22 23:57 Sodium 137 mmol/L (136-145) 11/15/22 21:18 Potassium 5.5 mmol/L (3.5-5.1) H 11/15/22 21:18 Chloride 113 mmol/L (98-107) H 11/15/22 21:18 Carbon Dioxide 8 mmol/L (21-32) L* 11/15/22 21:18 Anion Gap 16 (3-11) H 11/15/22 21:18 BUN 246 mg/dl (6-23) H 11/15/22 21:18 Creatinine 8.82 mg/dl (0.6-1.4) H* 11/15/22 21:18 Est Cr Clr Drug Dosing Not Reportable 11/15/22 21:18 Est GFR ( Amer) 5.9 ml/min 11/15/22 21:18 Est GFR (Non-Af Amer) 5.1 ml/min 11/15/22 21:18 BUN/Creatinine Ratio 27.9 (10-20) H 11/15/22 21:18 Glucose 110 mg/dl (70-99(Fasting)) H 11/15/22 21:18 Lactate 1.3 mmol/L (0.4-2.0) 11/15/22 21:18 Calcium 7.7 mg/dl (8.6-10.3) L 11/15/22 21:18 Magnesium 2.7 mg/dl (1.7-2.4) H 11/15/22 21:18 Total Bilirubin 0.3 mg/dl (0.2-1.0) 11/15/22 21:18 Direct Bilirubin 0.0 mg/dl (0-0.2) 11/15/22 21:18 AST 4 U/L (13-39) L 11/15/22 21:18 ALT 4 U/L (7-52) L 11/15/22 21:18 Alkaline Phosphatase 51 U/L (34-104) 11/15/22 21:18 Total Creatine Kinase 135 U/L (30-223) 11/15/22 21:18 Troponin I High Sens 34.7 pg/ml (0-20) H 11/15/22 21:18 Total Protein 6.6 gm/dl (6.0-8.3) 11/15/22 21:18 Albumin 3.2 gm/dl (3.4-5.0) L 11/15/22 21:18 Procalcitonin 0.62 ng/ml (0-0.5) H 11/15/22 21:18 Urine Color Yellow 11/15/22 23:30 Urine Appearance Clear (Clear) 11/15/22 23:30 Urine pH 5.5 (4.5-7.5) 11/15/22 23:30 Ur Specific [place] 1.013 (1.000-1.030) 11/15/22 23:30 Urine Protein 1+ (Negative) H 11/15/22 23:30 Urine Glucose (UA) Negative (Negative) 11/15/22 23:30 Urine Ketones Negative (Negative) 11/15/22 23:30 Urine Blood 2+ (Negative) H 11/15/22 23:30 Urine Nitrite Negative (Negative) 11/15/22 23:30 Urine Bilirubin Negative (Negative) 11/15/22 23:30 Urine Urobilinogen Negative (Negative) 11/15/22 23:30 Ur Leukocyte Esterase 3+ (Negative) H 11/15/22 23:30 Urine WBC (Auto) >30 /hpf (0-5) H 11/15/22 23:30 Urine RBC (Auto) 0-4 /hpf (0-4) 11/15/22 23:30 U Hyaline Cast (Auto) 5-10 /lpf (0-5) H 11/15/22 23:30 U Epithel Cells (Auto) 0-5 /lpf (0-5) 11/15/22 23:30 Urine Bacteria (Auto) Negative (Negative) 11/15/22 23:30 Ethyl Alcohol mg/dL < 10.0 mg/dl (<10.0) 11/15/22 21:18 SARS-CoV-2 (PCR) NEGATIVE (Negative) 11/15/22 20:35 Influenza Type A (PCR) Negative (Neg) 11/15/22 20:35 Influenza Type B (PCR) Negative (Neg) 11/15/22 20:35 RSV (RT-PCR) Negative (Neg) 11/15/22 20:[address] 11/15/22 21:39 Exam(s): CT HEAD Without Contrast EXAM: CT Head Without Intravenous Contrast CLINICAL HISTORY: Reason for exam: confusion, weak. TECHNIQUE: Axial computed tomography images of the head/brain without intravenous contrast. CTDI is 66.5 mGy and DLP is 961.59 mGy-cm. Automated exposure control was utilized for the study. A dose lowering technique was utilized adhering to the principles of ALARA. COMPARISON: No relevant prior studies available. FINDINGS: No acute intracranial hemorrhage. No midline shift or mass effect. 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 Age-related cerebral volume loss. Periventricular and subcortical white matter hypoattenuation, consistent with chronic microangiopathy. The visualized orbits appear grossly unremarkable. The calvarium is intact. The visualized paranasal sinuses and mastoid air cells are grossly clear. IMPRESSION: No acute intracranial hemorrhage, midline shift, or mass effect. 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 Electronically signed by: Rigo Griffith MD 11/15/22 22:26 PM Abdomen/Pelvis CT 11/15/22 21:57 Exam(s): CT ABDOMEN + PELVIS Without Contrast EXAM: CT Abdomen and Pelvis Without Intravenous Contrast CLINICAL HISTORY: Reason for exam: poss urinary obstruc. TECHNIQUE: Axial computed tomography images of the abdomen and pelvis without intravenous contrast. CTDI is 13.12 mGy and DLP is 633.34 mGy-cm. Automated exposure control was utilized for the study. A dose lowering technique was utilized adhering to the principles of ALARA. COMPARISON: No relevant prior studies available. FINDINGS: Lung bases: Emphysema. ABDOMEN: Liver: Unremarkable. No focal hepatic lesion. Gallbladder and bile ducts: Unremarkable. No calcified stones. No ductal dilation. Pancreas: Unremarkable. No ductal dilation. Spleen: Unremarkable. No splenomegaly. Adrenals: Unremarkable. No mass. Kidneys and ureters: Severe bilateral hydroureteronephrosis, with wall thickening of the urinary bladder. Distended urinary bladder. Correlate for need for Mei catheter. Urology evaluation should be considered. Stomach and bowel: Diverticulosis, without acute diverticulitis. No small bowel obstruction. No free intraperitoneal air. PELVIS: Appendix: No findings to suggest acute appendicitis. Bladder: See above. Reproductive: Unremarkable as visualized. ABDOMEN and PELVIS: Intraperitoneal space: Unremarkable. No free air. No significant fluid collection. Bones/joints: LEFT hip arthroplasty. Degenerative changes of the spine. No acute fracture. No dislocation. Grade 1 anterolisthesis of L4 on L5. Soft tissues: Unremarkable. Vasculature: Infrarenal abdominal aortic aneurysm, measuring 3 cm anteroposterior. Atherosclerotic changes of the aorta. Lymph nodes: Unremarkable. No enlarged lymph nodes. IMPRESSION: 1. Severe bilateral hydroureteronephrosis, with wall thickening of the urinary bladder. Distended urinary bladder. Correlate for need for Mei catheter. Urology evaluation should be considered. 2. Infrarenal abdominal aortic aneurysm, measuring 3 cm anteroposterior. 3. Diverticulosis, without acute diverticulitis. No small bowel obstruction. No free intraperitoneal air. 4. LEFT hip arthroplasty. Electronically signed by: Rigo Griffith MD 11/15/22 22:28 PM Code Status & VTE Plan Code Status Full code PG Care Time/CCT Total # of Minutes Spent Total Time Spent with Patient: Total time spent is greater than 50% in coordination of care (as documented) at patient's floor/unit and/or counseling patient: Coding Level of Care Code 31253 INT INP/OBS CARE 3/75MIN Diagnoses Acute renal failure N17.9 BPH w urinary obs/LUTS N40.1; N13.8 Acute urinary obstruction N13.9 COPD (chronic obstructive pulmonary disease) J44.9 Hyperlipidemia E78.5 Right thyroid nodule E04.1 Hx of endarterectomy Z98.890 Bladder cancer C67.9 Carotid aneurysm, left I72.0
[2022-11-15 23:48] LABS: Creatine Kinase 135 U/L (30-223)
[2022-11-16] MEDS: SODIUM BICARBONATE 8.4% 150 MEQ in DEXTROSE 5% 1,000 ML IV SCH ×2 (00:05→11:08)
[2022-11-16 00:06] LABS: Base Excess ABG -15.6 mEq/L (-9-1.8); HCO3 ABG 10 mmol/L (19-24); PCO2 ABG 22 mmHg (35-46); PO2 ABG 107 mmHg (80-95); pH ABG 7.25 (7.35-7.45)
[2022-11-16 00:12] LABS: Allen Test POS (Pos)
[2022-11-16] MEDS ORDERED: ONDANSETRON INJ 2 MG/ML 2 ML VIAL IV PRN (01:14)
[2022-11-16] MEDS ORDERED: ACETAMINOPHEN 325 MG TAB PO PRN (01:14)
[2022-11-16] MEDS ORDERED: ALBUTEROL HFA 8 GM INHALER INH PRN (01:14)
[2022-11-16] MEDS: CYANOCOBALAMIN (B-12) 500 MCG TABLET PO SCH (07:38)
[2022-11-16] MEDS: CHOLECALCIFEROL 1,000 UNITS 25 MCG TAB PO SCH (07:38)
[2022-11-16] MEDS: FOLIC ACID 1 MG TAB PO SCH (07:39)
[2022-11-16 09:00] LABS: Basophils # (auto) 0.02 K/uL (0-0.2); Basophils % (auto) 0.1 %; Eosinophils # (auto) 0.03 K/uL (0-0.50); Eosinophils % (auto) 0.2 %; Hematocrit (blood only) 25.1 % (42.0-52.0); Hemoglobin 8.6 g/dl (14.0-18.0); Immature Granulocytes # (auto) 0.09 K/uL (0.01-0.20); Immature Granulocytes % (auto) 0.6 %; Lymphocytes # (auto) 1.13 K/uL (1.2-3.4); Lymphocytes % (auto) 7.3 %; Mean Corpuscular Hemoglobin 28.4 pg (25.0-34.0); Mean Corpuscular Hgb Conc 34.3 g/dL (32.0-36.0); Mean Corpuscular Volume 82.8 fL (80.0-100.0); Mean Platelet Volume 9.5 fL (9.4-12.4); Monocytes # (auto) 0.68 K/uL (0.11-0.59); Monocytes % (auto) 4.4 %; Neutrophils # (auto) 13.55 K/uL (1.40-6.50); Neutrophils % (auto) 87.4 %; Platelet Count 238 K/uL (130-400); RDW Coefficient of Variation 14.3 % (11.5-14.5); RDW Standard Deviation 42.5 fL (36.4-46.3); Red Blood Count 3.03 M/uL (4.70-6.10)
[2022-11-16 09:06] LABS: Albumin Level 2.9 gm/dl (3.4-5.0); BUN Creatinine Ratio 28.5 (10-20); Bilirubin,Total 0.3 mg/dl (0.2-1.0); Calcium 7.8 mg/dl (8.6-10.3); Creatinine Clr Calc Pharmacy 5.6 ml/min; Est GFR (African American) 6.9 ml/min; Est GFR (Non-African American) 5.9 ml/min; Globulin 2.8 gm/dl (2.5-4.0); Magnesium 2.5 mg/dl (1.7-2.4); Potassium 4.6 mmol/L (3.5-5.1); Total Protein 5.7 gm/dl (6.0-8.3); Troponin I High Sensitivity 43.6 pg/ml (0-20)
--- NOTE | 2022-11-16 09:53 | Nephrology Consultation ---
Date of Consultation November 16, 2022 Assessment & Plan (1) VITALY (acute kidney injury): Non-oliguric but low urine output. Clinical presentation consistent with obstructive nephropathy and prerenal VITALY. Tolerating IVF well. Mei to gravity. Severe azotemia with longstanding progressive uremic symptoms reported. Kidney demonstrating noted chronic changes on imaging. 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 However, he remains adamant in his refusal of dialysis. He expressed desire for a more palliative approach to care and ultimately I suspect palliative care consultation would be beneficial to help negotiate goals of care. Thankfully, there is no emergent indication for dialy sis at this time. I would continue aggressive IVF. Maintain Mei to gravity. Document strict I/O's. Monitor metabolic profile twice daily. Screening for CKD MBD to be updated with AM labs. (2) Acidosis: Mixed AG/NAGMA. Attributed to advanced kidney dysfunction. Continue NaHCO3 replacement as Rx. (3) Anemia: Suspect this is also related to kidney dysfunction. Check iron profile with AM labs. Repeat H/H tomorrow AM. AD therapy will then be coordinated as needed. (4) BPH w urinary obs/LUTS: Mei to gravity. Ultimately will require close follow up with urology. Tamsulosin 0.4 mg daily. (5) Hypocalcemia: Screening for CKD/MBD with AM labs. History of Present Illness Reason for Consultation: "acute renal failure" Requesting Physician: Bubba Carlos MD Attending Physician: Kiko Keith MD History of Present Illness Mr. Branden Galvin is a 77 year-old male with chronic kidney disease, coronary artery disease, hypertension, COPD, tobacco abuse, and history of bladder cancer. I saw Branden in the [facility] [place] in December 2021 for evaluation of CKD and VITALY. Outpatient follow up was scheduled but unfortunately Branden missed several attempted appointments. His evaluation demonstrated concerning chronic urinary retention for which he has followed with Dr. Duane Morin in the urology clinic. Branden also appears to follow with his PCP, ODESSA Solis at the [place]. Serum creatinine measured at 2.7 mg/dL in June 2022. Creatinine 2.1 mg/dL in January 2022 and 1.1 mg/dL in May 2021. When I met Bradnen in December 2021, we discussed renal replacement therapy options. Branden told me that he would refuse dialysis, if indicated at that time. He reiterated this sentiment today. He acknowledged that kidney failure can be fatal without renal replacement and stated that he would rather than start dialysis treatments. I offered to call his family and discuss his plan of care but he told me that he would prefer if everyone would just leave him alone. I also added that he is currently registered as a 'full code' level of care and he responded by telling me that he would prefer if everyone would just "leave me alone." He did not clearly express that he wanted code status changed at this time. However, he was clear in his refusal of dialysis. Ultimately, he said that he just wants to go home. Branden told me that he lives with his nephew and he believes that his nephew sent him to the hospital but he cannot recall exactly how he got here. Branden told me that he has not been eating or drinking well. He does feel that this is a significant contributing factor to his hospitalization. He stated that he has no appetite or interest in food. He has been losing weight. Documented weight in December 2021 was 76 kg and Branden is currently documented at 52 kg. He has visibly lost a significant amount of weight since I saw him ~1 year ago. He denies GI symptoms such as nausea, vomiting, diarrhea, or constipation. He denies any recent lower urinary symptoms such as pain or burning with urination. He denies fevers or chills. Branden presented to the ER at [facility] yesterday for evaluation of mental status changes. Evaluation notable for advanced kidney failure. Creatinine 8.8 mg/dL. CT demonstrating distended bladder with severe bilateral hydronephrosis. Mei catheter was placed. Urine output overnight 400 ml. Serum metabolic profile also notable for mixed AG/NAGMA. UA notable for 1+ protein, 2+ blood, 3+ LE. Microscopy with >30 WBC/hpf and hyaline casts. No RBCs. Cefepime started in the ER. Urine culture pending. IVF with D5W+ 150 mEq NaHCO3 @ 150 ml/hr infusing. Creatinine improved slightly to 7.8 mg/dL this AM. Past medical history is notable for bladder high grade urothelial bladder cancer who which local resection was performed for right lateral wall noninvasive disease in 2018. Cystoscopy performed with Dr. Morin in December 2021 with evidence of moderate prostate obstruction. In February 2019, Dr. Chaparro performed cystoscopy at [facility] with right ureteral stent for large obstructing kidney stone. Branden was awake and oriented for me this morning. He answered questions appropriately. He was annoyed by questions and repeatedly asked to be left alone. He told me that he would be better off at home. He appears to be receptive to IVF, antibiotics, and Mei catheter. I offered to call his nephew but Branden asked me not to. I did attempt to contact his son (Bala listed as HIPPA contact) but there was no answer at either number provided. Allergies Allergy/AdvReac Type Severity Reaction Status Date / Time lisinopril Allergy Severe THROAT Verified 11/15/22 21:12 CLOSES Penicillins Allergy Intermediate Rash Verified 11/15/22 21:12 Home Medications Medication Instructions Recorded Confirmed Type albuterol sulfate 90 mcg/actuation 2 puff inhalation Q4H PRN 02/14/19 11/15/22 History aerosol inhaler Shortness Of Breath amlodipine 10 mg tablet 10 mg PO HS 02/14/19 11/15/22 History atorvastatin 80 mg tablet 80 mg PO HS 06/08/19 11/15/22 History nebulizers #1 ea 05/24/20 12/13/21 Rx clopidogrel 75 mg tablet 75 mg PO HS 05/16/21 11/15/22 History tiotropium bromide 18 mcg capsule 1 cap inhalation HS 05/16/21 11/15/22 History with inhalation device (Spiriva with HandiHaler) cholecalciferol (vitamin D3) 25 25 mcg PO DAILY 11/15/22 11/15/22 History mcg (1,000 unit) capsule (Vitamin D3) cyanocobalamin (vitamin B-12) 1,000 mcg PO DAILY 11/15/22 11/15/22 History 1,000 mcg tablet (Vitamin B-12) folic acid 1 mg tablet 1 mg PO DAILY 11/15/22 11/15/22 History Patient History Medical History Abnormal ECG Right bundle branch block Acute hypoxemic respiratory failure Acute respiratory failure with hypoxia Admitted to intensive care unit Arthritis Carotid artery disease Carotid insufficiency Chest pain Community acquired pneumonia COPD (chronic obstructive pulmonary disease) CVA (cerebral infarction) CVA (cerebral infarction) Elevated d-dimer Gout History of bladder cancer S/P BCG treatment History of high cholesterol DIETARY CONTROLLED History of kidney stones History of stroke 2013, [place] WITH BLOOD THINNER - NO RESIDUAL EFFECTS HTN (hypertension) Hyperlipemia Hyperlipidemia Hypoxia Kidney stones Lung nodule Tobacco use disorder Surgical History (Updated 12/13/21 @ 09:38 by Cornelius Lo DO) H/O bilateral hip replacements History of colonoscopy History of hip surgery Left History of surgery LEFT EYE/ INJURY RELATED 1965 History of total left hip arthroplasty Hx of cystoscopy 03/14/19 [facility] Family History Mother Heart disease Brother Heart disease Social History Smoking Status: Current some day smoker Tobacco Type: Cigarettes Cigarettes Per Day: 20; Second Hand Exposure: No; Do You Dip or Chew Tobacco: No; Hx Alcohol Use: Yes Alcohol type: beer Hx Substance Use: No Preferred Language: Chinese Communication Ability: Effective Formula Room Worker Required: No Beliefs That Will Affect Care: None marital status: Single Current Living Situation: Family current occupational status: retired Other Information That Helps Us Care for You: No Feels Safe at Home: Yes Safety Concerns: Feels Safe At This Time Assistive Devices: Glasses Review of Systems Review of Systems: All systems reviewed & are unremarkable except as noted in HPI & below Constitutional: + fatigue, + anorexia and + weight loss; no fever and no chills Respiratory: no dyspnea Physical Exam Constitutional: + ill appearing and + cachectic Eyes: + anicteric sclerae; no conjunctival abnormality ENMT: Mouth: + dry oral mucous membranes Neck: normal visual inspection and trachea midline Respiratory: normal respiratory effort Auscultation: + wheezes; no rales and no rhonchi Cardiovascular: Rate/Rhythm: regular rate Heart Sounds: normal S1 and normal S2 Extremities: no edema Musculoskeletal: Extremities: no cyanosis and no clubbing Skin: + turgor decreased; no jaundice Neurologic: Motor/Sensory: no tremor and no asterixis Psychiatric: Orientation: alert and oriented x 3 Results & Data Vital Signs (Past 12 Hours) Vital Signs Temp Pulse Pulse Resp BP Pulse Ox O2 Del Method 11/16/22 03:52 36.3 C L 90 18 165/74 H 97 Room Air 11/16/22 01:53 87 11/16/22 01:24 Room Air 05/14/23 01:16 36.7 C 100 H 21 142/87 H 98 Room Air 11/16/22 00:12 99 H 11/15/22 23:15 101 H 19 138/71 11/15/22 22:13 89 18 143/96 H 96 Room Air Laboratory Results Laboratory Results - last 24 hr 11/15/22 11/15/22 11/15/22 20:35 21:18 21:18 WBC 17.87 H RBC 3.45 L Hgb 9.9 L Hct 30.3 L MCV 87.8 MCH 28.7 MCHC 32.7 RDW Std Deviation 47.2 H RDW Coeff of [place] 14.6 H Plt Count 292 MPV 9.8 Immature Gran % (Auto) 0.7 Neut % (Auto) 91.3 Lymph % (Auto) 4.4 [place] % (Auto) 3.3 Eos % (Auto) 0.1 Baso % (Auto) 0.2 Neut # (Auto) 16.32 H Lymph # (Auto) 0.79 L [place] # (Auto) 0.59 Eos # (Auto) 0.01 Baso # (Auto) 0.04 Immature Gran # (Auto) 0.12 Absolute Nucleated RBC 0.03 Nucleated RBC % (auto) 0.2 PT 12.1 H INR 1.1 APTT 27.1 PTT Ratio 1.0 ABG pH ABG pCO2 ABG pO2 ABG HCO3 ABG O2 Saturation ABG Base Excess Naif Test Oxygen Given Sodium Potassium Chloride Carbon Dioxide Anion Gap BUN Creatinine Est Cr Clr Drug Dosing Est GFR ( Amer) Est GFR (Non-Af Amer) BUN/Creatinine Ratio Glucose Lactate Calcium Magnesium Total Bilirubin Direct Bilirubin AST ALT Alkaline Phosphatase Total Creatine Kinase Troponin I High Sens Total Protein Albumin Globulin Albumin/Globulin Ratio Procalcitonin Urine Color Urine Appearance Urine pH Ur Specific [place] Urine Protein Urine Glucose (UA) Urine Ketones Urine Blood Urine Nitrite Urine Bilirubin Urine Urobilinogen Ur Leukocyte Esterase Urine WBC (Auto) Urine RBC (Auto) U Hyaline Cast (Auto) U Epithel Cells (Auto) Urine Bacteria (Auto) Ethyl Alcohol mg/dL SARS-CoV-2 (PCR) NEGATIVE Influenza Type A (PCR) Negative Influenza Type B (PCR) Negative RSV (RT-PCR) Negative 11/15/22 11/15/22 11/15/22 21:18 21:18 21:18 WBC RBC Hgb Hct MCV MCH MCHC RDW Std Deviation RDW Coeff of [place] Plt Count MPV Immature Gran % (Auto) Neut % (Auto) Lymph % (Auto) [place] % (Auto) Eos % (Auto) Baso % (Auto) Neut # (Auto) Lymph # (Auto) [place] # (Auto) Eos # (Auto) Baso # (Auto) Immature Gran # (Auto) Absolute Nucleated RBC Nucleated RBC % (auto) PT INR APTT PTT Ratio ABG pH ABG pCO2 ABG pO2 ABG HCO3 ABG O2 Saturation ABG Base Excess Naif Test Oxygen Given Sodium 137 Potassium 5.5 H Chloride 113 H Carbon Dioxide 8 L* Anion Gap 16 H BUN 246 H Creatinine 8.82 H* Est Cr Clr Drug Dosing Not Reportable Est GFR ( Amer) 5.9 Est GFR (Non-Af Amer) 5.1 BUN/Creatinine Ratio 27.9 H Glucose 110 H Lactate 1.3 Calcium 7.7 L Magnesium 2.7 H Total Bilirubin 0.3 Direct Bilirubin 0.0 AST 4 L ALT 4 L Alkaline Phosphatase 51 Total Creatine Kinase 135 Troponin I High Sens 34.7 H Total Protein 6.6 Albumin 3.2 L Globulin Albumin/Globulin Ratio Procalcitonin 0.62 H Urine Color Urine Appearance Urine pH Ur Specific [place] Urine Protein Urine Glucose (UA) Urine Ketones Urine Blood Urine Nitrite Urine Bilirubin Urine Urobilinogen Ur Leukocyte Esterase Urine WBC (Auto) Urine RBC (Auto) U Hyaline Cast (Auto) U Epithel Cells (Auto) Urine Bacteria (Auto) Ethyl Alcohol mg/dL SARS-CoV-2 (PCR) Influenza Type A (PCR) Influenza Type B (PCR) RSV (RT-PCR) 11/15/22 11/15/22 11/15/22 21:18 23:30 23:57 WBC RBC Hgb Hct MCV MCH MCHC RDW Std Deviation RDW Coeff of [place] Plt Count MPV Immature Gran % (Auto) Neut % (Auto) Lymph % (Auto) [place] % (Auto) Eos % (Auto) Baso % (Auto) Neut # (Auto) Lymph # (Auto) [place] # (Auto) Eos # (Auto) Baso # (Auto) Immature Gran # (Auto) Absolute Nucleated RBC Nucleated RBC % (auto) PT INR APTT PTT Ratio ABG pH 7.25 L ABG pCO2 22 L ABG pO2 107 H ABG HCO3 10 L ABG O2 Saturation 99.0 H ABG Base Excess -15.6 L Naif Test POS Oxygen Given ROOM AIR Sodium Potassium Chloride Carbon Dioxide Anion Gap BUN Creatinine Est Cr Clr Drug Dosing Est GFR ( Amer) Est GFR (Non-Af Amer) BUN/Creatinine Ratio Glucose Lactate Calcium Magnesium Total Bilirubin Direct Bilirubin AST ALT Alkaline Phosphatase Total Creatine Kinase Troponin I High Sens Total Protein Albumin Globulin Albumin/Globulin Ratio Procalcitonin Urine Color Yellow Urine Appearance Clear Urine pH 5.5 Ur Specific [place] 1.013 Urine Protein 1+ H Urine Glucose (UA) Negative Urine Ketones Negative Urine Blood 2+ H Urine Nitrite Negative Urine Bilirubin Negative Urine Urobilinogen Negative Ur Leukocyte Esterase 3+ H Urine WBC (Auto) >30 H Urine RBC (Auto) 0-4 U Hyaline Cast (Auto) 5-10 H U Epithel Cells (Auto) 0-5 Urine Bacteria (Auto) Negative Ethyl Alcohol mg/dL < 10.0 SARS-CoV-2 (PCR) Influenza Type A (PCR) Influenza Type B (PCR) RSV (RT-PCR) 11/16/22 11/16/22 07:53 07:53 WBC 15.50 H RBC 3.03 L Hgb 8.6 L Hct 25.1 L MCV 82.8 D MCH 28.4 MCHC 34.3 RDW Std Deviation 42.5 RDW Coeff of [place] 14.3 Plt Count 238 MPV 9.5 Immature Gran % (Auto) 0.6 Neut % (Auto) 87.4 Lymph % (Auto) 7.3 [place] % (Auto) 4.4 Eos % (Auto) 0.2 Baso % (Auto) 0.1 Neut # (Auto) 13.55 H Lymph # (Auto) 1.13 L [place] # (Auto) 0.68 H Eos # (Auto) 0.03 Baso # (Auto) 0.02 Immature Gran # (Auto) 0.09 Absolute Nucleated RBC Nucleated RBC % (auto) PT INR APTT PTT Ratio ABG pH ABG pCO2 ABG pO2 ABG HCO3 ABG O2 Saturation ABG Base Excess Naif Test Oxygen Given Sodium 143 Potassium 4.6 Chloride 113 H Carbon Dioxide 17 L Anion Gap 13 H BUN 223 H D Creatinine 7.82 H* D Est Cr Clr Drug Dosing 5.6 Est GFR ( Amer) 6.9 Est GFR (Non-Af Amer) 5.9 BUN/Creatinine Ratio 28.5 H Glucose 119 H Lactate Calcium 7.8 L Magnesium 2.5 H Total Bilirubin 0.3 Direct Bilirubin AST 5 L ALT 3 L Alkaline Phosphatase 38 Total Creatine Kinase 109 Troponin I High Sens 43.6 H Total Protein 5.7 L Albumin 2.9 L Globulin 2.8 Albumin/Globulin Ratio 1.0 Procalcitonin Urine Color Urine Appearance Urine pH Ur Specific [place] Urine Protein Urine Glucose (UA) Urine Ketones Urine Blood Urine Nitrite Urine Bilirubin Urine Urobilinogen Ur Leukocyte Esterase Urine WBC (Auto) Urine RBC (Auto) U Hyaline Cast (Auto) U Epithel Cells (Auto) Urine Bacteria (Auto) Ethyl Alcohol mg/dL SARS-CoV-2 (PCR) Influenza Type A (PCR) Influenza Type B (PCR) RSV (RT-PCR) Diagnostic Findings Abdomen/Pelvis CT 11/15/22 ABDOMEN: Liver: Unremarkable. No focal hepatic lesion. Gallbladder and bile ducts: Unremarkable. No calcified stones. No ductal dilation. Pancreas: Unremarkable. No ductal dilation. Spleen: Unremarkable. No splenomegaly. Adrenals: Unremarkable. No mass. Kidneys and ureters: Severe bilateral hydroureteronephrosis, with wall thickening of the urinary bladder. Distended urinary bladder. Correlate for need for Mei catheter. Urology evaluation should be considered. Stomach and bowel: Diverticulosis, without acute diverticulitis. No small bowel obstruction. No free intraperitoneal air. PELVIS: Appendix: No findings to suggest acute appendicitis. Bladder: See above. Reproductive: Unremarkable as visualized. ABDOMEN and PELVIS: Intraperitoneal space: Unremarkable. No free air. No significant fluid collection. Bones/joints: LEFT hip arthroplasty. Degenerative changes of the spine. No acute fracture. No dislocation. Grade 1 anterolisthesis of L4 on L5. Soft tissues: Unremarkable. Vasculature: Infrarenal abdominal aortic aneurysm, measuring 3 cm anteroposterior. Atherosclerotic changes of the aorta. Lymph nodes: Unremarkable. No enlarged lymph nodes. IMPRESSION: 1. Severe bilateral hydroureteronephrosis, with wall thickening of the urinary bladder. Distended urinary bladder. Correlate for need for Mei catheter. Urology evaluation should be considered. 2. Infrarenal abdominal aortic aneurysm, measuring 3 cm anteroposterior. 3. Diverticulosis, without acute diverticulitis. No small bowel obstruction. No free intraperitoneal air. 4. LEFT hip arthroplasty. PG Care Time/CCT Total # of Minutes Spent Total Time Spent with Patient: Total time spent is greater than 50% in coordination of care (as documented) at patient's floor/unit and/or counseling patient: Coding Level of Care Code 28888 IN/OBS CONSULT LVL 5,80M Diagnoses VITALY (acute kidney injury) N17.9 Acidosis E87.20 Anemia D64.9 Anemia type: unspecified type BPH w urinary obs/LUTS N40.1; N13.8 Hypocalcemia E83.51 (3) Anemia Anemia type: unspecified type Qualified Code(s): D64.9 - Anemia, unspecified
--- NOTE | 2022-11-16 10:37 | XCELERA ---
[id number]
[2022-11-16] MEDS: CEFEPIME 1,000 MG in SYRINGE 0 ML IV SCH (18:36)
[2022-11-16 19:37] LABS: BUN Creatinine Ratio 30.5 (10-20); Calcium 7.2 mg/dl (8.6-10.3); Creatinine Clr Calc Pharmacy 6.1 ml/min; Est GFR (African American) 7.6 ml/min; Est GFR (Non-African American) 6.6 ml/min; Potassium 3.8 mmol/L (3.5-5.1)
--- NOTE | 2022-11-16 20:08 | Hospitalist Progress Note ---
Date of Service November 16, 2022 Assessment & Plan (1) Acute renal failure: Plan: severe/profound, with marked elevation in BUN >200 and peak Cr 8.8 baseline Cr ~2-3 ? likely combination of pre-renal factors (marked dehydration, poor PO intake) and obstruction from #2 appreciate nephrology consultation cont IVF in the way of bicarbonate infusion serial BMPs patient is confused but has consistently told us he would not want hemodialysis (2) BPH w urinary obs/LUTS: Plan: severe, with resulting b/l hydronephrosis + acute renal failure sosa flomax ultimately needs urology involvement if he is able to get through #1 above (3) Acute urinary obstruction: Plan: 2nd BPH can't rule out element of obstruction from bladder ca recurrence either see above (4) COPD (chronic obstructive pulmonary disease): Plan: stable O2 sats in RA cont home inhalers (5) Hyperlipidemia: Plan: statin (6) Right thyroid nodule: Plan: check TSH am (7) Hx of endarterectomy: Plan: noted - 06/2019 (8) Bladder cancer: Plan: high-grade urothelial cancer per records dx 2018 [facility] at that time he had evidence of ongoing obstruction from his BPH but no cancer seen on that cysto it does not appear he had f/u after that check urine cytology given the extreme weight loss malignancy remains very high on the differential (9) Carotid aneurysm, left: (10) Severe protein-calorie malnutrition: Plan: 20+kg weight loss since 2021 he is profoundly cachectic on examination highly concerning for recurrent bladder ca or other malignancy process supportive care first for #1 if able to get through this stay (ie - if there is enough renal recovery) will ultimately need w/u for weight loss (11) Acidosis: Plan: metabolic, 2nd #1 serial labs (12) Anemia: Plan: check Fe studies am check TSH am (13) Tobacco use disorder: Plan: will need to inquire if he is actively smoking if yes can offer nicoderm patch (14) Elevated troponin: Plan: mild elevation in HS trop this likely represents myocardial demand ischemia in setting of #1 rather than ACS (15) Suprapubic pain: Plan: could have UTI continue IV abx follow urine cx could also have bladder ca recurrence see above (16) NSVT (nonsustained ventricular tachycardia): Plan: 22 beat run overnight high K and acidosis likely caused such echo with preserved EF follow on tele carefully no symptoms despite the NSVT (17) HTN (hypertension): Plan: BPs are low-normal at times lower amlodipine to 5mg/day Plan attempted to call pt's daughter by phone phone just rang and rang then the phone simply never picked up - unable to leave message will attempt to contact family again tomorrow pt's former employer called and spoke with Mr Galvin's nurse today he reported that the Office of Aging had been contacted re: Mr Galvin's living situation (apparently lives with son) will involve social work on Thursday on this Admission and Anticipated Discharge Date Admission Date: November 15, 2022 Subjective tele overnight - 22 beat run of NSVT patient was laying in bed when this happened no symptoms patient resting in bed during my visit was very tired/borderline lethargic just wants to be left alone patient confirms he had been losing weight recently when asked if he had been seeing the [facility] for his bladder cancer he states no Review of Systems Review of Systems: gen - fatigue, anorexia cv - no chest pain pulm - no dyspnea at rest GI - c/o abd pain Physical Exam Physical Exam: gen - cachectic, NAD, tired/lethargic, disheveled mouth - MM severely dry neck - no JVD heart - RRR, s1 s2 lungs - CTA b/l abd - tender bladder region, BS+, ND, soft, scaphoid abdomen ext - pulses 2+ b/l, no edema, legs are very thin psych - altered mental status Results & Data Results & Data Vital Signs (Past 12 Hours) Vital Signs Temp Pulse Resp BP Pulse Ox O2 Del Method 11/16/22 18:39 79 16 141/61 H 98 Room Air 11/16/22 16:31 36.0 C L 71 18 145/67 H 97 Room Air 11/16/22 11:44 Room Air Laboratory Results Laboratory Results - last 24 hr 11/15/22 11/15/22 11/15/22 20:35 21:18 21:18 WBC 17.87 H RBC 3.45 L Hgb 9.9 L Hct 30.3 L MCV 87.8 MCH 28.7 MCHC 32.7 RDW Std Deviation 47.2 H RDW Coeff of [place] 14.6 H Plt Count 292 MPV 9.8 Immature Gran % (Auto) 0.7 Neut % (Auto) 91.3 Lymph % (Auto) 4.4 [place] % (Auto) 3.3 Eos % (Auto) 0.1 Baso % (Auto) 0.2 Neut # (Auto) 16.32 H Lymph # (Auto) 0.79 L [place] # (Auto) 0.59 Eos # (Auto) 0.01 Baso # (Auto) 0.04 Immature Gran # (Auto) 0.12 Absolute Nucleated RBC 0.03 Nucleated RBC % (auto) 0.2 PT 12.1 H INR 1.1 APTT 27.1 PTT Ratio 1.0 ABG pH ABG pCO2 ABG pO2 ABG HCO3 ABG O2 Saturation ABG Base Excess Naif Test Oxygen Given Sodium Potassium Chloride Carbon Dioxide Anion Gap BUN Creatinine Est Cr Clr Drug Dosing Est GFR ( Amer) Est GFR (Non-Af Amer) BUN/Creatinine Ratio Glucose Lactate Calcium Magnesium Total Bilirubin Direct Bilirubin AST ALT Alkaline Phosphatase Total Creatine Kinase Troponin I High Sens Total Protein Albumin Globulin Albumin/Globulin Ratio Procalcitonin Urine Color Urine Appearance Urine pH Ur Specific [place] Urine Protein Urine Glucose (UA) Urine Ketones Urine Blood Urine Nitrite Urine Bilirubin Urine Urobilinogen Ur Leukocyte Esterase Urine WBC (Auto) Urine RBC (Auto) U Hyaline Cast (Auto) U Epithel Cells (Auto) Urine Bacteria (Auto) Ethyl Alcohol mg/dL SARS-CoV-2 (PCR) NEGATIVE Influenza Type A (PCR) Negative Influenza Type B (PCR) Negative RSV (RT-PCR) Negative 11/15/22 11/15/22 11/15/22 21:18 21:18 21:18 WBC RBC Hgb Hct MCV MCH MCHC RDW Std Deviation RDW Coeff of [place] Plt Count MPV Immature Gran % (Auto) Neut % (Auto) Lymph % (Auto) [place] % (Auto) Eos % (Auto) Baso % (Auto) Neut # (Auto) Lymph # (Auto) [place] # (Auto) Eos # (Auto) Baso # (Auto) Immature Gran # (Auto) Absolute Nucleated RBC Nucleated RBC % (auto) PT INR APTT PTT Ratio ABG pH ABG pCO2 ABG pO2 ABG HCO3 ABG O2 Saturation ABG Base Excess Naif Test Oxygen Given Sodium 137 Potassium 5.5 H Chloride 113 H Carbon Dioxide 8 L* Anion Gap 16 H BUN 246 H Creatinine 8.82 H* Est Cr Clr Drug Dosing Not Reportable Est GFR ( Amer) 5.9 Est GFR (Non-Af Amer) 5.1 BUN/Creatinine Ratio 27.9 H Glucose 110 H Lactate 1.3 Calcium 7.7 L Magnesium 2.7 H Total Bilirubin 0.3 Direct Bilirubin 0.0 AST 4 L ALT 4 L Alkaline Phosphatase 51 Total Creatine Kinase 135 Troponin I High Sens 34.7 H Total Protein 6.6 Albumin 3.2 L Globulin Albumin/Globulin Ratio Procalcitonin 0.62 H Urine Color Urine Appearance Urine pH Ur Specific [place] Urine Protein Urine Glucose (UA) Urine Ketones Urine Blood Urine Nitrite Urine Bilirubin Urine Urobilinogen Ur Leukocyte Esterase Urine WBC (Auto) Urine RBC (Auto) U Hyaline Cast (Auto) U Epithel Cells (Auto) Urine Bacteria (Auto) Ethyl Alcohol mg/dL SARS-CoV-2 (PCR) Influenza Type A (PCR) Influenza Type B (PCR) RSV (RT-PCR) 11/15/22 11/15/22 11/15/22 21:18 23:30 23:57 WBC RBC Hgb Hct MCV MCH MCHC RDW Std Deviation RDW Coeff of [place] Plt Count MPV Immature Gran % (Auto) Neut % (Auto) Lymph % (Auto) [place] % (Auto) Eos % (Auto) Baso % (Auto) Neut # (Auto) Lymph # (Auto) [place] # (Auto) Eos # (Auto) Baso # (Auto) Immature Gran # (Auto) Absolute Nucleated RBC Nucleated RBC % (auto) PT INR APTT PTT Ratio ABG pH 7.25 L ABG pCO2 22 L ABG pO2 107 H ABG HCO3 10 L ABG O2 Saturation 99.0 H ABG Base Excess -15.6 L Naif Test POS Oxygen Given ROOM AIR Sodium Potassium Chloride Carbon Dioxide Anion Gap BUN Creatinine Est Cr Clr Drug Dosing Est GFR ( Amer) Est GFR (Non-Af Amer) BUN/Creatinine Ratio Glucose Lactate Calcium Magnesium Total Bilirubin Direct Bilirubin AST ALT Alkaline Phosphatase Total Creatine Kinase Troponin I High Sens Total Protein Albumin Globulin Albumin/Globulin Ratio Procalcitonin Urine Color Yellow Urine Appearance Clear Urine pH 5.5 Ur Specific [place] 1.013 Urine Protein 1+ H Urine Glucose (UA) Negative Urine Ketones Negative Urine Blood 2+ H Urine Nitrite Negative Urine Bilirubin Negative Urine Urobilinogen Negative Ur Leukocyte Esterase 3+ H Urine WBC (Auto) >30 H Urine RBC (Auto) 0-4 U Hyaline Cast (Auto) 5-10 H U Epithel Cells (Auto) 0-5 Urine Bacteria (Auto) Negative Ethyl Alcohol mg/dL < 10.0 SARS-CoV-2 (PCR) Influenza Type A (PCR) Influenza Type B (PCR) RSV (RT-PCR) 11/16/22 11/16/22 11/16/22 07:53 07:53 12:45 WBC 15.50 H RBC 3.03 L Hgb 8.6 L Hct 25.1 L MCV 82.8 D MCH 28.4 MCHC 34.3 RDW Std Deviation 42.5 RDW Coeff of [place] 14.3 Plt Count 238 MPV 9.5 Immature Gran % (Auto) 0.6 Neut % (Auto) 87.4 Lymph % (Auto) 7.3 [place] % (Auto) 4.4 Eos % (Auto) 0.2 Baso % (Auto) 0.1 Neut # (Auto) 13.55 H Lymph # (Auto) 1.13 L [place] # (Auto) 0.68 H Eos # (Auto) 0.03 Baso # (Auto) 0.02 Immature Gran # (Auto) 0.09 Absolute Nucleated RBC Nucleated RBC % (auto) PT INR APTT PTT Ratio ABG pH ABG pCO2 ABG pO2 ABG HCO3 ABG O2 Saturation ABG Base Excess Naif Test Oxygen Given Sodium 143 Potassium 4.6 Chloride 113 H Carbon Dioxide 17 L Anion Gap 13 H BUN 223 H D Creatinine 7.82 H* D Est Cr Clr Drug Dosing 5.6 Est GFR ( Amer) 6.9 Est GFR (Non-Af Amer) 5.9 BUN/Creatinine Ratio 28.5 H Glucose 119 H Lactate Calcium 7.8 L Magnesium 2.5 H Total Bilirubin 0.3 Direct Bilirubin AST 5 L ALT 3 L Alkaline Phosphatase 38 Total Creatine Kinase 109 Troponin I High Sens 43.6 H 43.9 H Total Protein 5.7 L Albumin 2.9 L Globulin 2.8 Albumin/Globulin Ratio 1.0 Procalcitonin Urine Color Urine Appearance Urine pH Ur Specific [place] Urine Protein Urine Glucose (UA) Urine Ketones Urine Blood Urine Nitrite Urine Bilirubin Urine Urobilinogen Ur Leukocyte Esterase Urine WBC (Auto) Urine RBC (Auto) U Hyaline Cast (Auto) U Epithel Cells (Auto) Urine Bacteria (Auto) Ethyl Alcohol mg/dL SARS-CoV-2 (PCR) Influenza Type A (PCR) Influenza Type B (PCR) RSV (RT-PCR) 11/16/22 11/16/22 18:50 18:50 WBC RBC Hgb Hct MCV MCH MCHC RDW Std Deviation RDW Coeff of [place] Plt Count MPV Immature Gran % (Auto) Neut % (Auto) Lymph % (Auto) [place] % (Auto) Eos % (Auto) Baso % (Auto) Neut # (Auto) Lymph # (Auto) [place] # (Auto) Eos # (Auto) Baso # (Auto) Immature Gran # (Auto) Absolute Nucleated RBC Nucleated RBC % (auto) PT INR APTT PTT Ratio ABG pH ABG pCO2 ABG pO2 ABG HCO3 ABG O2 Saturation ABG Base Excess Naif Test Oxygen Given Sodium 142 Potassium 3.8 Chloride 110 H Carbon Dioxide 19 L Anion Gap 13 H BUN 219 H Creatinine 7.18 H* D Est Cr Clr Drug Dosing 6.1 Est GFR ( Amer) 7.6 Est GFR (Non-Af Amer) 6.6 BUN/Creatinine Ratio 30.5 H Glucose 128 H Lactate Calcium 7.2 L Magnesium Total Bilirubin Direct Bilirubin AST ALT Alkaline Phosphatase Total Creatine Kinase Troponin I High Sens 45.6 H Total Protein Albumin Globulin Albumin/Globulin Ratio Procalcitonin Urine Color Urine Appearance Urine pH Ur Specific [place] Urine Protein Urine Glucose (UA) Urine Ketones Urine Blood Urine Nitrite Urine Bilirubin Urine Urobilinogen Ur Leukocyte Esterase Urine WBC (Auto) Urine RBC (Auto) U Hyaline Cast (Auto) U Epithel Cells (Auto) Urine Bacteria (Auto) Ethyl Alcohol mg/dL SARS-CoV-2 (PCR) Influenza Type A (PCR) Influenza Type B (PCR) RSV (RT-PCR) Diagnostic Findings Head CT 11/15/22 21:39 Exam(s): CT HEAD Without Contrast EXAM: CT Head Without Intravenous Contrast CLINICAL HISTORY: Reason for exam: confusion, weak. TECHNIQUE: Axial computed tomography images of the head/brain without intravenous contrast. CTDI is 66.5 mGy and DLP is 961.59 mGy-cm. Automated exposure control was utilized for the study. A dose lowering technique was utilized adhering to the principles of ALARA. COMPARISON: No relevant prior studies available. FINDINGS: No acute intracranial hemorrhage. No midline shift or mass effect. 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 Age-related cerebral volume loss. Periventricular and subcortical white matter hypoattenuation, consistent with chronic microangiopathy. The visualized orbits appear grossly unremarkable. The calvarium is intact. The visualized paranasal sinuses and mastoid air cells are grossly clear. IMPRESSION: No acute intracranial hemorrhage, midline shift, or mass effect. 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 Electronically signed by: Rigo Griffith MD 11/15/22 22:26 PM Abdomen/Pelvis CT 11/15/22 21:57 Exam(s): CT ABDOMEN + PELVIS Without Contrast EXAM: CT Abdomen and Pelvis Without Intravenous Contrast CLINICAL HISTORY: Reason for exam: poss urinary obstruc. TECHNIQUE: Axial computed tomography images of the abdomen and pelvis without intravenous contrast. CTDI is 13.12 mGy and DLP is 633.34 mGy-cm. Automated exposure control was utilized for the study. A dose lowering technique was utilized adhering to the principles of ALARA. COMPARISON: No relevant prior studies available. FINDINGS: Lung bases: Emphysema. ABDOMEN: Liver: Unremarkable. No focal hepatic lesion. Gallbladder and bile ducts: Unremarkable. No calcified stones. No ductal dilation. Pancreas: Unremarkable. No ductal dilation. Spleen: Unremarkable. No splenomegaly. Adrenals: Unremarkable. No mass. Kidneys and ureters: Severe bilateral hydroureteronephrosis, with wall thickening of the urinary bladder. Distended urinary bladder. Correlate for need for Sosa catheter. Urology evaluation should be considered. Stomach and bowel: Diverticulosis, without acute diverticulitis. No small bowel obstruction. No free intraperitoneal air. PELVIS: Appendix: No findings to suggest acute appendicitis. Bladder: See above. Reproductive: Unremarkable as visualized. ABDOMEN and PELVIS: Intraperitoneal space: Unremarkable. No free air. No significant fluid collection. Bones/joints: LEFT hip arthroplasty. Degenerative changes of the spine. No acute fracture. No dislocation. Grade 1 anterolisthesis of L4 on L5. Soft tissues: Unremarkable. Vasculature: Infrarenal abdominal aortic aneurysm, measuring 3 cm anteroposterior. Atherosclerotic changes of the aorta. Lymph nodes: Unremarkable. No enlarged lymph nodes. IMPRESSION: 1. Severe bilateral hydroureteronephrosis, with wall thickening of the urinary bladder. Distended urinary bladder. Correlate for need for Sosa catheter. Urology evaluation should be considered. 2. Infrarenal abdominal aortic aneurysm, measuring 3 cm anteroposterior. 3. Diverticulosis, without acute diverticulitis. No small bowel obstruction. No free intraperitoneal air. 4. LEFT hip arthroplasty. Electronically signed by: Rigo Griffith MD 11/15/22 22:28 PM PG Care Time/CCT Total # of Minutes Spent Total Time Spent with Patient: Total time spent is greater than 50% in coordination of care (as documented) at patient's floor/unit and/or counseling patient: Coding Level of Care Code 79606 SUB INP/OBS CARE 3/50MIN Diagnoses Acute renal failure N17.9 BPH w urinary obs/LUTS N40.1; N13.8 Acute urinary obstruction N13.9 COPD (chronic obstructive pulmonary disease) J44.9 Hyperlipidemia E78.5 Right thyroid nodule E04.1 Hx of endarterectomy Z98.890 Bladder cancer C67.9 Carotid aneurysm, left I72.0 Severe protein-calorie malnutrition E43 Acidosis E87.20 Anemia D64.9 Anemia type: unspecified type Tobacco use disorder F17.200 Elevated troponin R77.8 Suprapubic pain R10.2 NSVT (nonsustained ventricular tachycardia) I47.29 HTN (hypertension) I10 (12) Anemia Anemia type: unspecified type Qualified Code(s): D64.9 - Anemia, unspecified
[2022-11-16] MEDS ORDERED: amLODIPine BESYLATE 5 MG TAB PO SCH (21:00)
[2022-11-16] MEDS: ATORVASTATIN 40 MG TAB PO SCH (21:11)
[2022-11-16] MEDS: CLOPIDOGREL BISULFATE 75 MG TAB PO SCH (21:11)
[2022-11-16] MEDS: TAMSULOSIN HCL 0.4 MG CAP PO SCH (21:12)
[2022-11-16] MEDS: UMECLIDINIUM BROMIDE 62.5MCG/BLISTER 7 PUFFS/INHALER INH SCH (21:12)
--- NOTE | 2022-11-16 21:30 | Electrocardiogram Report ---
Test Reason : Blood Pressure : / mmHG Vent. Rate : 094 BPM Atrial Rate : 094 BPM P-R Int : 146 ms QRS Dur : 124 ms QT Int : 366 ms P-R-T Axes : 078 -46 061 degrees QTc Int : 457 ms Normal sinus rhythm Indeterminate axis Right bundle branch block Abnormal ECG When compared with ECG of 16-MAY-2021 20:14, No significant change Confirmed by Mario Alberto Brooks ([id number]) on 11/16/2022 9:29:40 PM Referred By: REFERRED SELF Confirmed By:Mario Alberto Brooks
[2022-11-17] MEDS: SODIUM BICARBONATE 8.4% 150 MEQ in DEXTROSE 5% 1,000 ML IV SCH (00:31)
[2022-11-17 08:04] LABS: Basophils # (auto) 0.03 K/uL (0-0.2); Basophils % (auto) 0.2 %; Eosinophils # (auto) 0.03 K/uL (0-0.50); Eosinophils % (auto) 0.2 %; Hematocrit (blood only) 24.3 % (42.0-52.0); Hemoglobin 8.4 g/dl (14.0-18.0); Immature Granulocytes # (auto) 0.09 K/uL (0.01-0.20); Immature Granulocytes % (auto) 0.6 %; Lymphocytes # (auto) 0.94 K/uL (1.2-3.4); Lymphocytes % (auto) 6.7 %; Mean Corpuscular Hemoglobin 28.4 pg (25.0-34.0); Mean Corpuscular Hgb Conc 34.6 g/dL (32.0-36.0); Mean Corpuscular Volume 82.1 fL (80.0-100.0); Mean Platelet Volume 10.3 fL (9.4-12.4); Monocytes # (auto) 0.53 K/uL (0.11-0.59); Monocytes % (auto) 3.8 %; Neutrophils # (auto) 12.42 K/uL (1.40-6.50); Neutrophils % (auto) 88.5 %; Nucleated RBC # (auto) 0.02 K/uL (0-0.12); Nucleated RBC % (auto) 0.1 %; Platelet Count 203 K/uL (130-400); RDW Coefficient of Variation 13.4 % (11.5-14.5); RDW Standard Deviation 40.3 fL (36.4-46.3); Red Blood Count 2.96 M/uL (4.70-6.10); White Blood Count 14.04 K/ul (4.8-10.8)
[2022-11-17 08:31] LABS: Albumin Level 2.8 gm/dl (3.4-5.0); Bilirubin,Total 0.3 mg/dl (0.2-1.0); Calcium 7.3 mg/dl (8.6-10.3); Creatinine Clr Calc Pharmacy 6.9 ml/min; Est GFR (African American) 8.7 ml/min; Est GFR (Non-African American) 7.5 ml/min; Globulin 2.9 gm/dl (2.5-4.0); Magnesium 2.2 mg/dl (1.7-2.4); Phosphorus 5.3 mg/dl (2.5-4.9); Potassium 3.2 mmol/L (3.5-5.1); Total Protein 5.7 gm/dl (6.0-8.3)
[2022-11-17 08:51] LABS: Bone Marrow Smear SLHOLD
[2022-11-17] MEDS ORDERED: POTASSIUM CHLORIDE CRTAB 20 MEQ TABCR PO STA (08:51)
[2022-11-17 08:52] LABS: Ferritin 595.8 ng/ml (8-388)
[2022-11-17 09:16] LABS: BUN Creatinine Ratio 30.7 (10-20)
[2022-11-17] MEDS: CYANOCOBALAMIN (B-12) 500 MCG TABLET PO SCH (09:31)
[2022-11-17] MEDS: CHOLECALCIFEROL 1,000 UNITS 25 MCG TAB PO SCH (09:31)
[2022-11-17] MEDS: FOLIC ACID 1 MG TAB PO SCH (09:31)
--- NOTE | 2022-11-17 10:03 | Nephrology Progress Note ---
Date of Service November 17, 2022 Assessment & Plan (1) VITALY (acute kidney injury): Plan: Non-oliguric. Clinical presentation consistent with obstructive nephropathy and prerenal VITALY. Tolerating IVF well. Mei to gravity. Severe azotemia with longstanding progressive uremic symptoms reported. Branden reaffirmed that he does not want dialysis. Thankfully, there is no emergent indication for dialysis at this time. He is receptive to continued medical management with IVF. NaHCO3 infusion switched to 1/2 NS + 20 mEq KCl. I would continue aggressive IVF. Maintain Mei to gravity. Document strict I/O's. Monitor metabolic profile twice daily. (2) Acidosis: Plan: Mixed AG/NAGMA. Attributed to advanced kidney dysfunction. Improved. (3) Anemia: Plan: Suspect this is also related to kidney dysfunction. Iron profile acceptable. Epogen 64509 units x 1 this AM. (4) BPH w urinary obs/LUTS: Plan: Mei to gravity. Ultimately will require close follow up with urology. Tamsulosin 0.4 mg daily. Urine cytology pending. (5) Hypocalcemia: Plan: Refusing PO vitamin D replacement. Admission and Anticipated Discharge Date Admission Date: November 15, 2022 Subjective No acute events overnight. Branden was resting in bed comfortably this AM. He is not eating and refused PO medications. He denies any complaints. Mei draining clear yellow urine. I attempted to call his nephew (Zana [phone]) this AM but no answer. Review of Systems Review of Systems: All systems reviewed & are unremarkable except as noted in HPI & below Physical Exam Constitutional: + ill appearing and + cachectic Eyes: + anicteric sclerae; no conjunctival abnormality ENMT: Mouth: + dry oral mucous membranes Neck: normal visual inspection and trachea midline Respiratory: normal respiratory effort Auscultation: + wheezes; no rales and no rhonchi Cardiovascular: Rate/Rhythm: regular rate Heart Sounds: normal S1 and normal S2 Extremities: no edema Musculoskeletal: Extremities: no cyanosis and no clubbing Skin: + turgor decreased; no jaundice Neurologic: Motor/Sensory: no tremor and no asterixis Psychiatric: Orientation: alert and oriented x 3 Results & Data Vital Signs (Past 12 Hours) Vital Signs Temp Pulse Pulse Resp BP Pulse Ox O2 Del Method 11/17/22 07:42 77 16 123/59 L 96 Room Air 11/17/22 07:22 67 11/17/22 03:18 36.6 C 95 H 18 122/59 L 95 Room Air 11/16/22 22:00 76 11/16/22 23:11 36.7 C 80 18 120/53 L 98 Room Air Laboratory Results Laboratory Results - last 24 hr 11/16/22 11/16/22 11/16/22 12:45 18:50 18:50 WBC RBC Hgb Hct MCV MCH MCHC RDW Std Deviation RDW Coeff of [place] Plt Count MPV Immature Gran % (Auto) Neut % (Auto) Lymph % (Auto) [place] % (Auto) Eos % (Auto) Baso % (Auto) Neut # (Auto) Lymph # (Auto) [place] # (Auto) Eos # (Auto) Baso # (Auto) Immature Gran # (Auto) Absolute Nucleated RBC Nucleated RBC % (auto) Sodium 142 Potassium 3.8 Chloride 110 H Carbon Dioxide 19 L Anion Gap 13 H BUN 219 H Creatinine 7.18 H* D Est Cr Clr Drug Dosing 6.1 Est GFR ( Amer) 7.6 Est GFR (Non-Af Amer) 6.6 BUN/Creatinine Ratio 30.5 H Glucose 128 H Calcium 7.2 L Phosphorus Magnesium Iron TIBC Unsaturated IBC Transferrin % Sat Ferritin Total Bilirubin AST ALT Alkaline Phosphatase Troponin I High Sens 43.9 H 45.6 H Total Protein Albumin Globulin Albumin/Globulin Ratio 25-OH Vitamin D Total TSH 11/17/22 11/17/22 11/17/22 07:10 07:10 07:10 WBC 14.04 H RBC 2.96 L Hgb 8.4 L Hct 24.3 L MCV 82.1 MCH 28.4 MCHC 34.6 RDW Std Deviation 40.3 RDW Coeff of [place] 13.4 Plt Count 203 MPV 10.3 Immature Gran % (Auto) 0.6 Neut % (Auto) 88.5 Lymph % (Auto) 6.7 [place] % (Auto) 3.8 Eos % (Auto) 0.2 Baso % (Auto) 0.2 Neut # (Auto) 12.42 H Lymph # (Auto) 0.94 L [place] # (Auto) 0.53 Eos # (Auto) 0.03 Baso # (Auto) 0.03 Immature Gran # (Auto) 0.09 Absolute Nucleated RBC 0.02 Nucleated RBC % (auto) 0.1 Sodium 144 Potassium 3.2 L Chloride 106 Carbon Dioxide 25 Anion Gap 13 H BUN 197 H D Creatinine 6.42 H* D Est Cr Clr Drug Dosing 6.9 Est GFR ( Amer) 8.7 Est GFR (Non-Af Amer) 7.5 BUN/Creatinine Ratio 30.7 H Glucose 172 H Calcium 7.3 L Phosphorus 5.3 H Magnesium 2.2 Iron 41 TIBC 140 L Unsaturated IBC 99 L Transferrin % Sat 29 Ferritin 595.8 H Total Bilirubin 0.3 AST 8 L ALT 5 L Alkaline Phosphatase 35 Troponin I High Sens Total Protein 5.7 L Albumin 2.8 L Globulin 2.9 Albumin/Globulin Ratio 1.0 25-OH Vitamin D Total 17.0 L TSH 11/17/22 07:10 WBC RBC Hgb Hct MCV MCH MCHC RDW Std Deviation RDW Coeff of [place] Plt Count MPV Immature Gran % (Auto) Neut % (Auto) Lymph % (Auto) [place] % (Auto) Eos % (Auto) Baso % (Auto) Neut # (Auto) Lymph # (Auto) [place] # (Auto) Eos # (Auto) Baso # (Auto) Immature Gran # (Auto) Absolute Nucleated RBC Nucleated RBC % (auto) Sodium Potassium Chloride Carbon Dioxide Anion Gap BUN Creatinine Est Cr Clr Drug Dosing Est GFR ( Amer) Est GFR (Non-Af Amer) BUN/Creatinine Ratio Glucose Calcium Phosphorus Magnesium Iron TIBC Unsaturated IBC Transferrin % Sat Ferritin Total Bilirubin AST ALT Alkaline Phosphatase Troponin I High Sens Total Protein Albumin Globulin Albumin/Globulin Ratio 25-OH Vitamin D Total TSH 2.416 PG Care Time/CCT Total # of Minutes Spent Total Time Spent with Patient: Total time spent is greater than 50% in coordination of care (as documented) at patient's floor/unit and/or counseling patient: Coding Level of Care Code 29339 SUB INP/OBS CARE 3/50MIN Diagnoses VITALY (acute kidney injury) N17.9 Acidosis E87.20 Anemia D64.9 Anemia type: unspecified type BPH w urinary obs/LUTS N40.1; N13.8 Hypocalcemia E83.51 (3) Anemia Anemia type: unspecified type Qualified Code(s): D64.9 - Anemia, unspecified
[2022-11-17] MEDS: SODIUM CHLOR 0.45% + 20MEQ KCL 20 MEQ/1,000 ML BAG IV SCH ×2 (11:07→17:59)
[2022-11-17] MEDS: CEFEPIME 1,000 MG in SYRINGE 0 ML IV SCH (17:59)
--- NOTE | 2022-11-17 20:18 | Hospitalist Progress Note ---
Date of Service November 17, 2022 Assessment & Plan (1) Acute renal failure: Plan: severe/profound, with marked elevation in BUN >200 and peak Cr 8.8 at presentation baseline Cr ~2-3 ? likely combination of pre-renal factors (marked dehydration, poor PO intake) and obstruction from #2 Cr now 6.4 BUN just shy of 200 acid-base status improved with bicarbonate drip appreciate nephrology consultation nephrology changed IVF to 1/2 NS at 150cc/hr serial daily BMPs cont sosa patient is confused/lethargic but has consistently told us he would not want hemodialysis (2) BPH w urinary obs/LUTS: Plan: severe, with resulting b/l hydronephrosis + acute renal failure sosa flomax ultimately needs urology involvement if he is able to get through #1 above (3) Acute urinary obstruction: Plan: 2nd BPH can't rule out element of obstruction from bladder ca recurrence either see above cont sosa (4) COPD (chronic obstructive pulmonary disease): Plan: stable O2 sats in RA cont home inhalers mild wheezing on exam but comfortable and no significant cough (5) Hyperlipidemia: Plan: statin (6) Right thyroid nodule: Plan: last imaging study - 4.1cm nodule right lobe TSH wnl today could consider thyroid u/s to look for calcifications, etc but defer on this for now (7) Hx of endarterectomy: Plan: noted - 06/2019 (8) Bladder cancer: Plan: high-grade urothelial cancer per records dx 2018 [facility] time he had evidence of ongoing obstruction from his BPH but no cancer seen on that cysto it does not appear he had f/u after that urine cytology today negative for high grade urothelial carcinoma given the extreme weight loss malignancy remains very high on the differential (9) Carotid aneurysm, left: (10) Severe protein-calorie malnutrition: Plan: 20+kg weight loss since 2021 he is profoundly cachectic on examination highly concerning for recurrent bladder ca or other malignancy process supportive care first for #1 if able to get through this stay (ie - if there is enough renal recovery) will ultimately need w/u for weight loss (11) Acidosis: Plan: metabolic, 2nd #1 resolved today (12) Anemia: Plan: Fe studies wnl TSH wnl check b12/folate am to be complete (13) Tobacco use disorder: Plan: [facility] indicated he smokes 1 ppd will order nicoderm patch for am tomorrow (14) Elevated troponin: Plan: mild elevation in HS trop this likely represents myocardial demand ischemia in setting of #1 rather than ACS (15) Suprapubic pain: Plan: pain resolved today continue IV abx follow urine cx - pinpoint growth only at this time (16) NSVT (nonsustained ventricular tachycardia): Plan: 22 beat run two nights ago high K and acidosis likely caused such echo with preserved EF follow on tele carefully no symptoms reported despite the NSVT (17) HTN (hypertension): Plan: BPs stable on lower dose of amlodipine 5mg/day (18) Acute metabolic encephalopathy: Plan: 2nd to #1 can't rule out UTI contributing as well supportive care Plan Social situation is complicated. Pt's step-son apparently had been living with him. Pt's former boss from his prior job called the hospital yesterday and mentioned to nursing that the Office of Aging had been contacted re: Mr Galvin's living situation. Pt's nephew Zana is likely the most reliable person to contact with medical updates. Even if patient recovers from his acute renal failure I suspect he may continue to have failure to thrive. He clearly has been losing weight, not eating, mentation is poor at times, etc. will obtain palliative care consultation to refine goals of care with family Admission and Anticipated Discharge Date Admission Date: November 15, 2022 Subjective tele stable overnight no NSVT -- sinus rhythm only not eating - zero PO intake he is simply laying in bed all day refusing most care from nursing during my visit he was laying on his side - the same position he was in yesterday denies having pain in any location when asked if he was hungry he stated "no" Review of Systems Review of Systems: gen - fatigue/tired; severe anorexia cv - no chest pain pulm - denies dyspnea GI - denies abd pain, nausea, emesis - sosa output has been excellent today Physical Exam Physical Exam: gen - cachectic, tired/lethargic - kept eyes close most of the time but did answer my questions, disheveled mouth - MM severely dry still neck - no JVD heart - RRR, s1 s2, no murmur lungs - extensive wheezing b/l; no rales; no increased work of breathing abd - scaphoid abdomen, very thin, BS+, NT, ND, no HSM ext - pulses 2+ b/l, no edema, legs are very thin psych - ongoing lethargy Results & Data Results & Data Vital Signs (Past 12 Hours) Vital Signs Temp Pulse Pulse Resp BP Pulse Ox O2 Del Method 11/17/22 20:07 36.0 C L 87 16 131/61 97 Room Air 11/17/22 16:05 35.9 C L 78 18 139/57 L 95 Room Air 11/17/22 15:10 79 11/17/22 11:34 35.9 C L 86 18 131/57 L 94 Room Air 11/17/22 10:32 Room Air Laboratory Results Laboratory Results - last 24 hr 11/17/22 11/17/22 11/17/22 07:10 07:10 07:10 WBC 14.04 H RBC 2.96 L Hgb 8.4 L Hct 24.3 L MCV 82.1 MCH 28.4 MCHC 34.6 RDW Std Deviation 40.3 RDW Coeff of [place] 13.4 Plt Count 203 MPV 10.3 Immature Gran % (Auto) 0.6 Neut % (Auto) 88.5 Lymph % (Auto) 6.7 [place] % (Auto) 3.8 Eos % (Auto) 0.2 Baso % (Auto) 0.2 Neut # (Auto) 12.42 H Lymph # (Auto) 0.94 L [place] # (Auto) 0.53 Eos # (Auto) 0.03 Baso # (Auto) 0.03 Immature Gran # (Auto) 0.09 Absolute Nucleated RBC 0.02 Nucleated RBC % (auto) 0.1 Sodium 144 Potassium 3.2 L Chloride 106 Carbon Dioxide 25 Anion Gap 13 H BUN 197 H D Creatinine 6.42 H* D Est Cr Clr Drug Dosing 6.9 Est GFR ( Amer) 8.7 Est GFR (Non-Af Amer) 7.5 BUN/Creatinine Ratio 30.7 H Glucose 172 H Calcium 7.3 L Phosphorus 5.3 H Magnesium 2.2 Iron 41 TIBC 140 L Unsaturated IBC 99 L Transferrin % Sat 29 Ferritin 595.8 H Total Bilirubin 0.3 AST 8 L ALT 5 L Alkaline Phosphatase 35 Total Protein 5.7 L Albumin 2.8 L Globulin 2.9 Albumin/Globulin Ratio 1.0 25-OH Vitamin D Total 17.0 L TSH 11/17/22 07:10 WBC RBC Hgb Hct MCV MCH MCHC RDW Std Deviation RDW Coeff of [place] Plt Count MPV Immature Gran % (Auto) Neut % (Auto) Lymph % (Auto) [place] % (Auto) Eos % (Auto) Baso % (Auto) Neut # (Auto) Lymph # (Auto) [place] # (Auto) Eos # (Auto) Baso # (Auto) Immature Gran # (Auto) Absolute Nucleated RBC Nucleated RBC % (auto) Sodium Potassium Chloride Carbon Dioxide Anion Gap BUN Creatinine Est Cr Clr Drug Dosing Est GFR ( Amer) Est GFR (Non-Af Amer) BUN/Creatinine Ratio Glucose Calcium Phosphorus Magnesium Iron TIBC Unsaturated IBC Transferrin % Sat Ferritin Total Bilirubin AST ALT Alkaline Phosphatase Total Protein Albumin Globulin Albumin/Globulin Ratio 25-OH Vitamin D Total TSH 2.416 Diagnostic Findings urine cx - pinpoint growth blood cx's - negative PG Care Time/CCT Total # of Minutes Spent Total Time Spent with Patient: Total time spent is greater than 50% in coordination of care (as documented) at patient's floor/unit and/or counseling patient: Coding Level of Care Code 77438 SUB INP/OBS CARE 2/35MIN Diagnoses Acute renal failure N17.9 BPH w urinary obs/LUTS N40.1; N13.8 Acute urinary obstruction N13.9 COPD (chronic obstructive pulmonary disease) J44.9 Hyperlipidemia E78.5 Right thyroid nodule E04.1 Hx of endarterectomy Z98.890 Bladder cancer C67.9 Carotid aneurysm, left I72.0 Severe protein-calorie malnutrition E43 Acidosis E87.20 Anemia D64.9 Anemia type: unspecified type Tobacco use disorder F17.200 Elevated troponin R77.8 Suprapubic pain R10.2 NSVT (nonsustained ventricular tachycardia) I47.29 HTN (hypertension) I10 Acute metabolic encephalopathy G93.41 (12) Anemia Anemia type: unspecified type Qualified Code(s): D64.9 - Anemia, unspecified
[2022-11-17] MEDS: amLODIPine BESYLATE 5 MG TAB PO SCH (21:06)
[2022-11-17] MEDS: TAMSULOSIN HCL 0.4 MG CAP PO SCH (21:06)
[2022-11-17] MEDS: ATORVASTATIN 40 MG TAB PO SCH (21:06)
[2022-11-17] MEDS: UMECLIDINIUM BROMIDE 62.5MCG/BLISTER 7 PUFFS/INHALER INH SCH (21:07)
[2022-11-17] MEDS: CLOPIDOGREL BISULFATE 75 MG TAB PO SCH (21:07)
[2022-11-18] MEDS: SODIUM CHLOR 0.45% + 20MEQ KCL 20 MEQ/1,000 ML BAG IV SCH ×4 (00:44→20:13)
[2022-11-18 07:48] LABS: Basophils # (auto) 0.04 K/uL (0-0.2); Basophils % (auto) 0.2 %; Eosinophils # (auto) 0.12 K/uL (0-0.50); Eosinophils % (auto) 0.7 %; Hematocrit (blood only) 24.4 % (42.0-52.0); Hemoglobin 8.5 g/dl (14.0-18.0); Immature Granulocytes # (auto) 0.13 K/uL (0.01-0.20); Immature Granulocytes % (auto) 0.7 %; Lymphocytes # (auto) 1.19 K/uL (1.2-3.4); Lymphocytes % (auto) 6.8 %; Mean Corpuscular Hemoglobin 28.9 pg (25.0-34.0); Mean Corpuscular Hgb Conc 34.8 g/dL (32.0-36.0); Mean Platelet Volume 10.6 fL (9.4-12.4); Monocytes # (auto) 0.83 K/uL (0.11-0.59); Monocytes % (auto) 4.8 %; Neutrophils # (auto) 15.07 K/uL (1.40-6.50); Neutrophils % (auto) 86.8 %; Platelet Count 171 K/uL (130-400); RDW Coefficient of Variation 13.8 % (11.5-14.5); RDW Standard Deviation 41.4 fL (36.4-46.3); Red Blood Count 2.94 M/uL (4.70-6.10); White Blood Count 17.38 K/ul (4.8-10.8)
[2022-11-18] MEDS: NICOTINE 21 MG/24 HR TDSY TD SCH (07:53)
[2022-11-18] MEDS: FOLIC ACID 1 MG TAB PO SCH (07:53)
[2022-11-18] MEDS: CHOLECALCIFEROL 1,000 UNITS 25 MCG TAB PO SCH (07:53)
[2022-11-18] MEDS: CYANOCOBALAMIN (B-12) 500 MCG TABLET PO SCH (07:54)
[2022-11-18 08:13] LABS: Estimated Average Glucose 123 mg/dl; Hemoglobin A1C 5.9 % (4.5-5.6)
[2022-11-18 08:25] LABS: BUN Creatinine Ratio 33.9 (10-20); Creatinine Clr Calc Pharmacy 8.9 ml/min; Est GFR (African American) 11.7 ml/min; Est GFR (Non-African American) 10.1 ml/min; Potassium 3.9 mmol/L (3.5-5.1)
--- NOTE | 2022-11-18 09:09 | Palliative Care Consultation ---
Date of Consultation November 18, 2022 Assessment & Plan (1) Palliative care by specialist: Met with pt/family. Provided overview of Palliative Medicine, a subspecialty that provides specialized medical care for people living with a serious illness by offering a focus on quality of life. Palliative Medicine is often conflated with hospice: I advised patient/family that Palliative and hospice can be partners but we are not the same. It is important to understand the difference so that we may be informed, and not afraid. Palliative Medicine works to improve QOL through reduction of symptom burden/more control over their illness, for both the patient and family. Palliative medicine clinicians are board certified, specially-trained and another member of the patient's medical care team. We often provide an extra layer of support because our care is based on the needs of the patient, not the prognosis; as such, it's appropriate at any age/advancing stage of a serious illness and can be provided along with curative treatment. Palliative Medicine clinicians are also trained in advanced communication methodologies, to facilitate complex discussions about advanced illness planning, which are needed to help assure that the treatment choices match the patient's goals, aka delivering Goal Concordant care. Finally, we discussed that hospice is a visiting nurse service that focuses on care delivered at the very end of life for patients with terminal illness, with life expectancy less than 6 month. (2) Advanced care planning/counseling discussion: A face to face ACP discussion was held with pt at bedside for 45 minutes Advance illness planning conversations are conducted to review goals and expectations, support shared decision-making, and engage in disease specific advance care planning. This type of advance care planning is sometimes referred to as 'preparedness planning. It is used to review the risks and benefits of offered therapy, elicit and deepen understanding of the underlying illness and therapeutic options, ensure adequate psychosocial support, address existential concerns and coping, and engage in end-of-life planning. Preparedness planning is not meant to replace informed consent discussions. Palliative medicine plays a role in the process of deepening a patients understanding of this specific medical intervention and ensuring this treatment aligns with their goals of care remains a central tenet of the planning conversation. CPR survival: Only about 10% of patients who have [id number] sudden cardiac arrest survive to hospital discharge, with many survivors having neurologic impairment. This rate is even lower among patients with serious coexisting conditions, ie chance of survival to hospital discharge for in-hospital CPR in older people is low to moderate (15%) and decreases with age, comorbidities, performance status and frailty: for pts > 70 yo, more than half of the patients who initially survived resuscitation in the hospital before hospital discharge. The pooled survival to discharge after in-hospital CPR was 18% for patients between 70 and 79 years old, 15% for patients between 80 and 89 years old and 11% for patients of 90 years and older. ([place] WILSONY, Vince LJ, Tre F, et al. Trends in short- and long-term survival among [id number]-[id number] cardiac arrest patients alive at hospital arrival. Circulation 2014;130:7383-6709. AND Kaley C, Veronika T, Heena R, et al. Performance of clinical risk scores to predict mortality and neurological outcome in cardiac arrest patients. Resuscitation 2019;136:21-29.) Branden is very clear he does not want anything extreme done:"I don't want any machines. no surgery. no dialysis., just let me go, I want to go home and I want everyone to leave me alone." He tells me he knows his time is limited, "I have enough proboems, cancer the kidneys you know what) and has been losing weight and growing weaker for about a year. He feels he is nearing the end of his life. He has not discussed this much with family "because they don't ask and probably wouldn't care even if I did tell them anything." We reviewed that without HD he would progress to a natural which he states he is aware of and does not want to prolong his life, prefers to allow a natural process to evolve. He does want to be comfortable through end of life but denies any acute symptoms at this time, specifically no pain or anxiety. code status changes to DNR/DNI in alignment with his wishes. (3) Acute metabolic encephalopathy: (4) VITALY (acute kidney injury): patient refuses HD; please review detailed notes from nephrology reviewing past and current discussions (5) COPD (chronic obstructive pulmonary disease): (6) Bladder cancer: (7) Severe protein-calorie malnutrition: (8) Cachexia: Plan See ACP discussion above. Nurse advised family called to say they will be coming in tomorrow and want to have a family meeting. They did not give a time. I have asked nursing to contact family to request meeting between 9-1030 or 1-3pm due to other meetings and clinic patients scheduled for me already. Code changed to no code. Thank you for allowing us to participate in the ongoing care of this patient. Please don't hesitate to call or page with any additional concerns. Dr. Tamar Oliva DNP Director, Palliative Care History of Present Illness Reason for Consultation: On 11/18/22 @ 07:57 Kelsey Salgado Wrote VITALY,goals of care Attending Physician: Kelsey Salgado MD History of Present Illness 77yo male admitted 11/15/22 with new ARF, severe: marked elevation in BUN >200 and peak Cr 8.8 at presentation, baseline Cr ~2-3 His family brought him to ED for worsening confusion, dehydration, and progressive weakness - son noted he fell and needed to be picked up but was so weak he could not support his weight for ambulation. bicarb drip initiated with improved now to anesthesia attending 6.4 and BUN , 200 pt remains intermittnetly lethargic but when alert has consistently declined HD. pt has hx high-grade urothelial cancer per records dx 2018: high grade urothelial bladder cancer who which local resection was performed for right lateral wall noninvasive disease in 2018. Cystoscopy performed with Dr. Morin in December 2021 with evidence of moderate prostate obstruction. In February 2019, Dr. Chaparro performed cystoscopy at [facility] with right ureteral stent for large obstructing kidney stone. There does not appear to be f/u after that December 2021 visit however this admission, an urine cytology is negative for high grade urothelial carcinoma. Concerning is that he's lost >+kg since 2021 and on admission is noted to be "profoundly cachectic." PMH: ypocalcemia, anemia, smoking related COPD/active smoker; hyperlipidemia, right thyroid nodule, abnormal EKG, B12 deficiency, history of endarterectomy 06/19/2019, bladder cancer/followed by Dr. Duane Morin; Left carotid aneurysm. Nephrology consult in part nted: "he remains adamant in his refusal of dialysis. He expressed desire for a more palliative approach to care and ultimately I suspect palliative care consultation would be beneficial to help negotiate goals of care." and in their HPI, noted "When I met Branden in December 2021, we discussed renal replacement therapy options. Branden told me that he would refuse dialysis, if indicated at that time. He reiterated this sentiment today. He acknowledged that kidney failure can be fatal without renal replacement and stated that he would rather than start dialysis treatments. I offered to call his family and discuss his plan of care but he told me that he would prefer if everyone would just leave him alone. I also added that he is currently registered as a 'full code' level of care and he responded by telling me that he would prefer if everyone would just "leave me alone." He did not clearly express that he wanted code status changed at this time. However, he was clear in his refusal of dialysis. Ultimately, he said that he just wants to go home. Branden told me that he lives with his nephew and he believes that his nephew sent him to the hospital but he cannot recall exactly how he got here. Branden told me that he has not been eating or drinking well. He does feel that this is a significant contributing factor to his hospitalization. He stated that he has no appetite or interest in food. He has been losing weight. Documented weight in December 2021 was 76 kg and Branden is currently documented at 52 kg. He has visibly lost a significant amount of weight since I saw him ~1 year ago. He denies GI symptoms such as nausea, vomiting, diarrhea, or constipation." Attempts to reach family on 11/16/22 noted to be: "attempted to call pt's daughter by phone phone just rang and rang then the phone simply never picked up - unable to leave message will attempt to contact family again tomorrow pt's former employer called and spoke with Mr Galvin's nurse today he reported that the Office of Aging had been contacted re: Mr Galvin's living situation (apparently lives with son) will involve social work on Thursday on this" And on 11/17/22, "Social situation is complicated. Pt's step-son apparently had been living with him. Pt's former boss from his prior job called the hospital yesterday and mentioned to nursing that the Office of Aging had been contacted re: Mr Galvin's living situation. Pt's nephew Zana is likely the most reliable person to contact with medical updates." Patient seen bedside. he had been incontinent of stool and unaware he is lying on his left side and in a position he is awake and alert to person, place, time (year and month) he denies acute pain Allergies Allergy/AdvReac Type Severity Reaction Status Date / Time lisinopril Allergy Severe THROAT Verified 11/15/22 21:12 CLOSES Penicillins Allergy Intermediate Rash Verified 11/15/22 21:12 Home Medications Medication Instructions Recorded Confirmed Type albuterol sulfate 90 mcg/actuation 2 puff inhalation Q4H PRN 02/14/19 11/15/22 History aerosol inhaler Shortness Of Breath amlodipine 10 mg tablet 10 mg PO HS 02/14/19 11/15/22 History atorvastatin 80 mg tablet 80 mg PO HS 06/08/19 11/15/22 History nebulizers #1 ea 05/24/20 12/13/21 Rx clopidogrel 75 mg tablet 75 mg PO HS 05/16/21 11/15/22 History tiotropium bromide 18 mcg capsule 1 cap inhalation HS 05/16/21 11/15/22 History with inhalation device (Spiriva with HandiHaler) cholecalciferol (vitamin D3) 25 25 mcg PO DAILY 11/15/22 11/15/22 History mcg (1,000 unit) capsule (Vitamin D3) cyanocobalamin (vitamin B-12) 1,000 mcg PO DAILY 11/15/22 11/15/22 History 1,000 mcg tablet (Vitamin B-12) folic acid 1 mg tablet 1 mg PO DAILY 11/15/22 11/15/22 History Patient History Medical History (Updated 11/18/22 @ 09:32 by Tamar Oliva DNP) Abnormal ECG Right bundle branch block Acute hypoxemic respiratory failure Acute respiratory failure with hypoxia Admitted to intensive care unit Advanced care planning/counseling discussion Arthritis Cachexia Carotid artery disease Carotid insufficiency Chest pain Community acquired pneumonia COPD (chronic obstructive pulmonary disease) CVA (cerebral infarction) CVA (cerebral infarction) Elevated d-dimer Gout History of bladder cancer S/P BCG treatment History of high cholesterol DIETARY CONTROLLED History of kidney stones History of stroke 2012, [place] WITH BLOOD THINNER - NO RESIDUAL EFFECTS HTN (hypertension) Hyperlipemia Hyperlipidemia Hypoxia Kidney stones Lung nodule Palliative care by specialist Tobacco use disorder Surgical History (Updated 12/13/21 @ 09:38 by Cornelius Lo DO) H/O bilateral hip replacements History of colonoscopy History of hip surgery Left History of surgery LEFT EYE/ INJURY RELATED 1965 History of total left hip arthroplasty Hx of cystoscopy 03/14/19 [facility] Family History Mother Heart disease Brother Heart disease Social History Smoking Status: Current some day smoker Tobacco Type: Cigarettes Cigarettes Per Day: 20; Second Hand Exposure: No; Do You Dip or Chew Tobacco: No; Hx Alcohol Use: Yes Alcohol type: beer Hx Substance Use: No Preferred Language: Malagasy Communication Ability: Effective Personnel Research Psychologist Required: No Beliefs That Will Affect Care: None marital status: Single Current Living Situation: Family current occupational status: retired Other Information That Helps Us Care for You: No Feels Safe at Home: Yes Safety Concerns: Feels Safe At This Time Assistive Devices: None Review of Systems Review of Systems: All systems reviewed & are unremarkable except as noted in Subjective Physical Exam Physical Exam: Cachectic elderly male, lying curled on left side in bed. there is redness at left bony hip but he refuses to change positions so a dressing is in place. he is disheveled/generalized self neglect he is awake and alert to person, place and time +Pallor +generalized weakness neck supple, no stridor lung sounds diminished with scatt rhonchi, no wheezing. mild use of accessory muscles s1s2, mild JVD abd scaphoid. non tender BS+ extremities BLE weakness/atrophy, +vasc insuff changes BLE mood subdued, at times gruff Results & Data Vital Signs (Past 12 Hours) Vital Signs Temp Pulse Pulse Resp BP Pulse Ox O2 Del Method 11/18/22 07:44 36.5 C 93 H 17 156/78 H 94 Room Air 11/18/22 03:09 36.4 C L 79 16 139/67 95 Room Air 11/17/22 22:05 89 11/17/22 23:07 36.1 C L 79 101 H 101/76 96 Room Air 11/17/22 21:00 Room Air Laboratory Results data reviewed Diagnostic Findings data reviewed PG Care Time/CCT Total # of Minutes Spent Total Time Spent: 100 Total Time Spent with Patient: Total time spent is greater than 50% in coordination of care (as documented) at patient's floor/unit and/or counseling patient: I spent 100 minutes overall addressing this case: 15 in medical data review/discussion with referring provider(s) and/or preparation for the visit 15 in direct interaction with the patient 45 Advance Care Planning/Goals of Care discussions as detailed above in note (must be >16min) 10 in subsequent review and synthesis of assessment and plan 15 in communicating with other providers regarding the patient's case: nursing, primary team Advanced Care Planning 67120 Advanced Care Planning 30 Min [id number] Advanced Care Planning Additional 30 [place] [address] IN/OBS CONSULT LVL 5,80M Patient Type New History Comprehensive Exam Comprehensive Medical Decision Making High Complexity Diagnoses Palliative care by specialist Z51.5 Advanced care planning/counseling discussion Z71.89 Acute metabolic encephalopathy G93.41 VITALY (acute kidney injury) N17.9 COPD (chronic obstructive pulmonary disease) J44.9 Bladder cancer C67.9 Severe protein-calorie malnutrition E43 Cachexia R64 Additional Codes Advanced Care Planning - 44870 Advanced Care Planning 30 Min: 26116 Advanced Care Planning 30 Min ([id number]) Advanced Care Planning - 40943 Advanced Care Planning Additional 30 Min: 40643 Advanced Care Planning Additional 30 Min ([id number])
[2022-11-18] MEDS ORDERED: EPOETIN ALFA 10,000 UNITS/ML VIAL SQ SCH (10:00)
--- NOTE | 2022-11-18 12:13 | Nephrology Progress Note ---
Date of Service November 18, 2022 Assessment & Plan (1) VITALY (acute kidney injury): Plan: Non-oliguric. Clinical presentation consistent with obstructive nephropathy and prerenal VITALY. Tolerating IVF well. Mei to gravity. Severe azotemia with longstanding progressive uremic symptoms reported. Branden has confirmed that he does not want dialysis. Thankfully, there is no emergent indication for dialysis at this time. He is receptive to continued medical management with IVF. NaHCO3 infusion switched to 1/2 NS + 20 mEq KCl yesterday. Will provide another liter today and then switch to balance IVF solution. I would continue aggressive IVF. Maintain Mei to gravity. Document strict I/O's. Monitor metabolic profile daily. (2) Anemia: Plan: Iron profile acceptable. Epogen 41923 units x 1 this AM for anemia of chronic disease. (3) BPH w urinary obs/LUTS: Plan: Mei to gravity. Ultimately will require close follow up with urology. Tamsulosin 0.4 mg daily. Urine cytology pending. (4) Hypocalcemia: Plan: Ergocalciferol 01972 units x 1 dose now. Admission and Anticipated Discharge Date Admission Date: November 15, 2022 Subjective No acute events overnight. Branden was resting comfortably in bed. PO intake remains poor. He was agreeable to taking medications this AM. No complaints reported. Remains very distant and does not engage in conversation. I reviewed my conversation with his nephew yesterday. Branden told me that he does not think that he's depressed -- he just wants to be left alone. He as laying in stool this morning but he denied this when I asked him about it. I did tell him that the nurse would be in to help clean him up for the day but he responded by saying he didn't want any help. Review of Systems Review of Systems: All systems reviewed & are unremarkable except as noted in HPI & below Physical Exam Constitutional: + ill appearing and + cachectic Eyes: + anicteric sclerae; no conjunctival abnormality ENMT: Mouth: + dry oral mucous membranes Neck: normal visual inspection and trachea midline Respiratory: normal respiratory effort Auscultation: + wheezes; no rales and no rhonchi Cardiovascular: Rate/Rhythm: regular rate Heart Sounds: normal S1 and normal S2 Extremities: no edema Musculoskeletal: Extremities: no cyanosis and no clubbing Skin: + turgor decreased; no jaundice Neurologic: Motor/Sensory: no tremor and no asterixis Psychiatric: Orientation: alert and oriented x 3 Results & Data Vital Signs (Past 12 Hours) Vital Signs Temp Pulse Pulse Resp BP Pulse Ox O2 Del Method 11/18/22 11:49 36.5 C 86 18 131/69 95 Room Air 11/18/22 08:00 Room Air 11/18/22 08:00 93 H 11/18/22 07:44 36.5 C 93 H 17 156/78 H 94 Room Air 11/18/22 03:09 36.4 C L 79 16 139/67 95 Room Air Laboratory Results Laboratory Results - last 24 hr 11/18/22 11/18/22 11/18/22 07:05 07:05 07:05 WBC 17.38 H RBC 2.94 L Hgb 8.5 L Hct 24.4 L MCV 83.0 MCH 28.9 MCHC 34.8 RDW Std Deviation 41.4 RDW Coeff of [place] 13.8 Plt Count 171 MPV 10.6 Immature Gran % (Auto) 0.7 Neut % (Auto) 86.8 Lymph % (Auto) 6.8 [place] % (Auto) 4.8 Eos % (Auto) 0.7 Baso % (Auto) 0.2 Neut # (Auto) 15.07 H Lymph # (Auto) 1.19 L [place] # (Auto) 0.83 H Eos # (Auto) 0.12 Baso # (Auto) 0.04 Immature Gran # (Auto) 0.13 Sodium 143 Potassium 3.9 D Chloride 109 H Carbon Dioxide 24 Anion Gap 10 BUN 170 H D Creatinine 5.02 H* D Est Cr Clr Drug Dosing 8.9 Est GFR ( Amer) 11.7 Est GFR (Non-Af Amer) 10.1 BUN/Creatinine Ratio 33.9 H Glucose 107 H Estimat Average Glucose 123 Hemoglobin A1c 5.9 H Calcium 7.0 L Vitamin B12 Folate 11/18/22 07:05 WBC RBC Hgb Hct MCV MCH MCHC RDW Std Deviation RDW Coeff of [place] Plt Count MPV Immature Gran % (Auto) Neut % (Auto) Lymph % (Auto) [place] % (Auto) Eos % (Auto) Baso % (Auto) Neut # (Auto) Lymph # (Auto) [place] # (Auto) Eos # (Auto) Baso # (Auto) Immature Gran # (Auto) Sodium Potassium Chloride Carbon Dioxide Anion Gap BUN Creatinine Est Cr Clr Drug Dosing Est GFR ( Amer) Est GFR (Non-Af Amer) BUN/Creatinine Ratio Glucose Estimat Average Glucose Hemoglobin A1c Calcium Vitamin B12 324 Folate 12.20 PG Care Time/CCT Total # of Minutes Spent Total Time Spent with Patient: Total time spent is greater than 50% in coordination of care (as documented) at patient's floor/unit and/or counseling patient: Coding Level of Care Code 59114 SUB INP/OBS CARE 3/50MIN Diagnoses VITALY (acute kidney injury) N17.9 Anemia D64.9 Anemia type: unspecified type BPH w urinary obs/LUTS N40.1; N13.8 Hypocalcemia E83.51 (2) Anemia Anemia type: unspecified type Qualified Code(s): D64.9 - Anemia, unspecified
[2022-11-18] MEDS ORDERED: ERGOCALCIFEROL 50,000 UNITS 1250 MCG CAP PO ONE (13:00)
[2022-11-18] MEDS: DAPTOmycin 325 MG in SYRINGE 0 ML IV SCH (14:47)
--- NOTE | 2022-11-18 16:49 | Hospitalist Progress Note ---
Date of Service November 18, 2022 Assessment & Plan (1) Acute renal failure: Plan: severe/profound, with marked elevation in BUN >200 and peak Cr 8.8 at presentation baseline Cr ~2-3 ? likely combination of pre-renal factors (marked dehydration, poor PO intake) and obstruction from #2 Cr improving daily , now down to 5.0, non oliguric BUN just shy of 200 and now improving acid-base status improved with bicarbonate drip appreciate nephrology consultation nephrology changed IVF to 1/2 NS at 150cc/hr-continue for one more day and then convert to balanced IVFs as per Nephrology serial daily BMPs cont sosa patient is confused/lethargic but has consistently told us he would not want hemodialysis-seems to be oriented but rather just with apathy for his health (2) BPH w urinary obs/LUTS: Plan: severe, with resulting b/l hydronephrosis + acute renal failure sosa flomax ultimately needs urology involvement if he is able to get through #1 above (3) Acute urinary obstruction: Plan: 2nd BPH can't rule out element of obstruction from bladder ca recurrence either see above cont sosa (4) COPD (chronic obstructive pulmonary disease): Plan: stable O2 sats in RA cont home inhalers mild wheezing on exam but comfortable and no significant cough (5) Hyperlipidemia: Plan: statin now on hold while on Dapto for UTI (6) Right thyroid nodule: Plan: last imaging study - 4.1cm nodule right lobe TSH wnl today could consider thyroid u/s to look for calcifications, etc but defer on this for now (7) Hx of endarterectomy: Plan: noted - 06/2019 (8) Bladder cancer: Plan: high-grade urothelial cancer per records dx 2018 [facility] time he had evidence of ongoing obstruction from his BPH but no cancer seen on that cysto it does not appear he had f/u after that urine cytology negative for high grade urothelial carcinoma given the extreme weight loss malignancy remains very high on the differential (9) Carotid aneurysm, left: (10) Severe protein-calorie malnutrition: Plan: 20+kg weight loss since 2021 he is profoundly cachectic on examination highly concerning for recurrent bladder ca or other malignancy process supportive care first for #1 if able to get through this stay (ie - if there is enough renal recovery) will ultimately need w/u for weight loss (11) Anemia: Plan: Fe studies wnl TSH wnl b12/folate normal (12) Tobacco use disorder: Plan: [facility] sm[facility] 1 ppd nicoderm patch (13) Elevated troponin: Plan: mild elevation in trop this likely represents myocardial demand ischemia in setting of #1 rather than ACS (14) Suprapubic pain: Plan: pain resolved continue IV abx but change to Dapto for Enterococcus UTI dc Cefepime (15) NSVT (nonsustained ventricular tachycardia): Plan: 22 beat run a few days ago and another 10 beat run today high K and acidosis likely caused such echo with preserved EF follow on tele carefully no symptoms reported despite the NSVT (16) HTN (hypertension): Plan: BPs stable on lower dose of amlodipine 5mg/day (17) Acute metabolic encephalopathy: Plan: 2nd to #1 can't rule out UTI contributing as well improving supportive care Plan Social situation is complicated. Pt's step-son apparently had been living with him. Pt's former boss from his prior job called the hospital yesterday and mentioned to nursing that the Office of Aging had been contacted re: Mr Galvin's living situation. Pt's nephew Zana is likely the most reliable person to contact with medical updates. Even if patient recovers from his acute renal failure I suspect he may continue to have failure to thrive. He clearly has been losing weight, not eating, mentation is poor at times, etc. will obtain palliative care consultation to refine goals of care with family - appreciated Admission and Anticipated Discharge Date Admission Date: November 15, 2022 Subjective Pt tired and wants to be left alone. Denies pain. Tele with NSR, IVCD, PVCs, 10 beat run VT Physical Exam Constitutional: + underweight Respiratory: normal respiratory effort, lungs clear to auscultation Cardiovascular: Rate/Rhythm: regular rate and regular rhythm Extremities: no edema Gastrointestinal (Abdomen): normal bowel sounds, soft, nontender, no hepatosplenomegaly Psychiatric: Orientation: alert Genitourinary: Sosa in place Results & Data Results & Data Vital Signs (Past 12 Hours) Vital Signs Temp Pulse Pulse Resp BP Pulse Ox O2 Del Method 11/18/22 16:27 36.6 C 71 18 142/69 H 95 Room Air 11/18/22 16:00 76 11/18/22 11:49 36.5 C 86 18 131/69 95 Room Air 11/18/22 08:00 Room Air 11/18/22 08:00 93 H 11/18/22 07:44 36.5 C 93 H 17 156/78 H 94 Room Air Laboratory Results CBC, BMP, B12, Folate reviewed PG Care Time/CCT Total # of Minutes Spent Total Time Spent with Patient: Total time spent is greater than 50% in coordination of care (as documented) at patient's floor/unit and/or counseling patient: Coding Level of Care Code 71890 SUB INP/OBS CARE 2/35MIN Diagnoses Acute renal failure N17.9 BPH w urinary obs/LUTS N40.1; N13.8 Acute urinary obstruction N13.9 COPD (chronic obstructive pulmonary disease) J44.9 Hyperlipidemia E78.5 Right thyroid nodule E04.1 Hx of endarterectomy Z98.890 Bladder cancer C67.9 Carotid aneurysm, left I72.0 Severe protein-calorie malnutrition E43 Anemia D64.9 Anemia type: unspecified type Tobacco use disorder F17.200 Elevated troponin R77.8 Suprapubic pain R10.2 NSVT (nonsustained ventricular tachycardia) I47.29 HTN (hypertension) I10 Acute metabolic encephalopathy G93.41 (11) Anemia Anemia type: unspecified type Qualified Code(s): D64.9 - Anemia, unspecified
[2022-11-18] MEDS: UMECLIDINIUM BROMIDE 62.5MCG/BLISTER 7 PUFFS/INHALER INH SCH (20:12)
[2022-11-18] MEDS: TAMSULOSIN HCL 0.4 MG CAP PO SCH (20:13)
[2022-11-18] MEDS: amLODIPine BESYLATE 5 MG TAB PO SCH (20:13)
[2022-11-18] MEDS: CLOPIDOGREL BISULFATE 75 MG TAB PO SCH (20:13)
[2022-11-19] MEDS: SODIUM CHLOR 0.45% + 20MEQ KCL 20 MEQ/1,000 ML BAG IV SCH ×4 (02:23→21:39)
[2022-11-19 06:58] LABS: Basophils # (auto) 0.04 K/uL (0-0.2); Basophils % (auto) 0.2 %; Eosinophils # (auto) 0.09 K/uL (0-0.50); Eosinophils % (auto) 0.4 %; Hematocrit (blood only) 25.4 % (42.0-52.0); Hemoglobin 8.5 g/dl (14.0-18.0); Immature Granulocytes # (auto) 0.12 K/uL (0.01-0.20); Immature Granulocytes % (auto) 0.6 %; Lymphocytes # (auto) 1.54 K/uL (1.2-3.4); Lymphocytes % (auto) 7.7 %; Mean Corpuscular Hemoglobin 28.9 pg (25.0-34.0); Mean Corpuscular Hgb Conc 33.5 g/dL (32.0-36.0); Mean Corpuscular Volume 86.4 fL (80.0-100.0); Mean Platelet Volume 10.8 fL (9.4-12.4); Monocytes # (auto) 0.77 K/uL (0.11-0.59); Monocytes % (auto) 3.8 %; Neutrophils # (auto) 17.56 K/uL (1.40-6.50); Neutrophils % (auto) 87.3 %; Nucleated RBC # (auto) 0.02 K/uL (0-0.12); Nucleated RBC % (auto) 0.1 %; Platelet Count 168 K/uL (130-400); RDW Standard Deviation 43.8 fL (36.4-46.3); Red Blood Count 2.94 M/uL (4.70-6.10); White Blood Count 20.12 K/ul (4.8-10.8)
[2022-11-19 07:21] LABS: Calcium 7.2 mg/dl (8.6-10.3); Est GFR (African American) 15.1 ml/min; Est GFR (Non-African American) 13.1 ml/min; Potassium 4.8 mmol/L (3.5-5.1)
[2022-11-19 07:33] LABS: BUN Creatinine Ratio 35.9 (10-20)
[2022-11-19] MEDS: NICOTINE 21 MG/24 HR TDSY TD SCH (08:29)
[2022-11-19] MEDS: CHOLECALCIFEROL 1,000 UNITS 25 MCG TAB PO SCH (08:29)
[2022-11-19] MEDS: FOLIC ACID 1 MG TAB PO SCH (08:29)
[2022-11-19] MEDS: CYANOCOBALAMIN (B-12) 500 MCG TABLET PO SCH (08:30)
--- NOTE | 2022-11-19 10:53 | Nephrology Progress Note ---
Date of Service November 19, 2022 Assessment & Plan (1) VITALY (acute kidney injury): Plan: Non-oliguric. Clinical presentation consistent with obstructive nephropathy and prerenal VITALY. Tolerating IVF well. Mei to gravity. Severe azotemia with longstanding progressive uremic symptoms reported. Branden has confirmed that he does not want dialysis. Thankfully, there is no emergent indication for dialysis at this time. He is receptive to continued medical management with IVF. Continue 1/2 NS + 20 mEq KCl. Encourage PO free water intake. I would continue aggressive IVF. Maintain Mei to gravity. Document strict I/O's. Monitor metabolic profile daily. (2) Anemia: Plan: Iron profile acceptable. Epogen 61779 units x 1 provided yesterday for anemia of chronic disease. (3) BPH w urinary obs/LUTS: Plan: Mei to gravity. Ultimately will require close follow up with urology. Tamsulosin 0.4 mg daily. Urine cytology pending. (4) Hypocalcemia: Plan: Ergocalciferol 15730 units x 1 dose yesterday. Continue daily D3. Admission and Anticipated Discharge Date Admission Date: November 15, 2022 Subjective No acute events overnight. Remains very despondent. More interactive this morning. Taking PO fluids. Bowels remain loose and frequent. Incontinent of stool. No melena or hematochezia. Tolerating IVF well. Review of Systems Review of Systems: All systems reviewed & are unremarkable except as noted in HPI & below Physical Exam Constitutional: + ill appearing and + cachectic Eyes: + anicteric sclerae; no conjunctival abnormality ENMT: Mouth: + dry oral mucous membranes Neck: normal visual inspection and trachea midline Respiratory: normal respiratory effort Auscultation: no rales and no rhonchi Cardiovascular: Rate/Rhythm: regular rate Heart Sounds: normal S1 and normal S2 Extremities: no edema Musculoskeletal: Extremities: no cyanosis and no clubbing Skin: + turgor decreased; no jaundice Neurologic: Motor/Sensory: no tremor and no asterixis Psychiatric: Orientation: alert and oriented x 3 Results & Data Vital Signs (Past 12 Hours) Vital Signs Temp Pulse Pulse Resp BP Pulse Ox O2 Del Method 11/19/22 08:00 99 H 11/19/22 07:15 36.6 C 94 H 17 140/62 93 Room Air 11/19/22 03:14 37.1 C 104 H 18 133/54 L 90 Room Air 11/18/22 23:37 36.5 C 92 H 18 113/65 92 Room Air Laboratory Results Laboratory Results - last 24 hr 11/18/22 11/19/22 11/19/22 19:18 06:11 06:11 WBC 20.12 H RBC 2.94 L Hgb 8.5 L Hct 25.4 L MCV 86.4 MCH 28.9 MCHC 33.5 RDW Std Deviation 43.8 RDW Coeff of [place] 14.0 Plt Count 168 MPV 10.8 Immature Gran % (Auto) 0.6 Neut % (Auto) 87.3 Lymph % (Auto) 7.7 [place] % (Auto) 3.8 Eos % (Auto) 0.4 Baso % (Auto) 0.2 Neut # (Auto) 17.56 H Lymph # (Auto) 1.54 [place] # (Auto) 0.77 H Eos # (Auto) 0.09 Baso # (Auto) 0.04 Immature Gran # (Auto) 0.12 Absolute Nucleated RBC 0.02 Nucleated RBC % (auto) 0.1 Peripher Smr Path Cons Sodium 140 Potassium 4.8 D Chloride 110 H Carbon Dioxide 20 L Anion Gap 10 BUN 146 H D Creatinine 4.07 H D Est Cr Clr Drug Dosing 11.0 Est GFR ( Amer) 15.1 Est GFR (Non-Af Amer) 13.1 BUN/Creatinine Ratio 35.9 H Glucose 100 H Calcium 7.2 L PG Care Time/CCT Total # of Minutes Spent Total Time Spent with Patient: Total time spent is greater than 50% in coordination of care (as documented) at patient's floor/unit and/or counseling patient: Coding Level of Care Code 34148 SUB INP/OBS CARE 3/50MIN Diagnoses VITALY (acute kidney injury) N17.9 Anemia D64.9 Anemia type: unspecified type BPH w urinary obs/LUTS N40.1; N13.8 Hypocalcemia E83.51 (2) Anemia Anemia type: unspecified type Qualified Code(s): D64.9 - Anemia, unspecified
--- NOTE | 2022-11-19 14:54 | Hospitalist Progress Note ---
Date of Service November 19, 2022 Assessment & Plan (1) Acute renal failure: Plan: severe/profound, with marked elevation in BUN >200 and peak Cr 8.8 at presentation baseline Cr ~2-3 ? likely combination of pre-renal factors (marked dehydration, poor PO intake) and obstruction from enlarged prostate Cr improving daily with Sosa placement and IVFs , now down to 4.0, non oliguric BUN just shy of 200 and now improving acid-base status improved with bicarbonate drip Mentation improving but remains anorexic, very fatigued appreciate nephrology consultation -continue IVF 1/2 NS at 150cc/hr -serial daily BMPs -cont sosa -patient is has consistently told us he would not want hemodialysis and is interested in going home with hospice -Appreciate Palliative Medicine consultation (2) BPH w urinary obs/LUTS: Plan: severe, with resulting b/l hydronephrosis + acute renal failure can't rule out element of obstruction from bladder ca recurrence either continue sosa flomax ultimately needs urology involvement if he is able to get through #1 above, but if going home on hospice, would simply keep Sosa in place chronically (3) COPD (chronic obstructive pulmonary disease): Plan: stable O2 sats in RA cont home inhalers mild wheezing on exam but comfortable and no significant cough (4) Hyperlipidemia: Plan: statin now on hold while on Dapto for UTI (5) Right thyroid nodule: Plan: last imaging study - 4.1cm nodule right lobe TSH wnl today could consider thyroid u/s to look for calcifications, etc but defer on this for now (6) Hx of endarterectomy: Plan: noted - 06/2019 (7) Bladder cancer: Plan: high-grade urothelial cancer per records dx 2018 [facility] he had evidence of ongoing obstruction from his BPH but no cancer seen on that cysto it does not appear he had f/u after that urine cytology negative for high grade urothelial carcinoma given the extreme weight loss malignancy remains very high on the differential, but weight loss could be from uremia and anorexia (8) Carotid aneurysm, left: (9) Severe protein-calorie malnutrition: Plan: 20+kg weight loss since 2021 he is profoundly cachectic on examination highly concerning for recurrent bladder ca or other malignancy process , but could be from uremia/CKD encourage Boost shakes may end up enrolling in hospice (10) Anemia: Plan: Fe studies wnl TSH wnl b12/folate normal was given Epogen (11) Tobacco use disorder: Plan: [facility] indicated he smokes 1 ppd nicoderm patch (12) Elevated troponin: Plan: mild elevation in trop this likely represents myocardial demand ischemia in setting of #1 rather than ACS (13) Suprapubic pain: Plan: pain resolved continue IV abxw/ Dapto for Enterococcus UTI (14) NSVT (nonsustained ventricular tachycardia): Plan: 22 beat run a few days ago and then another 10 beat run on 11/18, none since high K and acidosis likely caused such echo with preserved EF no symptoms reported despite the NSVT ok to remove from tele, considering hospice and is a DNR/DNI (15) HTN (hypertension): Plan: BPs stable on lower dose of amlodipine 5mg/day (16) Acute metabolic encephalopathy: Plan: 2nd to uremia can't rule out UTI contributing as well improving supportive care Plan Social situation is complicated. Pt's adopted son (biological grandson named Jh) has been living with him. The house is unkempt as per pt's best friend and not fit for humans to live. Dog feces everywhere, not clean. Pt's former boss/close friend from his prior job mentioned that he contacted the Office of Aging re: Mr Galvin's living situation. Pt's nephew Zana is also involved and was present for d/w Palliative Medicine on 11/19 for 40 min Likely plan for home at nephew's house with hospice Admission and Anticipated Discharge Date Admission Date: November 15, 2022 Subjective Pt seen with nephew and close friend as well as Palliative Care. He does say hello to me but mostly sleeping. Friend and nephew report he seems more interactive and cheerful today than he has been in weeks. Pt expressed he does not want dialysis. Tele with NSR, PVC, rates 70-100s Physical Exam Constitutional: + underweight Respiratory: normal respiratory effort Cardiovascular: Extremities: no edema Results & Data Results & Data Vital Signs (Past 12 Hours) Vital Signs Temp Pulse Pulse Resp BP Pulse Ox O2 Del Method 11/19/22 11:05 36.7 C 96 H 18 164/75 H 94 Room Air 11/19/22 08:00 99 H 11/19/22 07:15 36.6 C 94 H 17 140/62 93 Room Air 11/19/22 03:14 37.1 C 104 H 18 133/54 L 90 Room Air Laboratory Results CBC, BMP reviewed PG Care Time/CCT Total # of Minutes Spent Total Time Spent with Patient: Total time spent is greater than 50% in coordination of care (as documented) at patient's floor/unit and/or counseling patient: Coding Level of Care Code 31303 SUB INP/OBS CARE 3/50MIN Diagnoses Acute renal failure N17.9 BPH w urinary obs/LUTS N40.1; N13.8 COPD (chronic obstructive pulmonary disease) J44.9 Hyperlipidemia E78.5 Right thyroid nodule E04.1 Hx of endarterectomy Z98.890 Bladder cancer C67.9 Carotid aneurysm, left I72.0 Severe protein-calorie malnutrition E43 Anemia D64.9 Anemia type: unspecified type Tobacco use disorder F17.200 Elevated troponin R77.8 Suprapubic pain R10.2 NSVT (nonsustained ventricular tachycardia) I47.29 HTN (hypertension) I10 Acute metabolic encephalopathy G93.41 (10) Anemia Anemia type: unspecified type Qualified Code(s): D64.9 - Anemia, unspecified
[2022-11-19] MEDS: amLODIPine BESYLATE 5 MG TAB PO SCH (20:34)
[2022-11-19] MEDS: TAMSULOSIN HCL 0.4 MG CAP PO SCH (20:34)
[2022-11-19] MEDS: CLOPIDOGREL BISULFATE 75 MG TAB PO SCH (20:35)
[2022-11-19] MEDS: UMECLIDINIUM BROMIDE 62.5MCG/BLISTER 7 PUFFS/INHALER INH SCH (20:35)
[2022-11-20] MEDS: SODIUM CHLOR 0.45% + 20MEQ KCL 20 MEQ/1,000 ML BAG IV SCH (04:18)
[2022-11-20 08:46] LABS: Hematocrit (blood only) 21.9 % (42.0-52.0); Hemoglobin 7.2 g/dl (14.0-18.0); Mean Corpuscular Hemoglobin 28.7 pg (25.0-34.0); Mean Corpuscular Hgb Conc 32.9 g/dL (32.0-36.0); Mean Corpuscular Volume 87.3 fL (80.0-100.0); Mean Platelet Volume 11.2 fL (9.4-12.4); Nucleated RBC # (auto) 0.02 K/uL (0-0.12); Nucleated RBC % (auto) 0.1 %; Platelet Count 163 K/uL (130-400); RDW Coefficient of Variation 14.1 % (11.5-14.5); RDW Standard Deviation 43.8 fL (36.4-46.3); Red Blood Count 2.51 M/uL (4.70-6.10); White Blood Count 25.19 K/ul (4.8-10.8)
[2022-11-20] MEDS: CHOLECALCIFEROL 1,000 UNITS 25 MCG TAB PO SCH (09:05)
[2022-11-20] MEDS: NICOTINE 21 MG/24 HR TDSY TD SCH (09:05)
[2022-11-20] MEDS: CYANOCOBALAMIN (B-12) 500 MCG TABLET PO SCH (09:05)
[2022-11-20 09:08] LABS: Basophils # (auto) 0.07 K/uL (0-0.2); Basophils % (auto) 0.3 %; Eosinophils # (auto) 0.11 K/uL (0-0.50); Eosinophils % (auto) 0.4 %; Immature Granulocytes # (auto) 0.22 K/uL (0.01-0.20); Immature Granulocytes % (auto) 0.9 %; Lymphocytes # (auto) 1.73 K/uL (1.2-3.4); Lymphocytes % (auto) 6.9 %; Monocytes % (auto) 3.6 %; Neutrophils # (auto) 22.16 K/uL (1.40-6.50); Neutrophils % (auto) 87.9 %; Polychromasia 1+
[2022-11-20 09:11] LABS: Calcium 7.4 mg/dl (8.6-10.3); Creatinine Clr Calc Pharmacy 12.3 ml/min; Est GFR (African American) 17.4 ml/min; Potassium 5.2 mmol/L (3.5-5.1)
[2022-11-20 09:28] LABS: BUN Creatinine Ratio 37.2 (10-20)
[2022-11-20] MEDS: FOLIC ACID 1 MG TAB PO SCH (09:57)
--- NOTE | 2022-11-20 10:01 | Nephrology Progress Note ---
Date of Service November 20, 2022 Assessment & Plan (1) VITALY (acute kidney injury): Plan: Clinical presentation consistent with obstructive nephropathy and prerenal VITALY. Baseline creatinine in June 2.7 mg/dL. Tolerating IVF well. Mei to gravity. Branden has confirmed that he does not want dialysis. Thankfully, there is no emergent indication for dialysis at this time. Stop 1/2 NS + 20 mEq KCl. IVF switched to plasmalyte @ 125 ml/h this AM. Oral NaHCO3 1300 mg BID added this AM. Continue to encourage PO free water intake. (2) Anemia: Plan: Iron profile acceptable. Epogen 23470 units x 1 provided 11/18 for anemia of chronic disease. (3) BPH w urinary obs/LUTS: Plan: Mei to gravity. Ultimately will require close follow up with urology. Tamsulosin 0.4 mg daily. Urine cytology negative for malignant cells. (4) Hypocalcemia: Plan: Ergocalciferol 73625 units x 1 dose 11/18. Continue daily D3. Admission and Anticipated Discharge Date Admission Date: November 15, 2022 Subjective No acute events overnight. Resting comfortably in bed. Appetite continues to improve. Tolerating IVF. Denies fluid retention or edema. Mei draining clear urine. Review of Systems Review of Systems: All systems reviewed & are unremarkable except as noted in HPI & below Physical Exam Constitutional: well developed and + cachectic Eyes: + anicteric sclerae; no conjunctival abnormality ENMT: Mouth: no oral mucosal abnormality and oral mucous membranes not dry Neck: normal visual inspection and trachea midline Respiratory: normal respiratory effort Auscultation: lungs clear to auscultation bilaterally Cardiovascular: Rate/Rhythm: regular rate Heart Sounds: normal S1 and normal S2 Extremities: no edema Musculoskeletal: Extremities: no cyanosis and no clubbing Skin: + turgor decreased; no jaundice Neurologic: Motor/Sensory: no tremor and no asterixis Psychiatric: Orientation: alert and oriented x 3 Results & Data Vital Signs (Past 12 Hours) Vital Signs Temp Pulse Resp BP Pulse Ox O2 Del Method 11/20/22 08:21 36.7 C 99 H 16 104/62 98 Room Air 11/20/22 07:30 Room Air 11/19/22 23:22 37.0 C 96 H 16 115/66 98 Room Air Laboratory Results Laboratory Results - last 24 hr 11/20/22 11/20/22 08:16 08:16 WBC 25.19 H RBC 2.51 L Hgb 7.2 L Hct 21.9 L MCV 87.3 MCH 28.7 MCHC 32.9 RDW Std Deviation 43.8 RDW Coeff of [place] 14.1 Plt Count 163 MPV 11.2 Immature Gran % (Auto) 0.9 Neut % (Auto) 87.9 Lymph % (Auto) 6.9 [place] % (Auto) 3.6 Eos % (Auto) 0.4 Baso % (Auto) 0.3 Neut # (Auto) 22.16 H Lymph # (Auto) 1.73 [place] # (Auto) 0.90 H Eos # (Auto) 0.11 Baso # (Auto) 0.07 Immature Gran # (Auto) 0.22 H Absolute Nucleated RBC 0.02 Nucleated RBC % (auto) 0.1 Polychromasia 1+ Sodium 139 Potassium 5.2 H Chloride 113 H Carbon Dioxide 16 L Anion Gap 10 BUN 135 H Creatinine 3.63 H D Est Cr Clr Drug Dosing 12.3 Est GFR ( Amer) 17.4 Est GFR (Non-Af Amer) 15.0 BUN/Creatinine Ratio 37.2 H Glucose 79 Calcium 7.4 L PG Care Time/CCT Total # of Minutes Spent Total Time Spent with Patient: Total time spent is greater than 50% in coordination of care (as documented) at patient's floor/unit and/or counseling patient: Coding Level of Care Code 67982 SUB INP/OBS CARE 3/50MIN Diagnoses VITALY (acute kidney injury) N17.9 Anemia D64.9 Anemia type: unspecified type BPH w urinary obs/LUTS N40.1; N13.8 Hypocalcemia E83.51 (2) Anemia Anemia type: unspecified type Qualified Code(s): D64.9 - Anemia, unspecified
[2022-11-20] MEDS: PLASMA-LYTE A 1,000 ML IV SCH ×2 (10:12→20:35)
[2022-11-20] MEDS: SODIUM BICARBONATE 650 MG TAB PO SCH ×2 (11:15→20:38)
--- NOTE | 2022-11-20 12:35 | Hospitalist Progress Note ---
Date of Service November 20, 2022 Assessment & Plan (1) Acute renal failure: Plan: severe/profound, with marked elevation in BUN >200 and peak Cr 8.8 at presentation baseline Cr ~2-3 ? likely combination of pre-renal factors (marked dehydration, poor PO intake) and obstruction from enlarged prostate, along with UTI Cr improving daily with Sosa placement and IVFs , now down to 3.63, remains non oliguric BUN 200 and now improving acid-base status improved with bicarbonate drip, but now worsening again, non AG, possibly due to GI losses from diarrhea Mentation improving but remains anorexic, very fatigued appreciate nephrology consultation -change IVFs to Plasmalyte 125mL/hr -start NaHCO3 1300mg po bid -serial daily BMPs -cont sosa -patient is has consistently told us he would not want hemodialysis and is interested in going home with hospice -Appreciate Palliative Medicine consultation (2) Diarrhea: Plan: with numerous episodes of loose stool over last 2-3 days, with worsening leuko cytosis Now with hypotension, tachycardia, chills, possibly developing a fever C. diff ordered yesterday and just collected today-treat if positive Starting NaHCO3 tabs for Non AG met acidosis from GI losses If C. diff negative, start Imodium Continue IVF hydration (3) Hypotension: Plan: as above, possibly due to new infection , diarrhea, with worsening leukocytosis up to 25k, neutrophilia, chills/possibly developing fever? No bleeding from anywhere, hgb dropping down to 7.2 but likely hemodilutional -hold amlodipine -bolus with IVFs -check repeat CBC, BMP, lactate -previous BCs NGTD, repeat if spikes fever -check repeat UA and Ur cx -continue Daptomycin for previous Enterococcus UTI (4) BPH w urinary obs/LUTS: Plan: severe, with resulting b/l hydronephrosis + acute renal failure can't rule out element of obstruction from bladder ca recurrence either continue sosa flomax ultimately needs urology involvement if he is able to get through #1 above, but if going home on hospice, would simply keep Sosa in place chronically (5) Anemia: Plan: hgb worse today as above at 7.2 from 8.5, possibly from hemodilution; no evidence of bleeding from anywhere Fe studies wnl TSH wnl b12/folate normal was given Epogen repeat CBC now (6) COPD (chronic obstructive pulmonary disease): Plan: stable O2 sats in RA cont home inhalers mild wheezing on exam but comfortable and no significant cough (7) Leukocytosis: Plan: Chronic but acutely worsening -peripheral smear not definitive but consider Heme referral or BCR/abl,JAK2 testing-defer for now -checking for new infection as above (8) Hyperlipidemia: Plan: statin now on hold while on Dapto for UTI (9) Acute metabolic encephalopathy: Plan: 2nd to uremia can't rule out UTI contributing as well improving supportive care (10) Right thyroid nodule: Plan: last imaging study - 4.1cm nodule right lobe TSH wnl today could consider thyroid u/s to look for calcifications, etc but defer on this for now (11) Hx of endarterectomy: Plan: noted - 06/2019 (12) Bladder cancer: Plan: high-grade urothelial cancer per records dx 2018 last cystoscopy was December 2021 at the [facility] at that time he had evidence of ongoing obstruction from his BPH but no cancer seen on that cysto it does not appear he had f/u after that urine cytology negative for high grade urothelial carcinoma given the extreme weight loss malignancy remains very high on the differential, but weight loss could be from uremia and anorexia (13) Carotid aneurysm, left: (14) Severe protein-calorie malnutrition: Plan: 20+kg weight loss since 2021 he is profoundly cachectic on examination highly concerning for recurrent bladder ca or other malignancy process , but could be from uremia/CKD encourage Boost shakes may end up enrolling in hospice (15) Tobacco use disorder: Plan: 05/2022 [facility] note indicated he smokes 1 ppd nicoderm patch (16) Elevated troponin: Plan: mild elevation in trop this likely represents myocardial demand ischemia in setting of #1 rather than ACS (17) Suprapubic pain: Plan: pain resolved continue IV abxw/ Dapto for Enterococcus UTI (18) NSVT (nonsustained ventricular tachycardia): Plan: 22 beat run a few days ago and then another 10 beat run on 11/18, none since high K and acidosis likely caused such echo with preserved EF no symptoms reported despite the NSVT ok to remove from tele, considering hospice and is a DNR/DNI (19) HTN (hypertension): Plan: hold home amlodipine 5mg/day as with hypotension Plan Social situation is complicated. Pt's adopted son (biological grandson named Jh) has been living with him. The house is unkempt as per pt's best friend and not fit for humans to live. Dog feces everywhere, not clean. Pt's former boss/close friend from his prior job mentioned that he contacted the [employer] re: Mr Galvin's living situation. Pt's nephew Zana is also involved and was present for d/w Palliative Medicine on 11/19 for 40 min Likely plan for home at nephew's house with hospice-awaiting final decision from patient and family Admission and Anticipated Discharge Date Admission Date: November 15, 2022 Subjective Pt reports feeling very poorly today but is the most interactive I have seen him yet. He denies abd pains, can't describe why he is feeling poorly. Is having multiple bouts of loose stools. No nausea but has no appetite. Says he feels very cold all over and is starting to shake. BPs are low. Physical Exam Constitutional: + underweight Respiratory: normal respiratory effort, lungs clear to auscultation Cardiovascular: Rate/Rhythm: regular rhythm and + tachycardic Extremities: no edema Gastrointestinal (Abdomen): normal bowel sounds, soft, nontender, no hepatosplenomegaly Neurologic: no focal motor deficits and not confused no facial droop answers all questions appropriately but keeps eyes shut throughout encounter Genitourinary: Sosa in place Results & Data Results & Data Vital Signs (Past 12 Hours) Vital Signs Temp Pulse Resp BP Pulse Ox O2 Del Method 11/20/22 12:24 105 H 16 87/58 L 11/20/22 08:21 36.7 C 99 H 16 104/62 98 Room Air 11/20/22 07:30 Room Air Laboratory Results CBC, BMP reviewed PG Care Time/CCT Total # of Minutes Spent Total Time Spent with Patient: Total time spent is greater than 50% in coordination of care (as documented) at patient's floor/unit and/or counseling patient: Coding Level of Care Code 48401 SUB INP/OBS CARE 3/50MIN Diagnoses Acute renal failure N17.9 Diarrhea R19.7 Hypotension I95.9 BPH w urinary obs/LUTS N40.1; N13.8 Anemia D64.9 Anemia type: unspecified type COPD (chronic obstructive pulmonary disease) J44.9 Leukocytosis D72.829 Leukocytosis type: unspecified Hyperlipidemia E78.5 Acute metabolic encephalopathy G93.41 Right thyroid nodule E04.1 Hx of endarterectomy Z98.890 Bladder cancer C67.9 Carotid aneurysm, left I72.0 Severe protein-calorie malnutrition E43 Tobacco use disorder F17.200 Elevated troponin R77.8 Suprapubic pain R10.2 NSVT (nonsustained ventricular tachycardia) I47.29 HTN (hypertension) I10 (5) Anemia Anemia type: unspecified type Qualified Code(s): D64.9 - Anemia, unspecified (7) Leukocytosis Leukocytosis type: unspecified Qualified Code(s): D72.829 - Elevated white blood cell count, unspecified
[2022-11-20 13:31] LABS: BUN Creatinine Ratio 36.5 (10-20); Calcium 7.2 mg/dl (8.6-10.3); Creatinine Clr Calc Pharmacy 12.6 ml/min; Est GFR (African American) 17.8 ml/min; Est GFR (Non-African American) 15.4 ml/min
[2022-11-20 14:07] LABS: Hematocrit (blood only) 21.1 % (42.0-52.0); Hemoglobin 6.9 g/dl (14.0-18.0); Mean Corpuscular Hemoglobin 29.2 pg (25.0-34.0); Mean Corpuscular Hgb Conc 32.7 g/dL (32.0-36.0); Mean Corpuscular Volume 89.4 fL (80.0-100.0); Mean Platelet Volume 11.1 fL (9.4-12.4); Nucleated RBC # (auto) 0.02 K/uL (0-0.12); Nucleated RBC % (auto) 0.1 %; Platelet Count 165 K/uL (130-400); RDW Coefficient of Variation 14.4 % (11.5-14.5); RDW Standard Deviation 46.2 fL (36.4-46.3); Red Blood Count 2.36 M/uL (4.70-6.10); White Blood Count 22.44 K/ul (4.8-10.8)
[2022-11-20 14:08] LABS: Cdiff Toxin B Gene (2yr or >) Positive Cdiff Gene (Neg)
[2022-11-20] MEDS ORDERED: SODIUM CHLORIDE 0.9% 250 ML IV PRN (14:14)
[2022-11-20 14:35] LABS: Appearance Urine Turbid (Clear); Bacteria Urine Automated 2+ (Negative); Bilirubin Urine Negative (Negative); Blood Urine 3+ (Negative); Color Urine Yellow; Epithelial Cell Urine Auto >30 /lpf (0-5); Glucose Urine UA Negative (Negative); Ketones Urine Trace (Negative); Leukocyte Esterase Urine 3+ (Negative); Nitrite Urine Negative (Negative); Protein Urine 2+ (Negative); Specific Gravity Urine 1.011 (1.000-1.030); Urobilinogen Urine Negative (Negative); WBC Urine Automated >30 /hpf (0-5); pH Urine 5.5 (4.5-7.5)
[2022-11-20 14:41] LABS: Cdiff Antigen Positive
[2022-11-20 14:44] LABS: Cdiff Toxin A+B Positive Cdiff Toxin (Negative)
[2022-11-20] MEDS: VANCOMYCIN HCL 125 MG/2.5ML SOLN PO SCH ×3 (15:25→23:30)
[2022-11-20] MEDS: RASPBERRY SYRUP 5 ML UDP PO SCH ×3 (15:25→23:30)
[2022-11-20] MEDS ORDERED: Nursing to Pharmacy Communication SCH (20:00)
[2022-11-20] MEDS: DAPTOmycin 325 MG in SYRINGE 0 ML IV SCH (20:34)
[2022-11-20] MEDS: TAMSULOSIN HCL 0.4 MG CAP PO SCH (20:37)
[2022-11-20] MEDS: CLOPIDOGREL BISULFATE 75 MG TAB PO SCH (20:37)
[2022-11-20] MEDS: UMECLIDINIUM BROMIDE 62.5MCG/BLISTER 7 PUFFS/INHALER INH SCH (20:38)
[2022-11-21] MEDS: PLASMA-LYTE A 1,000 ML IV SCH ×3 (04:36→19:46)
[2022-11-21] MEDS: RASPBERRY SYRUP 5 ML UDP PO SCH ×3 (06:30→17:57)
[2022-11-21] MEDS: VANCOMYCIN HCL 125 MG/2.5ML SOLN PO SCH ×3 (06:30→17:48)
[2022-11-21] MEDS: SODIUM BICARBONATE 650 MG TAB PO SCH ×2 (08:24→21:01)
[2022-11-21] MEDS: CHOLECALCIFEROL 1,000 UNITS 25 MCG TAB PO SCH (08:25)
[2022-11-21] MEDS: CYANOCOBALAMIN (B-12) 500 MCG TABLET PO SCH (08:25)
[2022-11-21] MEDS: FOLIC ACID 1 MG TAB PO SCH (08:26)
[2022-11-21] MEDS: NICOTINE 21 MG/24 HR TDSY TD SCH (08:35)
[2022-11-21 08:37] LABS: Calcium 7.2 mg/dl (8.6-10.3); Creatinine Clr Calc Pharmacy 13.5 ml/min; Est GFR (African American) 19.4 ml/min; Est GFR (Non-African American) 16.7 ml/min; Magnesium 1.4 mg/dl (1.7-2.4); Potassium 4.5 mmol/L (3.5-5.1)
[2022-11-21 09:08] LABS: Basophils # (auto) 0.06 K/uL (0-0.2); Basophils % (auto) 0.3 %; Eosinophils # (auto) 0.12 K/uL (0-0.50); Eosinophils % (auto) 0.6 %; Hematocrit (blood only) 23.8 % (42.0-52.0); Immature Granulocytes # (auto) 0.12 K/uL (0.01-0.20); Immature Granulocytes % (auto) 0.6 %; Lymphocytes # (auto) 1.75 K/uL (1.2-3.4); Lymphocytes % (auto) 8.1 %; Mean Corpuscular Hgb Conc 33.6 g/dL (32.0-36.0); Mean Corpuscular Volume 89.1 fL (80.0-100.0); Mean Platelet Volume 10.4 fL (9.4-12.4); Monocytes # (auto) 0.92 K/uL (0.11-0.59); Monocytes % (auto) 4.3 %; Neutrophils # (auto) 18.58 K/uL (1.40-6.50); Neutrophils % (auto) 86.1 %; Nucleated RBC # (auto) 0.02 K/uL (0-0.12); Nucleated RBC % (auto) 0.1 %; Platelet Count 144 K/uL (130-400); RDW Coefficient of Variation 14.3 % (11.5-14.5); RDW Standard Deviation 46.1 fL (36.4-46.3); Red Blood Count 2.67 M/uL (4.70-6.10); White Blood Count 21.55 K/ul (4.8-10.8)
--- NOTE | 2022-11-21 10:11 | Nephrology Progress Note ---
Date of Service November 21, 2022 Assessment & Plan (1) VITALY (acute kidney injury): Plan: Clinical presentation consistent with obstructive nephropathy and prerenal VITALY. Baseline creatinine in June 2.7 mg/dL. Tolerating IVF well. Mei to gravity. Branden has confirmed that he does not want dialysis. Continue plasmalyte @ 125 ml/h. Continue to encourage PO free water intake. Oral NaHCO3 1300 mg BID added yesterday for mixed acidosis associated with GI losses and kidney dysfunction. (2) Anemia: Plan: Iron profile acceptable. Epogen 59592 units x 1 provided 11/18 for anemia of chronic disease. (3) BPH w urinary obs/LUTS: Plan: Mei to gravity. Ultimately will require close follow up with urology. Tamsulosin 0.4 mg daily. Urine cytology negative for malignant cells. (4) Hypocalcemia: Plan: Ergocalciferol 81356 units x 1 dose 11/18. Continue daily D3. Admission and Anticipated Discharge Date Admission Date: November 15, 2022 Subjective No acute events overnight. Branden is very tired this morning. He reports difficulty sleeping last night. No fevers or chills. Diarrhea persists. No reported melena or hematochezia. Denies significant abdominal pain. Appetite poor. Tolerating IVF. No dyspnea. No edema. Review of Systems Review of Systems: All systems reviewed & are unremarkable except as noted in HPI & below Physical Exam Constitutional: well developed, + ill appearing and + cachectic Eyes: + anicteric sclerae; no conjunctival abnormality ENMT: Mouth: no oral mucosal abnormality and oral mucous membranes not dry Neck: normal visual inspection and trachea midline Respiratory: normal respiratory effort Auscultation: lungs clear to auscultation bilaterally and + wheezes; no rales and no rhonchi Cardiovascular: Rate/Rhythm: regular rate Heart Sounds: normal S1 and normal S2 Extremities: no edema Musculoskeletal: Extremities: no cyanosis and no clubbing Skin: + turgor decreased; no jaundice Neurologic: Motor/Sensory: no tremor and no asterixis Psychiatric: Orientation: alert and oriented x 3 Results & Data Vital Signs (Past 12 Hours) Vital Signs Temp Pulse Resp BP Pulse Ox O2 Del Method 11/21/22 08:50 Room Air 11/21/22 07:42 36.6 C 93 H 16 122/74 95 Room Air 11/20/22 22:10 37.3 C 91 H 17 132/78 97 Room Air Laboratory Results Laboratory Results - last 24 hr 11/20/22 11/20/22 11/20/22 10:30 12:49 12:49 WBC 22.44 H RBC 2.36 L Hgb 6.9 L* Hct 21.1 L MCV 89.4 MCH 29.2 MCHC 32.7 RDW Std Deviation 46.2 RDW Coeff of [place] 14.4 Plt Count 165 MPV 11.1 Immature Gran % (Auto) Neut % (Auto) Lymph % (Auto) [place] % (Auto) Eos % (Auto) Baso % (Auto) Neut # (Auto) Lymph # (Auto) [place] # (Auto) Eos # (Auto) Baso # (Auto) Immature Gran # (Auto) Absolute Nucleated RBC 0.02 Nucleated RBC % (auto) 0.1 Neutrophils % (Manual) Band Neutrophils % Lymphocytes % (Manual) Prolymphocyte % Reactive Lymphs % (Man) Monocytes % (Manual) Eosinophils % (Manual) Basophils % (Manual) Metamyelocytes % (Man) Myelocytes % (Man) Promyelocytes % (Man) Blast Cells % (Manual) Plasma Cell % (Manual) Other Cells % Nucleated RBC % Neutrophils # (Manual) Band Neutrophils # Total Absolute Neuts Lymphocytes # (Manual) Prolymphocyte # Reactive Lymphs # Total Abs Lymphocytes Monocytes # (Manual) Eosinophils # (Manual) Basophils # (Manual) Metamyelocytes # (Man) Myelocytes # (Manual) Promyelocytes # (Man) Blast Cells # (Man) Plasma Cell # (Manual) Other Cells # Nucleated RBCs # (Man) Hypersegmented Neuts Hyposegmented Neuts Hypogranular Neuts Large Granular Lymphs # Lrg Granular Lymphs Hairy Cells Smudge Cells Toxic Granulation Toxic Vacuolation Dohle Bodies Joseluis Rods Platelet Estimate Hypogranular Platelets Giant Platelets Platelet Satelliting RBC Morphology Polychromasia Hypochromasia Poikilocytosis Basophilic Stippling Anisocytosis Microcytosis Macrocytosis Spherocytes Pappenheimer Bodies Sickle Cells Target Cells Tear Drop Cells Ovalocytes Stomatocytes [place]-Free Soil Bodies Echinocytes Acanthocytes (Spur) Rouleaux RBC Agglutinates Schistocytes Sezary Cell Sodium Potassium Chloride Carbon Dioxide Anion Gap BUN Creatinine Est Cr Clr Drug Dosing Est GFR ( Amer) Est GFR (Non-Af Amer) BUN/Creatinine Ratio Glucose Lactate 1.3 Calcium Magnesium Urine Color Urine Appearance Urine pH Ur Specific [place] Urine Protein Urine Glucose (UA) Urine Ketones Urine Blood Urine Nitrite Urine Bilirubin Urine Urobilinogen Ur Leukocyte Esterase Urine WBC (Auto) Urine RBC (Auto) U Hyaline Cast (Auto) U Epithel Cells (Auto) Urine Bacteria (Auto) Ur Renal Epithelial Cell Urine Yeast Stl C. diff Tox B Gene Positive Cdiff Gene H Stl C.difficile Tox A&B Positive Cdiff Toxin A* Blood Parasites ID Blood Type Antibody Screen Crossmatch 11/20/22 11/20/22 11/20/22 12:49 13:39 14:33 WBC RBC Hgb Hct MCV MCH MCHC RDW Std Deviation RDW Coeff of [place] Plt Count MPV Immature Gran % (Auto) Neut % (Auto) Lymph % (Auto) [place] % (Auto) Eos % (Auto) Baso % (Auto) Neut # (Auto) Lymph # (Auto) [place] # (Auto) Eos # (Auto) Baso # (Auto) Immature Gran # (Auto) Absolute Nucleated RBC Nucleated RBC % (auto) Neutrophils % (Manual) Band Neutrophils % Lymphocytes % (Manual) Prolymphocyte % Reactive Lymphs % (Man) Monocytes % (Manual) Eosinophils % (Manual) Basophils % (Manual) Metamyelocytes % (Man) Myelocytes % (Man) Promyelocytes % (Man) Blast Cells % (Manual) Plasma Cell % (Manual) Other Cells % Nucleated RBC % Neutrophils # (Manual) Band Neutrophils # Total Absolute Neuts Lymphocytes # (Manual) Prolymphocyte # Reactive Lymphs # Total Abs Lymphocytes Monocytes # (Manual) Eosinophils # (Manual) Basophils # (Manual) Metamyelocytes # (Man) Myelocytes # (Manual) Promyelocytes # (Man) Blast Cells # (Man) Plasma Cell # (Manual) Other Cells # Nucleated RBCs # (Man) Hypersegmented Neuts Hyposegmented Neuts Hypogranular Neuts Large Granular Lymphs # Lrg Granular Lymphs Hairy Cells Smudge Cells Toxic Granulation Toxic Vacuolation Dohle Bodies Joseluis Rods Platelet Estimate Hypogranular Platelets Giant Platelets Platelet Satelliting RBC Morphology Polychromasia Hypochromasia Poikilocytosis Basophilic Stippling Anisocytosis Microcytosis Macrocytosis Spherocytes Pappenheimer Bodies Sickle Cells Target Cells Tear Drop Cells Ovalocytes Stomatocytes [place]-Free Soil Bodies Echinocytes Acanthocytes (Spur) Rouleaux RBC Agglutinates Schistocytes Sezary Cell Sodium 138 Potassium 5.0 Chloride 112 H Carbon Dioxide 15 L Anion Gap 11 BUN 130 H Creatinine 3.56 H Est Cr Clr Drug Dosing 12.6 Est GFR ( Amer) 17.8 Est GFR (Non-Af Amer) 15.4 BUN/Creatinine Ratio 36.5 H Glucose 103 H Lactate Calcium 7.2 L Magnesium Urine Color Yellow Urine Appearance Turbid A Urine pH 5.5 Ur Specific [place] 1.011 Urine Protein 2+ H Urine Glucose (UA) Negative Urine Ketones Trace H Urine Blood 3+ H Urine Nitrite Negative Urine Bilirubin Negative Urine Urobilinogen Negative Ur Leukocyte Esterase 3+ H Urine WBC (Auto) >30 H Urine RBC (Auto) 5-10 H U Hyaline Cast (Auto) 5-10 H U Epithel Cells (Auto) >30 H Urine Bacteria (Auto) 2+ H Ur Renal Epithelial Cell 5-10 H Urine Yeast Not Reportable Stl C. diff Tox B Gene Stl C.difficile Tox A&B Blood Parasites ID Blood Type A Positive Antibody Screen NEGATIVE Crossmatch See Detail 11/21/22 11/21/22 11/21/22 07:27 07:27 08:54 WBC Cancelled 21.55 H RBC Cancelled 2.67 L Hgb Cancelled 8.0 L Hct Cancelled 23.8 L MCV Cancelled 89.1 MCH Cancelled 30.0 MCHC Cancelled 33.6 RDW Std Deviation Cancelled 46.1 RDW Coeff of [place] Cancelled 14.3 Plt Count Cancelled 144 MPV Cancelled 10.4 Immature Gran % (Auto) Cancelled 0.6 Neut % (Auto) Cancelled 86.1 Lymph % (Auto) Cancelled 8.1 [place] % (Auto) Cancelled 4.3 Eos % (Auto) Cancelled 0.6 Baso % (Auto) Cancelled 0.3 Neut # (Auto) Cancelled 18.58 H Lymph # (Auto) Cancelled 1.75 [place] # (Auto) Cancelled 0.92 H Eos # (Auto) Cancelled 0.12 Baso # (Auto) Cancelled 0.06 Immature Gran # (Auto) Cancelled 0.12 Absolute Nucleated RBC Cancelled 0.02 Nucleated RBC % (auto) Cancelled 0.1 Neutrophils % (Manual) Cancelled Band Neutrophils % Cancelled Lymphocytes % (Manual) Cancelled Prolymphocyte % Cancelled Reactive Lymphs % (Man) Cancelled Monocytes % (Manual) Cancelled Eosinophils % (Manual) Cancelled Basophils % (Manual) Cancelled Metamyelocytes % (Man) Cancelled Myelocytes % (Man) Cancelled Promyelocytes % (Man) Cancelled Blast Cells % (Manual) Cancelled Plasma Cell % (Manual) Cancelled Other Cells % Cancelled Nucleated RBC % Cancelled Neutrophils # (Manual) Cancelled Band Neutrophils # Cancelled Total Absolute Neuts Cancelled Lymphocytes # (Manual) Cancelled Prolymphocyte # Cancelled Reactive Lymphs # Cancelled Total Abs Lymphocytes Cancelled Monocytes # (Manual) Cancelled Eosinophils # (Manual) Cancelled Basophils # (Manual) Cancelled Metamyelocytes # (Man) Cancelled Myelocytes # (Manual) Cancelled Promyelocytes # (Man) Cancelled Blast Cells # (Man) Cancelled Plasma Cell # (Manual) Cancelled Other Cells # Cancelled Nucleated RBCs # (Man) Cancelled Hypersegmented Neuts Cancelled Hyposegmented Neuts Cancelled Hypogranular Neuts Cancelled Large Granular Lymphs Cancelled # Lrg Granular Lymphs Cancelled Hairy Cells Cancelled Smudge Cells Cancelled Toxic Granulation Cancelled Toxic Vacuolation Cancelled Dohle Bodies Cancelled Joseluis Rods Cancelled Platelet Estimate Cancelled Hypogranular Platelets Cancelled Giant Platelets Cancelled Platelet Satelliting Cancelled RBC Morphology Cancelled Polychromasia Cancelled Hypochromasia Cancelled Poikilocytosis Cancelled Basophilic Stippling Cancelled Anisocytosis Cancelled Microcytosis Cancelled Macrocytosis Cancelled Spherocytes Cancelled Pappenheimer Bodies Cancelled Sickle Cells Cancelled Target Cells Cancelled Tear Drop Cells Cancelled Ovalocytes Cancelled Stomatocytes Cancelled [place]-Free Soil Bodies Cancelled Echinocytes Cancelled Acanthocytes (Spur) Cancelled Rouleaux Cancelled RBC Agglutinates Cancelled Schistocytes Cancelled Sezary Cell Cancelled Sodium 139 Potassium 4.5 Chloride 111 H Carbon Dioxide 16 L Anion Gap 12 H BUN 113 H Creatinine 3.32 H Est Cr Clr Drug Dosing 13.5 Est GFR ( Amer) 19.4 Est GFR (Non-Af Amer) 16.7 BUN/Creatinine Ratio 34.0 H Glucose 85 Lactate Calcium 7.2 L Magnesium 1.4 L Urine Color Urine Appearance Urine pH Ur Specific [place] Urine Protein Urine Glucose (UA) Urine Ketones Urine Blood Urine Nitrite Urine Bilirubin Urine Urobilinogen Ur Leukocyte Esterase Urine WBC (Auto) Urine RBC (Auto) U Hyaline Cast (Auto) U Epithel Cells (Auto) Urine Bacteria (Auto) Ur Renal Epithelial Cell Urine Yeast Stl C. diff Tox B Gene Stl C.difficile Tox A&B Blood Parasites ID Cancelled Blood Type Antibody Screen Crossmatch PG Care Time/CCT Total # of Minutes Spent Total Time Spent with Patient: Total time spent is greater than 50% in coordination of care (as documented) at patient's floor/unit and/or counseling patient: Coding Level of Care Code 24762 SUB INP/OBS CARE 3/50MIN Diagnoses VITALY (acute kidney injury) N17.9 Anemia D64.9 Anemia type: unspecified type BPH w urinary obs/LUTS N40.1; N13.8 Hypocalcemia E83.51 (2) Anemia Anemia type: unspecified type Qualified Code(s): D64.9 - Anemia, unspecified
[2022-11-21] MEDS: MAGNESIUM SULFATE / D5W 1 GM/100 ML BAG IV SCH ×3 (10:17→14:30)
[2022-11-21] MEDS: PANTOprazole 40 MG in SYRINGE 0 ML IV SCH ×2 (11:11→21:01)
--- NOTE | 2022-11-21 12:27 | Hospitalist Progress Note ---
Date of Service November 21, 2022 Assessment & Plan (1) Acute renal failure: Plan: severe/profound, with marked elevation in BUN >200 and peak Cr 8.8 at presentation baseline Cr ~2-3 ? likely combination of pre-renal factors (marked dehydration, poor PO intake) and obstruction from enlarged prostate, along with UTI Cr improving daily with Sosa placement and IVFs , now down to 3.3, remains non oliguric BUN 200 and now improving down to 113 acid-base status improved with bicarbonate drip, but then worsening again, non AG, possibly due to GI losses from diarrhea as well as renal failure Mentation improving but remains anorexic, very fatigued appreciate nephrology consultation -cont IVFs Plasmalyte 125mL/hr -continue NaHCO3 1300mg po bid -serial daily BMPs -cont sosa -patient is has consistently told us he would not want hemodialysis and is interested in going home with hospice -Appreciate Palliative Medicine consultation (2) C. difficile diarrhea: Plan: with numerous episodes of loose stool over last 2-3 days, with worsening leukocytosis then with hypotension, tachycardia, chills, possibly developing a fever on 11/20--> C. diff testing positive Received Cefepime initially on admission for UTI which likely precipitated this Now with melena which may be from C. diff vs UGI bleed? No heartburn or epigastric pain Hgb up appropriately to 8.0 from 6.9 yesterday with PRBC transfusion x 1 unit -continue po Vanco 125mg qid x 10 day course -continue NaHCO3 tabs bid for Non AG met acidosis from GI losses -Continue IVF hydration -repeat CBC at noon and if drops further, will transfuse 1 more unit PRBCs given ongoing melena (3) Anemia: Plan: hgb worsened 11/20 to 6.9 from 8.5, possibly from hemodilution, but now with melena, Heme positive stool developing on 11/21 Was transfused 1 unit PRBCs on 11/20 with appropriate rise to 8.0 This is anemia of CKD plus now with acute blood loss anemia from GIB Fe studies wnl TSH wnl b12/folate normal was given Epogen repeat CBC today at noon and give PRBCs if dropping (4) Hypomagnesemia: Plan: low today from diarrhea/GI losses, poor po intake -replace with 3 grams IV mag (5) Hypotension: Plan: 2/2 new infection , diarrhea, and GI bleed with blood loss anemia with worsening leukocytosis up to 25k, neutrophilia, found to have C. diff BPs improved with IVF boluses and PRBC transfusion on 11/20 UA contaminated, not a new infection -continue to hold amlodipine -continue IVFs -continue Daptomycin for previous Enterococcus UTI (6) BPH w urinary obs/LUTS: Plan: severe, with resulting b/l hydronephrosis + acute renal failure can't rule out element of obstruction from bladder ca recurrence either continue sosa flomax ultimately needs urology involvement if he is able to get through #1 above, but if going home on hospice, would simply keep Sosa in place chronically (7) Leukocytosis: Plan: Chronic but acutely worsening 2/2 C. diff colitis--> now improving with tx of C. diff -peripheral smear not definitive but consider Heme referral or BCR/abl,JAK2 testing-defer for now -follow CBC daily (8) Hyperlipidemia: Plan: statin now on hold while on Dapto for UTI (9) Acute metabolic encephalopathy: Plan: 2nd to uremia can't rule out UTI contributing as well improving supportive care (10) Bladder cancer: Plan: high-grade urothelial cancer per records dx 2018 [facility] at [facility] time he had evidence of ongoing obstruction from his BPH but no cancer seen on that cysto it does not appear he had f/u after that urine cytology negative for high grade urothelial carcinoma given the extreme weight loss malignancy remains very high on the differential, but weight loss could be from uremia and anorexia (11) COPD (chronic obstructive pulmonary disease): Plan: stable O2 sats in RA cont home inhalers mild wheezing on exam but comfortable and no significant cough (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, left: Plan: noted (13) Severe protein-calorie malnutrition: Plan: 20+kg weight loss since 2021 he is profoundly cachectic on examination highly concerning for recurrent bladder ca or other malignancy process , but could be from uremia/CKD encourage Boost shakes may end up enrolling in hospice (14) Elevated troponin: Plan: mild elevation in trop this likely represents myocardial demand ischemia in setting of #1 rather than ACS (15) NSVT (nonsustained ventricular tachycardia): Plan: 22 beat run a few days ago and then another 10 beat run on 11/18, none since high K and acidosis likely caused such echo with preserved EF no symptoms reported despite the NSVT ok to remove from tele, considering hospice and is a DNR/DNI (16) HTN (hypertension): Plan: hold home amlodipine 5mg/day as with hypotension (17) Right thyroid nodule: Plan: last imaging study - 4.1cm nodule right lobe TSH wnl today could consider thyroid u/s to look for calcifications, etc but defer on this for now (18) Tobacco use disorder: Plan: [facility] indicated [facility] smokes 1 ppd nicoderm patch (19) Hx of endarterectomy: Plan: noted - 06/2019 Plan Social situation is complicated. Pt's adopted son (biological grandson named Jh) has been living with him. The house is unkempt as per pt's best friend and not fit for humans to live. Dog feces everywhere, not clean. Pt's former boss/close friend from his prior job mentioned that he contacted the [employer] re: Mr Galvin's living situation. Pt's nephew Zana is also involved and was present for d/w Palliative Medicine on 11/19 for 40 min Likely plan for home at nephew's house with hospice-awaiting final decision from patient and family Admission and Anticipated Discharge Date Admission Date: November 15, 2022 Subjective Still feels bad, denies ab pain, chest pain, SOB. Nurse had to really encourage him to eat breakfast and lunch. Still with loose stools which have now turned black and are Heme positive. Physical Exam Constitutional: + ill appearing and + underweight Respiratory: normal respiratory effort, lungs clear to auscultation normal respiratory effort Cardiovascular: Rate/Rhythm: regular rate and regular rhythm Extremities: no edema Gastrointestinal (Abdomen): normal bowel sounds, soft, nontender, no hepatosplenomegaly Neurologic: no focal motor deficits and not confused Psychiatric: Orientation: alert (but very flat,keeps eyes closed during conversation) Genitourinary: Sosa cath in place Results & Data Results & Data Vital Signs (Past 12 Hours) Vital Signs Temp Pulse Resp BP Pulse Ox O2 Del Method 11/21/22 08:50 Room Air 11/21/22 07:42 36.6 C 93 H 16 122/74 95 Room Air Laboratory Results CBC, BMP, magnesium reviewed PG Care Time/CCT Total # of Minutes Spent Total Time Spent with Patient: Total time spent is greater than 50% in coordination of care (as documented) at patient's floor/unit and/or counseling patient: Coding Level of Care Code 30519 SUB INP/OBS CARE 3/50MIN Diagnoses Acute renal failure N17.9 C. difficile diarrhea A04.72 Anemia D64.9 Anemia type: unspecified type Hypomagnesemia E83.42 Hypotension I95.9 BPH w urinary obs/LUTS N40.1; N13.8 Leukocytosis D72.829 Leukocytosis type: unspecified Hyperlipidemia E78.5 Acute metabolic encephalopathy G93.41 Bladder cancer C67.9 COPD (chronic obstructive pulmonary disease) J44.9 Carotid aneurysm, left I72.0 Severe protein-calorie malnutrition E43 Elevated troponin R77.8 NSVT (nonsustained ventricular tachycardia) I47.29 HTN (hypertension) I10 Right thyroid nodule E04.1 Tobacco use disorder F17.200 Hx of endarterectomy Z98.890 (3) Anemia Anemia type: unspecified type Qualified Code(s): D64.9 - Anemia, unspecified (7) Leukocytosis Leukocytosis type: unspecified Qualified Code(s): D72.829 - Elevated white blood cell count, unspecified
[2022-11-21 12:42] LABS: Hematocrit (blood only) 23.4 % (42.0-52.0); Mean Corpuscular Hemoglobin 30.1 pg (25.0-34.0); Mean Corpuscular Hgb Conc 34.2 g/dL (32.0-36.0); Mean Platelet Volume 10.7 fL (9.4-12.4); Nucleated RBC # (auto) 0.02 K/uL (0-0.12); Nucleated RBC % (auto) 0.1 %; Platelet Count 150 K/uL (130-400); RDW Coefficient of Variation 14.4 % (11.5-14.5); RDW Standard Deviation 46.1 fL (36.4-46.3); Red Blood Count 2.66 M/uL (4.70-6.10); White Blood Count 19.56 K/ul (4.8-10.8)
[2022-11-21 15:47] LABS: Hemoglobin 7.1 g/dl (14.0-18.0); Mean Corpuscular Hemoglobin 29.8 pg (25.0-34.0); Mean Corpuscular Hgb Conc 33.8 g/dL (32.0-36.0); Mean Corpuscular Volume 88.2 fL (80.0-100.0); Mean Platelet Volume 10.6 fL (9.4-12.4); Nucleated RBC # (auto) 0.02 K/uL (0-0.12); Nucleated RBC % (auto) 0.1 %; Platelet Count 135 K/uL (130-400); RDW Coefficient of Variation 14.4 % (11.5-14.5); RDW Standard Deviation 45.5 fL (36.4-46.3); Red Blood Count 2.38 M/uL (4.70-6.10); White Blood Count 18.18 K/ul (4.8-10.8)
[2022-11-21] MEDS: TAMSULOSIN HCL 0.4 MG CAP PO SCH (21:01)
[2022-11-22] MEDS: VANCOMYCIN HCL 125 MG/2.5ML SOLN PO SCH ×5 (00:33→23:10)
[2022-11-22] MEDS: RASPBERRY SYRUP 5 ML UDP PO SCH ×5 (00:33→23:10)
[2022-11-22] MEDS: UMECLIDINIUM BROMIDE 62.5MCG/BLISTER 7 PUFFS/INHALER INH SCH ×2 (00:34→20:57)
[2022-11-22] MEDS: PLASMA-LYTE A 1,000 ML IV SCH (04:07)
[2022-11-22] MEDS: SODIUM BICARBONATE 650 MG TAB PO SCH ×2 (08:28→20:57)
[2022-11-22] MEDS: CYANOCOBALAMIN (B-12) 500 MCG TABLET PO SCH (08:28)
[2022-11-22] MEDS: CHOLECALCIFEROL 1,000 UNITS 25 MCG TAB PO SCH (08:29)
[2022-11-22] MEDS: FOLIC ACID 1 MG TAB PO SCH (08:29)
[2022-11-22] MEDS: NICOTINE 21 MG/24 HR TDSY TD SCH (08:30)
[2022-11-22] MEDS: PANTOprazole 40 MG in SYRINGE 0 ML IV SCH ×2 (08:37→20:57)
--- NOTE | 2022-11-22 08:58 | Nephrology Progress Note ---
Date of Service November 22, 2022 Assessment & Plan (1) VITALY (acute kidney injury): Plan: * VITALY due to obstructive nephropathy and prerenal VITALY * Baseline creatinine 2.7 mg/dL (06/26) * Tolerating IVF well. Continue plasmalyte @ 125 ml/h * Keep Mei catheter in to monitor I&O's, relieve obstruction * On NaHCO3 supplement to correct metabolic acidosis * Monitor PRP * Patient has confirmed that he does not want dialysis (2) BPH w urinary obs/LUTS: Plan: * Maintain Mei catheter in place. Will require outpatient follow up with Urology * Continue Tamsulosin 0.4 mg daily * Urine cytology was negative for malignant cells this hospitalization (3) Anemia: Plan: * Epogen 24822 units x 1 provided 11/18 * Probable GIB. Too frail for EGD. Primary service to transfuse if needed * Continue PPI therapy (4) C. difficile diarrhea: Plan: * 10 day course of oral Vancomycin therapy started 11/20/22 (5) Advanced care planning/counseling discussion: Plan: * Likely plan for home at nephew's house with hospice-awaiting final decision from patient and family Admission and Anticipated Discharge Date Admission Date: November 15, 2022 Subjective Mr. Galvin was evaluated in his hospital room this morning. He was alert and oriented to self/place/month. He c/o persistent diarrhea by denied fever, abdominal pain or uremic symptoms Review of Systems Constitutional: no fever Eyes: no problem reported Ear, Nose, Mouth, Throat: no problem reported Respiratory: no dyspnea Cardiovascular: no chest pain Gastrointestinal: + diarrhea/loose stools; no abdominal pain and no vomiting Physical Exam Constitutional: not in distress Eyes: PERRL, conjunctivae normal, anicteric sclerae ENMT: Mouth: + dry oral mucous membranes Neck: trachea midline, no thyromegaly Respiratory: normal respiratory effort, lungs clear to auscultation Cardiovascular: RRR, no murmur, no edema Gastrointestinal (Abdomen): normal bowel sounds, soft, nontender, no hepatosplenomegaly Neurologic: Speech / Cognition: normal speech and normal cognition Results & Data Vital Signs (Past 12 Hours) Vital Signs Temp Pulse Resp BP Pulse Ox O2 Del Method 11/22/22 08:17 36.6 C 70 16 92/47 L 96 Room Air 11/21/22 21:00 Room Air 11/21/22 21:46 36.6 C 76 16 104/66 99 Room Air Laboratory Results Laboratory Tests 11/17/22 11/19/22 11/20/22 07:10 06:11 08:16 Hgb Sodium Potassium Chloride Carbon Dioxide BUN Creatinine 4.07 H D 3.63 H D Glucose Calcium Albumin 2.8 L 11/20/22 11/20/22 11/21/22 12:49 12:49 07:27 Hgb 6.9 L* Sodium 139 Potassium 4.5 Chloride 111 H Carbon Dioxide 16 L BUN 113 H Creatinine 3.56 H 3.32 H Glucose 85 Calcium 7.2 L Albumin 11/21/22 11/21/22 12:13 15:28 Hgb 8.0 L 7.1 L Sodium Potassium Chloride Carbon Dioxide BUN Creatinine Glucose Calcium Albumin PG Care Time/CCT Total # of Minutes Spent Total Time Spent with Patient: Total time spent is greater than 50% in coordination of care (as documented) at patient's floor/unit and/or counseling patient: Coding Level of Care Code 10891 SUB INP/OBS CARE 3/50MIN Diagnoses VITALY (acute kidney injury) N17.9 BPH w urinary obs/LUTS N40.1; N13.8 Anemia D64.9 Anemia type: unspecified type C. difficile diarrhea A04.72 Advanced care planning/counseling discussion Z71.89 (3) Anemia Anemia type: unspecified type Qualified Code(s): D64.9 - Anemia, unspecified
[2022-11-22] MEDS ORDERED: SODIUM CHLORIDE 0.9% 250 ML IV PRN (09:35)
[2022-11-22 12:35] LABS: BUN Creatinine Ratio 28.2 (10-20); Calcium 6.6 mg/dl (8.6-10.3); Creatinine Clr Calc Pharmacy 13.8 ml/min; Est GFR (Non-African American) 17.3 ml/min; Potassium 4.3 mmol/L (3.5-5.1)
[2022-11-22] MEDS ORDERED: STAT IV STA (13:04)
[2022-11-22] MEDS ORDERED: CALCIUM GLUCONATE 10% 1,000 MG in DEXTROSE 5% 50 ML IV ONE (13:04)
--- NOTE | 2022-11-22 13:59 | Hospitalist Progress Note ---
Date of Service November 22, 2022 Assessment & Plan (1) Acute renal failure: Plan: severe/profound, with marked elevation in BUN >200 and peak Cr 8.8 at presentation baseline Cr ~2-3 ? likely combination of pre-renal factors (marked dehydration, poor PO intake) and obstruction from enlarged prostate, along with UTI Cr continues to be improving daily with Sosa placement and IVFs , now down to 3.2, remains non oliguric BUN 200 and now improving down to 91 acid-base status improved with bicarbonate drip, but then worsened again, non AG, possibly due to GI losses from diarrhea as well as renal failure--> now resolved with po NaHCO3 tabs Mentation much improved, remains fatigued With edema in hands, arms, periorbital appreciate nephrology consultation -dc IVFs Plasmalyte 125mL/hr as developing edema and giving more PRBCs -continue NaHCO3 1300mg po bid -serial daily BMPs -cont sosa -patient is has consistently told us he would not want hemodialysis and is interested in going home with hospice -Appreciate Palliative Medicine consultation-plan [facility] [place] once all arrangements have been made (2) C. difficile diarrhea: Plan: with numerous episodes of loose stool developing after admission, with worsening leukocytosis and then with hypotension, tachycardia, chills on 11/20--> C. diff testing positive Received Cefepime initially on admission for UTI which likely precipitated this Then with melena which may be from C. diff vs UGI bleed? No heartburn or epigastric pain Hgb had dropped to 6.9 --> transfused 1 unit PRBCs and then up appropriately to 8.0 Hgb back down again 11/22 to 7.1 and BP 80s systolic--> transfuse 1 more unit PRBCs Melena seems to be clearing up though now and diarrhea slowed way down on 11/22 -continue po Vanco 125mg qid x 10 day course -continue NaHCO3 tabs bid for Non AG met acidosis from GI losses -dc IVFs as baove due to edema -repeat CBC in AM (3) Anemia: Plan: as above with GIB This is anemia of CKD plus now with acute blood loss anemia from GIB Fe studies wnl TSH wnl b12/folate normal was given Epogen transfused 2 units PRBCs (4) Hypomagnesemia: Plan: low from diarrhea/GI losses, poor po intake now resolved with replacement (5) Hypotension: Plan: 2/2 new infection , diarrhea, and GI bleed with blood loss anemia with worsening leukocytosis up to 25k, neutrophilia, found to have C. diff BPs improved with IVF boluses and PRBC transfusion on 11/20 UA contaminated, not a new infection BPs low again on 11/22 with hgb drop again--> gave PRBC transfusion again and now improved dc IVFs -continue to hold amlodipine -continue Daptomycin for previous Enterococcus UTI (6) BPH w urinary obs/LUTS: Plan: severe, with resulting b/l hydronephrosis + acute renal failure can't rule out element of obstruction from bladder ca recurrence either continue sosa flomax ultimately needs urology involvement if he is able to get through #1 above, but if going home on hospice, would simply keep Sosa in place chronically (7) Leukocytosis: Plan: Chronic but acutely worsening 2/2 C. diff colitis--> now improving with tx of C. diff -peripheral smear not definitive but consider Heme referral or BCR/abl,JAK2 testing-defer for now -follow CBC daily (8) Hyperlipidemia: Plan: statin now on hold while on Dapto for UTI (9) Acute metabolic encephalopathy: Plan: 2nd to uremia can't rule out UTI contributing as well improving supportive care (10) Bladder cancer: Plan: high-grade urothelial cancer per records dx 2018 [facility] he had evidence of ongoing obstruction from his BPH but no cancer seen on that cysto it does not appear he had f/u after that urine cytology negative for high grade urothelial carcinoma given the extreme weight loss malignancy remains very high on the differential, but weight loss could be from uremia and anorexia (11) COPD (chronic obstructive pulmonary disease): Plan: stable O2 sats in RA cont home inhalers mild wheezing on exam but comfortable and no significant cough (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, left: Plan: noted (13) Severe protein-calorie malnutrition: Plan: 20+kg weight loss since 2021 he is profoundly cachectic on examination highly concerning for recurrent bladder ca or other malignancy process , but could be from uremia/CKD encourage Boost shakes may end up enrolling in hospice (14) Elevated troponin: Plan: mild elevation in trop this likely represents myocardial demand ischemia in setting of #1 rather than ACS (15) NSVT (nonsustained ventricular tachycardia): Plan: 22 beat run a few days ago and then another 10 beat run on 11/18, none since high K and acidosis likely caused such echo with preserved EF no symptoms reported despite the NSVT ok to remove from tele, considering hospice and is a DNR/DNI (16) HTN (hypertension): Plan: hold home amlodipine 5mg/day as with hypotension (17) Right thyroid nodule: Plan: last imaging study - 4.1cm nodule right lobe TSH wnl today could consider thyroid u/s to look for calcifications, etc but defer on this for now (18) Tobacco use disorder: Plan: 05/2022 [facility] note indicated he smokes 1 ppd nicoderm patch (19) Hx of endarterectomy: Plan: noted - 06/2019 Plan Social situation is complicated. Pt's adopted son (biological grandson named Jh) has been living with him. The house is unkempt as per pt's best friend and not fit for humans to live. Dog feces everywhere, not clean. Pt's former boss/close friend from his prior job mentioned that he contacted the [employer] re: Mr Galvin's living situation. Pt's nephew Zana is also involved and was present for d/w Palliative Medicine on 11/19 for 40 min Likely plan for home at nephew's house with hospice-awaiting final decision from patient and family--> left VM for nephew on 11/20. He has not been in to see patient in 2 days, awaiting visit but pt is agreeable to going to nephew's house with hospice if possible Admission and Anticipated Discharge Date Admission Date: November 15, 2022 Subjective Reports feeling better today. Diarrhea has slowed way down, last BM was last night. No abd pain, appetite improving and ate more today. No pain anywhere. He is agreeable and on board with going home with hospice to his nephew's house after all equipment arranged, etc. Physical Exam Constitutional: + ill appearing and + underweight Eyes: + eyelid abnormality (OU periorbital edema) Respiratory: normal respiratory effort, lungs clear to auscultation normal respiratory effort Cardiovascular: Rate/Rhythm: regular rate and regular rhythm Gastrointestinal (Abdomen): normal bowel sounds, soft, nontender, no h epatosplenomegaly Neurologic: no focal motor deficits and not confused Psychiatric: Orientation: alert, oriented x 3 and cooperative much more awake, alert, interactive today Genitourinary: Sosa catheter in place draining clear yellow urine Results & Data Results & Data Vital Signs (Past 12 Hours) Vital Signs Temp Pulse Pulse Resp BP BP Pulse Ox 11/22/22 12:40 37.3 C 76 18 109/63 97 11/22/22 11:15 37.3 C 69 17 96/53 L 97 11/22/22 07:05 11/22/22 10:45 37.3 C 72 19 101/55 L 97 11/22/22 10:30 37.4 C 68 20 98/61 L 96 11/22/22 10:12 37.1 C 66 20 83/47 L 97 11/22/22 08:17 36.6 C 70 16 92/47 L 96 O2 Del Method O2 Flow Rate 11/22/22 12:40 11/22/22 11:15 11/22/22 07:05 Room Air 11/22/22 10:45 11/22/22 10:30 0 11/22/22 10:12 0 11/22/22 08:17 Room Air Laboratory Results CBC, BMP, Calcium level reviewed Ur cx negative PG Care Time/CCT Total # of Minutes Spent Total Time Spent with Patient: Total time spent is greater than 50% in coordination of care (as documented) at patient's floor/unit and/or counseling patient: Coding Level of Care Code 86882 SUB INP/OBS CARE 3/50MIN Diagnoses Acute renal failure N17.9 C. difficile diarrhea A04.72 Anemia D64.9 Anemia type: unspecified type Hypomagnesemia E83.42 Hypotension I95.9 BPH w urinary obs/LUTS N40.1; N13.8 Leukocytosis D72.829 Leukocytosis type: unspecified Hyperlipidemia E78.5 Acute metabolic encephalopathy G93.41 Bladder cancer C67.9 COPD (chronic obstructive pulmonary disease) J44.9 Carotid aneurysm, left I72.0 Severe protein-calorie malnutrition E43 Elevated troponin R77.8 NSVT (nonsustained ventricular tachycardia) I47.29 HTN (hypertension) I10 Right thyroid nodule E04.1 Tobacco use disorder F17.200 Hx of endarterectomy Z98.890 (3) Anemia Anemia type: unspecified type Qualified Code(s): D64.9 - Anemia, unspecified (7) Leukocytosis Leukocytosis type: unspecified Qualified Code(s): D72.829 - Elevated white blood cell count, unspecified
[2022-11-22] MEDS: DAPTOmycin 325 MG in SYRINGE 0 ML IV SCH (14:53)
[2022-11-22] MEDS: TAMSULOSIN HCL 0.4 MG CAP PO SCH (20:57)
[2022-11-23] MEDS: RASPBERRY SYRUP 5 ML UDP PO SCH ×3 (06:11→17:41)
[2022-11-23] MEDS: VANCOMYCIN HCL 125 MG/2.5ML SOLN PO SCH ×3 (06:11→17:40)
[2022-11-23 08:09] LABS: BUN Creatinine Ratio 24.6 (10-20); Calcium 6.7 mg/dl (8.6-10.3); Creatinine Clr Calc Pharmacy 13.3 ml/min; Est GFR (Non-African American) 16.4 ml/min; Potassium 4.3 mmol/L (3.5-5.1)
[2022-11-23] MEDS: SODIUM BICARBONATE 650 MG TAB PO SCH ×2 (08:11→21:59)
[2022-11-23] MEDS: CYANOCOBALAMIN (B-12) 500 MCG TABLET PO SCH (08:12)
[2022-11-23] MEDS: FOLIC ACID 1 MG TAB PO SCH (08:12)
[2022-11-23] MEDS: CHOLECALCIFEROL 1,000 UNITS 25 MCG TAB PO SCH (08:12)
[2022-11-23] MEDS: NICOTINE 21 MG/24 HR TDSY TD SCH (08:14)
[2022-11-23] MEDS ORDERED: STAT IV STA (09:01)
--- NOTE | 2022-11-23 09:09 | Nephrology Progress Note ---
Date of Service November 23, 2022 Assessment & Plan (1) VITALY (acute kidney injury): Plan: * VITALY due to obstructive nephropathy and prerenal VITALY * Baseline creatinine 2.7 mg/dL (06/26) * Cr today is 3.3. Patient is nearing baseline function * Hold IVF and encourage oral hydration * Keep Mei catheter in to monitor I&O's, relieve obstruction * Serum bicarbonate was 22 this morning. Continue NaHCO3 supplement to correct metabolic acidosis * Monitor PRP * Patient has confirmed that he does not want dialysis (2) BPH w urinary obs/LUTS: Plan: * Maintain Mei catheter in place. Will require outpatient follow up with Urology * Continue Tamsulosin 0.4 mg daily * Urine cytology was negative for malignant cells this hospitalization (3) Anemia: Plan: * Epogen 63991 units x 1 provided 11/18 * Probable GIB. Too frail for EGD * Hgb 7.8 this morning. Primary service to transfuse if needed * Continue PPI therapy (4) C. difficile diarrhea: Plan: * Day #4 of 10 oral Vancomycin therapy (started 11/20/22) (5) Advanced care planning/counseling discussion: Plan: * Likely plan for home at nephew's house with hospice-awaiting final decision from patient and family Admission and Anticipated Discharge Date Admission Date: November 15, 2022 Subjective Mr. Galvin was evaluated in his hospital room this morning. He was alert and oriented to self/place/month. He c/o persistent diarrhea by denied fever, abdominal pain or uremic symptoms Review of Systems Constitutional: no fever Eyes: no problem reported Ear, Nose, Mouth, Throat: no problem reported Respiratory: no dyspnea Cardiovascular: no chest pain Gastrointestinal: + diarrhea/loose stools; no abdominal pain and no vomiting Physical Exam Constitutional: not in distress Eyes: PERRL, conjunctivae normal, anicteric sclerae ENMT: Mouth: + dry oral mucous membranes Neck: trachea midline, no thyromegaly Respiratory: normal respiratory effort, lungs clear to auscultation Cardiovascular: RRR, no murmur, no edema Gastrointestinal (Abdomen): normal bowel sounds, soft, nontender, no hepatosplenomegaly Neurologic: Speech / Cognition: normal speech and normal cognition Results & Data Vital Signs (Past 12 Hours) Vital Signs Temp Pulse Resp BP Pulse Ox O2 Del Method 11/23/22 07:22 37.3 C 70 18 117/68 97 Room Air 11/22/22 21:28 37.0 C 76 18 98/57 L 98 Room Air Laboratory Results Laboratory Tests 11/15/22 11/23/22 21:18 07:38 Sodium 137 Potassium 4.3 Chloride 108 H Carbon Dioxide 22 BUN 83 H Creatinine 8.82 H* 3.37 H Glucose 102 H Laboratory Tests 11/23/22 07:38 WBC 11.78 H Hgb 7.8 L Hct 23.7 L Plt Count 152 PG Care Time/CCT Total # of Minutes Spent Total Time Spent with Patient: Total time spent is greater than 50% in coordination of care (as documented) at patient's floor/unit and/or counseling patient: Coding Level of Care Code 79785 SUB INP/OBS CARE 3/50MIN Diagnoses VITALY (acute kidney injury) N17.9 BPH w urinary obs/LUTS N40.1; N13.8 Anemia D64.9 Anemia type: unspecified type C. difficile diarrhea A04.72 Advanced care planning/counseling discussion Z71.89 (3) Anemia Anemia type: unspecified type Qualified Code(s): D64.9 - Anemia, unspecified
[2022-11-23] MEDS ORDERED: CALCIUM GLUCONATE 10% 2,000 MG in DEXTROSE 5% 50 ML IV ONE (09:15)
[2022-11-23] MEDS: PANTOprazole 40 MG in SYRINGE 0 ML IV SCH ×2 (09:16→22:05)
[2022-11-23 09:29] LABS: Basophils # (auto) 0.03 K/uL (0-0.2); Basophils % (auto) 0.3 %; Eosinophils # (auto) 0.11 K/uL (0-0.50); Eosinophils % (auto) 0.9 %; Hematocrit (blood only) 23.7 % (42.0-52.0); Hemoglobin 7.8 g/dl (14.0-18.0); Immature Granulocytes # (auto) 0.05 K/uL (0.01-0.20); Immature Granulocytes % (auto) 0.4 %; Lymphocytes # (auto) 1.42 K/uL (1.2-3.4); Lymphocytes % (auto) 12.1 %; Mean Corpuscular Hgb Conc 32.9 g/dL (32.0-36.0); Mean Corpuscular Volume 88.1 fL (80.0-100.0); Mean Platelet Volume 10.6 fL (9.4-12.4); Monocytes % (auto) 7.6 %; Neutrophils # (auto) 9.27 K/uL (1.40-6.50); Neutrophils % (auto) 78.7 %; Platelet Count 152 K/uL (130-400); RDW Coefficient of Variation 15.4 % (11.5-14.5); RDW Standard Deviation 49.1 fL (36.4-46.3); Red Blood Count 2.69 M/uL (4.70-6.10); White Blood Count 11.78 K/ul (4.8-10.8)
[2022-11-23 09:51] LABS: Anisocytosis Present
--- NOTE | 2022-11-23 13:06 | Hospitalist Progress Note ---
Date of Service November 23, 2022 Assessment & Plan (1) Acute renal failure: Plan: severe/profound, with marked elevation in BUN >200 and peak Cr 8.8 at presentation baseline Cr ~2-3 likely combination of pre-renal factors (marked dehydration, poor PO intake) and obstruction from enlarged prostate, along with UTI Cr continues to be improving daily with Sosa placement and IVFs , now down to 3.3 and has stabilized there, remains non oliguric BUN 200 and now improving down to 91 acid-base status improved with bicarbonate drip, but then worsened again, non AG, possibly due to GI losses from diarrhea as well as renal failure--> now resolved with po NaHCO3 tabs Mentation much improved, remains fatigued however this is also greatly improved With edema in hands, arms, periorbital appreciate nephrology consultation -holding off on further IVFs now given edema and he is taking po more reliably now -continue NaHCO3 1300mg po bid -serial daily BMPs -cont sosa -patient is has consistently told us he would not want hemodialysis and is interested in going home with hospice -Appreciate Palliative Medicine consultation-plan is for home with hospice at his nephew's house once all arrangements have been made (2) C. difficile diarrhea: Plan: with numerous episodes of loose stool developing after admission, with worsening leukocytosis and then with hypotension, tachycardia, chills on 11/20--> C. diff testing positive Received Cefepime initially on admission for UTI which likely precipitated this Then with melena which may be from C. diff vs UGI bleed? No heartburn or epigastric pain Hgb had dropped to 6.9 --> transfused 1 unit PRBCs and then up appropriately to 8.0 Hgb back down again 11/21 to 7.1 and BP 80s systolic on 11/22-> transfused 1 more unit PRBCs Melena now resolved and diarrhea resolved on 11/22 Hgb fairly stable now at 7.8, leukocytosis now almost completely resolved, BPs normal -continue po Vanco 125mg qid x 10 day course-last day of tx will be end of day 11/29 -continue NaHCO3 tabs bid for Non AG met acidosis from GI losses -repeat CBC in AM (3) Anemia: Plan: as above with GIB This is anemia of CKD plus now with acute blood loss anemia from GIB Fe studies wnl TSH wnl b12/folate normal was given Epogen transfused 2 units PRBCs total (4) Hypomagnesemia: Plan: low from diarrhea/GI losses, poor po intake now resolved with replacement (5) Hypotension: Plan: 2/2 new infection , diarrhea, and GI bleed with blood loss anemia with worsening leukocytosis up to 25k, neutrophilia, found to have C. diff BPs improved with IVF boluses and PRBC transfusion on 11/20 and again on 11/22 UA contaminated, not a new infection -continue to hold amlodipine -continue Daptomycin for previous Enterococcus UTI x 7 day course-last day of tx 11/24 (6) BPH w urinary obs/LUTS: Plan: severe, with resulting b/l hydronephrosis + acute renal failure can't rule out element of obstruction from bladder ca recurrence either continue sosa flomax ultimately needs urology involvement if he is able to get through #1 above, but if going home on hospice, would simply keep Sosa in place chronically (7) Leukocytosis: Plan: Chronic but acutely worsening 2/2 C. diff colitis--> now greatly improved with tx of C. diff -peripheral smear not definitive but consider Heme referral or BCR/abl,JAK2 testing-defer for now as desiring hospice -follow CBC daily (8) Hyperlipidemia: Plan: statin now on hold while on Dapto for UTI but can restart on Saturday 11/25 (9) Acute metabolic encephalopathy: Plan: 2nd to uremia-now mostly resolved can't rule out UTI contributing as well supportive care, treatment of VITALY, C. 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, left: Plan: noted (13) Severe protein-calorie malnutrition: Plan: 20+kg weight loss since 2021 he is profoundly cachectic on examination highly concerning for recurrent bladder ca or other malignancy process , but could be from uremia/CKD encourage Boost shakes plans to enroll in hospice (14) Elevated troponin: Plan: mild elevation in trop this likely represents myocardial demand ischemia in setting of VITALY rather than ACS (15) NSVT (nonsustained ventricular tachycardia): Plan: 22 beat run x1 early in admission and then another 10 beat run on 11/18, none since high K and acidosis likely caused such echo with preserved EF no symptoms reported despite the NSVT have since removed from tele, considering hospice and is a DNR/DNI (16) HTN (hypertension): Plan: hold home amlodipine 5mg/day as with hypotension and will not likely need to restart (17) Right thyroid nodule: Plan: last imaging study - 4.1cm nodule right lobe TSH wnl today could consider thyroid u/s to look for calcifications, etc but defer on this for now as enrolling in hospice (18) Tobacco use disorder: Plan: [facility] sm[facility] 1 ppd nicoderm patch (19) Hx of endarterectomy: Plan: noted - 06/2019 Plan Social situation is complicated. Pt's adopted son (biological grandson named Jh) has been living with him. The house is unkempt as per pt's best friend and not fit for humans to live. Dog feces everywhere, not clean. Pt's former boss/close friend from his prior job mentioned that he contacted the [facility] of Aging re: Mr Galvin's living situation. 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 Discussed care with son, Jh, on phone on 11/23-tearful but is in agreement with decision to go home with hospice at [facility] [place] Admission and Anticipated Discharge Date Admission Date: November 15, 2022 Subjective Feeling much better today, no further diarrhea now in almost 2 days. Is stronger and sitting up in bed, feeding himself for the first time this hospitalization. Denies abd pains. Talked to his son on the phone with pt's permission as he wanted an update. Physical Exam Constitutional: + ill appearing and + underweight Eyes: + eyelid abnormality (OU periorbital edema,improved today) Respiratory: normal respiratory effort, lungs clear to auscultation normal respiratory effort Cardiovascular: Rate/Rhythm: regular rate and regular rhythm Extremities: + edema (right forearm and hand) Gastrointestinal (Abdomen): normal bowel sounds, soft, nontender, no hepatosplenomegaly Skin: + ecchymosis (multiple, on arms) Neurologic: no focal motor deficits and not confused Psychiatric: Orientation: alert, oriented x 3 and cooperative Genitourinary: Sosa in place draining clear yellow urine Results & Data Results & Data Vital Signs (Past 12 Hours) Vital Signs Temp Pulse Resp BP Pulse Ox O2 Del Method 11/23/22 07:22 37.3 C 70 18 117/68 97 Room Air Laboratory Results CBC, BMP calcium reviewed PG Care Time/CCT Total # of Minutes Spent Total Time Spent with Patient: Total time spent is greater than 50% in coordination of care (as documented) at patient's floor/unit and/or counseling patient: Coding Level of Care Code 86576 SUB INP/OBS CARE 2/35MIN Diagnoses Acute renal failure N17.9 C. difficile diarrhea A04.72 Anemia D64.9 Anemia type: unspecified type Hypomagnesemia E83.42 Hypotension I95.9 BPH w urinary obs/LUTS N40.1; N13.8 Leukocytosis D72.829 Leukocytosis type: unspecified Hyperlipidemia E78.5 Acute metabolic encephalopathy G93.41 Bladder cancer C67.9 COPD (chronic obstructive pulmonary disease) J44.9 Carotid aneurysm, left I72.0 Severe protein-calorie malnutrition E43 Elevated troponin R77.8 NSVT (nonsustained ventricular tachycardia) I47.29 HTN (hypertension) I10 Right thyroid nodule E04.1 Tobacco use disorder F17.200 Hx of endarterectomy Z98.890 (3) Anemia Anemia type: unspecified type Qualified Code(s): D64.9 - Anemia, unspecified (7) Leukocytosis Leukocytosis type: unspecified Qualified Code(s): D72.829 - Elevated white blood cell count, unspecified
[2022-11-23] MEDS: UMECLIDINIUM BROMIDE 62.5MCG/BLISTER 7 PUFFS/INHALER INH SCH (21:58)
[2022-11-23] MEDS: TAMSULOSIN HCL 0.4 MG CAP PO SCH (21:59)
[2022-11-24] MEDS: VANCOMYCIN HCL 125 MG/2.5ML SOLN PO SCH ×5 (00:18→22:50)
[2022-11-24] MEDS: RASPBERRY SYRUP 5 ML UDP PO SCH ×5 (00:19→22:50)
[2022-11-24 06:35] LABS: Hematocrit (blood only) 21.7 % (42.0-52.0); Hemoglobin 7.2 g/dl (14.0-18.0); Mean Corpuscular Hemoglobin 29.6 pg (25.0-34.0); Mean Corpuscular Hgb Conc 33.2 g/dL (32.0-36.0); Mean Corpuscular Volume 89.3 fL (80.0-100.0); Mean Platelet Volume 10.1 fL (9.4-12.4); Platelet Count 157 K/uL (130-400); RDW Coefficient of Variation 14.7 % (11.5-14.5); RDW Standard Deviation 48.1 fL (36.4-46.3); Red Blood Count 2.43 M/uL (4.70-6.10); White Blood Count 10.26 K/ul (4.8-10.8)
[2022-11-24 06:53] LABS: BUN Creatinine Ratio 21.5 (10-20); Calcium 6.6 mg/dl (8.6-10.3); Creatinine Clr Calc Pharmacy 15.3 ml/min; Est GFR (African American) 18.2 ml/min; Est GFR (Non-African American) 15.7 ml/min; Magnesium 1.6 mg/dl (1.7-2.4); Potassium 4.8 mmol/L (3.5-5.1)
[2022-11-24] MEDS ORDERED: STAT IV STA (08:26)
[2022-11-24] MEDS ORDERED: SODIUM CHLORIDE 0.9% 250 ML IV PRN (08:28)
[2022-11-24] MEDS: PANTOprazole 40 MG in SYRINGE 0 ML IV SCH ×2 (08:38→22:43)
[2022-11-24] MEDS: SODIUM BICARBONATE 650 MG TAB PO SCH ×2 (08:39→22:44)
[2022-11-24] MEDS: NICOTINE 21 MG/24 HR TDSY TD SCH (08:39)
[2022-11-24] MEDS: FOLIC ACID 1 MG TAB PO SCH (08:39)
[2022-11-24] MEDS: CYANOCOBALAMIN (B-12) 500 MCG TABLET PO SCH (08:39)
[2022-11-24] MEDS: CHOLECALCIFEROL 1,000 UNITS 25 MCG TAB PO SCH (08:40)
[2022-11-24] MEDS: MAGNESIUM SULFATE / D5W 1 GM/100 ML BAG IV SCH ×2 (08:48→11:05)
--- NOTE | 2022-11-24 08:49 | Nephrology Progress Note ---
Date of Service November 24, 2022 Assessment & Plan (1) VITALY (acute kidney injury): Plan: * VITALY due to obstructive nephropathy and prerenal VITALY * Baseline creatinine 2.7 mg/dL (06/26) * Cr today is 3.5. Patient is nearing baseline function * Encourage oral hydration * Keep Mei catheter in to monitor I&O's, relieve obstruction * Serum bicarbonate was 24 this morning. Will reduce NaHCO3 to 650 mg po BID * Patient has confirmed that he does not want dialysis * Monitor PRP (2) BPH w urinary obs/LUTS: Plan: * Maintain Mei catheter in place. Will require outpatient follow up with Urology * Continue Tamsulosin 0.4 mg daily * Urine cytology was negative for malignant cells this hospitalization (3) Anemia: Plan: * Epogen 17300 units x 1 provided 11/18 * Probable GIB. Too frail for EGD * Hgb 7.8-->7.2 this morning. Primary service to transfuse if needed * Continue PPI therapy (4) C. difficile diarrhea: Plan: * Day #5 of 10 oral Vancomycin therapy (started 11/20/22) (5) Advanced care planning/counseling discussion: Plan: * Likely plan for home at nephew's house with hospice-awaiting final decision from patient and family Admission and Anticipated Discharge Date Admission Date: November 15, 2022 Subjective Mr. Galvin was evaluated in his hospital room this morning. He was alert and oriented to self/place/month. He reports that diarrhea has improved. Mr. Galvin denied overt blood loss Review of Systems Constitutional: no fever Eyes: no problem reported Ear, Nose, Mouth, Throat: no problem reported Respiratory: no dyspnea Cardiovascular: no chest pain Gastrointestinal: no abdominal pain, no vomiting and no diarrhea/loose stools Physical Exam Constitutional: not in distress Eyes: PERRL, conjunctivae normal, anicteric sclerae ENMT: Mouth: + dry oral mucous membranes Neck: trachea midline, no thyromegaly Respiratory: normal respiratory effort, lungs clear to auscultation Cardiovascular: RRR, no murmur, no edema Gastrointestinal (Abdomen): normal bowel sounds, soft, nontender, no hepatosplenomegaly Neurologic: Speech / Cognition: normal speech and normal cognition Results & Data Vital Signs (Past 12 Hours) Vital Signs Temp Pulse Resp BP BP Pulse Ox O2 Del Method 11/24/22 07:51 37.5 C 72 14 116/63 96 Room Air 11/24/22 07:22 37.3 C 71 18 103/50 L 97 Room Air 11/24/22 01:00 111/57 L 11/23/22 22:05 37.5 C 80 16 95/37 L 94 Room Air Laboratory Results Laboratory Tests 11/24/22 11/24/22 05:59 05:59 WBC 10.26 Hgb 7.2 L Hct 21.7 L Plt Count 157 Sodium 137 Potassium 4.8 Chloride 107 Carbon Dioxide 24 BUN 75 H Creatinine 3.49 H Glucose 95 PG Care Time/CCT Total # of Minutes Spent Total Time Spent with Patient: Total time spent is greater than 50% in coordination of care (as documented) at patient's floor/unit and/or counseling patient: Coding Level of Care Code 94589 SUB INP/OBS CARE 3/50MIN Diagnoses VITALY (acute kidney injury) N17.9 BPH w urinary obs/LUTS N40.1; N13.8 Anemia D64.9 Anemia type: unspecified type C. difficile diarrhea A04.72 Advanced care planning/counseling discussion Z71.89 (3) Anemia Anemia type: unspecified type Qualified Code(s): D64.9 - Anemia, unspecified
[2022-11-24] MEDS: CALCITRIOL 0.25 MCG CAPSULE PO SCH (08:52)
[2022-11-24] MEDS ORDERED: CALCIUM GLUCONATE 10% 2,000 MG in DEXTROSE 5% 50 ML IV ONE (09:00)
[2022-11-24] MEDS: DAPTOmycin 325 MG in SYRINGE 0 ML IV SCH (15:41)
--- NOTE | 2022-11-24 16:22 | Palliative Care Progress Note ---
Date of Service November 24, 2022 Assessment & Plan (1) Palliative care by specialist: (2) Advanced care planning/counseling discussion: (3) End stage renal failure untreated by renal replacement therapy: (4) Severe protein-calorie malnutrition: Plan Home with hospice as noted above CM is coordinating. I will follow peripherally, no acute needs at this time Pt is beginning to exhibit some mild confusion which i anticipate will progress with terminal renal failure for dc planning: please avoid use of morphine in this patient with advanced renal disease/nephropathy. Pt cannot have morphine because of the end stage renal failure - it is recommended that morphine (and codeine) are avoided in renal failure/dialysis patients, because when renal failure patients take morphine, their toxic metabolites, which are renally excreted, accumulate and can quickly cause over-opiation. Over opiation would be easily done with the use of a medication that pt cannot properly excrete. Thank you for allowing us to participate in the ongoing care of this patient. Please don't hesitate to call or page with any additional concerns. Dr. Tamar Oliva DNP Director, Palliative Care Admission and Anticipated Discharge Date Admission Date: November 15, 2022 Subjective pt and family desire home with hospice pt home where he was living with Jh until this admission is not safe for habitation due to animal feces and hoarding, unclean/unhygienic pt's nephew Zana has offered to have pt come to his home and will care fo him there with additional family incl pt sister as well as pt grandson Jh/who is pt's adopted son Review of Systems Review of Systems: pt declines Physical Exam Physical Exam: pt declines Results & Data Vital Signs (Past 12 Hours) Vital Signs Temp Pulse Pulse Resp BP BP BP 11/24/22 14:12 36.7 C 78 18 138/72 11/24/22 13:28 36.9 C 82 18 112/68 11/24/22 12:30 37.0 C 73 18 111/67 11/24/22 11:30 36.6 C 78 18 107/56 L 11/24/22 08:00 11/24/22 11:00 36.7 C 73 18 120/62 11/24/22 10:45 37.0 C 74 18 137/67 11/24/22 10:21 37.5 C 80 16 112/66 11/24/22 07:51 37.5 C 72 14 116/63 11/24/22 07:22 37.3 C 71 18 103/50 L Pulse Ox O2 Del Method 11/24/22 14:12 96 11/24/22 13:28 98 11/24/22 12:30 95 11/24/22 11:30 96 11/24/22 08:00 Room Air 11/24/22 11:00 96 11/24/22 10:45 97 11/24/22 10:21 11/24/22 07:51 96 Room Air 11/24/22 07:22 97 Room Air PG Care Time/CCT Total # of Minutes Spent Total Time Spent: 48 Total Time Spent with Patient: Total time spent is greater than 50% in coordination of care (as documented) at patient's floor/unit and/or counseling patient: [place]oding [place] [address] SUB INP/OBS CARE 2/35MIN Patient Type Established History Comprehensive Exam Problem Focused Medical Decision Making Moderate Complexity Diagnoses Palliative care by specialist Z51.5 Advanced care planning/counseling discussion Z71.89 End stage renal failure untreated by renal replacement therapy N18.6 Severe protein-calorie malnutrition E43
--- NOTE | 2022-11-24 19:24 | Hospitalist Progress Note ---
Date of Service November 24, 2022 Assessment & Plan (1) Acute renal failure: Plan: severe/profound, with marked elevation in BUN >200 and peak Cr 8.8 at presentation baseline Cr ~2-3 likely combination of pre-renal factors (marked dehydration, poor PO intake) and obstruction from enlarged prostate, along with UTI Cr continues to be improving daily with Sosa placement and IVFs , now down to 3.3 and has stabilized there, remains non oliguric BUN 200 and now significantly improved down to 75 acid-base status improved with bicarbonate drip, but then worsened again, non AG, possibly due to GI losses from diarrhea as well as renal failure--> now resolved with po NaHCO3 tabs Mentation much improved, remains fatigued however this is also greatly improved With edema in hands, arms, periorbital appreciate nephrology consultation -holding off on further IVFs now given edema and he is taking po more reliably now and getting intermittent blood transfusions -Decrease NaHCO3 to 650 mg po bid -serial daily BMPs -cont sosa -patient is has consistently told us he would not want hemodialysis and is interested in going home with hospice -Appreciate Palliative Medicine consultation-plan is for home with hospice at his nephew's house once all arrangements have been made (2) C. difficile diarrhea: Plan: with numerous episodes of loose stool developing after admission, with worsening leukocytosis and then with hypotension, tachycardia, chills on 11/20--> C. diff testing positive Received Cefepime initially on admission for UTI which likely precipitated this Then with melena which may be from C. diff vs UGI bleed? No heartburn or epigastric pain Hgb had dropped to 6.9 --> transfused 1 unit PRBCs and then up appropriately to 8.0 Hgb back down again 11/21 to 7.1 and BP 80s systolic on 11/22-> transfused 1 more unit PRBCs Melena now resolved and diarrhea resolved since 11/22 Hgb dropped again to 7.2 but no evidence of bleeding from anywhere from 11/24- transfuse 1 more unit PRBCs Leukocytosis now resolved, BPs normal -continue po Vanco 125mg qid x 10 day course-last day of tx will be end of day 11/29 -continue NaHCO3 tabs bid for Non AG met acidosis from GI losses -repeat CBC in AM (3) Anemia: Plan: as above with GIB This is anemia of CKD plus now with acute blood loss anemia from GIB Fe studies wnl TSH wnl b12/folate normal was given Epogen transfused a total of 3 units PRBCs (4) Hypomagnesemia: Plan: low from diarrhea/GI losses, poor po intake now resolved with replacement Follow magnesium level in the morning (5) Hypotension: Plan: 2/2 new infection , diarrhea, and GI bleed with blood loss anemia with worsening leukocytosis up to 25k, neutrophilia, found to have C. diff BPs improved with IVF boluses and PRBC transfusion on 11/20 and again on 11/22 UA contaminated, not a new infection Blood pressures are now normal -continue to hold amlodipine -Complete antibiotic course for C. difficile (6) BPH w urinary obs/LUTS: Plan: severe, with resulting b/l hydronephrosis + acute renal failure can't rule out element of obstruction from bladder ca recurrence either continue sosa flomax ultimately needs urology involvement if he is able to get through #1 above, but if going home on hospice, would simply keep Sosa in place chronically (7) Leukocytosis: Plan: Chronic but acutely worsening 2/2 C. diff colitis--> now resolved with tx of C. diff -peripheral smear not definitive but consider Heme referral or BCR/abl,JAK2 testing-defer for now as desiring hospice -follow CBC daily (8) Hyperlipidemia: Plan: statin now on hold while on Dapto for UTI but can restart on Saturday 11/25 (9) Acute metabolic encephalopathy: Plan: 2nd to uremia, UTI, and C. difficile colitis-now resolved supportive care, treatment of VITALY, C. 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, left: Plan: noted (13) Severe protein-calorie malnutrition: Plan: 20+kg weight loss since 2021 he is profoundly cachectic on examination highly concerning for recurrent bladder ca or other malignancy process , but could be from uremia/CKD encourage Qasim cabrera plans to enroll in hospice (14) Elevated troponin: Plan: mild elevation in trop this likely represents myocardial demand ischemia in setting of VITALY rather than ACS (15) NSVT (nonsustained ventricular tachycardia): Plan: 22 beat run x1 early in admission and then another 10 beat run on 11/18, none since high K and acidosis likely caused such echo with preserved EF no symptoms reported despite the NSVT have since removed from tele, considering hospice and is a DNR/DNI (16) HTN (hypertension): Plan: hold home amlodipine 5mg/day as with hypotension and will not likely need to restart (17) Right thyroid nodule: Plan: last imaging study - 4.1cm nodule right lobe TSH wnl could consider thyroid u/s to look for calcifications, etc but defer on this for now as enrolling in hospice (18) Tobacco use disorder: Plan: [facility] indicated [facility] smokes 1 ppd nicoderm patch (19) Hx of endarterectomy: Plan: noted - 06/2019 Plan Social situation is complicated. Pt's adopted son (biological grandson named Jh) has been living with him. The house is unkempt as per pt's best friend and not fit for humans to live. Dog feces everywhere, not clean. Pt's former boss/close friend from his prior job mentioned that he contacted the [employer] re: Mr Galvin's living situation. 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 working manager is not getting phone calls back from the nephew as of 11/24 to choose a hospice agency. Awaiting family to make arrangements. Discussed care with son, Jh, on phone on 11/23-tearful but is in agreement with decision to go home with hospice at nephew's house Admission and Anticipated Discharge Date Admission Date: November 15, 2022 Subjective Patient feeling fine today, no diarrhea. No bleeding from anywhere. Is eating more today. Anxious for discharge. Physical Exam Constitutional: well developed; no acute distress Eyes: + eyelid abnormality (OU periorbital edema almost completely resolved) Respiratory: normal respiratory effort and symmetric chest movement; no cough Cardiovascular: Extremities: + edema (right forearm and hand) Gastrointestinal (Abdomen): normal bowel sounds, soft, nontender, no hepatosplenomegaly Skin: + ecchymosis (multiple, on arms) Neurologic: no focal motor deficits and not confused Psychiatric: Orientation: alert, oriented x 3 and cooperative Results & Data Results & Data Vital Signs (Past 12 Hours) Vital Signs Temp Pulse Pulse Resp BP BP Pulse Ox 11/24/22 14:12 36.7 C 78 18 138/72 96 11/24/22 13:28 36.9 C 82 18 112/68 98 11/24/22 12:30 37.0 C 73 18 111/67 95 11/24/22 11:30 36.6 C 78 18 107/56 L 96 11/24/22 08:00 11/24/22 11:00 36.7 C 73 18 120/62 96 11/24/22 10:45 37.0 C 74 18 137/67 97 11/24/22 10:21 37.5 C 80 16 112/66 11/24/22 07:51 37.5 C 72 14 116/63 96 O2 Del Method 11/24/22 14:12 11/24/22 13:28 11/24/22 12:30 11/24/22 11:30 11/24/22 08:00 Room Air 11/24/22 11:00 11/24/22 10:45 11/24/22 10:21 11/24/22 07:51 Room Air Laboratory Results CBC, BMP, magnesium reviewed PG Care Time/CCT Total # of Minutes Spent Total Time Spent with Patient: Total time spent is greater than 50% in coordination of care (as documented) at patient's floor/unit and/or counseling patient: Coding Level of Care Code 23877 SUB INP/OBS CARE 2/35MIN Diagnoses Acute renal failure N17.9 C. difficile diarrhea A04.72 Anemia D64.9 Anemia type: unspecified type Hypomagnesemia E83.42 Hypotension I95.9 BPH w urinary obs/LUTS N40.1; N13.8 Leukocytosis D72.829 Leukocytosis type: unspecified Hyperlipidemia E78.5 Acute metabolic encephalopathy G93.41 Bladder cancer C67.9 COPD (chronic obstructive pulmonary disease) J44.9 Carotid aneurysm, left I72.0 Severe protein-calorie malnutrition E43 Elevated troponin R77.8 NSVT (nonsustained ventricular tachycardia) I47.29 HTN (hypertension) I10 Right thyroid nodule E04.1 Tobacco use disorder F17.200 Hx of endarterectomy Z98.890 (3) Anemia Anemia type: unspecified type Qualified Code(s): D64.9 - Anemia, unspecified (7) Leukocytosis Leukocytosis type: unspecified Qualified Code(s): D72.829 - Elevated white blood cell count, unspecified
[2022-11-24] MEDS: UMECLIDINIUM BROMIDE 62.5MCG/BLISTER 7 PUFFS/INHALER INH SCH (22:40)
[2022-11-24] MEDS: TAMSULOSIN HCL 0.4 MG CAP PO SCH (22:41)
[2022-11-25] MEDS: RASPBERRY SYRUP 5 ML UDP PO SCH ×4 (05:47→22:46)
[2022-11-25] MEDS: VANCOMYCIN HCL 125 MG/2.5ML SOLN PO SCH ×4 (05:47→22:50)
[2022-11-25] MEDS: NICOTINE 21 MG/24 HR TDSY TD SCH (07:40)
[2022-11-25] MEDS: CYANOCOBALAMIN (B-12) 500 MCG TABLET PO SCH (07:41)
[2022-11-25] MEDS: CALCITRIOL 0.25 MCG CAPSULE PO SCH (07:41)
[2022-11-25] MEDS: FOLIC ACID 1 MG TAB PO SCH (07:41)
[2022-11-25] MEDS: CHOLECALCIFEROL 1,000 UNITS 25 MCG TAB PO SCH (07:41)
[2022-11-25] MEDS: SODIUM BICARBONATE 650 MG TAB PO SCH ×2 (07:42→22:46)
[2022-11-25] MEDS: PANTOprazole 40 MG in SYRINGE 0 ML IV SCH ×2 (07:52→22:45)
[2022-11-25 07:57] LABS: Hematocrit (blood only) 26.4 % (42.0-52.0); Hemoglobin 8.6 g/dl (14.0-18.0); Mean Corpuscular Hemoglobin 29.5 pg (25.0-34.0); Mean Corpuscular Hgb Conc 32.6 g/dL (32.0-36.0); Mean Corpuscular Volume 90.4 fL (80.0-100.0); Mean Platelet Volume 9.5 fL (9.4-12.4); Platelet Count 145 K/uL (130-400); RDW Standard Deviation 49.3 fL (36.4-46.3); Red Blood Count 2.92 M/uL (4.70-6.10); White Blood Count 10.69 K/ul (4.8-10.8)
[2022-11-25 08:23] LABS: BUN Creatinine Ratio 19.4 (10-20); Calcium 6.9 mg/dl (8.6-10.3); Creatinine Clr Calc Pharmacy 14.8 ml/min; Est GFR (African American) 17.6 ml/min; Est GFR (Non-African American) 15.1 ml/min; Magnesium 1.8 mg/dl (1.7-2.4)
--- NOTE | 2022-11-25 08:49 | Nephrology Progress Note ---
Date of Service November 25, 2022 Assessment & Plan (1) VITALY (acute kidney injury): Plan: * VITALY due to obstructive nephropathy and prerenal VITALY * Baseline creatinine 2.7 mg/dL (06/26) * Cr today is 3.6 * Encourage oral hydration * Keep Mei catheter in to monitor I&O's, relieve obstruction * Serum bicarbonate was 24 this morning. Continue NaHCO3 650 mg po BID * Patient has confirmed that he does not want dialysis * Mr. Galvin is awaiting transition to home hospice. Will hold further Nephrology evaluation and sign off. Please call if further assistance is needed (2) BPH w urinary obs/LUTS: Plan: * Maintain Mei catheter in place. Will require outpatient follow up with Urology * Continue Tamsulosin 0.4 mg daily * Urine cytology was negative for malignant cells this hospitalization (3) Anemia: Plan: * Epogen 00638 units x 1 provided 11/18 * Probable GIB. Too frail for EGD * Hgb 8.6 this morning * Continue PPI therapy (4) C. difficile diarrhea: Plan: * Day #6 of 10 oral Vancomycin therapy (started 11/20/22) (5) Advanced care planning/counseling discussion: Plan: * Patient awaiting transition to home hospice Admission and Anticipated Discharge Date Admission Date: November 15, 2022 Subjective Mr. Galvin was evaluated in his hospital room this morning. He was alert and oriented to self/place/month. He reports that he hopes to return home with hospice Review of Systems Constitutional: no fever Eyes: no problem reported Ear, Nose, Mouth, Throat: no problem reported Respiratory: no dyspnea Cardiovascular: no chest pain Gastrointestinal: no abdominal pain, no vomiting and no diarrhea/loose stools Physical Exam Constitutional: not in distress Eyes: PERRL, conjunctivae normal, anicteric sclerae ENMT: Mouth: + dry oral mucous membranes Neck: trachea midline, no thyromegaly Respiratory: normal respiratory effort, lungs clear to auscultation Cardiovascular: RRR, no murmur, no edema Gastrointestinal (Abdomen): normal bowel sounds, soft, nontender, no hepatosplenomegaly Neurologic: Speech / Cognition: normal speech and normal cognition Results & Data Vital Signs (Past 12 Hours) Vital Signs Temp Pulse Resp BP Pulse Ox O2 Del Method 11/25/22 08:19 37.0 C 70 18 121/67 94 Room Air 11/24/22 21:00 Room Air 05/22/23 22:40 37.2 C 72 16 117/67 95 Room Air Laboratory Results Laboratory Tests 11/17/22 11/25/22 11/25/22 07:10 07:22 07:22 WBC 10.69 Hgb 8.6 L Hct 26.4 L Plt Count 145 Sodium 134 L Potassium 5.0 Chloride 104 Carbon Dioxide 24 BUN 70 H Creatinine 3.60 H Glucose 120 H Calcium 6.9 L Magnesium 1.8 Albumin 2.8 L PG Care Time/CCT Total # of Minutes Spent Total Time Spent with Patient: Total time spent is greater than 50% in coordination of care (as documented) at patient's floor/unit and/or counseling patient: Coding Level of Care Code 57860 SUB INP/OBS CARE 2/35MIN Diagnoses VITALY (acute kidney injury) N17.9 BPH w urinary obs/LUTS N40.1; N13.8 Anemia D64.9 Anemia type: unspecified type C. difficile diarrhea A04.72 Advanced care planning/counseling discussion Z71.89 (3) Anemia Anemia type: unspecified type Qualified Code(s): D64.9 - Anemia, unspecified
--- NOTE | 2022-11-25 18:25 | Hospitalist Progress Note ---
Date of Service November 25, 2022 Assessment & Plan (1) Acute renal failure: Plan: severe/profound at time of admission, with marked elevation in BUN >200 and peak Cr 8.8 at presentation baseline Cr ~2-3. Cr today 3.6. likely combination of pre-renal factors (marked dehydration, poor PO intake) and obstruction from #2 appreciate nephrology consultation cont sosa cont sodium bicarb BID (2) BPH w urinary obs/LUTS: Plan: severe, with resulting b/l hydronephrosis + acute renal failure cont sosa cont flomax (3) Acute urinary obstruction: Plan: 2nd BPH can't rule out element of obstruction from bladder ca recurrence either see above cont sosa patient returning home w/ hospice thus no urology f/u post-discharge (4) COPD (chronic obstructive pulmonary disease): Plan: stable O2 sats in RA cont home inhalers (5) Hyperlipidemia: Plan: stop statin at d/c since transitioning to hospice (6) Right thyroid nodule: Plan: last imaging study - 4.1cm nodule right lobe TSH wnl defer additional work-up -- transitioning to hospice at d/c (7) Hx of endarterectomy: Plan: noted - 06/2019 (8) Bladder cancer: Plan: high-grade urothelial cancer per records dx 2018 [facility] time he had evidence of ongoing obstruction from his BPH but no cancer seen on that cysto it does not appear he had f/u after that urine cytology negative for high grade urothelial carcinoma given the extreme weight loss malignancy remains very high on the differential but, given transition to hospice, no further w/u at this time (9) Carotid aneurysm, left: (10) Severe protein-calorie malnutrition: Plan: 20+kg weight loss since 2021 he is profoundly cachectic on examination -- but now eating much better suspect he had lack of access to good nutrition at home based on description of his house, etc never the less highly concerning for recurrent bladder ca or other malignancy process (11) Acidosis: Plan: metabolic, 2nd #1 resolved (12) Anemia: Plan: Fe studies wnl TSH wnl B12/folate wnl 2nd to CKD (13) Tobacco use disorder: Plan: [facility] indicated he smokes 1 ppd cont nicoderm patch (14) Elevated troponin: Plan: mild elevation in HS trop this likely represented myocardial demand ischemia in setting of #1 rather than ACS (15) NSVT (nonsustained ventricular tachycardia): Plan: 22 beat run early in admission high K and acidosis likely caused such echo with preserved EF no further w/u needed (16) HTN (hypertension): Plan: BPs stable off of norvasc (17) Acute metabolic encephalopathy: Plan: 2nd to #1 resolved (18) C. difficile diarrhea: Plan: improved day #5 of 10 of vanco PO cont such cont contact precautions Plan Pt's home in uninhabitable by report. Pt's nephew Zana has agreed to take patient home post-d/c with hospice in place. social work to help with details on dispo. Admission and Anticipated Discharge Date Admission Date: November 15, 2022 Subjective patient eating robustly during the visit denies pain in any location anxious to get home denies dyspnea states diarrhea is better/resolved Review of Systems Review of Systems: gen - feels good, good appetite, energy ok cv - no chest pain pulm - no dyspnea or cough GI - no pain or N/V Physical Exam Physical Exam: gen - looks much better relative to my last visit with him 7+ days ago, NAD mouth - MMM neck - no JVD heart - RRR, s1 s2 lungs - CTA b/l abd - soft NT ND BS+ ext - no edema, pulses 2+ b/l Results & Data Results & Data Vital Signs (Past 12 Hours) Vital Signs Temp Pulse Resp BP Pulse Ox O2 Del Method 11/25/22 13:42 37.5 C 96 H 16 118/62 96 Room Air 11/25/22 07:00 Room Air 11/25/22 08:19 37.0 C 70 18 121/67 94 Room Air Laboratory Results Laboratory Results - last 48 hr 11/24/22 11/25/22 11/25/22 08:50 07:22 07:22 WBC 10.69 RBC 2.92 L Hgb 8.6 L Hct 26.4 L MCV 90.4 MCH 29.5 MCHC 32.6 RDW Std Deviation 49.3 H RDW Coeff of [place] 15.0 H Plt Count 145 MPV 9.5 Sodium 134 L Potassium 5.0 Chloride 104 Carbon Dioxide 24 Anion Gap 6 BUN 70 H Creatinine 3.60 H Est Cr Clr Drug Dosing 14.8 Est GFR ( Amer) 17.6 Est GFR (Non-Af Amer) 15.1 BUN/Creatinine Ratio 19.4 Glucose 120 H Calcium 6.9 L Magnesium 1.8 Blood Type A Positive Antibody Screen NEGATIVE Crossmatch See Detail PG Care Time/CCT Total # of Minutes Spent Total Time Spent with Patient: Total time spent is greater than 50% in coordination of care (as documented) at patient's floor/unit and/or counseling patient: Coding Level of Care Code 58591 SUB INP/OBS CARE 2/35MIN Diagnoses Acute renal failure N17.9 BPH w urinary obs/LUTS N40.1; N13.8 Acute urinary obstruction N13.9 COPD (chronic obstructive pulmonary disease) J44.9 Hyperlipidemia E78.5 Right thyroid nodule E04.1 Hx of endarterectomy Z98.890 Bladder cancer C67.9 Carotid aneurysm, left I72.0 Severe protein-calorie malnutrition E43 Acidosis E87.20 Anemia D64.9 Anemia type: unspecified type Tobacco use disorder F17.200 Elevated troponin R77.8 NSVT (nonsustained ventricular tachycardia) I47.29 HTN (hypertension) I10 Acute metabolic encephalopathy G93.41 C. difficile diarrhea A04.72 (12) Anemia Anemia type: unspecified type Qualified Code(s): D64.9 - Anemia, unspecified
[2022-11-25] MEDS: TAMSULOSIN HCL 0.4 MG CAP PO SCH (22:46)
[2022-11-25] MEDS: ATORVASTATIN 40 MG TAB PO SCH (22:47)
[2022-11-25] MEDS: UMECLIDINIUM BROMIDE 62.5MCG/BLISTER 7 PUFFS/INHALER INH SCH (22:47)
[2022-11-26] MEDS: VANCOMYCIN HCL 125 MG/2.5ML SOLN PO SCH ×4 (05:58→23:32)
[2022-11-26] MEDS: RASPBERRY SYRUP 5 ML UDP PO SCH ×4 (05:58→23:32)
[2022-11-26] MEDS: SODIUM BICARBONATE 650 MG TAB PO SCH ×2 (08:59→20:43)
[2022-11-26] MEDS: CYANOCOBALAMIN (B-12) 500 MCG TABLET PO SCH (08:59)
[2022-11-26] MEDS: CALCITRIOL 0.25 MCG CAPSULE PO SCH (09:00)
[2022-11-26] MEDS: FOLIC ACID 1 MG TAB PO SCH (09:00)
[2022-11-26] MEDS: PANTOprazole 40 MG in SYRINGE 0 ML IV SCH (09:00)
[2022-11-26] MEDS: NICOTINE 21 MG/24 HR TDSY TD SCH (09:00)
[2022-11-26] MEDS: CHOLECALCIFEROL 1,000 UNITS 25 MCG TAB PO SCH (09:00)
[2022-11-26] MEDS ORDERED: LACTATED RINGER'S 500 ML IV ONE (10:22)
[2022-11-26 10:55] LABS: Appearance Urine Clear (Clear); Bacteria Urine Automated Negative (Negative); Bilirubin Urine Negative (Negative); Blood Urine Trace (Negative); Color Urine Yellow; Epithelial Cell Urine Auto >30 /lpf (0-5); Glucose Urine UA Negative (Negative); Ketones Urine Negative (Negative); Leukocyte Esterase Urine 3+ (Negative); Nitrite Urine Negative (Negative); RBC Urine Automated 0-4 /hpf (0-4); Specific Gravity Urine 1.011 (1.000-1.030); Urobilinogen Urine Negative (Negative); pH Urine 7.5 (4.5-7.5)
[2022-11-26 11:03] LABS: Protein Urine 2+ (Negative)
[2022-11-26] MEDS: LACTATED RINGER'S 1,000 ML IV SCH ×2 (14:08→20:42)
[2022-11-26] MEDS: cefTRIAXone SODIUM 1,000 MG in DEXTROSE 5% AD-VAN 50 ML IV SCH (14:12)
[2022-11-26] MEDS: ATORVASTATIN 40 MG TAB PO SCH (20:43)
[2022-11-26] MEDS: TAMSULOSIN HCL 0.4 MG CAP PO SCH (20:44)
[2022-11-26] MEDS: UMECLIDINIUM BROMIDE 62.5MCG/BLISTER 7 PUFFS/INHALER INH SCH (20:47)
--- NOTE | 2022-11-26 22:01 | Hospitalist Progress Note ---
Date of Service November 26, 2022 Assessment & Plan (1) Fever: Plan: Tm 37.9 last pm with associated hypotension concerning for possible early sepsis gave LR bolus x 1 followed by LR at maintenance u/a checked - although no bacteria on microscopy u/a itself suspicious for UTI urine cx sent rocephin IV started no pulmonary symptoms but consider cxr if any worsening consider COVID testing check cbc, bmp, cortisol in am (2) Hypotension: Plan: LR bolus x 1 followed by LR maintenance despite low or low normal BPs his UOP has been wnl today cont to monitor place flomax on hold (only anti-hypertensive he is on) (3) Acute renal failure: Plan: severe/profound at time of admission, with marked elevation in BUN >200 and peak Cr 8.8 at presentation baseline Cr ~2-3. most recent Cr 3.6. likely combination of pre-renal factors (marked dehydration, poor PO intake) and obstruction from #2 leading to ARF/VITALY at admission appreciate nephrology consultation cont sosa cont sodium bicarb BID (4) C. difficile diarrhea: Plan: improved / resolved day #6 of 10 of vanco PO cont contact precautions (5) BPH w urinary obs/LUTS: Plan: severe, with resulting b/l hydronephrosis + acute renal failure cont sosa resume flomax when able (6) Acute urinary obstruction: Plan: 2nd BPH can't rule out element of obstruction from bladder ca recurrence either see above cont sosa patient returning home w/ hospice thus no urology f/u post-discharge would cont the sosa at discharge (7) COPD (chronic obstructive pulmonary disease): Plan: stable O2 sats in RA cont home inhalers no flare at this time no pulmonary symptoms (8) Hyperlipidemia: Plan: stop statin at d/c since transitioning to hospice (9) Right thyroid nodule: Plan: last imaging study - 4.1cm nodule right lobe TSH wnl defer additional work-up -- transitioning to hospice at d/c (10) Hx of endarterectomy: Plan: noted - 06/2019 (11) Bladder cancer: Plan: high-grade urothelial cancer per records dx 2018 last cystoscopy was December 2021 at the [facility] at that time he had evidence of ongoing obstruction from his BPH but no cancer seen on that cysto it does not appear he had f/u after that urine cytology negative for high grade urothelial carcinoma given the extreme weight loss malignancy remains very high on the differential but, given transition to hospice, no further w/u at this time (12) Severe protein-calorie malnutrition: Plan: 20+kg weight loss since 2021 he is profoundly cachectic on examination -- but now eating much better suspect he had lack of access to good nutrition at home based on description of his house and lack of good caretakers at home never the less highly concerning for recurrent bladder ca or other malignancy process no further w/u -- transitioning to hospice (13) Acidosis: Plan: metabolic, 2nd #1 resolved (14) Anemia: Plan: Fe studies wnl TSH wnl B12/folate wnl 2nd to CKD CBC am (15) Tobacco use disorder: Plan: [facility] sm[facility] 1 ppd cont nicoderm patch (16) Elevated troponin: Plan: mild elevation in HS trop this likely represented myocardial demand ischemia in setting of #1 rather than ACS (17) NSVT (nonsustained ventricular tachycardia): Plan: 22 beat run early in admission high K and acidosis likely caused such echo with preserved EF no further w/u needed (18) HTN (hypertension): Plan: BPs low or low-normal today -- see #2 above (19) Acute metabolic encephalopathy: Plan: present on admission -- 2nd to #1 --> resolved Plan Pt's home in uninhabitable by report. Was previously living with his step-son. Office of aging referral was made by report. Pt's nephew Zana had initially agreed to take patient home post-d/c with hospice in place. However, we became aware today that Zana has changed his mind and would like Mr Galvin placed in SNF or similar level of care. Social work to assist with placement. Plan is still to d/c with hospice services in place. Admission and Anticipated Discharge Date Admission Date: November 15, 2022 Subjective patient resting during the visit denies headache, cough, dyspnea, chest pain, runny nose, sore throat, ear pain, abd pain he wasn't even aware that he had a low-grade temp overnight despite the low-grade temp he has had good appetite through the day no diarrhea -- stools have normalized Review of Systems Review of Systems: gen - no chills; eating well cv - no orthopnea GI - no vomiting or nausea musculo - denies myalgias skin - denies rash Physical Exam Physical Exam: gen - NAD, nontoxic, pleasant, no confusion mouth - MMM neck - no JVD heart - RRR, s1 s2 lungs - CTA b/l, no rales or wheeze abd - soft NT ND BS+ ext - no edema, pulses 2+ b/l skin - no rashes musculo - no joint effusions; mild swelling of left lower arm/hand but improved from prior exam Results & Data Results & Data Vital Signs (Past 12 Hours) Vital Signs Temp Pulse Resp BP Pulse Ox O2 Del Method 11/26/22 20:44 38.0 C H 77 18 89/51 L 95 Room Air 11/26/22 20:50 37.5 C 11/26/22 20:50 92/49 L 11/26/22 14:48 37.2 C 77 16 98/59 L 95 Room Air 11/26/22 10:17 36.9 C 73 16 93/55 L 95 Room Air Laboratory Results Laboratory Results - last 24 hr 11/26/22 Unknown Urine Color Yellow Urine Appearance Clear Urine pH 7.5 Ur Specific [place] 1.011 Urine Protein 2+ H Urine Glucose (UA) Negative Urine Ketones Negative Urine Blood Trace H Urine Nitrite Negative Urine Bilirubin Negative Urine Urobilinogen Negative Ur Leukocyte Esterase 3+ H Urine WBC (Auto) 10-30 H Urine RBC (Auto) 0-4 U Hyaline Cast (Auto) 1-5 U Epithel Cells (Auto) >30 H Urine Bacteria (Auto) Negative Ur Renal Epithelial Cell Not Reportable PG Care Time/CCT Total # of Minutes Spent Total Time Spent with Patient: Total time spent is greater than 50% in coordination of care (as documented) at patient's floor/unit and/or counseling patient: Coding Level of Care Code 95869 SUB INP/OBS CARE 3/50MIN Diagnoses Fever R50.9 Hypotension I95.9 Acute renal failure N17.9 C. difficile diarrhea A04.72 BPH w urinary obs/LUTS N40.1; N13.8 Acute urinary obstruction N13.9 COPD (chronic obstructive pulmonary disease) J44.9 Hyperlipidemia E78.5 Right thyroid nodule E04.1 Hx of endarterectomy Z98.890 Bladder cancer C67.9 Severe protein-calorie malnutrition E43 Acidosis E87.20 Anemia D64.9 Anemia type: unspecified type Tobacco use disorder F17.200 Elevated troponin R77.8 NSVT (nonsustained ventricular tachycardia) I47.29 HTN (hypertension) I10 Acute metabolic encephalopathy G93.41 (14) Anemia Anemia type: unspecified type Qualified Code(s): D64.9 - Anemia, unspecified
[2022-11-27] MEDS: VANCOMYCIN HCL 125 MG/2.5ML SOLN PO SCH ×3 (06:01→17:34)
[2022-11-27] MEDS: RASPBERRY SYRUP 5 ML UDP PO SCH ×3 (06:01→17:34)
[2022-11-27] MEDS: SODIUM BICARBONATE 650 MG TAB PO SCH ×2 (08:30→21:10)
[2022-11-27] MEDS: PANTOprazole 40 MG TAB PO SCH (08:30)
[2022-11-27] MEDS: FOLIC ACID 1 MG TAB PO SCH (08:31)
[2022-11-27] MEDS: CHOLECALCIFEROL 1,000 UNITS 25 MCG TAB PO SCH (08:31)
[2022-11-27] MEDS: CALCITRIOL 0.25 MCG CAPSULE PO SCH (08:31)
[2022-11-27] MEDS: NICOTINE 21 MG/24 HR TDSY TD SCH (08:31)
[2022-11-27] MEDS: CYANOCOBALAMIN (B-12) 500 MCG TABLET PO SCH (08:31)
[2022-11-27 09:05] LABS: BUN Creatinine Ratio 16.7 (10-20); Creatinine Clr Calc Pharmacy 13.7 ml/min; Est GFR (African American) 15.9 ml/min; Est GFR (Non-African American) 13.7 ml/min; Potassium 4.9 mmol/L (3.5-5.1)
[2022-11-27 09:28] LABS: Hematocrit (blood only) 24.6 % (42.0-52.0); Hemoglobin 7.9 g/dl (14.0-18.0); Mean Corpuscular Hemoglobin 29.2 pg (25.0-34.0); Mean Corpuscular Hgb Conc 32.1 g/dL (32.0-36.0); Mean Corpuscular Volume 90.8 fL (80.0-100.0); Mean Platelet Volume 9.1 fL (9.4-12.4); Platelet Count 152 K/uL (130-400); RDW Coefficient of Variation 14.6 % (11.5-14.5); RDW Standard Deviation 48.7 fL (36.4-46.3); Red Blood Count 2.71 M/uL (4.70-6.10); White Blood Count 7.58 K/ul (4.8-10.8)
[2022-11-27] MEDS: LACTATED RINGER'S 1,000 ML IV SCH (10:00)
--- NOTE | 2022-11-27 13:41 | Hospitalist Progress Note ---
Date of Service November 27, 2022 Assessment & Plan (1) Fever: Plan: Acute/stable - moderate risk - Tm 38C last pm with associated hypotension - UA checked - although no bacteria on microscopy u/a itself suspicious for UTI - Empirically started on Rocephin - Urine culture prelim w/ no growth, less than 1000 colonies/mL, final results pending - CBC reviewed today, no leukocytosis, wbc 7.58, diff not ordered - No blood cultures ordered - No resp symptoms, has remained afebrile today - If spikes another fever, will draw blood cultures and order additional fever w/u (2) Hypotension: Plan: Relatively acute/stable - moderate to high risk - LR bolus x 1 given 11/26 followed by LR maintenance - despite low or low normal BPs his UOP has been wnl - flomax placed on hold of which he takes for BPH with LUTS - Of note, pt has had marginally soft BPs dating back to 11/22/22 (3) Acute renal failure: Plan: VITALY on CKD/unstable/high risk - severe/profound at time of admission, with marked elevation in BUN >200 and peak Cr 8.8 at presentation - baseline Cr ~2-3 (per nephro documentation 2.7) - CMP reviewed, Cr has been uptrending the past 5 days, 11/22 was 3.23 and now up to 3.90 today (11/27) - likely combination of pre-renal factors (marked dehydration, poor PO intake) and obstruction - appreciate nephrology consultation, have signed off as pt is refusing dialysis with plans to transition to hospice care - maintain sosa and cont sodium bicarb BID (4) C. difficile diarrhea: Plan: Acute/stable - resolved - Continue PO Vanco, complete course, today #01/12 - cont contact precautions (5) BPH w urinary obs/LUTS: Plan: Chronic/unstable - severe, with resulting b/l hydronephrosis + acute renal failure - cont sosa - resume flomax when BP improves - Will plan to maintain sosa upon dc but no plan for urology fu as he is going to go hospice (6) Right thyroid nodule: Plan: Chronic/stable - uncertain risk - last imaging study - 4.1cm nodule right lobe in May 2021 - Does not appear to have had additional work up for this - TSH wnl - defer additional work-up -- transitioning to hospice at d/c (7) Bladder cancer: Plan: Chronic/ ?unstable - high risk to patient - high-grade urothelial cancer per records dx 2017 - last cystoscopy was December 2021 at the [facility] - at that time he had evidence of ongoing obstruction from his BPH but no cancer seen on that cysto - it does not appear he had f/u after that - urine cytology negative for high grade urothelial carcinoma - given the extreme weight loss malignancy remains very high on the differential - but, given transition to hospice, no further w/u at this time (8) Severe protein-calorie malnutrition: Plan: Acute/unstable - 20+kg weight loss since 2021 - he is profoundly cachectic on examination -- but now eating much better - suspect he had lack of access to good nutrition at home based on description of his house and lack of good caretakers at home - never the less highly concerning for recurrent bladder ca or other malignancy process - no further w/u -- transitioning to hospice (9) Elevated troponin: Plan: Acute/stable - low to moderate risk - mild elevation in HS trop on admit - range of 34.7-45.6 - this likely represented myocardial demand ischemia in setting of acute on chronic renal failure rather than ACS - No c/o chest pain, dyspnea, and no dynamic EKG changes noted Plan Pt's home in uninhabitable by report. Was previously living with his step-son. Office of aging referral was made by report. Pt's nephew Zana had initially agreed to take patient home post-d/c with hospice in place. However, staff became aware on 11/26 that Zana has changed his mind and would like Mr Galvin placed in SNF or similar level of care. Plan is to discharge to [facility] with hospice services on 11/28 Plan d/w Dr. Sheridan Admission and Anticipated Discharge Date Admission Date: November 15, 2022 Subjective Patient seen on daily rounds this morning. He is currently resting in bed, offers no new complaints. Had a fever yesterday with suspicion of a UTI and was started on Rocephin. Last fever was 38C @ ~9pm last evening. There are some social issues surrounding his discharge planning. Reportedly was going to gp home with his nephew but nephew now does not believe he can care for him. Now with plans for SNF with hospice as he is refusing dialysis for his renal failu re. He denies cp, dyspnea, n/v/d, f/c, cough, or headache. Urinary catheter remains in place and is causing no discomfort. Physical Exam Physical Exam: GENERAL: 77 yo well-developed but thin/frail elderly WM. NAD. LUNGS: Clear to auscultation bilaterally w/o w/r/r. CARDIOVASCULAR: Regular rate and rhythm. ABDOMEN: Soft, non-tender and non-distended. BS normoactive x 4 quad. : sosa in place Results & Data Results & Data Vital Signs (Past 12 Hours) Vital Signs Temp Pulse Resp BP Pulse Ox O2 Del Method 11/27/22 08:15 Room Air 11/27/22 07:24 37.2 C 67 14 100/51 L 96 Room Air Laboratory Results 11/27/22 08:17 11/27/22 08:17 PG Care Time/CCT Total # of Minutes Spent Total Time Spent with Patient: Total time spent is greater than 50% in coordination of care (as documented) at patient's floor/unit and/or counseling patient: Coding Level of Care Code 77285 SUB INP/OBS CARE 2/35MIN Diagnoses Fever R50.9 Hypotension I95.9 Acute renal failure N17.9 C. difficile diarrhea A04.72 BPH w urinary obs/LUTS N40.1; N13.8 Right thyroid nodule E04.1 Bladder cancer C67.9 Severe protein-calorie malnutrition E43 Elevated troponin R77.8
[2022-11-27] MEDS: cefTRIAXone SODIUM 1,000 MG in DEXTROSE 5% AD-VAN 50 ML IV SCH (14:41)
[2022-11-27] MEDS: UMECLIDINIUM BROMIDE 62.5MCG/BLISTER 7 PUFFS/INHALER INH SCH (21:10)
[2022-11-27] MEDS: ATORVASTATIN 40 MG TAB PO SCH (21:10)
[2022-11-28] MEDS: RASPBERRY SYRUP 5 ML UDP PO SCH ×2 (01:18→05:39)
[2022-11-28] MEDS: LACTATED RINGER'S 1,000 ML IV SCH (01:18)
[2022-11-28] MEDS: VANCOMYCIN HCL 125 MG/2.5ML SOLN PO SCH ×2 (01:18→05:39)
[2022-11-28] MEDS: CHOLECALCIFEROL 1,000 UNITS 25 MCG TAB PO SCH (07:48)
[2022-11-28] MEDS: NICOTINE 21 MG/24 HR TDSY TD SCH (07:48)
[2022-11-28] MEDS: SODIUM BICARBONATE 650 MG TAB PO SCH (07:49)
[2022-11-28] MEDS: CALCITRIOL 0.25 MCG CAPSULE PO SCH (07:49)
[2022-11-28] MEDS: FOLIC ACID 1 MG TAB PO SCH (07:49)
[2022-11-28] MEDS: PANTOprazole 40 MG TAB PO SCH (07:50)
[2022-11-28] MEDS: CYANOCOBALAMIN (B-12) 500 MCG TABLET PO SCH (07:50)
[2022-11-28 07:54] VITALS: BP 117/64; PULSE 71; TEMP 97.3; O2SAT 96
--- NOTE | 2022-11-28 09:16 | Communication Note ---
Date of Service: November 28, 2022 Brief Pall Med note DC to [facility] for comfort care/EOL with hospice Home hospice plans no longer feasible given family conflicts and insuff caregiver support No acute IP Pall med needs. Pt will be dc later today. Pall Med available to assist hospice with EOL sx mgt reccs prn Thank you for allowing us to participate in the ongoing care of this patient. Please don't hesitate to call or page with any additional concerns. Dr. Tamar Oliva DNP Director, Palliative Care
--- NOTE | 2022-11-28 10:55 | Discharge Summary ---
Date of Service November 28, 2022 Admission HPI Per Admitting Provider The patient is a 77-year-old male with a past medical history including hypocalcemia, anemia, COPD, hyperlipidemia, right thyroid nodule, abnormal EKG, B12 deficiency, history of endarterectomy 06/19/2019, bladder cancer and left carotid aneurysm. The patient presents to the emergency department as noted above. Of note, the patient was quite gruff and somewhat reluctant to interact, but did so grudgingly. Principal Diagnosis acute on chronic renal failure Discharge Exam GENERAL: 77 yo well-developed but thin/frail elderly WM. NAD. LUNGS: Clear to auscultation bilaterally w/o w/r/r. CARDIOVASCULAR: Regular rate and rhythm. ABDOMEN: Soft, non-tender and non-distended. BS normoactive x 4 quad. : sosa in place Discharge Data Allergies Allergy/AdvReac Type Severity Reaction Status Date / Time lisinopril Allergy Severe THROAT Verified 11/15/22 21:12 CLOSES Penicillins Allergy Intermediate Rash Verified 11/15/22 21:12 Consultations 11/15/22 22:53 ED Decision to Admit Stat 11/16/22 01:14 Consult Nephrology Routine 11/18/22 07:57 Consult Palliative Care Routine Ordered Studies Head CT 11/15/22 21:39 Exam(s): CT HEAD Without Contrast EXAM: CT Head Without Intravenous Contrast CLINICAL HISTORY: Reason for exam: confusion, weak. TECHNIQUE: Axial computed tomography images of the head/brain without intravenous contrast. CTDI is 66.5 mGy and DLP is 961.59 mGy-cm. Automated exposure control was utilized for the study. A dose lowering technique was utilized adhering to the principles of ALARA. COMPARISON: No relevant prior studies available. FINDINGS: No acute intracranial hemorrhage. No midline shift or mass effect. 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 Age-related cerebral volume loss. Periventricular and subcortical white matter hypoattenuation, consistent with chronic microangiopathy. The visualized orbits appear grossly unremarkable. The calvarium is intact. The visualized paranasal sinuses and mastoid air cells are grossly clear. IMPRESSION: No acute intracranial hemorrhage, midline shift, or mass effect. 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 Electronically signed by: Rigo Griffith MD 11/15/22 22:26 PM Abdomen/Pelvis CT 11/15/22 21:57 Exam(s): CT ABDOMEN + PELVIS Without Contrast EXAM: CT Abdomen and Pelvis Without Intravenous Contrast CLINICAL HISTORY: Reason for exam: poss urinary obstruc. TECHNIQUE: Axial computed tomography images of the abdomen and pelvis without intravenous contrast. CTDI is 13.12 mGy and DLP is 633.34 mGy-cm. Automated exposure control was utilized for the study. A dose lowering technique was utilized adhering to the principles of ALARA. COMPARISON: No relevant prior studies available. FINDINGS: Lung bases: Emphysema. ABDOMEN: Liver: Unremarkable. No focal hepatic lesion. Gallbladder and bile ducts: Unremarkable. No calcified stones. No ductal dilation. Pancreas: Unremarkable. No ductal dilation. Spleen: Unremarkable. No splenomegaly. Adrenals: Unremarkable. No mass. Kidneys and ureters: Severe bilateral hydroureteronephrosis, with wall thickening of the urinary bladder. Distended urinary bladder. Correlate for need for Sosa catheter. Urology evaluation should be considered. Stomach and bowel: Diverticulosis, without acute diverticulitis. No small bowel obstruction. No free intraperitoneal air. PELVIS: Appendix: No findings to suggest acute appendicitis. Bladder: See above. Reproductive: Unremarkable as visualized. ABDOMEN and PELVIS: Intraperitoneal space: Unremarkable. No free air. No significant fluid collection. Bones/joints: LEFT hip arthroplasty. Degenerative changes of the spine. No acute fracture. No dislocation. Grade 1 anterolisthesis of L4 on L5. Soft tissues: Unremarkable. Vasculature: Infrarenal abdominal aortic aneurysm, measuring 3 cm anteroposterior. Atherosclerotic changes of the aorta. Lymph nodes: Unremarkable. No enlarged lymph nodes. IMPRESSION: 1. Severe bilateral hydroureteronephrosis, with wall thickening of the urinary bladder. Distended urinary bladder. Correlate for need for Sosa catheter. Urology evaluation should be considered. 2. Infrarenal abdominal aortic aneurysm, measuring 3 cm anteroposterior. 3. Diverticulosis, without acute diverticulitis. No small bowel obstruction. No free intraperitoneal air. 4. LEFT hip arthroplasty. Electronically signed by: Rigo Griffith MD 11/15/22 22:28 PM Hospital Course (1) Fever: Acute/stable - resolved - Tm 38C last pm with associated hypotension - UA checked - although no bacteria on microscopy u/a itself suspicious for UTI - Empirically started on Rocephin - Urine culture prelim w/ no growth, less than 1000 colonies/mL, final results pending - CBC reviewed today, no leukocytosis, wbc 7.58, diff not ordered - No blood cultures ordered - No resp symptoms, has remained afebrile x 48 hours - Although urine culture prelim shows no growth, will complete a total of 7 days of abx (transition to Cefdinir 300mg BID) (2) Hypotension: Relatively acute - resolved - LR bolus x 1 given 11/26 followed by LR maintenance - despite low or low normal BPs his UOP has been wnl - flomax placed on hold of which he takes for BPH with LUTS - Of note, pt has had marginally soft BPs dating back to 11/22/22 (3) Acute renal failure: VITALY on CKD/unstable/high risk - severe/profound at time of admission, with marked elevation in BUN >200 and peak Cr 8.8 at presentation - baseline Cr ~2-3 (per nephro documentation 2.7) - CMP reviewed, Cr has been uptrending the past 5 days, 11/22 was 3.23 and now up to 3.90 today (11/27) - likely combination of pre-renal factors (marked dehydration, poor PO intake) and obstruction - appreciate nephrology consultation, have signed off as pt is refusing dialysis with plans to transition to hospice care - maintain sosa and cont sodium bicarb BID (4) C. difficile diarrhea: Acute/stable - resolved - Continue PO Vanco, complete course, today #01/12 - cont contact precautions (5) BPH w urinary obs/LUTS: Chronic/unstable - severe, with resulting b/l hydronephrosis + acute renal failure - cont sosa - resume flomax upon dc as BP has improved - Will plan to maintain sosa upon dc but no plan for urology fu as he is going to go hospice (6) Right thyroid nodule: Chronic/stable - uncertain risk - last imaging study - 4.1cm nodule right lobe in May 2021 - Does not appear to have had additional work up for this - TSH wnl - defer additional work-up -- transitioning to hospice at d/c (7) Bladder cancer: Chronic with ?recurrence - high-grade urothelial cancer per records dx 2017 - last cystoscopy was December 2021 at the [facility] - at that time he had evidence of ongoing obstruction from his BPH but no cancer seen on that cysto - it does not appear he had f/u after that - urine cytology negative for high grade urothelial carcinoma - given the extreme weight loss malignancy remains very high on the differential - but, given transition to hospice, no further w/u at this time (8) Severe protein-calorie malnutrition: Acute/unstable - 20+kg weight loss since 2021 - he is profoundly cachectic on examination -- but now eating much better - suspect he had lack of access to good nutrition at home based on description of his house and lack of good caretakers at home - never the less highly concerning for recurrent bladder ca or other malignancy process - no further w/u -- transitioning to hospice (9) Elevated troponin: Acute/stable - low to moderate risk - mild elevation in HS trop on admit - range of 34.7-45.6 - this likely represented myocardial demand ischemia in setting of acute on chronic renal failure rather than ACS - No c/o chest pain, dyspnea, and no dynamic EKG changes noted Plan Pt's home in uninhabitable by report. Was previously living with his step-son. Office of aging referral was made by report. Pt's nephew Zana had initially agreed to take patient home post-d/c with hospice in place. However, staff became aware on 11/26 that Zana has changed his mind and would like Mr Galvin placed in SNF or similar level of care. Patient is medically and hemodynamically stable for discharge to [facility] today with hospice services. Plan has been d/w Dr. Sheridan. Total Time Total Time Spent Total Time Spent (In Minutes): 40 minutes Discharge Plan Discharge Items Patient Disposition: Transfer [facility] Reason For Visit: ACUTE RENAL FAILURE, CONFUSION Discharge Diagnosis: renal failure urinary tract infection Condition on Discharge: Good Activity: Resume your previous activity Non-emergency contact: Primary Care Provider Call non-emergency contact if: you have any medication questions Follow-up/Referrals: PCP,NO [Primary Care Provider] - Diet: Regular Addtl Attending Provider Instructions: Patient was hospitalized for kidney failure which was felt to be related to multiple causes. A urinary catheter was placed to help urine drain better. Patient declined dialysis for his renal failure and subsequently hospice care was recommended. He is currently being treated for a suspected UTI due to fever and marginal BP on 11/26/22. He received Rocephin daily for 3 days and he will need to complete 4 more days of Cefdinir 300mg twice a day. Sosa catheter will need to remain in place. No plan for urology follow up due to patient going hospice. Pending Studies at Discharge: No Stand-Alone Forms: My [facility] Skilled Items Patient informed of condition?: Yes DNR: Yes Discharge Level of Care: Skilled Communicable Disease: No Discharge Prognosis: Stable Lines: None Urinary Catheter: Yes Medications and DC Order Prescriptions: New vancomycin 1,000 mg Recon Soln 125 mg PO Q6 2 Days Qty: 2 0RF tamsulosin 0.4 mg Capsule 0.4 mg PO HS Qty: 30 0RF sodium bicarbonate 650 mg Tablet 650 mg PO BID Qty: 60 0RF calcitriol 0.25 mcg Capsule 0.25 mcg PO QAM Qty: 30 0RF cefdinir 300 mg capsule 300 mg PO BID 5 Days Qty: 10 0RF Continued atorvastatin 80 mg tablet 80 mg PO HS amlodipine 10 mg Tablet 10 mg PO HS albuterol sulfate 90 mcg/actuation Hfa Aerosol Inhaler 2 puff inhalation Q4H PRN (Reason: Shortness Of Breath) (DME) nebulizers Misc See Rx Instructions .ROUTE .MEDSUPPLY Qty: 1 0RF Rx Instructions: use as directed with DUONEBS clopidogrel 75 mg Tablet 75 mg PO HS Spiriva with HandiHaler 18 mcg capsule, w/inhalation device 1 cap inhalation HS Rx Instructions: puncture 1 cap using device; one dose = 2 inhalations cyanocobalamin (vitamin B-12) [Vitamin B-12] 1,000 mcg Tablet 1,000 mcg PO DAILY folic acid 1 mg Tablet 1 mg PO DAILY cholecalciferol (vitamin D3) [Vitamin D3] 25 mcg (1,000 unit) Capsule 25 mcg PO DAILY Discharge Orders: Discharge Order (Routine); Ordered 11/28/22 Ordered By: Clarita Kaba Admission Data Admit Date/Time: 11/15/22 23:44 Attending Provider: Rich Sheridan Admit Provider: Bubba Carlos Primary Care Provider: PCP,NO Other Providers: [facility] ; Bubba Carlos ; Cornelius Lo ; Nancy Galvan Coding Level of Care Code 95111 INP/OBS DISCH >30 MIN Diagnoses Fever R50.9 Hypotension I95.9 Acute renal failure N17.9 C. difficile diarrhea A04.72 BPH w urinary obs/LUTS N40.1; N13.8 Right thyroid nodule E04.1 Bladder cancer C67.9 Severe protein-calorie malnutrition E43 Elevated troponin R77.8
== END 2022-11-28 11:15 | disposition hospice, inpatient (51) | DRG 682 ==
LOC: ED 20:01 → SUATTDRO 23:44 → 2E 23:44 → 3W 11-19 17:50